=== PATIENT | female | born 1960 | race Caucasian/White ===

== ENCOUNTER 2018-02-25 00:52 | Outpatient (CLI) | payer MEDICAID, SELFPAY ==
--- NOTE | 2018-02-25 08:56 | DI.REPORT_ITS ---
SYMPTOM/DIAGNOSIS: KIDNEY CALCULI N20.0 RENAL ULTRASOUND: Increased echogenicity is noted bilaterally in the medullary regions consistent with medullary nephrocalcinosis. There is no evidence of hydronephrosis. A 4 mm stone is noted at the lower pole of the right kidney. Multiple nonobstructing stones are seen in the left kidney. The pre-void bladder volume measures 79 cc. Both ureteral jets were identified. The post-void residual is 3 cc. IMPRESSION: Medullary nephrocalcinosis and small nonobstructing stones. The previously noted hydronephrosis has resolved.
== END 2018-02-25 00:53 ==
PROVIDERS: PCP Nurse Practitioner; Visit Provider Urology
DX: N20.0 Calculus of kidney (principal); E83.59 Other disorders of calcium metabolism; N29 Other disorders of kidney and ureter in diseases classified elsewhere
CPT/HCPCS: 76770

== ENCOUNTER 2018-03-26 12:13 | Outpatient (CLI) | payer MEDICAID, SELFPAY | END 2018-03-26 12:33 | PROVIDERS: PCP Nurse Practitioner; Visit Provider Urology | DX: R30.0 Dysuria (principal) | CPT/HCPCS: 87077; 87086; 87186 ==

== ENCOUNTER 2018-04-09 19:32 | Emergency (ER) | payer MEDICAID, SELFPAY ==
[2018-04-09 19:35] VITALS: BP 134/78; PULSE 76; RESP 16; TEMP 36.6; O2SAT 99
--- NOTE | 2018-04-09 19:53 | DI.CT_ITS ---
SYMPTOM/DIAGNOSIS: H/O STONES, GENERALIZED ABD PAIN, WORSE IN RLQ. RENAL COLIC CT: The lung bases are unremarkable. There is some gas in the distal esophagus which could be related to reflux. A fatty liver is identified. The gallbladder is unremarkable. There are no stones or ductal dilatation. The pancreas, spleen and adrenals are unremarkable. Bilateral nonobstructing renal calculi are demonstrated. There is a right extra renal pelvis and the right ureter appears dilated. There is some prominence of the uroepithelium superiorly. Findings can be seen with infection or recently passed stone. There is no evidence of bowel obstruction. Distal descending and sigmoid diverticulosis is identified. There is some questionable mild haziness in the fat adjacent to the colon which could represent early diverticulitis. There are areas of increased density within the stomach which may be related to ingested products. There is some wall prominence of the small bowel in the left side of the abdomen. This is likely related to underdistention. The appendix is dilated at 9 mm, similar to the prior examination. There is no evidence of periappendiceal inflammatory change. The bladder is unremarkable. The reproductive organs as visualized are unremarkable. There is no evidence of free air or free fluid in the intraperitoneal space. No acute bony abnormality is seen. Degenerative changes are identified. Incidental note is made of a 1.2 cm density in the posterior aspect of the left breast. There is no evidence of an aortic aneurysm or adenopathy. SUMMARY: There are bilateral nonobstructing renal calculi. There is an extra- renal pelvis on the right side and the right ureter appears somewhat dilated. The findings could be seen in infection or recently passed calculus. Distal descending and sigmoid diverticulosis is identified with no definite evidence of diverticulitis. Wall prominence in the small bowel in the left abdomen is likely related to underdistention. There is a 1.2 cm. density in the posterior aspect of the left breast. Diagnostic mammograms and ultrasound are suggested for further evaluation. Note is also made of a fatty liver.
[2018-04-09 20:15] LABS: Abs Immature Grans 0.02 k/cumm (0.0-0.09); Absolute Basophil Count 0.06 k/cumm (0.0-0.2); Absolute Eosinophil Count 0.11 k/cumm (0.0-0.7); Absolute Monocyte Count 0.61 k/cumm (0.11-0.7); Absolute Neutrophil Count 4.28 k/cumm (1.2-6.7); Basophils % 0.7; Eosinophils % 1.3; HCT 44.4 % (36.0-46.0); HGB 14.9 g/dL (12.0-15.5); Immature Grans % 0.2; Lymphocytes % 38.6; Mean Corp. HGB Concentration 33.6 g/dL (32.0-36.0); Mean Corpuscular Hemoglobin 29.7 pg (27.0-33.0); Mean Corpuscular Volume 88.6 fL (80-95); Mean Platelet Volume 11.1 fL (8.0-11.0); Monocytes % 7.4; Neutrophils % 51.8; Platelet Count 210 x1000/uL (130-400); RBC 5.01 m/cumm (4.00-5.20); RBC Distribution Width 13.1 % (11.7-14.6); White Blood Cell Count 8.28 k/cumm (4.4-10.8)
[2018-04-09 20:16] LABS: Bilirubin Negative (Negative); Blood Negative (Negative); Clarity Clear; Glucose Negative (Negative); Ketones Negative (Negative); Leukocyte Esterase Trace (Negative); Nitrite Negative (Negative); Specific Gravity <= 1.005 (1.005-1.025); Urobilinogen 0.2 EU/dL (Up TO 0.2)
[2018-04-09] MEDS: Acetaminophen 500 MG TAB 1000 MG PO (20:18)
[2018-04-09] MEDS: Normal Saline 1,000 ML 1000 ML IV (20:19)
[2018-04-09] MEDS: MORPHine 10 MG/ML VIAL 4 MG IVP (20:19)
[2018-04-09] MEDS: Ketorolac 30 MG/ML VIAL 15 MG IVP (20:19)
[2018-04-09 20:30] LABS: Bacteria Rare HPF (Negative); Epithelial Cells Rare HPF (Negative); Other Cells Negative (Negative); RBC 0-2 (0-2)
[2018-04-09 20:31] LABS: C & S Indicated? C&S Done As Ordered; Casts Negative LPF (Negative); Crystals Negative HPF (Negative); Mucus Negative (Negative)
[2018-04-09 20:33] LABS: ALT 50 U/L (12-78); Albumin 4.2 g/dL (3.4-5.0); Alkaline Phosphatase 118 U/L (46-116); Anion Gap 11.1 mmol/L (3-11); BUN 16 mg/dL (7-18); Bilirubin, Total 0.3 mg/dL (0.2-1.0); CO2 25.9 mmol/L (21.0-32.0); CREATININE 0.99 mg/dL (0.55-1.02); Calcium 8.9 mg/dL (8.5-10.1); Chloride 99 mmol/L (98-107); Estimated GFR 57.61 (mL/min/1.73m2); Glucose 137 mg/dL (70-100); Lipase 295 U/L (73-393); Potassium 3.6 mmol/L (3.5-5.1); Sodium 136 mmol/L (136-145); Total Protein 7.9 g/dL (6.4-8.2)
--- NOTE | 2018-04-09 20:42 | ED.GENADUL_ITS ---
Discharge Plan Disposition Patient Disposition: HOME Condition: Good Discharge Details Chief Complaint: Abd Prob Clinical Impression: Urolithiasis, Breast lesion Primary Care Provider: Demetria Larios ED Provider: Jose Tillman Home Meds and New Rx's Prescriptions: New acetaminophen [Mapap Extra Strength] 500 MG tablet 1,000 mg PO Q6H 5 Days Qty: 60 RF: 0 ibuprofen [Motrin IB] 200 MG tablet 600 mg PO Q6H 5 Days Qty: 60 RF: 0 sulfamethoxazole-trimethoprim [Bactrim DS] 800-160 mg tablet 1 tab PO Q12H Qty: 14 RF: 0 metronidazole [Flagyl] 500 mg tablet 500 mg PO TID Qty: 21 RF: 0 No Action APPLE CIDER VINEGAR 500 mg PO 2 TBS DAILY RF: 0 EPIPEN 1 ea IM 1:1000 ONCE RF: 0 sulfamethoxazole-trimethoprim [Bactrim DS] 800-160 mg tablet 1 tab PO BID Qty: 20 RF: 0 chlorthalidone 25 MG tablet 25 mg PO DAILY RF: 0 cranberry conc-ascorbic acid [Cranberry Concentrate] 1 EACH capsule 3 mg PO DAILY RF: 0 magnesium oxide 400 MG tablet 400 mg PO DAILY RF: 0 chromium picolinate 400 MCG tablet 400 mcg PO DAILY RF: 0 flaxseed oil 1,000 MG capsule 1,000 mg PO DAILY RF: 0 ascorbate calcium 500 MG tablet 1,500 mg PO DAILY RF: 0 nystatin (bulk) 1 EACH powder 1 appful . PRN PRNRF: 0 potassium chloride 20 MEQ tablet extended release 20 mg PO DAILY RF: 0 Blackstrap Molasses 15 ml PO DAILY RF: 0 acetaminophen [Mapap Extra Strength] 500 MG tablet 1,000 mg PO Q4H PRN PRNRF: 0 acidophilus-pectin, citrus 1 CAP tablet 1 cap PO TID PRN PRNRF: 0 Discharge Instructions Instructions: Kidney Stones (ED) Additional Instructions: A breast lesion was noted on your CT scan. This may just be an incidental finding, but please follow-up with your primary care provider as soon as possible for reassessment. Please take medication as directed. If you notice any worsening of your symptoms, or any new symptoms such as vomiting, diarrhea, fever, chills, shortness of breath, chest pain, numbness, weakness, or fainting , please return immediately to the emergency department for reevaluation. Please follow up with your primary care provider as soon as possible for reassessment and reevaluation. As always, it was a pleasure participating in your medical care today. Referrals: Demetria Larios [Primary Care Provider] - Medical Decision Making This is a pleasant 57-year-old female with a long history of multiple episodes of kidney stones in the past for which she has had multiple interventions. She has been on an antibiotic for the last 10 days for suspected urinary tract infection. This antibiotic is Bactrim. She has been taking it as directed. Over the last 24-48 hours she has had bilateral flank pain, right lower quadrant pain, and generalized abdominal pain. Physical exam demonstrates reproducible tenderness in these areas. We will perform urinalysis , pain control, rehydration, and CT scan to evaluate for acute obstructive process in conjunction with potential infectious etiology. 10:[address] scan results demonstrate bilateral nonobstructive renal calculi. There is mild dilation of the right extrarenal pelvis and the right ureter, but there is no evidence of stone. This may represent a recently passed calculus. Distal descending sigmoid diverticulosis with mild haziness to the surrounding fat. This might be concerning for early diverticulitis. Small prominence of the small bowel in the left hemiabdomen. Could be related to under distention or enteritis. 1.2 cm density within the posterior aspect of the left breast. Diagnostic mammography and ultrasound would be beneficial. Patient's laboratory workup has returned, and she demonstrates no evidence of leukocytosis. No significant white count. No significant left shift. Electrolytes are normal. Renal function is normal. Urinalysis shows trace leukocytes, 3-5 WBCs, negative nitrites. On reassessment the patient's pain is significantly improved. With no evidence of obstructing uropathy, no signs of pyelonephritis or significant UTI, I feel that her clinical picture does correlate with a recently passed stone, and potentially well treated urinary tract infection on her outpatient antibiotics. Patient has no significant left lower quadrant tenderness, however CT does show signs of questionable haziness of the surrounding fat. She has no significant diarrhea, or bloody diarrhea. I feel that the diagnosis of diverticulitis is certainly less likely with her current clinical picture. I feel she can be safely discharged home. Out of abundance of precaution we will give her a prescription for Bactrim DS, and Flagyl for home use in case she does have an onset of her symptoms, concerning for diverticulitis. We discussed reasons for her to start taking medication. Additionally we discussed the importance of close follow-up in the next 48 hours with her PCP. We discussed red flags for which to return the patient understands. We also discussed the need for follow-up for the breast density noted on CT scan. I have extensively reviewed the treatment plan and discharge instructions with the patient. I have addressed all patient concerns at this time. The patient was made aware of what symptoms to monitor for that would warrant a return to the emergency department. Discussed the plan with the patient, they demonstrate verbal understanding and agreement with our assessment and plan at this time. HPI General Date/Time Provider Initiated Documentation: 04/09/18 19:53 . HPI Narrative: This is a 57-year-old female with past medical history of renal stones, previous renal stents, multiple interventions in the past, as well as hypertension who sees Dr. Agustin for her urology. She presents today for evaluation of generalized abdominal back and flank pain. Patient states that roughly 2 weeks ago she had dysuria and increase in urinary frequency, and was started on Bactrim. She has been taking this faithfully for the last 10 days. And then she has been drinking notable amounts of water, and taking some Pyridium occasionally. Over the last 24-48 hours she has had sudden worsening of bilateral back and flank pain, generalized abdominal pain, worse in the right lower quadrant, as well as generalized abdominal pain. She states that the symptoms are very similar to her multiple episodes of kidney stones in the past. She denies any systemic symptoms of fevers or chills. She denies any diarrhea. She does admit to occasional nausea and the desire to vomit. She denies any aggravating or relieving factors. She denies any recent surgeries, she denies any pertinent family history. She denies any IV or illicit drug use Related Data Home Medications Medication Instructions Recorded Confirmed Apple Cider Vinegar 500 mg PO 2 TBS DAILY 12/16/12 01/03/18 Epipen 1 ea IM 1:1000 ONCE 12/16/12 01/03/18 chlorthalidone 25 mg PO DAILY 05/20/16 01/03/18 chromium picolinate 400 mcg PO DAILY 05/20/16 01/03/18 cranberry conc-ascorbic acid 3 mg PO DAILY 05/20/16 01/03/18 [Cranberry Concentrate] magnesium oxide 400 mg PO DAILY 05/20/16 01/03/18 Blackstrap Molasses 15 ml PO DAILY 11/25/17 01/03/18 nystatin (bulk) 1 appful . PRN PRN 11/25/17 01/03/18 potassium chloride 20 mg PO DAILY 11/25/17 01/03/18 ascorbate calcium 1,500 mg PO DAILY 12/21/17 01/03/18 flaxseed oil 1,000 mg PO DAILY 12/21/17 01/03/18 acetaminophen [Mapap Extra 1,000 mg PO Q4H PRN PRN tab 01/04/18 Strength] acidophilus-pectin, citrus 1 cap PO TID PRN PRN cap 01/04/18 sulfamethoxazole 800 1 tab PO BID #20 tab 03/29/18 mg-trimethoprim 160 mg tablet acetaminophen [Mapap Extra 1,000 mg PO Q6H 5 Days #60 tab 04/09/18 Strength] ibuprofen [Motrin Ib] 600 mg PO Q6H 5 Days #60 tab 04/09/18 metronidazole [Flagyl] 500 mg PO TID #21 tab 04/09/18 sulfamethoxazole-trimethoprim 1 tab PO Q12H #14 tab 04/09/18 [Bactrim DS] Previous Rx's Medication Instructions Recorded acetaminophen [Mapap Extra 1,000 mg PO Q4H PRN PRN tab 01/04/18 Strength] acidophilus-pectin, citrus 1 cap PO TID PRN PRN cap 01/04/18 sulfamethoxazole 800 1 tab PO BID #20 tab 03/29/18 mg-trimethoprim 160 mg tablet acetaminophen [Mapap Extra 1,000 mg PO Q6H 5 Days #60 tab 04/09/18 Strength] ibuprofen [Motrin Ib] 600 mg PO Q6H 5 Days #60 tab 04/09/18 metronidazole [Flagyl] 500 mg PO TID #21 tab 04/09/18 sulfamethoxazole-trimethoprim 1 tab PO Q12H #14 tab 04/09/18 [Bactrim DS] Allergies Allergy/AdvReac Type Severity Reaction Status Date / Time chocolate flavor Allergy Severe ANAPHYLAXIS Unverified 02/25/18 09:38 venom-honey bee Allergy Severe Anaphylaxsi Unverified 02/25/18 09:38 [bee venom (honey bee)] s pomegranate Allergy Intermediate sore Unverified 02/25/18 09:38 throat, diarrhea ciprofloxacin [From Cipro] Allergy Mild RASH,T Unverified 02/25/18 09:38 ELEVATION,TACHYCARDIA docusate sodium Allergy Unverified 02/25/18 09:38 [From Senna-S] sennosides [From Senna-S] Allergy Unverified 02/25/18 09:38 milk AdvReac Intermediate Diarrhea Unverified 02/25/18 09:38 peanut AdvReac Mild Diarrhea Unverified 02/25/18 09:38 cammomile Allergy Severe Skin Rash Uncoded 01/03/18 09:05 CHLORINE Allergy Severe Anaphylaxsi Uncoded 01/03/18 09:05 s General Stated Complaint: Abd Prob GUAD[place]UPE: 3 Review of Systems Review of Systems 10 point review of systems was performed, pertinent positives and negatives are noted in the history of present illness. FORMERLY [facility], [facility] Social History Smoking/Tobacco Use Status: Never Exam Narrative Exam Narrative: 1.Const: Well-nourished, Well-developed, appearing stated age 2.Eyes: PERRL, no conjunctival injection, and symmetrical lids. 3.ENT: Atraumatic external nose and ears. Moist MM. Neck: Symmetric, trachea midline, No thyromegaly. 4.CVS: +S1/S2, No murmurs or gallops. Peripheral pulses 2+ and equal in all extremities. Brisk capillary refill in all extremities. 5.RESP: Unlabored respiratory effort. Clear to auscultation bilaterally. No wheezes rales or rhonchi 6.GI: Soft, Nondistended, No hepatosplenomegaly. Generalized tenderness throughout. Reproducible flank tenderness bilaterally, right lower quadrant tenderness on exam. Negative Mulligan sign. Negative obturator and psoas sign 7.MSK: Normocephalic/Atraumatic, Extremities w/o deformity or ttp No cyanosis or clubbing, Normal movement of all extremities 8.Skin: Warm, Dry. No rashes or lesions. 9.Neuro: barrel painter II-XII grossly intact. Sensation grossly intact, no focal neurologic deficits. 10.Psych: (AAO) x3. Appropriate mood and affect Course Vital Signs Temperature 36.6 C 09/25/18 19:35 Pulse 76 04/09/18 19:35 Respiratory Rate 16 04/09/18 19:35 Blood Pressure 134/78 04/09/18 19:35 Pulse Oximetry 99 04/09/18 19:35 Temperature 36.6 C 04/09/18 19:35 Temperature Source Temporal Artery Scan 04/09/18 19:35 Pulse 76 04/09/18 19:35 Respiratory Rate 16 04/09/18 19:35 Respiratory Effort 04/09/18 19:39 Blood Pressure 134/78 04/09/18 19:35 Blood Pressure Position Sitting 04/09/18 19:35 Pulse Oximetry 99 04/09/18 19:35 Oxygen Delivery Method Room Air 04/09/18 19:35 Oxygen Flow Rate 0 04/09/18 19:35 Lab/Test Results Lab/Test Results: 04/09/18 19:58 Urine - Clean Catch Urine Culture - Pending Laboratory Tests Range/Units 04/09/18 04/09/18 19:58 19:58 WBC (4.4-10.8) k/cumm 8.28 RBC (4.00-5.20) m/cumm 5.01 Hgb (12.0-15.5) g/dL 14.9 Hct (36.0-46.0) % 44.4 MCV (80-95) fL 88.6 MCH (27.0-33.0) pg 29.7 MCHC (32.0-36.0) g/dL 33.6 RDW (11.7-14.6) % 13.1 Plt Count (130-400) x1000/uL 210 MPV (8.0-11.0) fL 11.1 H Immature Gran % 0.2 Neutrophils % 51.8 Lymphocytes % 38.6 Monocytes % 7.4 Eosinophils % 1.3 Basophils % 0.7 Absolute Neutrophils (1.2-6.7) k/cumm 4.28 Absolute Lymphocytes (1.2-3.4) k/cumm 3.20 Absolute Monocytes (0.11-0.7) k/cumm 0.61 Absolute Eosinophils (0.0-0.7) k/cumm 0.11 Absolute Basophils (0.0-0.2) k/cumm 0.06 Urine Color (Yellow) Yellow Urine Clarity Clear Urine pH (5-8) 7.0 Ur Specific [place] (1.005-1.025) <= 1.005 Urine Protein (Negative) mg/dL Negative Urine Ketones (Negative) mg/dL Negative Urine Blood (Negative) Negative Urine Nitrite (Negative) Negative Urine Bilirubin (Negative) Negative Urine Urobilinogen (Up TO 0.2) EU/dL 0.2 Ur Leukocyte Esterase (Negative) Trace H Urine Glucose (Negative) mg/dL Negative
[2018-04-09 21:08] LABS: AST 29 U/L (15-37)
--- NOTE | 2018-04-09 22:01 | DI.VRAD_ITS ---
EXAM: CT Abdomen and Pelvis Without Intravenous Contrast CLINICAL HISTORY: 57 years old, female; Signs and symptoms; Other: HX of stones, generalized abd TECHNIQUE: Axial computed tomography images of the abdomen and pelvis without intravenous contrast. All CT scans at this facility use at least one of these dose optimization techniques: automated exposure control; mA and/or kV adjustment per patient size (includes targeted exams where dose is matched to clinical indication); or iterative reconstruction. Coronal and sagittal reformatted images were created and reviewed. COMPARISON: CT RENAL COLIC WO CONTRAST 11/25/2017 12:11 PM FINDINGS: Limitations: Evaluation of the intra-abdominal organs and vasculature is limited secondary to the lack of IV contrast. Evaluation of the bowel is limited secondary to the lack of oral contrast. Lung bases: Unremarkable. No mass. No consolidation. Mediastinum: Gas in the distal esophagus which can be seen with reflux. ABDOMEN: Liver: Hepatic steatosis. Gallbladder and bile ducts: Unremarkable. No calcified stones. No ductal dilation. Pancreas: Unremarkable. No ductal dilation. Spleen: Unremarkable. No splenomegaly. Adrenals: Unremarkable. No mass. Kidneys and ureters: Bilateral nonobstructive renal calculi. There is a right extrarenal pelvis and a dilated appearance to the right ureter. There is prominence of the uroepithelium superiorly. Findings can be seen with infection or a recently passed calculus. Stomach and bowel: No evidence of bowel obstruction. Distal descending and sigmoid diverticulosis is seen. There is some mild haziness to the fat on series 3 image 68 which should be correlated with any concern for early diverticulitis. there are areas of increased density within the stomach which may be related to ingested products. There is some wall prominence to the small bowel in the left emily-abdomen (series 3 image 44) which may be related to underdistention but should be correlated with any concern for enteritis. PELVIS: Appendix: The appendix is measuring dilated at 9 mm, similar to prior examination. This is favored to be chronic as the appendix is gas containing and demonstrates no periappendiceal infiltrative changes. Bladder: The urinary bladder within normal limits. No stones. Reproductive: The uterus identified. No large adnexal masses. ABDOMEN and PELVIS: Intraperitoneal space: Unremarkable. No free air. No significant fluid collection. Bones/joints: Skeletal degenerative changes. Disc space narrowing at L5-S1 with corresponding vacuum phenomenon. No acute fracture. No dislocation. Soft tissues: Series 3 image 1 demonstrates a 1.2 cm density within the posterior aspect of the left breast. Vasculature: Vascular calcifications. Lymph nodes: Unremarkable. No enlarged lymph nodes. IMPRESSION: 1.Bilateral nonobstructive renal calculi. There is a right extrarenal pelvis and a dilated appearance to the right ureter. There is prominence of the uroepithelium superiorly. Findings can be seen with infection or a recently passed calculus. 2. distal descending and sigmoid diverticulosis with a mild haziness to the surrounding fat. This should be correlated with any concern for early diverticulitis. 3. The wall prominence in the small bowel in the left hemiabdomen. This could be related to underdistention or enteritis in the appropriate clinical setting. 4. 1.2 cm density within the posterior aspect of the left breast. Diagnostic mammogram and ultrasound would be beneficial. 5. Hepatic steatosis and other findings as above. Dictated and Authenticated by: Cindy Henry MD. Ordering:MARQUEZ LUNA MD
[2018-04-09 22:30] VITALS: BP 122/72; PULSE 52; RESP 16; TEMP 37.2; O2SAT 100
[2018-04-09] MEDS: Ibuprofen 800 MG TAB (22:39)
[2018-04-09] MEDS: Acetaminophen 500 MG TAB (22:39)
[2018-04-09] MEDS: HYDROcodone 5/Acetaminophen 325 TAB (22:39)
== END 2018-04-09 23:01 | disposition home or self-care (01) ==
PROVIDERS: Emergency Provider Student in an Organized Health Care Education/Training Program; PCP Nurse Practitioner
DX: N20.0 Calculus of kidney (principal); R93.5 Abnormal findings on diagnostic imaging of other abdominal regions, including retroperitoneum; R93.3 Abnormal findings on diagnostic imaging of other parts of digestive tract; Z87.442 Personal history of urinary calculi
CPT/HCPCS: 36415; 80053; 83690; 96361; 96374; 96375; 99284; 74176; 81003; 81015; 85025; 87086; 99285; J1885; J2270

== ENCOUNTER 2018-04-10 13:15 | Outpatient (CLI) | payer MEDICAID, SELFPAY ==
--- NOTE | 2018-04-10 13:52 | DI.MAMMO_ITS ---
SYMPTOM/DIAGNOSIS: ABNL BREAST FINDINGS, LT BREAST LESION ON CT MAMMOGRAMS: Additional images are interpreted according to the usual protocol including tomosynthesis and 2D imaging. The breast tissue is of moderate radiodensity. There are fibroglandular opacities in the upper, outer quadrant of each breast. No discrete mass is identified in the right or left breast and there are no suspicious calcifications. There is a question regarding the possibility of a left breast nodule on a recent CT. Further assessment with ultrasound was carried out. At ultrasound there is no evidence of a cyst or mass. SUMMARY: No evidence of malignancy, Category 1, yearly screening mammography is recommended. Breast density category B. MQSA ASSESSMENT OF FINDINGS: Negative. Category 1. Patient will receive a letter notifying them of these results. BI-RADS category B. There are scattered areas of fibroglandular density.
== END 2018-04-10 13:35 ==
PROVIDERS: PCP Nurse Practitioner; Visit Provider Nurse Practitioner
DX: Z12.31 Encounter for screening mammogram for malignant neoplasm of breast (principal); R92.8 Other abnormal and inconclusive findings on diagnostic imaging of breast; N60.81 Other benign mammary dysplasias of right breast; N60.82 Other benign mammary dysplasias of left breast
CPT/HCPCS: 76642; 77062; 77066; G0279

== ENCOUNTER 2018-04-10 18:57 | Emergency (ER) | payer MEDICAID, SELFPAY ==
[2018-04-10 19:10] VITALS: BP 146/65; PULSE 61; RESP 16; TEMP 36.9; O2SAT 97
--- NOTE | 2018-04-10 19:40 | ED.GENADUL_ITS ---
Discharge Plan Disposition Condition: Stable Discharge Details Chief Complaint: Allergic Primary Care Provider: Demetria Larios ED Provider: Jose Luis Grant Home Meds and New Rx's Prescriptions: No Action APPLE CIDER VINEGAR 500 mg PO 2 TBS DAILY RF: 0 EPIPEN 1 ea IM 1:1000 ONCE RF: 0 sulfamethoxazole-trimethoprim [Bactrim DS] 800-160 mg tablet 1 tab PO BID Qty: 20 RF: 0 chlorthalidone 25 MG tablet 25 mg PO DAILY RF: 0 cranberry conc-ascorbic acid [Cranberry Concentrate] 1 EACH capsule 3 mg PO DAILY RF: 0 magnesium oxide 400 MG tablet 400 mg PO DAILY RF: 0 chromium picolinate 400 MCG tablet 400 mcg PO DAILY RF: 0 flaxseed oil 1,000 MG capsule 1,000 mg PO DAILY RF: 0 ascorbate calcium 500 MG tablet 1,500 mg PO DAILY RF: 0 acetaminophen [Mapap Extra Strength] 500 MG tablet 1,000 mg PO Q6H 5 Days Qty: 60 RF: 0 ibuprofen [Motrin IB] 200 MG tablet 600 mg PO Q6H 5 Days Qty: 60 RF: 0 sulfamethoxazole-trimethoprim [Bactrim DS] 800-160 mg tablet 1 tab PO Q12H Qty: 14 RF: 0 metronidazole [Flagyl] 500 mg tablet 500 mg PO TID Qty: 21 RF: 0 nystatin (bulk) 1 EACH powder 1 appful . PRN PRNRF: 0 potassium chloride 20 MEQ tablet extended release 20 mg PO DAILY RF: 0 Blackstrap Molasses 15 ml PO DAILY RF: 0 acetaminophen [Mapap Extra Strength] 500 MG tablet 1,000 mg PO Q4H PRN PRNRF: 0 acidophilus-pectin, citrus 1 CAP tablet 1 cap PO TID PRN PRNRF: 0 Medical Decision Making 57-year-old female presents with mild pharyngitis over hours time. She has numerous medication intolerances and allergies and this may in fact she mildly to medication she was prescribed yesterday in the form of high dose prescription Tylenol. She does no evidence of impending anaphylaxis, no rash. He had taken Benadryl prior with some improvement. I will prescribe her 3 days of prednisone. I feel she is stable for discharge with outpatient management of mild pharyngitis. HPI General Mode of arrival: ambulatory . Date/Time Provider Initiated Documentation: 04/10/18 19:37 . Limitations to Documentation: no limitations . History of Present Illness described as mild, Quality is described as aching, Patient reports no radiation. Patient started experiencing this hour(s) and it has been constant. No relieving factors improve symptom(s), No exacerbating factors reported . HPI Narrative: Sore throat: 49-year-old female describes gradual onset of achy, mild sore throat that is worsened by swallowing over the course of the day today. She attributes it to question of intolerance of prescribed acetaminophen that she received yesterday when she had an emergency department visit for renal colic. She states her kidney and pain is improving. She has not had difficulty breathing, no drooling , no change to voice Related Data Home Medications Medication Instructions Recorded Confirmed Apple Cider Vinegar 500 mg PO 2 TBS DAILY 12/16/12 04/10/18 Epipen 1 ea IM 1:1000 ONCE 12/16/12 04/10/18 chlorthalidone 25 mg PO DAILY 05/20/16 04/10/18 chromium picolinate 400 mcg PO DAILY 05/20/16 04/10/18 cranberry conc-ascorbic acid 3 mg PO DAILY 05/20/16 04/10/18 [Cranberry Concentrate] magnesium oxide 400 mg PO DAILY 05/20/16 04/10/18 Blackstrap Molasses 15 ml PO DAILY 11/25/17 04/10/18 nystatin (bulk) 1 appful . PRN PRN 11/25/17 04/10/18 potassium chloride 20 mg PO DAILY 11/25/17 04/10/18 ascorbate calcium 1,500 mg PO DAILY 12/21/17 04/10/18 flaxseed oil 1,000 mg PO DAILY 12/21/17 04/10/18 acetaminophen [Mapap Extra 1,000 mg PO Q4H PRN PRN tab 01/04/18 04/10/18 Strength] acidophilus-pectin, citrus 1 cap PO TID PRN PRN cap 01/04/18 04/10/18 sulfamethoxazole 800 1 tab PO BID #20 tab 03/29/18 04/10/18 mg-trimethoprim 160 mg tablet acetaminophen [Mapap Extra 1,000 mg PO Q6H 5 Days #60 tab 04/09/18 04/10/18 Strength] ibuprofen [Motrin Ib] 600 mg PO Q6H 5 Days #60 tab 04/09/18 04/10/18 metronidazole [Flagyl] 500 mg PO TID #21 tab 04/09/18 04/10/18 sulfamethoxazole-trimethoprim 1 tab PO Q12H #14 tab 04/09/18 04/10/18 [Bactrim DS] Previous Rx's Medication Instructions Recorded acetaminophen [Mapap Extra 1,000 mg PO Q4H PRN PRN tab 01/04/18 Strength] acidophilus-pectin, citrus 1 cap PO TID PRN PRN cap 01/04/18 sulfamethoxazole 800 1 tab PO BID #20 tab 03/29/18 mg-trimethoprim 160 mg tablet acetaminophen [Mapap Extra 1,000 mg PO Q6H 5 Days #60 tab 04/09/18 Strength] ibuprofen [Motrin Ib] 600 mg PO Q6H 5 Days #60 tab 04/09/18 metronidazole [Flagyl] 500 mg PO TID #21 tab 04/09/18 sulfamethoxazole-trimethoprim 1 tab PO Q12H #14 tab 04/09/18 [Bactrim DS] Allergies Allergy/AdvReac Type Severity Reaction Status Date / Time chocolate flavor Allergy Severe ANAPHYLAXIS Unverified 04/10/18 19:29 venom-honey bee Allergy Severe Anaphylaxsi Unverified 04/10/18 19:29 [bee venom (honey bee)] s pomegranate Allergy Intermediate sore Unverified 04/10/18 19:29 throat, diarrhea ciprofloxacin [From Cipro] Allergy Mild RASH,T Unverified 04/10/18 19:29 ELEVATION,TACHYCARDIA docusate sodium Allergy Unverified 04/10/18 19:29 [From Senna-S] sennosides [From Senna-S] Allergy Unverified 04/10/18 19:29 milk AdvReac Intermediate Diarrhea Unverified 04/10/18 19:29 peanut AdvReac Mild Diarrhea Unverified 04/10/18 19:29 cammomile Allergy Severe Skin Rash Uncoded 04/10/18 19:29 CHLORINE Allergy Severe Anaphylaxsi Uncoded 04/10/18 19:29 s General Stated Complaint: Allergic GUADALUPE: 4 Review of Systems Review of Systems 6 systems reviewed and otherwise negative PFSH Social History Smoking/Tobacco Use Status: Never Exam Narrative Exam Narrative: GEN: awake, alert, oriented 3. Pleasant, well groomed, interactive. HEAD: Normocephalic, atraumatic ENT: Mucous membranes moist, oropharynx with mild erythema of the tonsillar pillars, no exudate, no swelling, and no asymmetry, External ear exam unremarkable. There is anterior cervical lymphadenopathy that is mildly tender and symmetric EYES: PERRL, EOMI NECK: Full ROM, no DISHA, no menigismus CHEST/RESP: Nontender, clear to auscultation bilateral, no wheeze/rhonchi/rales CARDIOVASCULAR: RRR, no murmur, rub elizabeth. 2+ Rad pulse bilateral EXT: Full ROM, no edema, no rash Neuro: Grossly normal neurologic exam, conversant, interactive. Psych: Speech fluent, thoughts congruent, affect normal Course Vital Signs Temperature 36.9 C 04/10/18 19:10 Pulse 61 04/10/18 19:10 Respiratory Rate 16 04/10/18 19:10 Blood Pressure 146/65 H 04/10/18 19:10 Pulse Oximetry 97 04/10/18 19:10 Temperature 36.9 C 04/10/18 19:10 Temperature Source Temporal Artery Scan 04/10/18 19:10 Pulse 61 04/10/18 19:10 Respiratory Rate 16 04/10/18 19:10 Respiratory Effort 04/10/18 19:16 Respiratory Pattern Normal 04/10/18 19:16 Blood Pressure 146/65 H 04/10/18 19:10 Pulse Oximetry 97 04/10/18 19:10 Oxygen Delivery Method Room Air 04/10/18 19:10 Oxygen Flow Rate 0 04/10/18 19:10 Pain Level 3 04/10/18 19:10
[2018-04-10] MEDS: predniSONE 20 MG TAB 40 MG PO (19:41)
--- NOTE | 2018-04-11 14:16 | PDOC.ERCMPRO ---
Care Management Progress Note 04/10/18-Pt seen on 04/09/18 for mild pharyngitis. F/U refrral faxed to [facility] as Graeme is pt's PCP.
== END 2018-04-10 20:02 | disposition home or self-care (01) ==
LOC: ER 19:57
PROVIDERS: Emergency Provider Emergency Medicine; PCP Nurse Practitioner
DX: J02.9 Acute pharyngitis, unspecified (principal)
CPT/HCPCS: 99283; J7512

== ENCOUNTER 2018-04-21 11:39 | Outpatient (REF) | payer MEDICAID, SELFPAY | END 2018-04-21 11:59 | LOC: LBN 11:39 | PROVIDERS: PCP Nurse Practitioner; Visit Provider Urology | DX: N39.0 Urinary tract infection, site not specified (principal) | CPT/HCPCS: 87086 ==

== ENCOUNTER 2018-05-06 15:00 | Outpatient (REF) | payer MEDICAID, SELFPAY | END 2018-05-06 15:20 | LOC: LBN 15:00 | PROVIDERS: PCP Nurse Practitioner; Visit Provider Nurse Practitioner Gerontology | DX: N39.0 Urinary tract infection, site not specified (principal) | CPT/HCPCS: 87086 ==

== ENCOUNTER 2018-05-14 00:20 | Outpatient (CLI) | payer MEDICAID, SELFPAY ==
--- NOTE | 2018-05-14 09:00 | DI.US_ITS ---
SYMPTOMS/DIAGNOSIS: MONITOR STONES, ? HYDRONEPHROSIS, UTI, RECURRENT NEPHROLITHIASIS, N20.0, N39.0 RENAL ULTRASOUND: Routine examination. Comparison ultrasound is 02/25/18. Comparison CT scan is . The right kidney measures 12.1 cm long. There is again seen increased echogenicity in the medullary region of the kidney consistent with medullary nephrocalcinosis. There does appear to be a discrete echogenic focus in the lower pole of the right kidney measuring approximately 0.4 cm which may represent a single stone. There is normal blood flow to the right kidney. No evidence of hydronephrosis is seen. The left kidney measures 13.5 cm long. There is increased echogenicity in the medullary region consistent with medullary nephrocalcinosis. No definite discrete stone is appreciated. There is normal blood flow to the left kidney. No hydronephrosis is present. The prevoid urinary bladder volume is 163 cc's. The bladder wall appears smooth. No intraluminal mass is seen. Both ureteral jets were visualized. Post void urinary bladder volume was 5 cc's. IMPRESSION: 1. 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 2. Findings suggestive of a 4 mm discrete stone seen in the lower pole of the right kidney.
== END 2018-05-14 00:40 ==
PROVIDERS: PCP Nurse Practitioner; Visit Provider Urology
DX: N20.0 Calculus of kidney (principal); N39.0 Urinary tract infection, site not specified; E83.59 Other disorders of calcium metabolism; N29 Other disorders of kidney and ureter in diseases classified elsewhere
CPT/HCPCS: 76770

== ENCOUNTER 2018-05-27 10:27 | Day surgery (SDC) | payer MEDICAID, SELFPAY ==
[2018-05-27] VITALS (10 sets, daily range): BP systolic 97–156; BP diastolic 44–90; PULSE 51–62; RESP 13–18; TEMP 36.4–36.5; O2SAT 93–99
[2018-05-27] MEDS: Normal Saline 1,000 ML 80 ML IV (11:11)
[2018-05-27] MEDS: Lactated Ringers 1,000 ML 80 ML IV ×2 (12:10→14:20)
[2018-05-27] MEDS: Lidocaine 2% Jelly 6 ML SYR (12:29)
[2018-05-27] MEDS: PIPERACILLIN/TAZO 3.375 GM in Normal Saline 50 ML IVPB (12:37)
[2018-05-27] MEDS: Omnipaque 300 MG/ML 50 ML BTL (12:59)
--- NOTE | 2018-05-27 13:27 | W.PM.DSUDISC ---
Discharge Plan Disposition Patient Disposition: HOME Condition: Stable Discharge Details Reason For Visit: (R) RENAL STONE Attending Provider: Francisco Agustin Primary Care Provider: Demetria Larios Home Meds and New Rx's Prescriptions: No Action cholecalciferol (vitamin D3) 1,000 unit capsule 1,000 unit PO DAILY RF: 0 APPLE CIDER VINEGAR 500 mg PO 2 TBS DAILY RF: 0 EPIPEN 1 ea IM 1:1000 ONCE RF: 0 chlorthalidone 25 MG tablet 25 mg PO DAILY RF: 0 cranberry conc-ascorbic acid [Cranberry Concentrate] 1 EACH capsule 3 mg PO DAILY RF: 0 magnesium oxide 400 MG tablet 400 mg PO DAILY RF: 0 chromium picolinate 400 MCG tablet 400 mcg PO DAILY RF: 0 ascorbate calcium 500 MG tablet 1,500 mg PO DAILY RF: 0 nystatin (bulk) 1 EACH powder 1 appful . PRN PRNRF: 0 potassium chloride 20 MEQ tablet extended release 20 mg PO DAILY RF: 0 Blackstrap Molasses 15 ml PO DAILY RF: 0 acetaminophen [Mapap Extra Strength] 500 MG tablet 1,000 mg PO Q4H PRN PRNRF: 0 acidophilus-pectin, citrus 1 CAP tablet 1 cap PO TID PRN PRNRF: 0 diphenhydramine HCl 25 mg Capsule 25 mg PO PRN PRNRF: 0 Discharge Instructions Additional Instructions: No need to strain urine F/U appt with me 3 to 4 weeks with renal US on same day Activity:: Activity as Tolerated Diet:: As Tolerated Discharge Orders Discharge Orders: Discharge Order (Routine); Ordered 05/27/18 Ordered By: Francisco Agustin
--- NOTE | 2018-05-27 13:43 | DI.RAD_ITS ---
SYMPTOM/DIAGNOSIS: RECURRENT NEPHROLITHIASIS, CALCULUS OF KIDNEY RETROGRADE EVALUATION IN THE O.R. Fluoroscopy Time: 47.3 sec 13.61 mGy Fluoroscopy was utilized by Dr. Agustin during the retrograde evaluation of the renal collecting system. Please refer to the procedure report for complete details.
--- NOTE | 2018-05-27 13:59 | ROE_ITS ---
DATE OF PROCEDURE: May 27, 2018 PREOPERATIVE DIAGNOSIS: Right renal stones. POSTOPERATIVE DIAGNOSIS: Same. PROCEDURE: Cystoscopy; selective urine cultures from bladder, right kidney and left kidney; right re trograde pyelogram; right flexible ureteroscopy with stone extractions. SURGEON: Francisco Agustin M.D. ANESTHESIA: General. COMPLICATIONS: None. ESTIMATED BLOOD LOSS: Minimal. FINDINGS: Multiple stones in the mid and lower pole calyces on the right. HISTORY: This is a 58-year-old woman who has a long history of kidney stones. Some of the stones small ve been struvite in composition. She has had recurrent pain and proteus urinary tract infections. On an ultrasound she still has some small stone debris up in the kidney. We are concerned that some of the stone debris may be consiste nt with infection stone and she presents now for stone manipulation. OPERATIVE REPORT: The patient was brought to the operating room on 05/27/18. After successful induc tion of general anesthesia, she was placed in the dorsal lithotomy position. Her genitalia was prepp ed and draped. I passed a 22 Serbian rigid cystoscope through the urethra into the bladder. I drained the bladder of its urine and sent that urine to the lab for a culture. We then visualized both ureteral orifices. We passed a 6 Serbian access catheter up the left ureter a nd collected urine directly from the left kidney. This too was sent to the lab for a culture. Finally, we passed an access catheter into the right ureteral orifice and advanced it to the kidney. We collected urine directly from the right kidney for a culture. Once the cultures had been obtained, we injected Omnipaque through the access catheter and outlined t he collecting system on the right. We passed a Glidewire through the access catheter and removed bot h the catheter and the cystoscope. A dual-lumen catheter was advanced over the wire and a second wire was positioned. We chose one of t he wires as a working wire and the other as a safety wire. We passed the ureteral access sheath over the working wire. Once the sheath was in place, we removed the working wire. We then passed the flexible ureteroscope through the access sheath up to the renal pelvis. We inspec lisset each calyx. We visualized a rather large, flat stone fragment in a mid-calyx on the right. This was grasped and removed in a Zero Tip stone basket. In the lower pole calyx we identified more roundish stones, which likewise were grasped in a Zero Tip basket and removed in their entirety. Some of the smaller fragments were flushed into the proximal ureter, where they are expected to pass on their own. In addition to the culture specimens, the stones were sent to pathology for chemical analysis. We el ected not to place a ureteral stent. The patient tolerated this procedure well with no complications.
[2018-05-27] MEDS: HYDROmorphone 2 MG/ML VIAL IVP (14:05)
[2018-05-27] MEDS: Phenazopyridine 200 MG TAB PO (15:30)
[2018-05-31 23:55] LABS: Source: Ureter
== END 2018-05-27 16:42 | disposition home or self-care (01) ==
PROVIDERS: PCP Nurse Practitioner; Visit Provider Urology
PROC: (CPT 52352; principal; 2018-05-27 12:00)
DX: N20.0 Calculus of kidney (principal); Z87.440 Personal history of urinary (tract) infections; B96.4 Proteus (mirabilis) (morganii) as the cause of diseases classified elsewhere; Z87.442 Personal history of urinary calculi
CPT/HCPCS: 52352; 87077; 74420; 82360; 87086; 87186; J1100; J1885; J2250; J2405; J2543; Q9967

== ENCOUNTER 2018-06-28 00:17 | Outpatient (CLI) | payer MEDICAID, SELFPAY ==
--- NOTE | 2018-06-28 07:48 | DI.US_ITS ---
SYMPTOM/DIAGNOSIS: KIDNEY CALCULI N20.0, RECURRENT NEPHROLITHIASIS, S/P URETEROSCOPY RENAL ULTRASOUND: Comparison is made with 14 [address] dated 09 Apr 2018 The kidneys are normal in size. Again noted is echogenic medullary regions bilaterally consistent with medullary nephrocalcinosis. No hydronephrosis is seen. The pre-void bladder volume measures 78 cc. Both ureteral jets were visualized. No bladder calculi are seen. There is no post-void residual. IMPRESSION: Medullary nephrocalcinosis. No evidence of hydronephrosis.
== END 2018-06-28 00:37 ==
PROVIDERS: PCP Nurse Practitioner; Visit Provider Urology
DX: N20.0 Calculus of kidney (principal); E83.59 Other disorders of calcium metabolism; N29 Other disorders of kidney and ureter in diseases classified elsewhere
CPT/HCPCS: 76770

== ENCOUNTER 2018-08-30 12:52 | Outpatient (CLI) | payer MEDICAID, SELFPAY ==
--- NOTE | 2018-08-30 13:03 | DI.US_ITS ---
SYMPTOMS/DIAGNOSIS: RECURRENT NEPHROLITHIASIS, N20.0, CALCULUS OF KIDNEY, ? HYDRONEPHROSIS RENAL ULTRASOUND: Comparison ultrasound is 06/28/18. Comparison CT scan is 04/09/18. The right kidney measures 11 cm long. No renal masses or obstruction is seen. There is again seen increased echogenicity in the medullary regions of the right kidney, suggestive of medullary nephrocalcinosis. There also appear to be focal echogenic regions in the right kidney consistent with nonobstructing stones. The largest on the right is seen inferiorly and measures 0.8 cm. The left kidney measures 13.5 cm There is again seen increased echogenicity in the medullary regions of the left kidney, most suggestive of medullary nephrocalcinosis. There are echogenic shadowing foci in the left kidney, the largest measures 1.2 cm, and these are most suggestive of stones. No obstruction or solid renal mass is seen. The prevoid urinary bladder volume is 320 cc. The bladder wall appeared smooth. No intraluminal masses are seen. Both ureteral jets are visualized. Postvoid urinary bladder volume is 11 cc. IMPRESSION: 1. Nephrolithiasis. No evidence of obstructive uropathy. 2. Findings suggestive of medullary nephrocalcinosis.
== END 2018-08-30 13:12 ==
PROVIDERS: PCP Nurse Practitioner; Visit Provider Urology
DX: N20.0 Calculus of kidney (principal); N39.0 Urinary tract infection, site not specified; E83.59 Other disorders of calcium metabolism; N29 Other disorders of kidney and ureter in diseases classified elsewhere
CPT/HCPCS: 76770; 87086

== ENCOUNTER 2018-12-09 08:11 | Emergency (ER) | payer MEDICAID, SELFPAY ==
[2018-12-09 08:20] VITALS: BP 129/60; PULSE 65; RESP 16; TEMP 36.6; O2SAT 100
[2018-12-09 08:23] LABS: Bilirubin Small (Negative); Blood Large (Negative); Clarity Sl Cloudy; Glucose Negative (Negative); Ketones Trace mg/dL (Negative); Leukocyte Esterase Negative (Negative); Nitrite Negative (Negative); Urobilinogen 0.2 EU/dL (Up TO 0.2)
--- NOTE | 2018-12-09 08:24 | DI.CT_ITS ---
SYMPTOM/DIAGNOSIS: LT FLANK PAIN, H/O STONES, ? COLITIS RENAL COLIC CT: Comparison is made with 11/25/17. The visualized lung bases are clear. No acute abnormality is identified. The lack of IV contrast does limit evaluation of the abdominal and pelvic organs. There is diffuse decreased attenuation of the liver consistent with fatty infiltration. No discrete hepatic mass is seen on this noncontrast examination. The gallbladder is negative. There is no biliary ductal dilatation. The pancreas, spleen and adrenal glands are unremarkable. There are bilateral calcifications seen in the kidneys which is unchanged and consistent with nephrocalcinosis. No evidence of ureterolithiasis or hydronephrosis is seen. The urinary bladder is intact. No bladder stones are present. The reproductive organs are unremarkable. The abdominal aorta is of normal caliber with mild atherosclerosis. No abdominal or pelvic adenopathy, ascites or pneumoperitoneum is present. There is diverticulosis seen in the colon but no evidence of acute diverticulitis. No findings of obstruction or inflammation are seen in the rest of the bowel. The appendix measures upper limits of normal in size but no periappendiceal inflammatory change is seen to suggest acute appendicitis. Degenerative changes are seen in the spine. IMPRESSION: No evidence of obstructive uropathy. Incidental stable findings in the abdomen and pelvis as described above.
--- NOTE | 2018-12-09 08:29 | ED.GENADUL_ITS ---
Discharge Plan Disposition Patient Disposition: HOME Condition: Good Discharge Details Chief Complaint: Abd Prob Clinical Impression: Hematuria Primary Care Provider: Demetria Larios ED Provider: Jose Tillman Home Meds and New Rx's Prescriptions: No Action cholecalciferol (vitamin D3) 1,000 unit capsule 1,000 unit PO DAILY RF: 0 APPLE CIDER VINEGAR 500 mg PO 2 TBS DAILY RF: 0 EPIPEN 1 ea IM 1:1000 ONCE RF: 0 sulfamethoxazole-trimethoprim 400-80 mg tablet 1 tab PO Q12H Qty: 60 RF: 2 chlorthalidone 25 MG tablet 25 mg PO DAILY RF: 0 Cranberry Concentrate 1 EACH capsule 3 mg PO DAILY RF: 0 magnesium oxide 400 MG tablet 400 mg PO DAILY RF: 0 chromium picolinate 400 MCG tablet 400 mcg PO DAILY RF: 0 ascorbate calcium 500 MG tablet 1,500 mg PO DAILY RF: 0 nystatin (bulk) 1 EACH powder 1 appful . PRN PRNRF: 0 potassium chloride 20 MEQ tablet extended release 20 mg PO DAILY RF: 0 Blackstrap Molasses 15 ml PO DAILY RF: 0 acetaminophen [Mapap Extra Strength] 500 MG tablet 1,000 mg PO Q4H PRN PRNRF: 0 acidophilus-pectin, citrus 1 CAP tablet 1 cap PO TID PRN PRNRF: 0 diphenhydramine HCl 25 mg Capsule 25 mg PO PRN PRNRF: 0 Discharge Instructions Instructions: Hematuria (ED) Additional Instructions: Please continue your home Bactrim, take Tylenol and Motrin as needed for pain. Please use a heating pad as often as possible. Please follow-up promptly with Dr. Agustin tomorrow. If you notice any worsening of your symptoms, or any new symptoms such as vomiting, diarrhea, fever, chills, shortness of breath, chest pain, numbness, weakness, or fainting , please return immediately to the emergency department for reevaluation. Please follow up with your primary care provider as soon as possible for reassessment and reevaluation. As always, it was a pleasure participating in your medical care today. Referrals: Francisco Agustin MD [ [facility] STAFF PHYSICIAN] - Medical Decision Making This is a pleasant 58-year-old female with a past medical history of multiple kidney stones who is on chronic Bactrim as prescribed by Dr. Agustin, who presents today with mild left-sided flank pain radiating down to her groin, hematuria that started yesterday. She denies fever chills. She does admit to slight loose stools, but denies any hematochezia or melena. She has been eating and drinking well. She denies any vaginal discharge. Physical exam demonstrates notably reassuring vital signs, minimal reproducible left flank and abdominal tenderness. Signs and symptoms are slightly concerning for kidney stone, however diverticulitis is certainly also on the differential. We will get a CT scan, rehydrate, control her pain and assess for infection, kidney stone or intra-abdominal pathology. 11:[address] scan has returned, no evidence of acute kidney stone, she does have multiple chronic kidney stones in her kidneys. No evidence of acute obstruction. Urinalysis has returned, and at this time she has no white count, no bandemia or left shift, electrolytes are relatively normal aside for slightly low potassium which we have corrected. Lipase is normal, urinalysis shows blood but negative nitrites and negative leuk esterase. No clinical evidence of significant infection. Patient's pain is mildly improved with Toradol. CT scan also did show an enlarged appendix, but on reassessment she continues to have no right lower quadrant pain. CT scan shows no associated signs of infection inflammation or edema. And when compared to prior CT scan it is actually smaller than before. I did contact Dr. Ramon, and discussed the case with her. She reviewed the images and the case herself, and agrees that there is no acute component and definitely no CT findings of acute appendicitis requiring surgical intervention. Patient will be discharged home with close follow-up with Dr. Agustin. She will be contacting him personally tomorrow. We discussed red flags which to return, the importance of continuing her Bactrim.. I have extensively reviewed the treatment plan and discharge instructions with the patient. I have addressed all patient concerns at this time. The patient was made aware of what symptoms to monitor for that would warrant a return to the emergency department. Discussed the plan with the patient, they demonstrate verbal understanding and agreement with our assessment and plan at this time. FINDINGS: ABDOMEN: Liver: Diffuse fatty infiltration of the liver as seen on the previous CT abdomen and pelvis study from 04/09/2018. Gallbladder and bile ducts: Normal. No calcified stones. No ductal dilation. Pancreas: Normal. No ductal dilation. Spleen: Normal. No splenomegaly. Adrenals: Normal. No mass. Kidneys and ureters: Calcifications are noted in the kidneys bilaterally consistent with medullary sponge kidney disease. No obstructive uropathy. No ureteral or intravesical calculi seen. Stomach and bowel: Moderate distal colonic diverticulosis is present, with no evidence of acute diverticulitis. No free intraperitoneal air or fluid. Appendix: The appendix in the right lower quadrant abdomen is slightly enlarged measuring up to 6.8 mm in diameter, however there is no periappendiceal inflammatory change or fluid present to suggest acute appendicitis. This likely represents a normal variant large appendix, seen on image 80 of series 2. PELVIS: Bladder: Unremarkable as visualized. Reproductive: Unremarkable as visualized. ABDOMEN and PELVIS: Intraperitoneal space: See Soft Tissues Finding. Bones/joints: Mild chronic degenerative discovertebral disease is present in the lower lumbar spine. Soft tissues: No obvious cause for the patient's left flank pain identified. No acute abnormality is seen in the abdomen and pelvis. Vasculature: Normal. No abdominal aortic aneurysm. Lymph nodes: Normal. No enlarged lymph nodes. IMPRESSION: 1. No obvious cause for the patient's left flank pain identified. No acute abnormality is seen in the abdomen and pelvis. 2. Diffuse fatty infiltration of the liver as seen on the previous CT abdomen and pelvis study from 04/09/2018. 3. Calcifications are noted in the kidneys bilaterally consistent with medullary sponge kidney disease. No obstructive uropathy. No ureteral or intravesical calculi seen. 4. The appendix in the right lower quadrant abdomen is slightly enlarged measuring up to 6.8 mm in diameter, however there is no periappendiceal inflammatory change or fluid present to suggest acute appendicitis. This likely represents a normal variant large appendix, seen on image 80 of series 2. 5. Moderate distal colonic diverticulosis is present, with no evidence of acute diverticulitis. No free intraperitoneal air or fluid. 6. Mild chronic degenerative discovertebral disease is present in the lower lumbar spine. Dictated and Authenticated by: Arie Cool MD. Ordering:MARQUEZ Garcia MD HPI General Date/Time Provider Initiated Documentation: 12/09/18 08:16 . HPI Narrative: This is a very pleasant 58-year-old female with a past medical history of multiple kidney stones in the past, and recurrent nephrolithiasis who presents today for evaluation of left flank pain. Yesterday she noticed some mild hematuria and darkness in her urine. Then today she noticed a left flank achiness that radiates down to her groin. She does admit to mild increase in loose stool compared to normal but denies any owen diarrhea, hematochezia me marco antonio or acholic stool. She denies any vomiting. She denies any fever or chills. She denies any chest pain, shortness of breath, or chest tightness. She states that this feels relatively similar to her normal kidney stones. She denies any other complaints or modifying factors at this time. She denies any abdominal surgeries, however she does admit to multiple urinary stents for stone removal. Related Data Home Medications Medication Instructions Recorded Confirmed Apple Cider Vinegar 500 mg PO 2 TBS DAILY 12/16/12 12/09/18 Epipen 1 ea IM 1:1000 ONCE 12/16/12 12/09/18 Cranberry Concentrate 3 mg PO DAILY 05/20/16 12/09/18 chlorthalidone 25 mg PO DAILY 05/20/16 12/09/18 chromium picolinate 400 mcg PO DAILY 05/20/16 12/09/18 magnesium oxide 400 mg PO DAILY 05/20/16 12/09/18 Blackstrap Molasses 15 ml PO DAILY 11/25/17 12/09/18 nystatin (bulk) 1 appful . PRN PRN 11/25/17 12/09/18 potassium chloride 20 mg PO DAILY 11/25/17 12/09/18 ascorbate calcium 1,500 mg PO DAILY 12/21/17 12/09/18 acetaminophen [Mapap Extra 1,000 mg PO Q4H PRN PRN tab 01/04/18 12/09/18 Strength] acidophilus-pectin, citrus 1 cap PO TID PRN PRN cap 01/04/18 12/09/18 cholecalciferol (vitamin D3) 1,000 1,000 unit PO DAILY 05/17/18 12/09/18 unit capsule diphenhydramine HCl 25 mg PO PRN PRN 05/27/18 12/09/18 sulfamethoxazole 400 1 tab PO Q12H #60 tab 08/30/18 12/09/18 mg-trimethoprim 80 mg tablet Previous Rx's Medication Instructions Recorded acetaminophen [Mapap Extra 1,000 mg PO Q4H PRN PRN tab 06/22/18 Strength] acidophilus-pectin, citrus 1 cap PO TID PRN PRN cap 01/04/18 sulfamethoxazole 400 1 tab PO Q12H #60 tab 08/30/18 mg-trimethoprim 80 mg tablet Allergies Allergy/AdvReac Type Severity Reaction Status Date / Time chocolate flavor Allergy Severe ANAPHYLAXIS Unverified 12/09/18 09:38 venom-honey bee Allergy Severe Anaphylaxsi Unverified 12/09/18 09:38 [bee venom (honey bee)] s cat dander Allergy Intermediate SOB, cough, Verified 12/09/18 09:38 ciprofloxacin [From Cipro] Allergy Mild RASH,T Unverified 12/09/18 09:38 ELEVATION,TACHYCARDIA docusate sodium Allergy Unverified 12/09/18 09:38 [From Senna-S] sennosides [From Senna-S] Allergy Unverified 12/09/18 09:38 milk AdvReac Intermediate Diarrhea Unverified 12/09/18 09:38 pomegranate AdvReac Intermediate sore Unverified 12/09/18 09:38 throat, diarrhea peanut AdvReac Mild Diarrhea Unverified 12/09/18 09:38 cammomile Allergy Severe Skin Rash Uncoded 12/09/18 09:38 CHLORINE Allergy Severe Anaphylaxsi Uncoded 12/09/18 09:38 s General GUADALUPE: 4 Review of Systems Review of Systems All systems reviewed & are unremarkable except as noted in HPI and below PFSH Social History Smoking/Tobacco Use Status: Never Drug use: Never Do you feel safe in your relationship?: Yes Exam Narrative Exam Narrative: 1.Const: Well-nourished, Well-developed, appearing stated age 2.Eyes: PERRL, no conjunctival injection, and symmetrical lids. 3.ENT: Atraumatic external nose and ears. Moist MM. Neck: Symmetric, trachea midline, No thyromegaly. 4.CVS: +S1/S2, No murmurs or gallops. Peripheral pulses 2+ and equal in all extremities. Brisk capillary refill in all extremities. 5.RESP: Unlabored respiratory effort. Clear to auscultation bilaterally. No wheezes rales or rhonchi 6.GI: Soft,Nondistended, No hepatosplenomegaly. No guarding or rebound. Mild left CVA tenderness on percussion, minimal reproducible left-sided abdominal pain. Negative Rovsing sign, no pain at McBurney's point, negative Mulligan sign. 7.MSK: Normocephalic/Atraumatic, Extremities w/o deformity or ttp No cyanosis or clubbing, Normal movement of all extremities 8.Skin: Warm, Dry. No rashes or lesions. 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 Sensation grossly intact, no focal neurologic deficits. 10.Psych: (AAO) x3. Appropriate mood and affect
[2018-12-09 08:32] LABS: RBC >50 (0-2)
[2018-12-09 08:37] LABS: C & S Indicated? No
[2018-12-09] MEDS: Ketorolac 15 MG/ML VIAL IVP (08:55)
[2018-12-09] MEDS: Normal Saline 1,000 ML 1000 ML IV (08:55)
[2018-12-09] MEDS: Acetaminophen 500 MG TAB 1000 MG PO (08:55)
[2018-12-09 09:04] LABS: Abs Immature Grans 0.01 k/cumm (0.0-0.09); Absolute Basophil Count 0.05 k/cumm (0.0-0.2); Absolute Lymphocyte Count 1.82 k/cumm (1.2-3.4); Absolute Monocyte Count 0.42 k/cumm (0.11-0.7); Absolute Neutrophil Count 4.19 k/cumm (1.2-6.7); Basophils % 0.8; Eosinophils % 1.5; HGB 15.4 g/dL (12.0-15.5); Immature Grans % 0.2; Lymphocytes % 27.6; Mean Corp. HGB Concentration 33.5 g/dL (32.0-36.0); Mean Corpuscular Volume 86.6 fL (80-95); Mean Platelet Volume 11.5 fL (8.0-11.0); Monocytes % 6.4; Neutrophils % 63.5; Platelet Count 211 x1000/uL (130-400); RBC 5.31 m/cumm (4.00-5.20); RBC Distribution Width 13.6 % (11.7-14.6); White Blood Cell Count 6.59 k/cumm (4.4-10.8)
[2018-12-09 09:10] LABS: ALT 61 U/L (12-78); AST 28 U/L (15-37); Albumin 4.1 g/dL (3.4-5.0); Alkaline Phosphatase 99 U/L (46-116); Anion Gap 10.8 mmol/L (3-11); BUN 11 mg/dL (7-18); Bilirubin, Total 0.5 mg/dL (0.2-1.0); CO2 29.2 mmol/L (21.0-32.0); CREATININE 0.95 mg/dL (0.55-1.02); Calcium 9.1 mg/dL (8.5-10.1); Chloride 100 mmol/L (98-107); Glucose 137 mg/dL (70-100); Lipase 194 U/L (73-393); Potassium 3.3 mmol/L (3.5-5.1); Sodium 140 mmol/L (136-145); Total Protein 7.8 g/dL (6.4-8.2)
[2018-12-09] MEDS: Potassium Chloride 20 MEQ TABCR 40 MEQ PO (10:00)
--- NOTE | 2018-12-09 11:04 | DI.VRAD_ITS ---
EXAM: CT Abdomen and Pelvis Without Contrast EXAM DATE/TIME: 12/09/2018 8:26 AM CLINICAL HISTORY: 58 years old, female; Signs and symptoms; Other: Left flank pain, HX of stones, eval for colitis too TECHNIQUE: Imaging protocol: Axial computed tomography images of the abdomen and pelvis without contrast. Coronal and sagittal reformatted images were created and reviewed. Radiation optimization: All CT scans at this facility use at least one of these dose optimization techniques: automated exposure control; mA and/or kV adjustment per patient size (includes targeted exams where dose is matched to clinical indication); or iterative reconstruction. COMPARISON: DI.CTAPWO 04/09/2018 9:00 PM FINDINGS: ABDOMEN: Liver: Diffuse fatty infiltration of the liver as seen on the previous CT abdomen and pelvis study from 04/09/2018. Gallbladder and bile ducts: Normal. No calcified stones. No ductal dilation. Pancreas: Normal. No ductal dilation. Spleen: Normal. No splenomegaly. Adrenals: Normal. No mass. Kidneys and ureters: Calcifications are noted in the kidneys bilaterally consistent with medullary sponge kidney disease. No obstructive uropathy. No ureteral or intravesical calculi seen. Stomach and bowel: Moderate distal colonic diverticulosis is present, with no evidence of acute diverticulitis. No free intraperitoneal air or fluid. Appendix: The appendix in the right lower quadrant abdomen is slightly enlarged measuring up to 6.8 mm in diameter, however there is no periappendiceal inflammatory change or fluid present to suggest acute appendicitis. This likely represents a normal variant large appendix, seen on image 80 of series 2. PELVIS: Bladder: Unremarkable as visualized. Reproductive: Unremarkable as visualized. ABDOMEN and PELVIS: Intraperitoneal space: See Soft Tissues Finding. Bones/joints: Mild chronic degenerative discovertebral disease is present in the lower lumbar spine. Soft tissues: No obvious cause for the patient's left flank pain identified. No acute abnormality is seen in the abdomen and pelvis. Vasculature: Normal. No abdominal aortic aneurysm. Lymph nodes: Normal. No enlarged lymph nodes. IMPRESSION: 1. No obvious cause for the patient's left flank pain identified. No acute abnormality is seen in the abdomen and pelvis. 2. Diffuse fatty infiltration of the liver as seen on the previous CT abdomen and pelvis study from 04/09/2018. 3. Calcifications are noted in the kidneys bilaterally consistent with medullary sponge kidney disease. No obstructive uropathy. No ureteral or intravesical calculi seen. 4. The appendix in the right lower quadrant abdomen is slightly enlarged measuring up to 6.8 mm in diameter, however there is no periappendiceal inflammatory change or fluid present to suggest acute appendicitis. This likely represents a normal variant large appendix, seen on image 80 of series 2. 5. Moderate distal colonic diverticulosis is present, with no evidence of acute diverticulitis. No free intraperitoneal air or fluid. 6. Mild chronic degenerative discovertebral disease is present in the lower lumbar spine. Dictated and Authenticated by: Arie Cool MD. Ordering:MARQUEZ Garcia MD
[2018-12-09 11:55] VITALS: BP 133/75; PULSE 54; RESP 16; TEMP 36.6; O2SAT 96
== END 2018-12-09 11:55 | disposition home or self-care (01) ==
PROVIDERS: Emergency Provider Student in an Organized Health Care Education/Training Program; PCP Nurse Practitioner
DX: R31.9 Hematuria, unspecified (principal)
CPT/HCPCS: 80053; 83690; 96361; 96374; 99284; 74176; 81003; 81015; 85025; 87086; J1885

== ENCOUNTER 2018-12-16 09:55 | Outpatient (REF) | payer MEDICAID, SELFPAY ==
[2018-12-16 13:42] LABS: Hemoglobin A1C 6.6 % (4.5-6.2)
[2018-12-16 13:49] LABS: Calculated LDL 145; Cholesterol 220 mg/dL (50-200); HDL Cholesterol 34 mg/dL (40-60); Triglyceride 208 mg/dL (30-150)
== END 2018-12-16 10:15 ==
LOC: NCHCN 09:55
PROVIDERS: PCP Nurse Practitioner; Visit Provider Nurse Practitioner
DX: R73.9 Hyperglycemia, unspecified (principal); E78.5 Hyperlipidemia, unspecified
CPT/HCPCS: 80061; 83721; 83036

== ENCOUNTER 2018-12-16 13:29 | Outpatient (CLI) | payer MEDICAID, SELFPAY ==
--- NOTE | 2018-12-16 15:00 | DI.US_ITS ---
SYMPTOMS/DIAGNOSIS: MONITOR STONE BURDEN, RECURRENT NEPHROLITHIASIS, N20.0 RENAL ULTRASOUND: The kidneys are normal in size and shape. There is bilateral nephrocalcinosis consistent with medullary sponge kidney, as noted on previous examinations. Urinary bladder is unremarkable in appearance with prevoid and postvoid urinary bladder volume measurements 139 cc and 19 cc, respectively. CONCLUSION: Bilateral medullary sponge kidney, no evidence of obstruction.
== END 2018-12-16 13:49 ==
PROVIDERS: PCP Nurse Practitioner; Visit Provider Urology
DX: N20.0 Calculus of kidney (principal); R73.9 Hyperglycemia, unspecified; E78.5 Hyperlipidemia, unspecified
CPT/HCPCS: 76770; 80061; 83721; 83036

== ENCOUNTER 2019-05-08 11:59 | Outpatient (CLI) | payer MEDICAID, SELFPAY ==
--- NOTE | 2019-05-08 11:36 | DI.US_ITS ---
EXAM: US RENAL CLINICAL HISTORY: monitor stones, R31.0GROSS HEMATURIA, N20.0 CALCULUS OF KIDNEY TECHNIQUE: Ultrasound performed using standard protocol. COMPARISON: US renal from 12/16/2018 FINDINGS: Renal ultrasound was performed according to the usual protocol and is compared with previous examinat ion December 16. Note is again made of bilateral nephrocalcinosis consistent with medullary sponge kidn ey, grossly unchanged from the previous examination. No evidence of hydronephrosis. Ureteral jets are identified bilaterally at the urinary bladder. Pre and postvoid urinary bladder volume 112 cc and 9 cc respectively. IMPRESSION: Findings consistent with medullary sponge kidney, no gross interval change. No evidence of urinary t ract obstruction at this time.
[2019-05-08 12:25] LABS: Bilirubin Negative (Negative); Blood Large (Negative); Clarity Cloudy (Clear); Glucose Negative (Negative); Ketones Negative (Negative); Leukocyte Esterase Negative (Negative); Nitrite Negative (Negative); Specific Gravity 1.015 (1.005-1.025); Urobilinogen 0.2 EU/dL (Up TO 0.2); pH 7.5 (5-8)
[2019-05-08 13:02] LABS: Bacteria Few HPF (Negative); C & S Indicated? C&S Done As Ordered; Casts Negative LPF (Negative); Crystals Negative HPF (Negative); Epithelial Cells Negative HPF (Negative); Mucus Negative (Negative); RBC >50 (0-2); WBC Negative HPF (0-5)
== END 2019-05-08 12:19 ==
PROVIDERS: PCP Nurse Practitioner; Visit Provider Urology
DX: R31.0 Gross hematuria (principal); N20.0 Calculus of kidney; N39.0 Urinary tract infection, site not specified; N28.89 Other specified disorders of kidney and ureter
CPT/HCPCS: 76770; 81003; 81015; 87086

== ENCOUNTER 2019-12-19 01:56 | Outpatient (CLI) | payer MEDICAID, SELFPAY ==
--- NOTE | 2019-12-19 07:45 | DI.CT_ITS ---
EXAM: CT ABDOMEN AND PELVIS WO CLINICAL HISTORY: MONITOR STONES, RECURRENT NEPHROLITHIASIS, CALCULUS OF KIDNEY, N20.0 TECHNIQUE: CT examination of the abdomen and pelvis was performed without contrast administration. COMPARISON: CT CT renal colic wo from 12/09/2018 FINDINGS: Images obtained through the lung bases are unremarkable. There is marked hepatic steatosis without focal hepatic abnormality. Spleen is unremarkable. Pancre as appears normal by noncontrast criteria. Gallbladder and bile ducts unremarkable. Abdominal aorta is of normal diameter. No abdominal or pelvic adenopathy. No significant abdominal wall hernia. A ppendix is normal. No bowel obstruction or diverticulitis. PHYSICIAN CHIEF OF PATHOLOGY structures unremarkable for age. Adrenals appear normal bilaterally. There is bilateral nephrocalcinosis, the appearance of the kidneys is quite similar to prior study of 12/09/2018. There is no evidence of hydronephrosis or ureterolithiasis. Urinary bladder is nearly empty. No free fluid identified in the pelvis. IMPRESSION: Bilateral nephrocalcinosis, no gross interval change from 12/09/2018. No evidence of acute urinary t ract obstruction.
== END 2019-12-19 02:16 ==
PROVIDERS: PCP Nurse Practitioner; Visit Provider Urology
DX: N20.0 Calculus of kidney (principal); K76.0 Fatty (change of) liver, not elsewhere classified; E83.59 Other disorders of calcium metabolism
CPT/HCPCS: 74176

== ENCOUNTER 2020-01-12 16:39 | Outpatient (REF) | payer MEDICAID, SELFPAY ==
[2020-01-14 16:03] LABS: COVID-19 RT-PCR UVMMC Result Negative (Negative)
== END 2020-01-12 16:59 ==
LOC: NCHCN 16:39
PROVIDERS: PCP Nurse Practitioner; Visit Provider Physician Assistant
DX: J06.9 Acute upper respiratory infection, unspecified (principal)
CPT/HCPCS: U0003

== ENCOUNTER 2020-01-21 18:12 | Outpatient (REF) | payer MEDICAID, SELFPAY ==
[2020-01-21 19:12] LABS: ALT 49 U/L (14-59); AST 23 U/L (15-37); Albumin 4.4 g/dL (3.4-5.0); Alkaline Phosphatase 77 U/L (46-116); Anion Gap 10.9 mmol/L (3-11); BUN 17 mg/dL (7-18); Bilirubin, Total 0.7 mg/dL (0.2-1.0); CO2 28.1 mmol/L (21.0-32.0); Calcium 9.4 mg/dL (8.5-10.1); Calculated LDL 140 mg/dL (<100); Chloride 101 mmol/L (98-107); Cholesterol 218 mg/dL (<200); Estimated GFR 56.56 (mL/min/1.73m2); Glucose 125 mg/dL (74-106); HDL Cholesterol 36 mg/dL (40-60); Potassium 3.4 mmol/L (3.5-5.1); Sodium 140 mmol/L (136-145); Total Protein 7.2 g/dL (6.4-8.2); Triglyceride 213 mg/dL (<150)
[2020-01-21 19:28] LABS: Hemoglobin A1C 6.3 % (3.8-5.6)
== END 2020-01-21 18:32 ==
LOC: NCHCN 18:12
PROVIDERS: PCP Nurse Practitioner; Visit Provider Nurse Practitioner
DX: E11.9 Type 2 diabetes mellitus without complications (principal); E78.5 Hyperlipidemia, unspecified; I10 Essential (primary) hypertension
CPT/HCPCS: 80053; 80061; 83036

== ENCOUNTER 2020-02-02 07:21 | Outpatient (CLI) | payer MEDICAID, SELFPAY ==
[2020-02-04 17:26] LABS: COVID-19 RT-PCR Result NEGATIVE (Negative)
== END 2020-02-02 07:41 ==
PROVIDERS: PCP Nurse Practitioner; Visit Provider Urology
DX: Z11.59 Encounter for screening for other viral diseases (principal)
CPT/HCPCS: U0003

== ENCOUNTER 2020-02-05 06:25 | Inpatient (IN) | payer MEDICAID, SELFPAY ==
[2020-02-05] VITALS (18 sets, daily range): BP systolic 93–159; BP diastolic 45–94; PULSE 51–75; RESP 12–19; TEMP 35.9–36.5; O2SAT 94–100
--- NOTE | 2020-02-05 06:44 | W.PM.HP.N ---
Date of service: 02/05/20 Time of Service: 06:45 Assessment and Plan Assessment and plan (1) Recurrent nephrolithiasis: Status: Acute Assessment and plan: We will address her right sided stone burden ureteroscopically. We will plan on keeping her in the hospital overnight for pain control and antibiotics (in case there is a struvite component to her cfurrent stone) and discharge her tomorrow morning. History of Present Illness History of Present Illness Chief Complaint: Right kidney stones Narrative: This is a 59-year-old woman who has a long history of bilateral kidney stones due to medullary sponge kidney. Her last stone procedure was about 18 to 24 months ago. In the past, her stones have been calcium oxalate and calcium phosphate, but she has had struvite stones as well (Proteus infection). She came in with some right sided back pain that was present every day. She had passed a few small stones but her pain did not improve. Her CT scan showed no hydronephrosis, but there was an increase in stone burden in the right kidney. Since the her last visit, she has had dental work performed to help clear a dental infection. Review of Systems Narrative: No fevers or chills No vision change or dysphasia. Recent dental procedure for infectious process No diabetes or thyroid dysfunction No shortness of breath, cough or hemoptysis No chest pain or palpitations Hx GERD. No hepatitis, ulcers, jaundice No seizures, strokes or peripheral neuropathy No bleeding disorders or anemia No gout PFS Surgical History (Updated 02/05/20 @ 06:41 by Izabella Sheth) H/O lithotripsy (Acute) History of recent dental procedure (Acute) Pt. states she recently traveled to [place] for dental work r/t to an infection in her dental roots, the infection has been treated surgically/abx, has 19 new crowns. Did F/U with [facility] [place] upon return, pt. states that she is free of infection and has surgical clearance letter. Social History Smoking/Tobacco Use Status: Never Drug use: Never Do you feel safe in your relationship?: Yes Meds Home Medications and Allergies Home Medications Medication Instructions Recorded Confirmed Type Apple Cider Vinegar 500 mg PO 2 TBS DAILY 12/16/12 02/03/20 History Epipen 1 ea IM 1:1000 ONCE 12/16/12 02/03/20 History Cranberry Concentrate 3 mg PO DAILY 05/20/16 02/03/20 History chlorthalidone 25 mg PO DAILY 05/20/16 02/03/20 History chromium picolinate 400 mcg PO DAILY 05/20/16 02/03/20 History magnesium oxide 400 mg PO DAILY 05/20/16 02/03/20 History Blackstrap Molasses 15 ml PO DAILY 11/25/17 02/03/20 History potassium chloride 20 mg PO DAILY 11/25/17 02/03/20 History ascorbate calcium (vitamin C) 1,500 mg PO DAILY 12/21/17 02/03/20 History acetaminophen [Mapap Extra 1,000 mg PO Q4H PRN PRN tab 01/04/18 02/03/20 Rx Strength] acidophilus-pectin, citrus 1 cap PO TID PRN PRN cap 01/04/18 02/03/20 Rx cholecalciferol (vitamin D3) 25 1,000 unit PO DAILY 05/17/18 02/03/20 History mcg (1,000 unit) capsule diphenhydramine HCl 25 mg PO PRN PRN 05/27/18 02/03/20 History amoxicillin 500 mg capsule 500 mg PO TID 12/04/19 02/03/20 History clindamycin HCl 300 mg capsule 300 mg PO QID 12/04/19 02/03/20 History metformin 1,000 mg tablet 1,000 mg PO BID 12/04/19 02/03/20 History zinc acetate 50 mg (zinc) capsule 50 mg PO DAILY 12/04/19 02/03/20 History atorvastatin 20 mg PO DAILY 02/05/20 02/05/20 History Allergies Allergy/AdvReac Type Severity Reaction Status Date / Time chocolate flavor Allergy Severe ANAPHYLAXIS Unverified 02/05/20 06:45 venom-honey bee Allergy Severe Anaphylaxsi Unverified 02/05/20 06:45 [bee venom (honey bee)] s cat dander Allergy Intermediate SOB, cough, Verified 02/05/20 06:45 ciprofloxacin [From Cipro] Allergy Mild RASH,T Unverified 02/05/20 06:45 ELEVATION,TACHYCARDIA docusate sodium Allergy Mild Skin Rash Unverified 02/05/20 06:45 [From Senna-S] sennosides [From Senna-S] Allergy Mild Skin Rash Unverified 02/05/20 06:45 milk AdvReac Intermediate Diarrhea Unverified 02/05/20 06:45 pomegranate AdvReac Intermediate sore Unverified 02/05/20 06:45 throat, diarrhea peanut AdvReac Mild Diarrhea Unverified 02/05/20 06:45 cammomile Allergy Severe Skin Rash Uncoded 02/05/20 06:45 CHLORINE Allergy Severe Anaphylaxsi Uncoded 02/05/20 06:45 s Exam Const General: cooperative, comfortable and not ill appearing Neck Neck: supple Resp Effort & Inspection: normal respiratory effort Auscultation: clear to auscultation bilaterally Cardio Rate: regular rate Rhythm: regular rhythm GI Palpation: soft and no masses Neuro General: patient alert, patient awake and patient oriented x3 COVID-19 Screening Have you,or household,traveled outside [place] in last 14 days?: No Had IN PERSON contact w/suspected or confirmed C-19 person: No
[2020-02-05] MEDS: Lactated Ringers 1,000 ML 80 ML IV (07:20)
[2020-02-05] MEDS: ceFAZolin 2 GM/50 ML BAG IVPB (07:40)
[2020-02-05] MEDS: GENTAMICIN 120 MG in Normal Saline 100 ML 200 MG IVPB (08:00)
[2020-02-05] MEDS: Lidocaine 2% Jelly 6 ML SYR (08:03)
[2020-02-05] MEDS: Omnipaque 300 MG/ML 50 ML BTL (08:32)
--- NOTE | 2020-02-05 08:54 | DI.RAD_ITS ---
EXAM: XR RETROGRADE IN OR CLINICAL HISTORY: Recurrent nephrolithiasis TECHNIQUE: 2D and realtime digital imaging was performed. CONTRAST MATERIAL: Refer to procedure report. COMPARISON: No exams were available for comparison FINDINGS: Fluoroscopy was provided for Dr. Agustin during the performance of a retrograde evaluation of the misael l collecting system. Please refer to the procedure report for complete details. Fluoro time: 24.1 seconds IMPRESSION: RADIATION DOSE DELIVERED:
--- NOTE | 2020-02-05 08:54 | ROE_ITS ---
Date of service: 02/05/20 Time of Service: 08:54 Operative Note Operative Note DATE OF PROCEDURE: 02/05/20 PRE-OP DIAGNOSIS: Right renal stones POST-OP DIAGNOSIS: same PROCEDURE: Cystoscopy, right retrograde pyelogram, right flexible ureteroscopy, holmium laser lithotripsy of kidney stones, extraction of right renal stones, insert right ureteral stent SURGEON: Francisco Agustin ANESTHESIA: GETA ESTIMATED BLOOD LOSS: 0 PATHOLOGY: other (Stones for chemical analysis) COMPLICATIONS: None Patient was transported to: PACU Patient's condition: stable Implants: 1. Right ureteral stent (6 Mauritian open access catheter) 2. 16 Mauritian Nielson catheter with 10 cc of sterile water in balloon Indications: This is a 59-year-old woman who has a history of a medullary sponge kidney bilaterally. She has had recurrent kidney stones. She is having right-sided flank pain and an increase in her right-sided stone burden. She presents for stone manipulation. Findings: Multiple stones in the right calyces Procedure Description: The patient was given preoperative IV antibiotics. After successful induction of general anesthesia, she was placed in the dorsal lithotomy position. Her genitalia is prepped and draped. 2% Xylocaine jelly was instilled into the urethra to act as a local anesthetic. A 22 Mauritian rigid cystoscope was passed through the urethra into the bladder. The bladder was inspected with a 30 degree lens. Both ureteral orifice ease appeared normal. Some very small stone debris was seen floating within the bladder. The right ureteral orifice was then cannulated with a 6 Mauritian access catheter. Retrograde film was obtained by injecting Omnipaque through the access catheter under fluoroscopic guidance. We are able to outline the calyces on the right to aid with ureteroscopy. A glidewire was then advanced through the lumen of the access catheter and the catheter was removed. A dual-lumen catheter was then passed and a second wire was positioned. We chose 1 of the wires as a working wire and the second wire as a safety wire. We passed a ureteral access sheath over the working wire and positioned the sheath such that the tip of the sheath was in the proximal ureter We advanced the flexible ureteroscope through the access sheath and inspected each of the calyces. Significant stone burden was identified in 1 of the upper pole calyces and 1 of the lower pole calyces. The stones were then treated with a 272 ?m holmium laser fiber. The stones were quite soft and fractured with a power setting of 200 and a rate of 8. Some of the stone fragments were then trapped within a ZeroTip stone basket and removed. These stones will be tested for chemical composition. In the past, some of her stones have had struvite composition as well as calcium based stones. The calyces were reinspected. No significant debris was found within the calyces. There remained some debris in the renal pelvis and upper ureter, but given the size of this debris, it should be able to pass on its own. We removed the access sheath and passed the 6 Mauritian access catheter back over the safety wire. We positioned the catheter such that the proximal end was within the renal pelvis. We then removed the safety wire. We removed the cystoscope and passed a 16 Mauritian Nielson catheter through the urethra into the bladder. The catheter balloon was inflated with 10 cc of sterile water. We brought the distal end of the access catheter into the lumen of the Nielson to allow all urine to drain into a gravity drainage bag. The access catheter and Nielson catheter were then taped together using Steri-Strips. The patient tolerated this procedure well with no complications. There was no appreciable blood loss.
[2020-02-05] MEDS: Lactated Ringers 1,000 ML 150 ML IV (10:35)
[2020-02-05] MEDS: Tamsulosin 0.4 MG CAPCR PO (11:20)
[2020-02-05] MEDS: Lactobacillus Acidophilus CAP 1 CAP PO ×2 (13:39→18:05)
[2020-02-05] MEDS: Oxybutynin 5 MG TAB PO (13:39)
[2020-02-05] MEDS: POTASSIUM CHLORIDE/0.9% NACL 1,000 ML 150 MEQ IV ×2 (15:06→22:32)
[2020-02-05] MEDS: PIPERACILLIN/TAZO 3.375 GM in Normal Saline 50 ML IVPB ×2 (15:06→19:44)
[2020-02-05] MEDS: Phenazopyridine 200 MG TAB PO (15:57)
[2020-02-05] MEDS: Ketorolac 15 MG/ML VIAL IVP ×2 (15:58→21:16)
[2020-02-05] MEDS: Normal Saline Flush 10 ML SYR IV ×2 (19:44→21:16)
[2020-02-06 01:00] VITALS: BP 118/70; PULSE 50; RESP 18; TEMP 36.3; O2SAT 97
[2020-02-06] MEDS: PIPERACILLIN/TAZO 3.375 GM in Normal Saline 50 ML IVPB ×2 (02:52→07:53)
[2020-02-06] MEDS: Ketorolac 15 MG/ML VIAL IVP ×2 (04:17→09:42)
[2020-02-06] MEDS: Normal Saline Flush 10 ML SYR IV ×3 (04:18→09:43)
[2020-02-06] MEDS: POTASSIUM CHLORIDE/0.9% NACL 1,000 ML 150 MEQ IV (05:50)
--- NOTE | 2020-02-06 07:11 | W.PM.DS.N ---
Date of service: 02/06/20 Time of Service: 07:11 DS: Diagnosis Discharge Diagnosis (1) Recurrent nephrolithiasis: Status: Acute Discharge Plan Disposition Patient Disposition: HOME Condition: Stable Discharge Details Reason For Visit: KIDNEY STONES Admit Date/Time: 02/05/20 06:25 Admit Provider: Francisco Agustin Attending Provider: Francisco Agustin Primary Care Provider: Demetria Larios Hospital Course Hospital Course: The patient was taken to the operating room on 02/05/2020. She underwent flexible ureteroscopy with holmium laser lithotripsy of her right-sided kidney stones. Because of her history of struvite stones, we kept her hospitalized overnight for IV antibiotics. We specifically covered for potential Proteus infection. We left a ureteral stent and Nielson catheter in place. She remained afebrile. Her pain was well controlled. Her labs were stable. She will be discharged to home on postoperative day #1 (once her antibiotics are completed). Home Meds and New Rx's Prescriptions: No Action cholecalciferol (vitamin D3) 1,000 unit capsule 1,000 unit PO DAILY RF: 0 amoxicillin 500 mg capsule 500 mg PO TID RF: 0 clindamycin HCl 300 mg capsule 300 mg PO QID RF: 0 metformin 1,000 mg tablet 1,000 mg PO BID RF: 0 Galzin 50 mg (zinc) capsule 50 mg PO DAILY RF: 0 APPLE CIDER VINEGAR 500 mg PO 2 TBS DAILY RF: 0 EPIPEN 1 ea IM 1:1000 ONCE RF: 0 chlorthalidone 25 MG tablet 25 mg PO DAILY RF: 0 Cranberry Concentrate 1 EACH capsule 3 mg PO DAILY RF: 0 magnesium oxide 400 MG tablet 400 mg PO DAILY RF: 0 chromium picolinate 400 MCG tablet 400 mcg PO DAILY RF: 0 ascorbate calcium (vitamin C) 500 MG tablet 1,500 mg PO DAILY RF: 0 atorvastatin 20 mg Tablet 20 mg PO DAILY RF: 0 potassium chloride 20 MEQ tablet extended release 20 mg PO DAILY RF: 0 Blackstrap Molasses 15 ml PO DAILY RF: 0 acetaminophen [Mapap Extra Strength] 500 MG tablet 1,000 mg PO Q4H PRN PRNRF: 0 acidophilus-pectin, citrus 1 CAP tablet 1 cap PO TID PRN PRNRF: 0 diphenhydramine HCl 25 mg Capsule 25 mg PO PRN PRNRF: 0 Discharge Instructions Additional Instructions: Follow-up appointment with hi in 4 to 6 weeks Renal ultrasound on day of her follow-up appointment No new medications for home use Activity:: Activity as Tolerated Equipment/Supplies:: No Equipment Needed Diet:: As Tolerated Discharge Orders Discharge Orders: Discharge Order (Routine); Ordered 02/06/20 Ordered By: Francisco Pereson Discharge Data Discharge Comment: May be discharged after her final antibiotic dose DS: Summary Status at Discharge Functional status at discharge: independent ambulation Overall status at discharge: patient is back to baseline Mental Status: mental status grossly normal Speech and Movement: speech and movement normal Mood: congruent mood Affect: normal affect Exam Narrative Exam Narrative: At the time of discharge, she looks well. She does not appear septic or toxic Her vital signs are documented elsewhere Her lungs are clear Cardiac exam shows a regular rate and rhythm Her abdomen is soft with no mass Her Nielson catheter and stent have been removed this morning by me She is awake and alert Psych Mental Status: mental status grossly normal Speech and Movement: speech and movement normal Mood: congruent mood Affect: normal affect DS: Data Vitals/I&O Vitals and I&O: Vital Signs Temperature 36.3 C L 02/06/20 01:00 Temperature Source Tympanic 02/06/20 01:00 Pulse 50 L 02/06/20 01:00 Pulse Rhythm Regular 02/06/20 04:21 Respiratory Rate 18 02/06/20 01:00 Respiratory Effort 02/06/20 04:21 Respiratory Depth Normal 02/06/20 04:21 Blood Pressure 118/70 02/06/20 01:00 Pulse Oximetry 97 02/06/20 01:00 Respiratory End-tidal CO2 41 02/05/20 09:45 Oxygen Delivery Method Room Air 02/06/20 01:00 Oxygen Flow Rate 0 02/06/20 01:00 Pain Level 5 02/06/20 04:17 Intake & Output 02/05/20 02/05/20 02/06/20 11:59 23:59 11:59 Intake Total 553 / 2555.5 2002.5 / 2555.5 1000 / 1000 Output Total 100 / 1775 1675 / 1775 Balance 453 / 780.5 327.5 / 780.5 1000 / 1000 Weight 92.3 kg Intake: IV 553 / 2315.5 1762.5 / 2315.5 1000 / 1000 Oral 240 / 240 Output: Urine 100 / 1775 1675 / 1775 Other: Urine Color Steve Straw Urine Appearance Clear Clear Clear Comment Pt catheter was leaking throughout the night. Charge nurse notified and MD aware. Leakage site is covered with ABD pads secured with curlix and tapes. Done multiple times Q shift. Moderate amount of urine is leaked through the leakage and drenched the pads. urine is unmeasurable. Emesis Description None Data Completed and Pending Labs on day of discharge: Labs from last 24 hours 02/06/20 02/06/20 02/05/20 05:35 05:35 08:41 WBC Pending RBC Pending Hgb Pending Hct Pending MCV Pending MCH Pending MCHC Pending RDW Pending Plt Count Pending MPV Pending Sodium Pending Potassium Pending Chloride Pending Carbon Dioxide Pending Anion Gap Pending BUN Pending Creatinine Pending Estimated GFR/1.73 m2 Pending Glucose Pending Calcium Pending Stone Source Pending Stone Comment Pending Kidney Stone Analysis Pending [facility] Medical History Diabetes (Chronic) History of broken nose (Acute) x2 History of deviated nasal septum (Acute) Hx of anorexia nervosa (Acute) Pt. states when she is weighed she is not to be told the number. Hx of epistaxis (Acute) Hypertension (Chronic) Surgical History H/O lithotripsy (Acute) History of recent dental procedure (Acute) Pt. states she recently traveled to [place] for dental work r/t to an infection in her dental roots, the infection has been treated surgically/abx, has 19 new crowns. Did F/U with [facility] in [place] upon return, pt. states that she is free of infection and has surgical clearance letter. Social History Smoking/Tobacco Use Status: Never Drug use: Never Do you feel safe in your relationship?: Yes
[2020-02-06 07:24] LABS: HCT 39.3 % (36.0-46.0); HGB 13.2 g/dL (12.0-15.5); Mean Corp. HGB Concentration 33.6 g/dL (32.0-36.0); Mean Corpuscular Hemoglobin 28.6 pg (27.0-33.0); Mean Corpuscular Volume 85.2 fL (80-95); Mean Platelet Volume 11.7 fL (8.0-11.0); Platelet Count 182 x1000/uL (130-400); RBC 4.61 m/cumm (4.00-5.20); RBC Distribution Width 13.3 % (11.7-14.6); White Blood Cell Count 11.86 k/cumm (4.4-10.8)
[2020-02-06 07:40] LABS: Anion Gap 8.7 mmol/L (3-11); BUN 15 mg/dL (7-18); CO2 25.3 mmol/L (21.0-32.0); CREATININE 1.08 mg/dL (0.55-1.02); Calcium 8.1 mg/dL (8.5-10.1); Chloride 100 mmol/L (98-107); Estimated GFR 51.75 (mL/min/1.73m2); Glucose 131 mg/dL (74-106); Potassium 3.6 mmol/L (3.5-5.1); Sodium 134 mmol/L (136-145)
[2020-02-06] MEDS: Cholecalciferol (Vitamin D3) 1,000 UNIT TAB 1000 UNITS PO (07:53)
[2020-02-06] MEDS: Chlorthalidone 25 MG TAB PO (07:53)
[2020-02-06] MEDS: Magnesium Oxide 400 MG TAB PO (07:53)
[2020-02-06] MEDS: Atorvastatin 20 MG TAB PO (07:53)
[2020-02-06] MEDS: Ascorbic Acid 500 MG TAB 1500 MG PO (07:53)
[2020-02-06] MEDS: Lactobacillus Acidophilus CAP 1 CAP PO (07:59)
[2020-02-06 08:16] VITALS: BP 129/84; PULSE 46; RESP 15; TEMP 36.1; O2SAT 97
[2020-02-10 23:46] LABS: Source: Right Ureter
== END 2020-02-06 10:45 | disposition home or self-care (01) | DRG 661 ==
LOC: PDS 06:34 → MS 10:14
PROVIDERS: Admitting Provider Urology; PCP Nurse Practitioner; Visit Provider Urology
PROC: 0TC08ZZ Extirpation of Matter from Right Kidney, Via Natural or Artificial Opening Endoscopic (ICD-10-PCS; CPT 52356; principal; 2020-02-05 07:30)
DX: N20.0 Calculus of kidney (principal); Z87.442 Personal history of urinary calculi
CPT/HCPCS: 52356; 36415; 80048; 85027; 99238; NC; 74420; 82365; J0690; J1100; J1580; J1885; J2001; J2250; J2370; J2405; J2543; Q9967

== ENCOUNTER 2020-03-01 10:53 | Outpatient (CLI) | payer MEDICAID, SELFPAY ==
--- NOTE | 2020-03-01 13:00 | DI.US_ITS ---
EXAM: US RENAL CLINICAL HISTORY: r/o hydronephrosis after ureteroscopy,calculus of prox rt ureter,n20.1. TECHNIQUE: Arce scale, color and spectral Doppler were used. COMPARISON: CT CT ABDOMEN PELVIS WO from 12/19/2019 FINDINGS: Renal size in cm: Right: 11.3 left: 12.1 Echogenicity: Increased medullary echogenicity, consistent with medullary nephrocalcinosis. Hydronephrosis: No Cyst or mass: No Nephrolithiasis: 6 millimeters stone at the lower pole of the right kidney. 7 millimeter stone in th e mid left kidney. Other findings: None Bladder:Normal Prevoid vol: 117 cc Postvoid vol: 4 cc IMPRESSION: Bilateral medullary nephrocalcinosis and bilateral nonobstructing renal calculi. DATA REPOSITORY:
== END 2020-03-01 11:13 ==
PROVIDERS: PCP Nurse Practitioner; Visit Provider Urology
DX: N20.2 Calculus of kidney with calculus of ureter (principal); E83.59 Other disorders of calcium metabolism; N29 Other disorders of kidney and ureter in diseases classified elsewhere
CPT/HCPCS: 76770

== ENCOUNTER 2020-04-21 17:45 | Outpatient (REF) | payer MEDICAID, SELFPAY | END 2020-04-21 18:05 | LOC: LBN 17:45 | PROVIDERS: PCP Nurse Practitioner; Visit Provider Nurse Practitioner Gerontology | DX: N13.2 Hydronephrosis with renal and ureteral calculous obstruction (principal) | CPT/HCPCS: 87086 ==

== ENCOUNTER 2020-07-15 01:02 | Outpatient (CLI) | payer MEDICAID, SELFPAY ==
--- NOTE | 2020-07-15 12:55 | DI.MAMMO_ITS ---
EXAM: MG MAMMO SCREENING CLINICAL HISTORY: SCREENING,Z12.39. TECHNIQUE: Bilateral full field digital CC and MLO mammographic images were obtained with 3D tomosyn thesis and utilizing computer aided detection (CAD). COMPARISON: Prior mammograms dating back to 2016, the most recent being March 2018. FINDINGS: No new significant radiographic findings in the right breast. Benign lymph node upper outer quadrant of the right breast is unchanged from the prior studies. In the left breast there is a well-defined slightly lobulated noncalcified nodule best seen on 3D MLO imaging measuring 4.5 by 3.5 millimeters, located 4 centimetres in from the nipple unchanged from th e previous studies and therefore benign. No malignant-appearing microcalcification groups in this re gion or elsewhere in either breast. There is no new architectural distortion or skin thickening-trac tion. IMPRESSION: Stable benign-appearing findings. No radiographic evidence of malignancy. BI-RADS Category 2 - Benign Findings Breast Density - Category B - Scattered areas of fibroglandular density Breast density Category C or D implies that the patient has dense breast tissue. Dense breast tissue can make it harder to find cancer on a mammogram. Dense breast tissue is also associated with an incr eased risk of breast cancer. This information about the result of the mammogram report was provided to the patient to raise their awareness. Use this report when you speak with the patient about their risks for breast cancer, which includes their family history. At that time, you may recommend additional screening tests (Ultrasoun d or MRI) as these tests may add significant information. A negative radiographic report should not delay biopsy if a dominant or clinically suspicious mass is present. Up to ten percent of cancers are not identified on mammography. A negative report may reinforce clinical impression. Adenosis and dense breasts may obscure an underlying neoplasm. False positive reports average 6 to 10%. Patient will receive a letter notifying them of these results.
== END 2020-07-15 01:22 ==
PROVIDERS: PCP Nurse Practitioner; Visit Provider Nurse Practitioner
DX: Z12.31 Encounter for screening mammogram for malignant neoplasm of breast (principal)
CPT/HCPCS: 77063; 77067

== ENCOUNTER 2020-10-29 03:36 | Outpatient (CLI) | payer MEDICAID, SELFPAY ==
--- NOTE | 2020-10-29 08:00 | DI.US_ITS ---
EXAM: US RENAL CLINICAL HISTORY: monitor known kidney stones,recurrent nephrolithiasis,n20.0. TECHNIQUE: Arce scale, color and spectral Doppler were used. COMPARISON: US US RENAL from 03/01/2020 FINDINGS: Renal size in cm: Right: 11.5. Left: 12.8. Echogenicity: There is increased medullary echogenicity consistent with medullary nephrocalcinosis. Hydronephrosis: No. Cyst or mass: No. Nephrolithiasis: There is a 4 mm echogenic focus in the inferior right kidney and a 7 mm echogenic fo cus in the mid left kidney. Other findings: None. Bladder:Normal. Ureteral jets: Right: Visualized and unremarkable. Left: Visualized and unremarkable. Prevoid vol:113 cc Postvoid vol:0 cc Renal color flow: Symmetric and within normal limits. IMPRESSION: Bilateral medullary nephrocalcinosis and nonobstructing bilateral renal calculi. DATA REPOSITORY:
== END 2020-10-29 03:56 ==
PROVIDERS: PCP Nurse Practitioner; Visit Provider Urology
DX: N20.0 Calculus of kidney (principal)
CPT/HCPCS: 76770

== ENCOUNTER 2020-11-20 14:51 | Observation (INO) | payer MEDICAID, SELFPAY ==
[2020-11-20] VITALS (47 sets, daily range): BP systolic 101–153; BP diastolic 55–109; PULSE 53–75; RESP 6–29; TEMP 36.2–36.3; O2SAT 94–100
--- NOTE | 2020-11-20 14:45 | RT.EKG_ITS ---
APPROVED REPORT Exam: Resting ECG Reason for Exam: chest pain Patient Location: E HR:62 bpm ECG Measurements Heart Rate 62 AXIS RI 156 P 23 QRSd 87 QRS -14 QT 425 T 23 QTc 433 Conclusion Sinus rhythm...normal P axis, V-rate 60- 99 Low voltage, precordial leads...precordial leads <1.0mV Physician: No STEMI
--- NOTE | 2020-11-20 15:00 | RT.EKG_ITS ---
APPROVED REPORT Exam: Resting ECG Reason for Exam: palpitations Patient Location: E HR:55 bpm ECG Measurements Heart Rate 55 AXIS IN 174 P 36 QRSd 87 QRS -7 QT 441 T 20 QTc 422 Conclusion Sinus bradycardia...rate< 60 Low voltage, precordial leads... Physician: no stemi
[2020-11-20 15:28] LABS: Abs Immature Grans 0.03 10^3/uL (0.0-0.06); Absolute Basophil Count 0.08 10^3/uL (0.0-0.2); Absolute Eosinophil Count 0.12 10^3/uL (0.0-0.7); Absolute Monocyte Count 0.49 10^3/uL (0.1-0.8); Absolute Neutrophil Count 5.07 10^3/uL (1.2-6.7); Basophils % 0.9; Eosinophils % 1.4; HCT 43.9 % (36.0-46.0); HGB 14.5 g/dL (11.2-15.7); Immature Grans % 0.3; Lymphocytes % 32.6; MCH 28.3 pg (27.0-33.0); MCV 85.7 fL (80-95); MPV 11.6 fL (8.0-11.0); Monocytes % 5.7; Neutrophils % 59.1; Nucleated RBC 1 %; Platelet Count 204 10^3/uL (130-400); RBC 5.12 10^6/uL (3.93-5.22); RDW 12.9 % (11.7-14.6); RDW-SD 40.2 fL; WBC 8.59 10^3/uL (4.4-10.8)
[2020-11-20 15:29] LABS: Bilirubin Negative (Negative); Blood Negative (Negative); Clarity Clear (Clear); Glucose Negative (Negative); Ketones Negative (Negative); Leukocyte Esterase Trace (Negative); Nitrite Negative (Negative); Specific Gravity 1.015 (1.005-1.025); Urobilinogen 0.2 EU/dL (Up TO 0.2)
--- NOTE | 2020-11-20 15:30 | DI.RAD_ITS ---
Exam(s) XR CHEST 2V PA LATERAL EXAM: XR CHEST 2V PA LATERAL CLINICAL HISTORY: chest pain. TECHNIQUE: 2D digital imaging was performed. COMPARISON: CR ABD FLAT UPRIGHT PA CHEST from 01/28/2009 FINDINGS: Heart size is normal. The mediastinum is not widened. Lungs are clear. No infiltrates nor pleural effusions. IMPRESSION: No acute pulmonary findings. DATA REPOSITORY: RADIATION DOSE DELIVERED:
[2020-11-20 15:39] LABS: Bacteria Few HPF (Negative); C & S Indicated? Yes; Casts Negative LPF (Negative); Crystals Other HPF (Negative); Epithelial Cells Rare HPF (Negative); Mucus Negative (Negative); Other Cells Few Transitional (Negative); RBC Negative HPF (0-2); WBC 20-50 HPF (0-5)
--- NOTE | 2020-11-20 15:47 | ED.GENADUL_ITS ---
Discharge Plan Disposition Patient Disposition: [facility] INPATIENT Condition: Serious Discharge Details Clinical Impression: Chest pain, UTI (urinary tract infection), Hypokalemia, Hypomagnesemia Admit Date/Time: 11/20/20 18:51 Admit Provider: [employer] Palacios Attending Provider: Grupo Palacios Primary Care Provider: Demetria Larios ED Provider: Alexandro Morgan Discharge Data Discharge Date/Time-TO BE ENTERED AT DEPARTURE: 11/20/20 19:35 Medical Decision Making <FRANCA Hdez - Last Filed: 11/21/20 11:19> Given patient's heart score of 4 and intermittent chest tightness with intermittent nausea, we discussed risk benefit of admission versus discharge home, at this time patient is agreeable to admission for stress test, she is aware that she likely will not have a stress test until Sunday She is been given a dose of aspirin, she does not currently have chest discomfort I did consider pulmonary embolism, however patient is Wells criteria negative for PE on my exam At time of reevaluation she is stable signed out to Alexandro SCHULTE pending second troponin/EKG and CXR treated with keflex for uti Differential Diagnosis Differential Diagnosis: Pulmonary embolism, angina, ST elevation [place], pneumothorax Medical Records Medical records reviewed: Yes I reviewed the patient's medical records. <FRANCA Griffin - Last Filed: 11/20/20 19:04> I assumed care of this 60-year-old female from my colleague FRANCA Berumen. Please see her initial HPI and examination. She has already contacted our hospitalist service for admission who requested awaiting repeat troponin and EKG before admission. At time of signout patient is pain-free, has been treated for UTI and given aspirin for her chest pain. Heart score is 4. Patient had her chest x-ray, read by radiology as no acute findings. Awaiting repeat troponin, EKG, subsequent admission. Troponin remains less than 0.05. EKG performed at 1834, please see official report by Dr. Tillman. Sinus bradycardia, ventricular rate of 55. No STEMI. Patient is requesting food, will order dinner, she will take her usual dose of Metformin. She continues to deny any chest pain. Will contact our hospitalist team now that the delta troponin has returned. Case was discussed with Dr. Palacios who was agreeable for an observation admission. Medical Records Medical records reviewed: Yes I reviewed the patient's medical records. Lab Data Lab results reviewed: Yes I reviewed the patient's lab results. Lab results narrative: 11/20/20 15:20 Urine - Reflex from Ua Urine Culture - Pending Laboratory Tests Range/Units 11/20/20 11/20/20 11/20/20 15:15 15:15 15:20 WBC (4.4-10.8) 10^3/uL 8.59 RBC (3.93-5.22) 10^6/uL 5.12 Hgb (11.2-15.7) g/dL 14.5 Hct (36.0-46.0) % 43.9 MCV (80-95) fL 85.7 MCH (27.0-33.0) pg 28.3 MCHC (32.0-36.0) % 33.0 RDW (11.7-14.6) % 12.9 Plt Count (130-400) 10^3/uL 204 MPV (8.0-11.0) fL 11.6 H Immature Gran % 0.3 Neutrophils % 59.1 Lymphocytes % 32.6 Monocytes % 5.7 Eosinophils % 1.4 Basophils % 0.9 Nucleated RBC % % 1 Absolute Neutrophils (1.2-6.7) 10^3/uL 5.07 Absolute Lymphocytes (1.2-3.4) 10^3/uL 2.80 Absolute Monocytes (0.1-0.8) 10^3/uL 0.49 Absolute Eosinophils (0.0-0.7) 10^3/uL 0.12 Absolute Basophils (0.0-0.2) 10^3/uL 0.08 Sodium (136-145) mmol/L 140 Potassium (3.5-5.1) mmol/L 3.3 L Chloride (98-107) mmol/L 102 Carbon Dioxide (21.0-32.0) mmol/L 30.2 Anion Gap (3-11) mmol/L 7.8 BUN (7-18) mg/dL 18 Creatinine (0.55-1.02) mg/dL 1.0 Estimated GFR/1.73 m2 (mL/min/1.73m2) 56.37 Glucose (74-106) mg/dL 95 Calcium (8.5-10.1) mg/dL 9.3 Magnesium (1.8-2.4) mg/dL 1.7 L Total Bilirubin (0.2-1.0) mg/dL 0.3 AST (15-37) U/L 19 ALT (14-59) U/L 35 Alkaline Phosphatase (46-116) U/L 83 Troponin I (<0.06) ng/mL < 0.05 Total Protein (6.4-8.2) g/dL 7.6 Albumin (3.4-5.0) g/dL 4.3 TSH (0.36-3.74) uIU/mL 2.45 Urine Color (Yellow) Yellow Urine Clarity (Clear) Clear Urine pH (5-8) 7.0 Ur Specific [place] (1.005-1.025) 1.015 Urine Protein (Negative) mg/dL Negative Urine Ketones (Negative) mg/dL Negative Urine Blood (Negative) Negative Urine Nitrite (Negative) Negative Urine Bilirubin (Negative) Negative Urine Urobilinogen (Up TO 0.2) EU/dL 0.2 Ur Leukocyte Esterase (Negative) Trace H Urine RBC (0-2) HPF Negative Urine WBC (0-5) HPF 20-50 H Ur Epithelial Cells (Negative) HPF Rare Urine Crystals (Negative) HPF Other Urine Bacteria (Negative) HPF Few Urine Casts (Negative) LPF Negative Urine Mucus (Negative) Negative Urine Other (Negative) Few transitional Ur Culture Indicated? Yes Urine Glucose (Negative) mg/dL Negative COVID-19 Source Range/Units 11/20/20 11/20/20 17:43 18:10 WBC (4.4-10.8) 10^3/uL RBC (3.93-5.22) 10^6/uL Hgb (11.2-15.7) g/dL Hct (36.0-46.0) % MCV (80-95) fL MCH (27.0-33.0) pg MCHC (32.0-36.0) % RDW (11.7-14.6) % Plt Count (130-400) 10^3/uL MPV (8.0-11.0) fL Immature Gran % Neutrophils % Lymphocytes % Monocytes % Eosinophils % Basophils % Nucleated RBC % % Absolute Neutrophils (1.2-6.7) 10^3/uL Absolute Lymphocytes (1.2-3.4) 10^3/uL Absolute Monocytes (0.1-0.8) 10^3/uL Absolute Eosinophils (0.0-0.7) 10^3/uL Absolute Basophils (0.0-0.2) 10^3/uL Sodium (136-145) mmol/L Potassium (3.5-5.1) mmol/L Chloride (98-107) mmol/L Carbon Dioxide (21.0-32.0) mmol/L Anion Gap (3-11) mmol/L BUN (7-18) mg/dL Creatinine (0.55-1.02) mg/dL Estimated GFR/1.73 m2 (mL/min/1.73m2) Glucose (74-106) mg/dL Calcium (8.5-10.1) mg/dL Magnesium (1.8-2.4) mg/dL Total Bilirubin (0.2-1.0) mg/dL AST (15-37) U/L ALT (14-59) U/L Alkaline Phosphatase (46-116) U/L Troponin I (<0.06) ng/mL < 0.05 Total Protein (6.4-8.2) g/dL Albumin (3.4-5.0) g/dL TSH (0.36-3.74) uIU/mL Urine Color (Yellow) Urine Clarity (Clear) Urine pH (5-8) Ur Specific [place] (1.005-1.025) Urine Protein (Negative) mg/dL Urine Ketones (Negative) mg/dL Urine Blood (Negative) Urine Nitrite (Negative) Urine Bilirubin (Negative) Urine Urobilinogen (Up TO 0.2) EU/dL Ur Leukocyte Esterase (Negative) Urine RBC (0-2) HPF Urine WBC (0-5) HPF Ur Epithelial Cells (Negative) HPF Urine Crystals (Negative) HPF Urine Bacteria (Negative) HPF Urine Casts (Negative) LPF Urine Mucus (Negative) Urine Other (Negative) Ur Culture Indicated? Urine Glucose (Negative) mg/dL COVID-19 Source Nasal/nares HPI <FRANCA Hdez - Last Filed: 11/21/20 11:19> General Mode of arrival: ambulatory . Date/Time Provider Initiated Documentation: 11/20/20 14:52 . Limitations to Documentation: no limitations . Information obtained by: patient Does report chest pain. States this was in the absence of the palpitation. She states it lasts several minutes and comes on. She denies any exertional component to the chest pain. Denies any alleviating factors. Describes it as pressure. . HPI Narrative: This 60-year-old female presents with reports of palpitations and intermittent chest tightness for the past 3 months. She denies any current shortness of breath. She states that when she has the palpitations sometimes she feels short of breath. She denies any pleuritic chest pain, calf pain or swelling, recent flights, surgeries, long drives. She denies any recent illnesses or injuries. She denies any new medications. Denies prior history of stress test. Denies any early cardiac events in family members or self. Denies tobacco use. Does have a history of hypertension, hyperlipidemia, and diabetes. Also reports history of anorexia although feels that this is under control at this time. Denies prior history of coagulopathy. Denies any exertional component to her symptoms. Feels intermittently nauseous. Related Data Home Medications Medication Instructions Recorded Confirmed Epipen 1 ea IM 1:1000 ONCE 12/16/12 11/20/20 Cranberry Concentrate 3 mg PO DAILY 05/20/16 11/20/20 chlorthalidone 25 mg PO DAILY 05/20/16 11/20/20 chromium picolinate 400 mcg PO DAILY 05/20/16 11/20/20 magnesium oxide 400 mg PO DAILY 05/20/16 11/20/20 Blackstrap Molasses 15 ml PO DAILY 11/25/17 11/20/20 potassium chloride 20 meq PO DAILY 11/25/17 11/20/20 ascorbate calcium (vitamin C) 1,500 mg PO DAILY 12/21/17 11/20/20 acetaminophen [Mapap Extra 1,000 mg PO Q4H PRN PRN tab 01/04/18 11/20/20 Strength] acidophilus-pectin, citrus 1 cap PO TID PRN PRN cap 01/04/18 11/20/20 cholecalciferol (vitamin D3) 25 1,000 unit PO DAILY 05/17/18 11/20/20 mcg (1,000 unit) capsule diphenhydramine HCl 25 mg PO PRN PRN 05/27/18 11/20/20 metformin 1,000 mg tablet 1,000 mg PO BID 12/04/19 11/20/20 zinc acetate 50 mg (zinc) capsule 50 mg PO DAILY 12/04/19 11/20/20 atorvastatin 20 mg PO DAILY 02/05/20 11/20/20 lemon flavor extract (bulk) [Lemon 30 ml PO DAILY 11/20/20 11/20/20 Extract Flavor] Previous Rx's Medication Instructions Recorded acetaminophen [Mapap Extra 1,000 mg PO Q4H PRN PRN tab 01/04/18 Strength] acidophilus-pectin, citrus 1 cap PO TID PRN PRN cap 01/04/18 Allergies Allergy/AdvReac Type Severity Reaction Status Date / Time chocolate flavor Allergy Severe ANAPHYLAXIS Unverified 11/20/20 15:23 venom-honey bee Allergy Severe Anaphylaxsi Unverified 11/20/20 15:23 [bee venom (honey bee)] s cat dander Allergy Intermediate SOB, cough, Verified 11/20/20 15:23 ciprofloxacin [From Cipro] Allergy Mild RASH,T Unverified 11/20/20 15:23 ELEVATION,TACHYCARDIA docusate sodium Allergy Mild Skin Rash Unverified 11/20/20 15:23 [From Senna-S] sennosides [From Senna-S] Allergy Mild Skin Rash Unverified 11/20/20 15:23 milk AdvReac Intermediate Diarrhea Unverified 11/20/20 15:23 pomegranate AdvReac Intermediate sore Unverified 11/20/20 15:23 throat, diarrhea peanut AdvReac Mild Diarrhea Unverified 11/20/20 15:23 cammomile Allergy Severe Skin Rash Uncoded 11/20/20 15:23 CHLORINE Allergy Severe Anaphylaxsi Uncoded 11/20/20 15:23 s General Stated Complaint: Palpitatns GUADALUPE: 3 Review of Systems <FRANCA Hdez - Last Filed: 11/21/20 11:19> Narrative: Review of systems negative x7 aside from where indicated in HPI PFSH <FRANCA Hdez - Last Filed: 11/21/20 11:19> Medical History (Updated 11/20/20 @ 19:29 by Grupo Palacios) Diabetes History of broken nose x2 History of deviated nasal septum Hx of anorexia nervosa Pt. states when she is weighed she is not to be told the number. Hx of epistaxis Hyperlipidemia Hypertension Surgical History H/O lithotripsy History of recent dental procedure Pt. states she recently traveled to [place] for dental work r/t to an infection in her dental roots, the infection has been treated surgically/abx, has 19 new crowns. Did F/U with [facility] in [place] upon return, pt. states that she is free of infection and has surgical clearance letter. Social History Smoking/Tobacco Use Status: Never Smoking risk assessment performed?: Yes Alcohol Intake: never Drug use: Never Substance use type: does not use Do you feel safe at home: Yes Do you feel safe in your relationship?: Yes Exam <FRANCA Hdez - Last Filed: 11/21/20 11:19> Const General: cooperative Nutritional Appearance: well nourished Orientation: oriented x3 HENMT Other: moist mucous membranes Eyes Pupils: PERRL Resp Effort & Inspection: normal respiratory effort Auscultation: clear to auscultation bilaterally Cardio Rate: regular rate Rhythm: regular rhythm GI Auscultation: normal bowel sounds Skin General skin exam: no rashes or lesions noted Neuro General: patient alert and patient oriented x3 Extrem Other: No calf tenderness or swelling appreciated Distal pulses intact no abdominal bruit or pulsatile mass Course <FRANCA Hdez - Last Filed: 11/21/20 11:19> Vital Signs Vital signs: Vital Signs Temperature 36.3 C L 11/20/20 14:55 Pulse 63 11/20/20 14:55 Respiratory Rate 23 11/20/20 14:55 Blood Pressure 153/79 H 11/20/20 14:55 Pulse Oximetry 99 11/20/20 14:55 Temperature 36.3 C L 11/20/20 14:55 Temperature Source Temporal Artery Scan 11/20/20 14:55 Pulse 62 11/20/20 15:01 Pulse 74 11/20/20 15:30 Respiratory Rate 18 11/20/20 15:30 Respiratory Effort Non-Labored 11/20/20 15:02 Blood Pressure 149/79 H 11/20/20 15:01 Blood Pressure Mean 93 11/20/20 15:01 Blood Pressure Position Sitting 11/20/20 14:55 Pulse Oximetry 99 11/20/20 15:30 Oxygen Delivery Method Room Air 11/20/20 14:55 Oxygen Flow Rate 0 11/20/20 14:55 Pain Level 3 11/20/20 14:55 Lab/Test Results Lab/Test Results: 11/20/20 15:20 Urine - Reflex from Ua Urine Culture - Pending Laboratory Tests Range/Units 11/20/20 11/20/20 15:15 15:20 WBC (4.4-10.8) 10^3/uL 8.59 RBC (3.93-5.22) 10^6/uL 5.12 Hgb (11.2-15.7) g/dL 14.5 Hct (36.0-46.0) % 43.9 MCV (80-95) fL 85.7 MCH (27.0-33.0) pg 28.3 MCHC (32.0-36.0) % 33.0 RDW (11.7-14.6) % 12.9 Plt Count (130-400) 10^3/uL 204 MPV (8.0-11.0) fL 11.6 H Immature Gran % 0.3 Neutrophils % 59.1 Lymphocytes % 32.6 Monocytes % 5.7 Eosinophils % 1.4 Basophils % 0.9 Nucleated RBC % % 1 Absolute Neutrophils (1.2-6.7) 10^3/uL 5.07 Absolute Lymphocytes (1.2-3.4) 10^3/uL 2.80 Absolute Monocytes (0.1-0.8) 10^3/uL 0.49 Absolute Eosinophils (0.0-0.7) 10^3/uL 0.12 Absolute Basophils (0.0-0.2) 10^3/uL 0.08 Urine Color (Yellow) Yellow Urine Clarity (Clear) Clear Urine pH (5-8) 7.0 Ur Specific [place] (1.005-1.025) 1.015 Urine Protein (Negative) mg/dL Negative Urine Ketones (Negative) mg/dL Negative Urine Blood (Negative) Negative Urine Nitrite (Negative) Negative Urine Bilirubin (Negative) Negative Urine Urobilinogen (Up TO 0.2) EU/dL 0.2 Ur Leukocyte Esterase (Negative) Trace H Urine RBC (0-2) HPF Negative Urine WBC (0-5) HPF 20-50 H Ur Epithelial Cells (Negative) HPF Rare Urine Crystals (Negative) HPF Other Urine Bacteria (Negative) HPF Few Urine Casts (Negative) LPF Negative Urine Mucus (Negative) Negative Urine Other (Negative) Few transitional Ur Culture Indicated? Yes Urine Glucose (Negative) mg/dL Negative Sign Out <FRANCA Hdez - Last Filed: 11/21/20 11:19> Sign Out Data: Sign Out Comment: pending troponin, cxr, repeat EKG, admission Last updated by Divya Berumen PA at 11/20/20 16:30
[2020-11-20 15:51] LABS: ALT 35 U/L (14-59); AST 19 U/L (15-37); Albumin 4.3 g/dL (3.4-5.0); Alkaline Phosphatase 83 U/L (46-116); Anion Gap 7.8 mmol/L (3-11); BUN 18 mg/dL (7-18); Bilirubin, Total 0.3 mg/dL (0.2-1.0); CO2 30.2 mmol/L (21.0-32.0); Calcium 9.3 mg/dL (8.5-10.1); Chloride 102 mmol/L (98-107); Estimated GFR 56.37 (mL/min/1.73m2); Glucose 95 mg/dL (74-106); Magnesium 1.7 mg/dL (1.8-2.4); Potassium 3.3 mmol/L (3.5-5.1); Sodium 140 mmol/L (136-145); TSH 2.45 uIU/mL (0.36-3.74); Total Protein 7.6 g/dL (6.4-8.2); Troponin I < 0.05 ng/mL (<0.06)
[2020-11-20] MEDS: Normal Saline 1,000 ML 1000 ML IV (15:59)
[2020-11-20] MEDS: Potassium Chloride 20 MEQ TABCR PO (16:11)
[2020-11-20] MEDS: Aspirin 81 MG CHEW 324 MG CH (16:11)
[2020-11-20] MEDS: Cephalexin 500 MG CAP PO ×2 (16:31→23:48)
--- NOTE | 2020-11-20 17:14 | DI.VRAD_ITS ---
PROCEDURE INFORMATION: Exam: XR Chest Exam date and time: 11/20/2020 3:44 PM Age: 60 years old Clinical indication: Other: Chest pain TECHNIQUE: Imaging protocol: XR of the chest. Views: 2 views. COMPARISON: No relevant prior studies available. FINDINGS: Lungs: Unremarkable. No consolidation. Pleural spaces: Unremarkable. No pleural effusion. No pneumothorax. Heart/Mediastinum: Unremarkable. No cardiomegaly. Bones/joints: Unremarkable. IMPRESSION: No acute findings. Dictated and Authenticated by: Brice Carter MD. Ordering:LELAND Stokes MD
[2020-11-20 17:49] LABS: Source Nasal/Nares
[2020-11-20 18:30] LABS: Troponin I < 0.05 ng/mL (<0.06)
--- NOTE | 2020-11-20 18:59 | NUR.NOTE ---
Nursing Note: Patient took own metformin and acidophilus. Ok per FRANCA Mc.
--- NOTE | 2020-11-20 19:03 | HPE_ITS ---
Date of service: 11/20/20 Time of Service: 19:04 Assessment and Plan Assessment and plan (1) Atypical chest pain: Start date: 11/20/20 Status: Acute Assessment and plan: This is 60-year-old lady who has had 3 months history of progressive symptoms of chest pressure which is not associated with exertion or meals but appearing to worsen. She does have a history of hypertension, diabetes and hyperlipidemia as risk factors. She is also slightly obese though she exercises routinely. She is not weigh herself because of history of anorexia. Her initial troponins are negative and she will be observed overnight with trending troponins. If possible we will have patient stay until Sunday for exercise stress test because of her risk factors. Consideration should be taken to do an ultrasound of the gallbladder with the symptoms possibly atypical gallbladder colic with associated GI symptoms though not necessarily associated with meals. (2) HTN (hypertension): Status: Chronic Assessment and plan: Stable with chlorthalidone to be held while rep lenishing potassium and reassess antihypertensives this hospital stay. Consider beta-sanjeev though heart rate is already slow with routine exercise. Patient should have high potassium diet. Qualifiers: Hypertension type: essential hypertension Qualified Code(s): I10 - Ess ential (primary) hypertension (3) Diabetes: Status: Chronic Assessment and plan: Before meals and at bedtime glucometers with sliding scale short acting insulin for treatment during hospital stay. Qualifiers: Diabetes mellitus complication status: without complication Diabetes mellitus penitentiary insulin use: without penitentiary use Diabetes mellitus type: type 2 Qualified Code(s): E11.9 - Type 2 diabetes mellitus without com plications (4) Hyperlipidemia: Status: Chronic Assessment and plan: Continue statin therapy and follow-up lipid profile as appropriate. Qualifiers: Hyperlipidemia type: mixed hyperlipidemia Qualified Code(s): E78.2 - Mixed hyperlipidemia (5) UTI (urinary tract infection): Status: Acute Assessment and plan: Continue Keflex and follow-up urine culture status post treatment. Increase oral hydration. Qualifiers: Hematuria presence: without hematuria Urinary tract infection type: site unspecified Qualified Code(s): N39.0 - Urinary tract infection, site not specified (6) Hypokalemia: Status: Acute Assessment and plan: IV potassium supplementation and advance oral potassium supplement following lab adjusting supplement and repletion during this hospital stay. (7) Hypomagnesemia: Status: Acute Assessment and plan: IV repletion and follow-up lab in morning. History of Present Illness History of Present Illness Chief Complaint: Palpitations with chest pressure for 3 months Narrative: This is a 60-year-old lady who is with 5 children who are all grown and has had 3 months history of intermittent palpitations with chest pressure and associated nausea. She also has had increased indigestion and frequency not necessarily associate with her chest pressure over the last months. She still has her gallbladder. She does have occasional nausea with her chest pressure. She does have a slower heart rate from routine exercise and denies any presyncopal symptoms with her palpitations and chest pressure. She is not lightheaded, has no diaphoresis and no radiation of the discomfort. She has no association with meals other than her nausea and indigestion. She is very anxious with a history of anorexia nervosa which she feels is under control but also does get anxious at times dealing with childhood issues. 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 She does plan to travel to [place] this coming weekend and is concerned about traveling while she is having her chest symptoms. She was seen recently and diagnosed with a UTI and was started on treatment with Keflex. She has no urinary symptoms presently. Her weight has been stable. She has had no edema. She denies any PND or change in urinary habits. Her bowel habits have been normal except for some indigestion and occasional bloating. The patient was evaluated in the ED and because of history of hypertension, hyperlipidemia and diabetes as risk factors and her chest discomfort appearing to be evolving she was observed overnight with trending troponins. Her initial troponin and delta troponin were negative. Review of Systems Narrative: 13 point review of systems otherwise unrevealing or stable. Patient does have anxiety but thinks that she is coping well with this problem. [facility] Medical History (Updated 11/21/20 @ 12:49 by [employer]) Diabetes History of broken nose x2 History of deviated nasal septum Hx of anorexia nervosa Pt. states when she is weighed she is not to be told the number. Hx of epistaxis Hyperlipidemia Hypertension Surgical History H/O lithotripsy History of recent dental procedure Pt. states she recently traveled to [place] for dental work r/t to an infection in her dental roots, the infection has been treated surgically/abx, has 19 new crowns. Did F/U with [facility] in [place] upon return, pt. states that she is free of infection and has surgical clearance letter. Social History Smoking/Tobacco Use Status: Never Smoking risk assessment performed?: Yes Alcohol Intake: never Drug use: Never Substance use type: does not use Do you feel safe at home: Yes Do you feel safe in your relationship?: Yes Meds Allergies and Home Medications Allergies Allergy/AdvReac Type Severity Reaction Status Date / Time chocolate flavor Allergy Severe ANAPHYLAXIS Unverified 11/20/20 15:23 venom-honey bee Allergy Severe Anaphylaxsi Unverified 11/20/20 15:23 [bee venom (honey bee)] s cat dander Allergy Intermediate SOB, cough, Verified 11/20/20 15:23 ciprofloxacin [From Cipro] Allergy Mild RASH,T Unverified 11/20/20 15:23 ELEVATION,TACHYCARDIA docusate sodium Allergy Mild Skin Rash Unverified 11/20/20 15:23 [From Senna-S] sennosides [From Senna-S] Allergy Mild Skin Rash Unverified 11/20/20 15:23 milk AdvReac Intermediate Diarrhea Unverified 11/20/20 15:23 pomegranate AdvReac Intermediate sore Unverified 11/20/20 15:23 throat, diarrhea peanut AdvReac Mild Diarrhea Unverified 11/20/20 15:23 cammomile Allergy Severe Skin Rash Uncoded 11/20/20 15:23 CHLORINE Allergy Severe Anaphylaxsi Uncoded 11/20/20 15:23 s Home Medications Medication Instructions Recorded Confirmed Type Epipen 1 ea IM 1:1000 ONCE 12/16/12 11/20/20 History Cranberry Concentrate 3 mg PO DAILY 05/20/16 11/20/20 History chlorthalidone 25 mg PO DAILY 05/20/16 11/20/20 History chromium picolinate 400 mcg PO DAILY 05/20/16 11/20/20 History magnesium oxide 400 mg PO DAILY 05/20/16 11/20/20 History Blackstrap Molasses 15 ml PO DAILY 11/25/17 11/20/20 History potassium chloride 20 meq PO DAILY 11/25/17 11/20/20 History ascorbate calcium (vitamin C) 1,500 mg PO DAILY 12/21/17 11/20/20 History acetaminophen [Mapap Extra 1,000 mg PO Q4H PRN PRN tab 01/04/18 11/20/20 Rx Strength] acidophilus-pectin, citrus 1 cap PO TID PRN PRN cap 01/04/18 11/20/20 Rx cholecalciferol (vitamin D3) 25 1,000 unit PO DAILY 05/17/18 11/20/20 History mcg (1,000 unit) capsule diphenhydramine HCl 25 mg PO PRN PRN 05/27/18 11/20/20 History metformin 1,000 mg tablet 1,000 mg PO BID 12/04/19 11/20/20 History zinc acetate 50 mg (zinc) capsule 50 mg PO DAILY 12/04/19 11/20/20 History atorvastatin 20 mg PO DAILY 02/05/20 11/20/20 History lemon flavor extract (bulk) [Lemon 30 ml PO DAILY 11/20/20 11/20/20 History Extract Flavor] Exam Narrative Exam Narrative: General: Patient appears appropriate for age, slightly anxious with pressured speech and wandering conversation. She is very talkative. She is alert and oriented x3. In no acute distress. HEENT: Normocephalic, eyes with pupils equal and react to light symmetrically, extraocular movement intact and sclera anicteric. Oropharynx with moist mucosa and good dentition. Neck: Supple without JVD. Back: Slightly stooped posture with no CVA tenderness. Lungs: Clear to auscultation and percussion. Heart: Regular rate and rhythm with borderline bradycardia. No murmurs or gallops appreciated. Breast: Exam deferred. Abdomen: Obese contour, soft and nontender to palpation with no palpable hepatosplenomegaly. Negative Mulligan sign. Bowel sounds positive in all quadrants. Genitalia/rectal: Exam deferred. Extremities: Without clubbing, cyanosis or edema. Peripheral pulses intact. Skin: Normal color, warm and dry Neuro: Cranial nerves II through XII grossly intact, no focalizing motor deficits. Psych: Anxious affect but good eye contact, pressured speech. Almost euphoric mood. No abnormal thought processes. Remote and recent memory intact. Results Imaging Imaging Studies: Exam: XR Chest Exam date and time: 11/20/2020 3:44 PM Age: 60 years old Clinical indication: Other: Chest pain TECHNIQUE: Imaging protocol: XR of the chest. Views: 2 views. COMPARISON: No relevant prior studies available. FINDINGS: Lungs: Unremarkable. No consolidation. Pleural spaces: Unremarkable. No pleural effusion. No pneumothorax. Heart/Mediastinum: Unremarkable. No cardiomegaly. Bones/joints: Unremarkable. IMPRESSION: No acute findings. Labs Result diagrams: 11/21/20 06:25 11/21/20 06:25 Labs: Laboratory Results - last 24 hr 11/20/20 11/20/20 11/20/20 15:15 15:15 15:20 WBC 8.59 RBC 5.12 Hgb 14.5 Hct 43.9 MCV 85.7 MCH 28.3 MCHC 33.0 RDW 12.9 Plt Count 204 MPV 11.6 H Immature Gran % 0.3 Neutrophils % 59.1 Lymphocytes % 32.6 Monocytes % 5.7 Eosinophils % 1.4 Basophils % 0.9 Nucleated RBC % 1 Absolute Neutrophils 5.07 Absolute Lymphocytes 2.80 Absolute Monocytes 0.49 Absolute Eosinophils 0.12 Absolute Basophils 0.08 Sodium 140 Potassium 3.3 L Chloride 102 Carbon Dioxide 30.2 Anion Gap 7.8 BUN 18 Creatinine 1.0 Estimated GFR/1.73 m2 56.37 Glucose 95 Calcium 9.3 Magnesium 1.7 L Total Bilirubin 0.3 AST 19 ALT 35 Alkaline Phosphatase 83 Troponin I < 0.05 Total Protein 7.6 Albumin 4.3 TSH 2.45 Urine Color Yellow Urine Clarity Clear Urine pH 7.0 Ur Specific [place] 1.015 Urine Protein Negative Urine Ketones Negative Urine Blood Negative Urine Nitrite Negative Urine Bilirubin Negative Urine Urobilinogen 0.2 Ur Leukocyte Esterase Trace H Urine RBC Negative Urine WBC 20-50 H Ur Epithelial Cells Rare Urine Crystals Other Urine Bacteria Few Urine Casts Negative Urine Mucus Negative Urine Other Few transitional Ur Culture Indicated? Yes Urine Glucose Negative COVID-19 Source 11/20/20 11/20/20 17:43 18:10 WBC RBC Hgb Hct MCV MCH MCHC RDW Plt Count MPV Immature Gran % Neutrophils % Lymphocytes % Monocytes % Eosinophils % Basophils % Nucleated RBC % Absolute Neutrophils Absolute Lymphocytes Absolute Monocytes Absolute Eosinophils Absolute Basophils Sodium Potassium Chloride Carbon Dioxide Anion Gap BUN Creatinine Estimated GFR/1.73 m2 Glucose Calcium Magnesium Total Bilirubin AST ALT Alkaline Phosphatase Troponin I < 0.05 Total Protein Albumin TSH Urine Color Urine Clarity Urine pH Ur Specific [place] Urine Protein Urine Ketones Urine Blood Urine Nitrite Urine Bilirubin Urine Urobilinogen Ur Leukocyte Esterase Urine RBC Urine WBC Ur Epithelial Cells Urine Crystals Urine Bacteria Urine Casts Urine Mucus Urine Other Ur Culture Indicated? Urine Glucose COVID-19 Source Nasal/nares Last Vital Signs Temp 36.3 C L 11/20/20 14:55 Pulse 58 L 11/20/20 19:01 Resp 8 L 11/20/20 19:01 BP 119/60 11/20/20 19:01 Pulse Ox 95 11/20/20 19:01 COVID-19 Screening Have you, or household traveled for leisure in last 14 days?: No Had IN PERSON contact w/suspected or confirmed C-19 person: No
[2020-11-20] MEDS: Magnesium Oxide 400 MG TAB PO (20:54)
[2020-11-20] MEDS: MAGNESIUM SULFATE 2 GM/50 ML BAG IVPB (20:55)
[2020-11-20 23:10] LABS: Anion Gap 7.5 mmol/L (3-11); BUN 17 mg/dL (7-18); CO2 31.5 mmol/L (21.0-32.0); CREATININE 0.9 mg/dL (0.55-1.02); Calcium 8.7 mg/dL (8.5-10.1); Chloride 105 mmol/L (98-107); Glucose 119 mg/dL (74-106); Potassium 3.2 mmol/L (3.5-5.1); Sodium 144 mmol/L (136-145)
[2020-11-20 23:18] LABS: Troponin I < 0.05 ng/mL (<0.06)
[2020-11-20] MEDS: Lactobacillus Acidophilus CAP 1 CAP PO (23:48)
[2020-11-20 23:49] LABS: C-Reactive Protein 0.28 mg/dL (0.0-0.3)
[2020-11-21] VITALS (7 sets, daily range): BP systolic 105–129; BP diastolic 60–82; PULSE 53–73; RESP 16–18; TEMP 36–36.7; O2SAT 98–99
[2020-11-21] MEDS: Cephalexin 500 MG CAP PO ×4 (05:11→23:07)
[2020-11-21 07:17] LABS: Abs Immature Grans 0.02 10^3/uL (0.0-0.06); Absolute Basophil Count 0.06 10^3/uL (0.0-0.2); Absolute Eosinophil Count 0.12 10^3/uL (0.0-0.7); Absolute Lymphocyte Count 1.87 10^3/uL (1.2-3.4); Absolute Monocyte Count 0.36 10^3/uL (0.1-0.8); Absolute Neutrophil Count 3.67 10^3/uL (1.2-6.7); HCT 41.1 % (36.0-46.0); HGB 13.8 g/dL (11.2-15.7); Immature Grans % 0.3; Lymphocytes % 30.7; MCH 28.9 pg (27.0-33.0); MCHC 33.6 % (32.0-36.0); MPV 11.6 fL (8.0-11.0); Monocytes % 5.9; Neutrophils % 60.1; Nucleated RBC 0 %; Platelet Count 177 10^3/uL (130-400); RBC 4.78 10^6/uL (3.93-5.22); RDW 13.2 % (11.7-14.6); RDW-SD 41.2 fL
[2020-11-21 07:27] LABS: Prothrombin Time 9.9 sec (9.3-11.0)
[2020-11-21 07:34] LABS: ALT 32 U/L (14-59); AST 16 U/L (15-37); Albumin 3.8 g/dL (3.4-5.0); Alkaline Phosphatase 70 U/L (46-116); Anion Gap 9.1 mmol/L (3-11); BUN 14 mg/dL (7-18); Bilirubin, Total 0.4 mg/dL (0.2-1.0); CO2 29.9 mmol/L (21.0-32.0); CREATININE 0.9 mg/dL (0.55-1.02); Calcium 8.6 mg/dL (8.5-10.1); Chloride 104 mmol/L (98-107); Glucose 115 mg/dL (74-106); Magnesium 1.9 mg/dL (1.8-2.4); Potassium 3.1 mmol/L (3.5-5.1); Sodium 143 mmol/L (136-145); Total Protein 6.8 g/dL (6.4-8.2)
--- NOTE | 2020-11-21 07:45 | RT.EKG_ITS ---
APPROVED REPORT Exam: Resting ECG Reason for Exam: chest pain Patient Location: I HR:55 bpm ECG Measurements Heart Rate 55 AXIS SC 163 P 23 QRSd 90 QRS -9 QT 463 T 15 QTc 446 Conclusion Sinus bradycardia...rate< 60 Low voltage, precordial leads...precordial leads <1.0mV
[2020-11-21 07:53] LABS: Troponin I < 0.05 ng/mL (<0.06)
[2020-11-21 08:03] LABS: Calculated LDL 59 mg/dL (<100); Cholesterol 116 mg/dL (<200); HDL Cholesterol 34 mg/dL (40-60); Triglyceride 117 mg/dL (<150)
[2020-11-21] MEDS: Lactobacillus Acidophilus CAP 1 CAP PO ×5 (08:31→23:07)
[2020-11-21] MEDS: Magnesium Oxide 400 MG TAB PO ×2 (08:31→20:18)
[2020-11-21] MEDS: Aspirin 81 MG CHEW PO (08:31)
[2020-11-21] MEDS: Atorvastatin 20 MG TAB PO (08:32)
[2020-11-21] MEDS: Potassium Chloride 20 MEQ TABCR 40 MEQ PO ×2 (08:32→17:41)
[2020-11-21] MEDS: Normal Saline Flush 10 ML SYR IVP ×2 (08:32→20:19)
[2020-11-21] MEDS: Pantoprazole 40 MG TABCR PO (08:32)
[2020-11-21] MEDS: Enoxaparin 40 MG/0.4 ML SYR SC (09:00)
--- NOTE | 2020-11-21 09:19 | PDOC.CMIN ---
- If Service Date Differs Date of service: 11/21/20 Time of Service: 09:19 Care Management Initial Assess REASON FOR HOSPITALIZATION:: Atypical chest pain, hypertension, hyperlipidemia. PAST MEDICAL HISTORY/PAST SURGICAL HISTORY:: Medical History: Diabetes, History of broken nose x 2, History of deviated nasal septum, Hx of anorexia nervosa - Pt. states when she is weighed she is not to be told the number., Hx of epistaxis, Hyperlipidemia, and. Hypertension. Surgical History: H/O lithotripsy, and History of recent dental procedure - Pt. states she recently traveled to [place] for dental work r/t to an infection in her dental roots, the infection has been treated surgically/abx, has 19 new crowns. Did F/U with [facility] D[facility] in [place] upon return, pt. states that she is free of infection and has surgical clearance letter. PREVIOUS FUNCTIONAL STATUS/SOCIAL/FAMILY SUPPORTS:: Hannah is a 60 year old woman who lives in [place] with her Kings. Together they have 5 adult children, 3 of whom live in various parts of [place], 1 in [place], and 1 in [place]. Hannah drives and is independent with her ADLs at baseline. She drives to [place] several times a week to care for her grandchild while her daughter is at work. She names several friends as her support network. CURRENT FUNCTIONAL STATUS:: Hannah is laying in bed watching television when CM comes to meet with her. She is pleasant and easily engages in conversation. She shares a little bit about her family and talks about going to [place] to have dental work done. CM will continue to follow. ADVANCE DIRECTIVES:: None on file, but accepts an Advance Directives to take home and review. Has patient been provided with info about the portal/API?: Yes Did the patient sign up for the portal?: No (Patient declines.) CODE STATUS:: Full Code INSURANCE COVERAGE / FINANCIAL ISSUES:: Medicaid. CURRENT HOME/COMMUNITY SERVICES/EQUIPMENT:: No home or community services, as Hannah is independent at baseline. She is diabetic and has a glucometer, test strips, and lancet. PRIMARY CARE PHYSICIAN:: Demetria Larios NP. POTENTIAL DISCHARGE NEEDS:: Follow up appointments with PCP and cardiology. PATIENT/FAMILY EDUCATION NEEDS:: Review discharge instructions re medications and activity levels. Review Ask Me Three questions. ANTICIPATED BARRIERS TO DISCHARGE:: None identified. TRANSPORTATION:: Via private vehicle. PLAN:: Hannah will likely return home with a cardiac event recorder when medically cleared by provider. She will follow up with her PCP, credit administration officer, and discharge plan of care as directed. She will be driven home by family via private vehicle. CM will continue to support Hannah and discharge planning needs.
[2020-11-21 10:29] LABS: COVID-19 PCR Negative (Negative)
--- NOTE | 2020-11-21 15:42 | PGE_ITS ---
Date of Service Date of service: 11/21/20 Time of Service: 15:42 Assessment and Plan Assessment and plan (1) Atypical chest pain: Status: Acute Assessment and plan: Ddx: angina/SVT/Afib vs GI: GERD (patient does endorse symptoms) or cholecystitis. MPI, US RUQ tomorrow. Continue PPI. Replace lytes. Monitor on tele. Obtain echo. (2) HTN (hypertension): Status: Chronic Assessment and plan: BP is stable off meds today. Consider a potassium sparing diuretic if BP does go up. Qualifiers: Hypertension type: essential hypertension Qualified Code(s): I10 - Essential (primary) hypertension (3) Diabetes: Status: Chronic Assessment and plan: Continue SSI Qualifiers: Diabetes mellitus type: type 2 Diabetes mellitus mcfp insulin use: without manager long term care use Diabetes mellitus complication status: without complication Qualified Code(s): E11.9 - Type 2 diabetes mellitus without complications (4) Hyperlipidemia: Status: Chronic Assessment and plan: Continue statin Qualifiers: Hyperlipidemia type: mixed hyperlipidemia Qualified Code(s): E78.2 - M ixed hyperlipidemia (5) UTI (urinary tract infection): Status: Acute Assessment and plan: Continue Keflex empirically Qualifiers: Urinary tract infection type: site unspecified Hematuria presence: without hematuria Qualified Code(s): N39.0 - Urinary tract infection, site not specified (6) Hypokalemia: Status: Acute Assessment and plan: repleted; recheck in am (7) Hypomagnesemia: Status: Acute Assessment and plan: Repleted; recheck in am (8) DVT prophylaxis: Status: Acute Assessment and plan: SC lovenox (9) Discharge planning issues: Status: Acute Assessment and plan: Full code Continues to require hospitalization until stress test tomorrow Subjective Subjective Interval history since last seen: Ms Nair states that she feels a little lightheaded (but she gets that way a lot), thirsty all the time (also her normal since childhood), states she has 1/10 chest discomfort, c/o mild nausea which she associates with lightheadedness. She denies palpitations/fluttering today. She reports RUQ pain. Exam Narrative Exam Narrative: General: Pleasant middle-aged female who appears comfortable HEENT: EOMI, MMM Heart: RRR, no m/r/g Lungs: CTAB Abdomen: soft, tender in epigastrium and RUQ Extremities: nondistended. Objective Last Vital Signs Temp 36 C L 11/21/20 11:45 Pulse 73 11/21/20 15:00 Resp 18 11/21/20 11:45 BP 117/60 11/21/20 11:45 Pulse Ox 99 11/21/20 11:45 Laboratory Results - last 24 hr 11/20/20 11/20/20 11/20/20 15:15 17:43 18:10 WBC RBC Hgb Hct MCV MCH MCHC RDW Plt Count MPV Immature Gran % Neutrophils % Lymphocytes % Monocytes % Eosinophils % Basophils % Nucleated RBC % Absolute Neutrophils Absolute Lymphocytes Absolute Monocytes Absolute Eosinophils Absolute Basophils PT INR Sodium 140 Potassium 3.3 L Chloride 102 Carbon Dioxide 30.2 Anion Gap 7.8 BUN 18 Creatinine 1.0 Estimated GFR/1.73 m2 56.37 Glucose 95 Calcium 9.3 Magnesium 1.7 L Total Bilirubin 0.3 AST 19 ALT 35 Alkaline Phosphatase 83 Troponin I < 0.05 < 0.05 C-Reactive Protein C-React Prot High Sens Total Protein 7.6 Albumin 4.3 Triglycerides Total Cholesterol LDL Cholesterol, Calc HDL Cholesterol TSH 2.45 COVID-19 Source Nasal/nares SARS-CoV-2 (PCR) Negative 11/20/20 11/20/20 11/20/20 18:55 22:50 22:50 WBC RBC Hgb Hct MCV MCH MCHC RDW Plt Count MPV Immature Gran % Neutrophils % Lymphocytes % Monocytes % Eosinophils % Basophils % Nucleated RBC % Absolute Neutrophils Absolute Lymphocytes Absolute Monocytes Absolute Eosinophils Absolute Basophils PT INR Sodium 144 Potassium 3.2 L Chloride 105 Carbon Dioxide 31.5 Anion Gap 7.5 BUN 17 Creatinine 0.9 Estimated GFR/1.73 m2 >= 60.00 Glucose 119 H Calcium 8.7 Magnesium Total Bilirubin AST ALT Alkaline Phosphatase Troponin I < 0.05 C-Reactive Protein 0.28 C-React Prot High Sens Total Protein Albumin Triglycerides Total Cholesterol LDL Cholesterol, Calc HDL Cholesterol TSH Cancelled COVID-19 Source SARS-CoV-2 (PCR) 11/20/20 11/21/20 11/21/20 22:50 05:25 06:25 WBC Cancelled RBC Cancelled Hgb Cancelled Hct Cancelled MCV Cancelled MCH Cancelled MCHC Cancelled RDW Cancelled Plt Count Cancelled MPV Cancelled Immature Gran % Neutrophils % Lymphocytes % Monocytes % Eosinophils % Basophils % Nucleated RBC % Absolute Neutrophils Absolute Lymphocytes Absolute Monocytes Absolute Eosinophils Absolute Basophils PT INR Sodium Potassium Chloride Carbon Dioxide Anion Gap BUN Creatinine Estimated GFR/1.73 m2 Glucose Calcium Magnesium Total Bilirubin AST ALT Alkaline Phosphatase Troponin I < 0.05 C-Reactive Protein C-React Prot High Sens Cancelled Total Protein Albumin Triglycerides Total Cholesterol LDL Cholesterol, Calc HDL Cholesterol TSH COVID-19 Source SARS-CoV-2 (PCR) 11/21/20 11/21/20 11/21/20 06:25 06:25 06:25 WBC 6.10 RBC 4.78 Hgb 13.8 Hct 41.1 MCV 86.0 MCH 28.9 MCHC 33.6 RDW 13.2 Plt Count 177 MPV 11.6 H Immature Gran % 0.3 Neutrophils % 60.1 Lymphocytes % 30.7 Monocytes % 5.9 Eosinophils % 2.0 Basophils % 1.0 Nucleated RBC % 0 Absolute Neutrophils 3.67 Absolute Lymphocytes 1.87 Absolute Monocytes 0.36 Absolute Eosinophils 0.12 Absolute Basophils 0.06 PT INR Sodium 143 Potassium 3.1 L Chloride 104 Carbon Dioxide 29.9 Anion Gap 9.1 BUN 14 Creatinine 0.9 Estimated GFR/1.73 m2 >= 60.00 Glucose 115 H Calcium 8.6 Magnesium 1.9 Total Bilirubin 0.4 AST 16 ALT 32 Alkaline Phosphatase 70 Troponin I C-Reactive Protein C-React Prot High Sens Total Protein 6.8 Albumin 3.8 Triglycerides 117 Total Cholesterol 116 LDL Cholesterol, Calc 59 HDL Cholesterol 34 L TSH COVID-19 Source SARS-CoV-2 (PCR) 11/21/20 06:25 WBC RBC Hgb Hct MCV MCH MCHC RDW Plt Count MPV Immature Gran % Neutrophils % Lymphocytes % Monocytes % Eosinophils % Basophils % Nucleated RBC % Absolute Neutrophils Absolute Lymphocytes Absolute Monocytes Absolute Eosinophils Absolute Basophils PT 9.9 INR 1.0 Sodium Potassium Chloride Carbon Dioxide Anion Gap BUN Creatinine Estimated GFR/1.73 m2 Glucose Calcium Magnesium Total Bilirubin AST ALT Alkaline Phosphatase Troponin I C-Reactive Protein C-React Prot High Sens Total Protein Albumin Triglycerides Total Cholesterol LDL Cholesterol, Calc HDL Cholesterol TSH COVID-19 Source SARS-CoV-2 (PCR)
[2020-11-21] MEDS: Acetaminophen 325 MG TAB 650 MG PO (20:24)
[2020-11-22 03:50] VITALS: BP 118/72; PULSE 54; RESP 17; TEMP 36.5; O2SAT 95
[2020-11-22] MEDS: Cephalexin 500 MG CAP PO ×2 (05:47→12:39)
[2020-11-22 07:04] LABS: Anion Gap 6.4 mmol/L (3-11); BUN 18 mg/dL (7-18); CO2 29.6 mmol/L (21.0-32.0); CREATININE 0.9 mg/dL (0.55-1.02); Calcium 8.8 mg/dL (8.5-10.1); Chloride 106 mmol/L (98-107); Glucose 132 mg/dL (74-106); Potassium 3.9 mmol/L (3.5-5.1); Sodium 142 mmol/L (136-145)
[2020-11-22 07:05] VITALS: PULSE 57
[2020-11-22 07:10] LABS: Hemoglobin A1C 6.3 % (<5.7)
[2020-11-22] MEDS: Pantoprazole 40 MG TABCR PO (07:14)
[2020-11-22 07:37] VITALS: BP 129/78; PULSE 63; RESP 18; TEMP 36.8; O2SAT 98
--- NOTE | 2020-11-22 08:00 | DI.US_ITS ---
Exam(s) US ABDOMEN EXAM: US ABDOMEN CLINICAL HISTORY: RUQ pain TECHNIQUE: Ultrasound of complete upper abdomen performed using standard protocol. COMPARISON: CT CT ABDOMEN PELVIS WO from 12/19/2019 FINDINGS: There is no ascites evident. LIVER: There are no hepatic lesions evident nor obvious dilatation of intrahepatic ducts. Liver appe ars hyperechoic indicating steatosis. GALLBLADDER/BILIARY: There are no gallstones. No gallbladder wall edema nor pericholecystic fluid. The common hepatic duct isnot dilated, measuring 2-3mm at the level of ivan hepatis. PANCREAS: There is no evidence of pancreatic mass nor dilatation of the pancreatic duct. SPLEEN: The spleen is not enlarged and there are no intrasplenic lesions evident. KIDNEYS:Kidneys exhibit normal size with no evidence of solid mass, calculus, nor hydronephrosis. No cortical cysts evident. ABDOMINAL AORTA: There is no evidence of abdominal aortic aneurysm. IVC: Normal diameter where visualized. IMPRESSION: 1. No evidence of cholelithiasis nor dilatation of the biliary tree. 2. Bilateral nonobstructive nephrolithiasis. The calculi are actually better evident on the prior C T scan of December 2019 than on the present ultrasound images. LS, there is no hydronephrosis nor perine phric fluid evident. 3. There is no ascites. DATA REPOSITORY:
--- NOTE | 2020-11-22 08:00 | DI.US_ITS ---
APPROVED REPORT EXAM: Comprehensive 2D, Doppler, and color-flow Echocardiogram Patient Location: In-Patient Room/Bed: [facility] Used Car Make Ready Mechanic: Bobbi Lucas RDCS (AE) Indications: Palpitations, Chest pain, HTN Other Information Study Quality: Adequate Conclusion Left Ventricle : The left ventricle is normal size. The left ventricular systolic function is normal. The left ventricular ejection fraction is within the normal range. There is normal left ventricular wall thickness. There is normal LV segmental wall motion. The left ventricular diastolic function is normal. LVEF is 65%. Right Ventricle : The right ventricle is normal size. The right ventricular systolic function is norm al. The RVSP is 20mmHg. Atria : The left atrium size is normal. The right atrium size is normal. Valves: There are no hemodynamically significant valvular lesions. Great Vessels : The aortic root is normal in size. The ascending aorta is borderline dilated. Aortic arch is normal in caliber. Please see remainder of study for further details. Wall motion Left Ventricle The left ventricle is normal size. The left ventricular systolic function is normal. The left ventric ular ejection fraction is within the normal range. There is normal left ventricular wall thickness. T here is normal LV segmental wall motion. The left ventricular diastolic function is normal. There is no ventricular septal defect visualized. LVEF is 65%. Right Ventricle The right ventricle is normal size. The right ventricular systolic function is normal. The RVSP is 20 mmHg. Atria The left atrium size is normal. The right atrium size is normal. The interatrial septum is intact wit h no evidence for an atrial septal defect. Aortic Valve The aortic valve is normal in structure. Aortic valve is trileaflet. There is no aortic valvular sten osis. No aortic regurgitation is present. Mitral Valve The mitral valve is normal in structure. No evidence of mitral valve stenosis. Trace mitral regurgita tion. Tricuspid Valve The tricuspid valve is normal in structure. There is no tricuspid valve stenosis. Trace to mild tricu spid regurgitation. Pulmonic Valve Pulmonic valve is grossly normal in structure. There is no pulmonic valvular stenosis. There is no pu lmonic valvular regurgitation. Great Vessels The aortic root is normal in size. The ascending aorta is borderline dilated. Aortic arch is normal i n caliber. IVC is normal in size and collapses >50% with inspiration. Pericardium There is no pericardial effusion. 2D Dimensions IVSD d PLAX 0.90 cm F: 0.6-1.0 LV Vol A2C d MOD 87.8 mL LVPW d PLAX 0.91 cm F: 0.6 - 1.0 LV Vol A4C d MOD 72.2 mL LVID d PLAX 4.45 cm F: 3.8 - 5.2 LA vol/ BSA A2C s A-L 19.3 mL/m2 LVDs 2.85 cm F: 2.2 - 3.5 LA vol/ BSA A4C s A-L 15.2 mL/m2 Ao Root d 2.48 cm F: 2.7 - 3.3 LA Vol/ BSA Biplane s A-L 18.1 mL/m2 RA Area A4C 10.28 cm2 LA Area A4C s MOD 12.00 cm2 RA Vol/ BSA A4C s A-L 13.2 mL/m2 LA Area A2C s MOD 12.84 cm2 Ao Asc Diam d 3.22 cm F: 2.3 - 3.1 LV EF A4C MOD 65.1 % LV EF Teichholz 64.7 % LV EF A2C MOD 64.0 % LVEF (Schafer's) 64.40 % F: 54 - 74 LV EF Biplane MOD 64.4 % LV Volume 67.51 mL F: 46 - 106 SV 54.26 mL LV Volume Index 40.66 mL/m2 F: 29 - 61 SV Index 32.69 mL/m2 LV Vol Biplane MOD 84.3 mL FS 35.20 % M-Mode TAPSE 2.13 cm (M/F) >1.7 LV Diastology MV E' medial 0.132 (>0.07 m/s) E/A Ratio 1.0 LV E/e MED 5.35 (<14) MV E Vmax 0.71 (0.4-1.3 m/s) MV E' lateral 0.110 (>0.1 m/s) MV A Vmax 0.70 (0.4-1.3 m/s) LV E/e LAT 6.45 (<14) MV E/A Ratio 0.95 MV E/E' medial 5.37 MV E/E' lateral 6.47 Aortic Valve LVOT Area 3.05 cm2 AoV Area Vmax 2.35 cm2 LVOT Vmax 0.94 m/s AoV Area/ BSA (Vmax) 1.41 cm2/m2 LVOT Mean Brett. 0.58 m/s TARA Mean Brett. 2.08 cm2 LVOT Peak Grad 3.5 mmHg TARA Mean Brett. Index 1.25 cm2/m2 LVOT Mean Grad 1.6 mmHg LVOT VTI 0.199 m LVOT Diam s 1.95 cm AoV Vmax 1.22 m/s Velocity Ratio 0.77 AoV Mean Brett. 0.86 m/s AoV Peak Grad 5.9 mmHg LVOT SV 60.74 mL AoV Mean Grad 3.3 mmHg AoV VTI 0.288 m AoV Area VTI 2.11 cm2 AoV Area/ BSA (VTI) 1.27 cm/m2 Mitral Valve MV DT 186 (160-240 msec) MV PHT 54 msec MV Area PHT 4.07 cm2 Pulmonary Valve PV Vmax 0.81 (0.5-1.5 m/s) RVOT Peak Gr. 1.15 mmHg PV Peak Grad 2.6 mmHg RVOT Mean Gr. 0.65 mmHg PV Mean Grad 1.6 mmHg RVOT VTI 0.152 m PV VTI 0.187 m RVOT Vmax 0.54 m/s Tricuspid Valve TR Peak Grad 17.0 mmHg TR Vmax 2.06 m/s RA Pressure 3.00 mmHg RVSP (TR) 20.0 mmHg
[2020-11-22] MEDS: Aspirin 81 MG CHEW PO (08:34)
[2020-11-22] MEDS: Atorvastatin 20 MG TAB PO (08:34)
[2020-11-22] MEDS: Potassium Chloride 20 MEQ TABCR 40 MEQ PO (08:34)
[2020-11-22] MEDS: Magnesium Oxide 400 MG TAB PO (08:34)
[2020-11-22] MEDS: Enoxaparin 40 MG/0.4 ML SYR SC (08:35)
--- NOTE | 2020-11-22 10:34 | CMPROGNOTE_ITS ---
- If Service Date Differs Date of service: 11/22/20 Time of Service: 10:34 Care Management Progress Note S/O: A: Hannah is a 60 year old female admitted to [facility] on 11/20/20 with atypical chest pain, hypertension, hyperlipidemia. P: Hannah will likely return home with a cardiac event recorder when medically cleared by provider. She will follow up with her PCP, personal injury paralegal, and discharge plan of care as directed. She will be driven home by family via private vehicle. CM will continue to support Hannah and discharge planning needs.
[2020-11-22 11:40] VITALS: BP 133/83; PULSE 60; RESP 18; TEMP 36.7; O2SAT 99
[2020-11-22] MEDS: Lactobacillus Acidophilus CAP 1 CAP PO (12:39)
--- NOTE | 2020-11-22 13:02 | W.PM.DS.N ---
Date of service: 11/22/20 Time of Service: 13:03 DS: Diagnosis Discharge Diagnosis (1) Atypical chest pain: Status: Acute Asessment and Plan: scheduled for outpatient stress test on , November 25 as it was unable during her admission echo Conclusion Left Ventricle : The left ventricle is normal size. The left ventricular systolic function is normal. The left ventricular ejection fraction is within the normal range. There is normal left ventricular wall thickness. There is normal LV segmental wall motion. The left ventricular diastolic function is normal. LVEF is 65%. Right Ventricle : The right ventricle is normal size. The right ventricular systolic function is normal. The RVSP is 20mmHg. Atria : The left atrium size is normal. The right atrium size is normal. Valves: There are no hemodynamically significant valvular lesions. Great Vessels : The aortic root is normal in size. The ascending aorta is borderline dilated. Aortic arch is normal in caliber. (2) HTN (hypertension): Status: Chronic Asessment and Plan: stable (3) Diabetes: Status: Chronic Asessment and Plan: A1C 6.3 on this admission resume usual medication and carb control diet (4) Hyperlipidemia: Status: Chronic (5) UTI (urinary tract infection): Status: Acute Asessment and Plan: will complete 5 days of keflex. ID and sensitivities still pending. no symptoms (6) Hypokalemia: Status: Acute Asessment and Plan: did report episode of watery diarrhea a few days prior repleted K and mag will recheck electrolytes November 26, further medication recommendations per pcp (7) Hypomagnesemia: Status: Acute Asessment and Plan: repleted Discharge Plan Disposition Patient Disposition: HOME Condition: Stable Discharge Details Reason For Visit: ATYPICAL CHEST PAIN, HYPERTENSION, HYPERLIPIDEMIA Admit Date/Time: 11/20/20 18:51 Admit Provider: [employer] [facility] Attending Provider: [employer] [facility] Primary Care Provider: Demetria Larios Hospital Course Hospital Course: This is 60-year-old patient who has had 3 months history of progressive symptoms of chest pressure which is not associated with exertion or meals but appearing to worsen. She does have a history of hypertension, diabetes and hyperlipidemia as risk factors. She is also slightly obese though she exercises routinely. She is not weigh herself because of history of anorexia. Her initial troponins were negative and she was admitted to med/surg for observation with trending troponins that remained negative. She had no reoccurrence of her symptoms while hospitalized. she was found to be hypokalemic, which she has a history of. She also reports an episode of diarrhea days prior to arrival. her potassium is up to 3.9 after repletion. she will be discharged on a holter monitor for her reports of palpitations. on telemetry she was noted to have some pvcs but no dysrthymias. Her urine reflexed for culture and was growing gram positive sherly. she was started on keflex and remained asymptomatic. she will complete a 5 day course. she was unable to undergo a stress test while hospitalized so will arrange for outpatient stress test on November 25, which she is agreeable to. she has an outpatient appointment scheduled with pcp on Sundaynovember 26. she will have a repeat BMP prior to that appointment and will defer any medication changes to her pcp. she has remained stable, with negative troponins and will be discharged to further outpatient cardiac work up per outpatient team. discharge discussed with DR Griffin. Home Meds and New Rx's Prescriptions: New cephalexin 500 mg Capsule 500 mg PO Q6H Qty: 14 RF: 0 Continued cholecalciferol (vitamin D3) 1,000 unit capsule 1,000 unit PO DAILY RF: 0 metformin 1,000 mg tablet 1,000 mg PO BID RF: 0 Galzin 50 mg (zinc) capsule 50 mg PO DAILY RF: 0 EPIPEN 1 ea IM 1:1000 ONCE RF: 0 chlorthalidone 25 MG tablet 25 mg PO DAILY RF: 0 Cranberry Concentrate 1 EACH capsule 3 mg PO DAILY RF: 0 magnesium oxide 400 MG tablet 400 mg PO DAILY RF: 0 chromium picolinate 400 MCG tablet 400 mcg PO DAILY RF: 0 ascorbate calcium (vitamin C) 500 MG tablet 1,500 mg PO DAILY RF: 0 atorvastatin 20 mg Tablet 20 mg PO DAILY RF: 0 potassium chloride 20 MEQ tablet extended release 20 meq PO DAILY RF: 0 Blackstrap Molasses 15 ml PO DAILY RF: 0 acetaminophen [Mapap Extra Strength] 500 MG tablet 1,000 mg PO Q4H PRN PRNRF: 0 acidophilus-pectin, citrus 1 CAP tablet 1 cap PO TID PRN PRNRF: 0 diphenhydramine HCl 25 mg Capsule 25 mg PO PRN PRNRF: 0 lemon flavor extract (bulk) [Lemon Extract Flavor] Liquid 30 ml PO DAILY RF: 0 Discharge Instructions Instructions: Chest Pain (DC), Urinary Tract Infection in Women (DC), Hypokalemia (DC), Cardiac Stress Test (DC) Additional Instructions: finish 3 more days of antibiotics to complete a 5 day course for urinary tract infection Stand Alone Forms: Nursing Discharge Form Referrals: [facility] [Other] - 11/25/20 11:30 am (Please arrive at 11:30 for an 11:45 appointment. Appointment will last 3-4 hours) Aron Spain NP [NURSE PRACTITIONER] - 11/26/20 11:30 am Activity:: Activity as Tolerated Equipment/Supplies:: No Equipment Needed Diet:: Carb Counting Discharge Orders Discharge Orders: Discharge Order (Routine); Ordered 11/22/20 Ordered By: Mary Beth Rangel Ambulatory Orders: Basic Metabolic Panel (Routine) Timeframe: 20201125 Location: None Selected Ordered By: Mary Beth Romano NM MPI rest & stress grp (Routine) Timeframe: 20201125 Location: None Selected Ordered By: Mary Beth Romano DS: Summary Time Spent with Patient providing and/or coordinating discharge services: Less than 30 minutes Status at Discharge Functional status at discharge: independent ambulation Overall status at discharge: patient is back to baseline Mental Status: mental status grossly normal Speech and Movement: speech and movement normal Mood: congruent mood Affect: normal affect Exam Const General: cooperative, healthy appearing, comfortable and no acute distress Nutritional Appearance: overweight Orientation: alert, awake and oriented x3 HENMT Head: normal to inspection Mouth: oral mucosae normal Resp Effort & Inspection: normal respiratory effort Auscultation: clear to auscultation bilaterally Cardio Rate: regular rate Rhythm: regular rhythm Heart Sounds: no murmurs GI Inspection: normal to inspection Palpation: soft Auscultation: normal bowel sounds Skin General skin exam: no rashes or lesions noted Neuro General: patient alert, patient awake and patient oriented x3 Cranial Nerves: CN's II-XI intact bilaterally Cognition: normal cognition Speech: speech normal Extrem General: normal to inspection Psych Mental Status: mental status grossly normal Speech and Movement: speech and movement normal Mood: congruent mood Affect: normal affect DS: Data Vitals/I&O Vitals and I&O: Vital Signs Temperature 36.7 C 11/22/20 11:40 Temperature Source Temporal Artery Scan 11/22/20 11:40 Pulse 60 05/10/21 11:40 Pulse Rhythm Regular 11/22/20 07:55 Pulse 75 11/20/20 19:20 Respiratory Rate 18 11/22/20 11:40 Respiratory Effort Non-Labored 11/22/20 07:55 Respiratory Depth Normal 11/22/20 07:55 Respiratory Pattern Normal 11/22/20 07:55 Blood Pressure 133/83 11/22/20 11:40 Blood Pressure Mean 92 11/20/20 19:15 Blood Pressure Position Sitting 11/20/20 14:55 Pulse Oximetry 99 11/22/20 11:40 Oxygen Delivery Method Room Air 11/22/20 11:40 Oxygen Flow Rate 0 11/22/20 11:40 Pain Level 4 11/22/20 07:37 Intake & Output 11/21/20 11/22/20 11/22/20 23:59 11:59 23:59 Intake Total 1860 / 3380 Output Total 1100 / 2900 2100 / 2375 275 / 2375 Balance 760 / 480 -2100 / -2375 -275 / -2375 Weight 88.8 kg Intake: Oral 1860 / 3370 Output: Urine 1100 / 2900 2100 / 2375 275 / 2375 Other: Urine Color Yellow Yellow Yellow Urine Appearance Clear Clear Clear Urine Odor Normal Normal Comment Patient voided in toilet per patient. Voiding Methods Toilet Toilet Urinal Data Completed and Pending Labs on day of discharge: Labs from last 24 hours 11/22/20 11/22/20 06:20 06:20 Sodium 142 Potassium 3.9 D Chloride 106 Carbon Dioxide 29.6 Anion Gap 6.4 BUN 18 Creatinine 0.9 Estimated GFR/1.73 m2 >= 60.00 Glucose 132 H Hemoglobin A1c 6.3 H Calcium 8.8 Magnesium 2.0 PFSH Medical History (Updated 11/21/20 @ 15:45 by Ofelia Griffin MD) Diabetes History of broken nose x2 History of deviated nasal septum Hx of anorexia nervosa Pt. states when she is weighed she is not to be told the number. Hx of epistaxis Hyperlipidemia Hypertension Surgical History H/O lithotripsy History of recent dental procedure Pt. states she recently traveled to [place] for dental work r/t to an infection in her dental roots, the infection has been treated surgically/abx, has 19 new crowns. Did F/U with [facility] in [place] upon return, pt. states that she is free of infection and has surgical clearance letter. Social History Smoking/Tobacco Use Status: Never Smoking risk assessment performed?: Yes Alcohol Intake: never Drug use: Never Substance use type: does not use Do you feel safe at home: Yes Do you feel safe in your relationship?: Yes
--- NOTE | 2020-11-22 13:45 | HOLTER_ITS ---
APPROVED REPORT Conclusion This is a 48-hour monitor ordered for indication of atypical chest pain. The patient was in normal sinus rhythm for the majority of the recording with an average heart rate o f 70 bpm. There were no episodes of ventricular tachycardia and rare PVCs. There were 2 episodes of supraventricular tachycardia with the longest lasting 9 beats. There were r are PACs. There were no episodes of atrial fibrillation, no pauses greater than 3 seconds and no evidence of hi gh degree heart block. There was 1 patient triggered event which was associated with sinus rhythm.
[2020-11-22 14:10] VITALS: PULSE 63
--- NOTE | 2020-11-22 14:18 | CHAPLAIN ---
Hannah was resting in bed when I visited. She shared some personal history telling me about how she and her (and five kids) often took in other children to live with them if they were having difficulties at home. Both she and her came from families that struggled, so Hannah said they had a good sense of how to support these kids. 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 Hannah said she has a relationship with God since she was a young girl and her developed a relationship with God as a young adult and that has helped them both. She is listed on our roster as belonging to the [employer] and the [employer]. I don't know if that information is current, but they are connected to a anabaptist.
--- NOTE | 2020-11-22 14:18 | PDOC.CMDIS ---
- If Service Date Differs Date of service: 11/22/20 Time of Service: 14:18 LACE Index Scoring Tool - Questions: Length of Stay (in days): 2 Acuity (Admit via E.D.?): Yes Comorbidities: Diabetes w/o Complication E.D. Visits: 1 - Answers: Total Score: 7 Risk of Readmission: Low Risk Care Management Discharge Reason for Hospitalization: Atypical chest pain, hypertension, hyperlipidemia. Discharge Plan: Hannah will return home today with an out patient stress test scheduled for 11/26/20. She will have a holter monitor on at home, coordinated by RT. She was unable to have the stress test during this hospitalization, due to availability. Her will drive her home via private vehicle. She will follow up with Cardiology, her PCP, and her discharge plan of care. She is happy to be returning home. Patient/Family Education Needs: Review discharge instructions regarding activity levels and medications, discussion of self care needs including ask me three.
== END 2020-11-22 15:33 | disposition home or self-care (01) ==
LOC: ER 19:04 → MS 19:43
PROVIDERS: Internal Medicine; Physician Assistant; Admitting Provider Family Medicine; Emergency Provider Physician Assistant; PCP Nurse Practitioner; Visit Provider Family Medicine
DX: R07.89 Other chest pain (principal); E87.6 Hypokalemia; E83.42 Hypomagnesemia; N39.0 Urinary tract infection, site not specified; E11.9 Type 2 diabetes mellitus without complications; I10 Essential (primary) hypertension; E78.5 Hyperlipidemia, unspecified; E66.9 Obesity, unspecified; Z79.84 Long term (current) use of oral hypoglycemic drugs; Z20.822 Contact with and (suspected) exposure to COVID-19
CPT/HCPCS: 36415; 36416; 80048; 80053; 80061; 82962; 85027; 86141; 87635; 93005; 96360; 96361; 99285; J1650; 71046; 76700; 81003; 81015; 83036; 83735; 84443; 84484; 85025; 85610; 86140; 87086; 93010; 93225; 93226; 93306; 94667; 99217; 99220; 99225; G0378

== ENCOUNTER 2020-11-25 00:22 | Outpatient (CLI) | payer MEDICAID, SELFPAY ==
--- NOTE | 2020-11-25 11:45 | DI.NM_ITS ---
APPROVED REPORT Exam: Exercise Treadmill Patient Location: Out-Patient Room/Bed: Stress Nurse: Marlena Vicente RN Ordering Provider:JOSELINE CHO, Contact Number: [phone] BMI: 31.63 Baseline Rhythm: Sinus Bradycardia Indications: Chest pain Medical History Medical History: Hypertension, hyperlipidemia, obesity, diabetes II, atypical chest pain, hypomagnese talat, palpitations, cracked sternum at age 9 Cardiac Medications: Potassium chloride, magnesium oxide, metformin, chlorthalidone, atorvastatin Allergies: chocolate flavor, bee venom, cat dander, ciprofloxacin, senna, milk, pomegranate, peanut, chamomile, chlorine Cardiac Risk Factors: Hypertension, hyperlipiemia, diabetes II, family hx, obesity Previous Cardiac Procedures: None Pretest Chest Pain Characteristics: None Exercise History: Physically active Physical Disabilities: None Lung Sounds: Clear to auscultation Heart Sounds: Regular Stress Test Details Test: Exercise stress testing was performed using a Yash protocol. Nuclear Acquisition: Rest Tc-99m/Stress Tc-99m 1 day Rest Isotope: Tc-99m Sestamibi. Dose: 12 Date: 11/25/2020 Injection Time: 1210 Stress Isotope: Tc-99m Sestamibi. Dose: 38 Date: 11/25/2020 Injection Time: 1425 HR Resting HR Supine: 59 bpm Max Heart Rate (APMHR): 159.341555 bpm Resting HR Standin bpm Target HR (85% APMHR): 135.957902 bpm Max HR Achieved: 145 bpm % of APMHR: 91.19 Recovery HR: 82 bpm HR response to stress: Normal HR response to stress BP Resting BP Supine: 138/70 mmHg Resting BP Standin/72 mmHg Max BP: 152/60 mmHg Recovery BP: 124/70 mmHg BP response to stress: Normal blood pressure response to stress. ECG Resting ECG: Sinus Bradycardia Ectopy: None Stress ECG: Sinus Tachycardia ST Change: Horizontal ST depression, Upsloping ST depression Lead(s): II, AVF Stage: [address] Deviation: 1 mm Arrhythmia: None Recovery ECG: Sinus Rhythm Recovery ST Change: No significant ST segment changes noted Recovery Arrhythmia: None Clinical Reason for Termination: Dyspnea Stress Symptoms: Dyspnea Exercise duration: 8 min17 sec Highest Stage Reached: Stage 3: 3.4 mph at 14% grade. Exercise capacity: 10.16 METs Rate Pressure Product: 88052 Stress ECG Conclusion 1. The patient exercised for 8 minutes (10 METS). Exercise was stopped due to dyspnea. 2. Heart rate and blood pressure augmented appropriately. 3. Patient developed [address] depressions in the inferior leads during maximal exercise whi ch resolved within a minute of recovery. Stress Test Summary STAGE Time (mins) Speed (mph) Grade (%) HR BP SYMPTOMS METS Supine 59 138/70 Standing 71 130/72 1 3 1.7 10 103 140/68 4.6 2 6 2.5 12 129 146/64 7 3 9 3.4 14 141 10.2 1 min recovery 118 152/60 3 min recovery 83 136/66 6 min recovery 82 124/70 MPI Conclusion Ejection fraction was 81% with stress. There were no wall motion normalities. There was no evidence of ischemia on the imaging portion exam. Despite abnormalities on the ECG the imaging is reassuring and likely represents a normal SPECT stres s test. Radiologist Interpretation Radiologist agrees with Receiving Supervisor's Interpretation. Radiologist Interpretation by: Erna Maddox MD Interpretation Date/Time: 11/26/2020 15:26:16
[2020-11-25 16:49] LABS: BUN 18 mg/dL (7-18); Calcium 9.6 mg/dL (8.5-10.1); Chloride 102 mmol/L (98-107); Estimated GFR 56.37 (mL/min/1.73m2); Glucose 102 mg/dL (74-106); Sodium 141 mmol/L (136-145)
== END 2020-11-25 00:42 ==
PROVIDERS: PCP Nurse Practitioner; Visit Provider Nurse Practitioner Acute Care
DX: R07.9 Chest pain, unspecified (principal); E87.6 Hypokalemia; R00.1 Bradycardia, unspecified; I10 Essential (primary) hypertension; E78.5 Hyperlipidemia, unspecified; E11.9 Type 2 diabetes mellitus without complications; Z82.49 Family history of ischemic heart disease and other diseases of the circulatory system; E66.9 Obesity, unspecified
CPT/HCPCS: 36415; 78452; 80048; 93017

== ENCOUNTER 2020-12-24 16:53 | Outpatient (REF) | payer MEDICAID, SELFPAY | END 2020-12-24 16:54 | disposition home or self-care (01) | LOC: LBN 16:53 | PROVIDERS: PCP Nurse Practitioner; Visit Provider Physician Assistant Medical | DX: N39.0 Urinary tract infection, site not specified (principal) | CPT/HCPCS: 87086 ==

== ENCOUNTER 2021-02-21 16:00 | Outpatient (REF) | payer MEDICAID, SELFPAY ==
[2021-02-21 21:58] LABS: Abs Immature Grans 0.03 10^3/uL (0.0-0.06); Absolute Basophil Count 0.06 10^3/uL (0.0-0.2); Absolute Eosinophil Count 0.08 10^3/uL (0.0-0.7); Absolute Lymphocyte Count 2.66 10^3/uL (1.2-3.4); Absolute Monocyte Count 0.71 10^3/uL (0.1-0.8); Absolute Neutrophil Count 4.77 10^3/uL (1.2-6.7); Basophils % 0.7; HCT 42.6 % (36.0-46.0); HGB 14.1 g/dL (11.2-15.7); Immature Grans % 0.4; MCH 28.5 pg (27.0-33.0); MCHC 33.1 % (32.0-36.0); MCV 86.2 fL (80-95); MPV 11.9 fL (8.0-11.0); Monocytes % 8.5; Neutrophils % 57.4; Nucleated RBC 0 %; Platelet Count 216 10^3/uL (130-400); RBC 4.94 10^6/uL (3.93-5.22); RDW 13.1 % (11.7-14.6); RDW-SD 40.5 fL; WBC 8.31 10^3/uL (4.4-10.8)
[2021-02-21 22:06] LABS: ALT 30 U/L (14-59); AST 16 U/L (15-37); Albumin 4.1 g/dL (3.4-5.0); Alkaline Phosphatase 77 U/L (46-116); Anion Gap 8.5 mmol/L (3-11); BUN 11 mg/dL (7-18); Bilirubin, Total 0.3 mg/dL (0.2-1.0); CO2 31.5 mmol/L (21.0-32.0); CREATININE 0.9 mg/dL (0.55-1.02); Chloride 100 mmol/L (98-107); Glucose 96 mg/dL (74-106); Potassium 3.7 mmol/L (3.5-5.1); Sodium 140 mmol/L (136-145)
[2021-02-21 22:13] LABS: ESR 7 mm/hr (0-30)
[2021-02-21 22:21] LABS: Mono Screening Negative (Negative)
[2021-02-23 12:47] LABS: IgA 115 mg/dL (85-499); Interpretation (See Note); Tissue Transglutaminase IgA <1.2 U/mL (<4.0)
[2021-02-23 13:38] LABS: COVID-19 RT-PCR UVMMC Result Negative (Negative)
== END 2021-02-21 16:01 | disposition home or self-care (01) ==
LOC: LBN 16:00
PROVIDERS: PCP Nurse Practitioner; Visit Provider Nurse Practitioner Family
DX: R59.0 Localized enlarged lymph nodes (principal); I49.8 Other specified cardiac arrhythmias; R19.7 Diarrhea, unspecified; J06.9 Acute upper respiratory infection, unspecified; Z20.822 Contact with and (suspected) exposure to COVID-19
CPT/HCPCS: 80053; 82784; 83516; 85652; U0003; 85025; 86308

== ENCOUNTER 2021-02-22 13:46 | Outpatient (REF) | payer MEDICAID, SELFPAY ==
[2021-02-23 12:12] LABS: Campylobacter PCR Negative (Negative); Salmonella PCR Negative (Negative); Shiga Toxin PCR Negative (Negative); Shigella/Enteroinvasive Ecoli Negative (Negative)
== END 2021-02-22 13:47 | disposition home or self-care (01) ==
LOC: LBN 13:46
PROVIDERS: PCP Nurse Practitioner; Visit Provider Nurse Practitioner Family
DX: R19.7 Diarrhea, unspecified (principal)
CPT/HCPCS: 87329; 87493; 87505; 83630

== ENCOUNTER 2021-02-28 15:40 | Outpatient (REF) | payer MEDICAID, SELFPAY ==
[2021-02-28 19:34] LABS: COMMENT (LAB VIEW ONLY) 11.03 mg/dL
== END 2021-02-28 15:41 | disposition home or self-care (01) ==
LOC: NCHCN 15:40
PROVIDERS: PCP Nurse Practitioner; Visit Provider Nurse Practitioner
DX: E11.9 Type 2 diabetes mellitus without complications (principal)
CPT/HCPCS: 82043; 82570

== ENCOUNTER 2021-04-28 09:58 | Outpatient (REF) | payer MEDICAID, SELFPAY ==
[2021-04-28 16:05] LABS: COMMENT (LAB VIEW ONLY) 27.55 mg/dL; Microalb ug/mg Crea 4.7 ug/mg Cr
== END 2021-04-28 09:59 | disposition home or self-care (01) ==
LOC: NCHCN 09:58
PROVIDERS: PCP Nurse Practitioner; Visit Provider Nurse Practitioner
DX: E11.9 Type 2 diabetes mellitus without complications (principal)
CPT/HCPCS: 82043; 82570

== ENCOUNTER 2021-10-31 10:53 | Outpatient (REF) | payer MEDICAID, SELFPAY ==
[2021-10-31 17:04] LABS: ALT 29 U/L (14-59); AST 15 U/L (15-37); Albumin 4.4 g/dL (3.4-5.0); Alkaline Phosphatase 80 U/L (46-116); Anion Gap 8.3 mmol/L (3-11); BUN 16 mg/dL (7-18); Bilirubin, Total 0.7 mg/dL (0.2-1.0); CO2 29.7 mmol/L (21.0-32.0); CREATININE 0.8 mg/dL (0.55-1.02); Calculated LDL 53 mg/dL (<100); Chloride 103 mmol/L (98-107); Cholesterol 115 mg/dL (<200); Glucose 99 mg/dL (74-106); HDL Cholesterol 47 mg/dL (40-60); Potassium 3.9 mmol/L (3.5-5.1); Sodium 141 mmol/L (136-145); Total Protein 7.1 g/dL (6.4-8.2); Triglyceride 78 mg/dL (<150)
== END 2021-10-31 10:54 | disposition home or self-care (01) ==
LOC: NCHCN 10:53
PROVIDERS: PCP Nurse Practitioner; Visit Provider Nurse Practitioner Family
DX: E11.9 Type 2 diabetes mellitus without complications (principal); I10 Essential (primary) hypertension; E78.5 Hyperlipidemia, unspecified
CPT/HCPCS: 80053; 80061

== ENCOUNTER → 2021-12-09 00:07 | Outpatient (CLI) | payer MEDICAID, SELFPAY ==
--- NOTE | 2021-12-09 08:00 | DI.US_ITS ---
Exam(s) US RENAL EXAM: US RENAL CLINICAL HISTORY: flank pain with hx of kidney stones, R10.9, N20.0. TECHNIQUE: Arce scale, color and spectral Doppler were used. COMPARISON: CT CT ABDOMEN PELVIS WO from 12/19/2019 FINDINGS: Renal size in cm: Right: 11.2 left: 11.7 Echogenicity: Normal Hydronephrosis: No Cyst or mass: No Nephrolithiasis: Echogenic medullary regions bilaterally consistent with medullary nephrocalcinosis. Bladder:Normal Prevoid vol: 35 cc Postvoid vol:13 cc IMPRESSION: Bilateral medullary nephrocalcinosis. No evidence of hydronephrosis. DATA REPOSITORY:
== END ==
PROVIDERS: PCP Nurse Practitioner; Visit Provider Nurse Practitioner Gerontology
DX: N20.0 Calculus of kidney (principal); R10.84 Generalized abdominal pain; E83.59 Other disorders of calcium metabolism; N29 Other disorders of kidney and ureter in diseases classified elsewhere
CPT/HCPCS: 76770

== ENCOUNTER 2021-12-19 14:06 | Outpatient (REF) | payer MEDICAID, SELFPAY ==
--- NOTE | 2021-12-19 13:20 | PAPFT_PTH ---
PATIENT: Hannah Nair LOC: [facility] U#:[id number] AGE/SX: 61/F ROOM: RE12/19/[address]: Janny Salmeron NP : 1960 BED: DIS: 12/19/2021 SPEC #: [id number] RECD: 12/20/21 12:45 STATUS: MAIKEL REQ #: [id number] DAGMAR: 12/19/21 13:[address]: Janny Salmeron NP [facility] Cytology RECD BY: Divya Salgado ENTERED: 12/20/21 12:46 SP TYPE: PAPFT OTHR DR: Demetria Larios Tissues: 1 - CX/ENDOCX FOR PAP SMEARS Procedures: PAP THIN PREP/UVM Screening HPV DNA PROBE Comments: [id number]
== END 2021-12-19 14:07 | disposition home or self-care (01) ==
LOC: LBN 14:06
PROVIDERS: PCP Nurse Practitioner; Visit Provider Nurse Practitioner Women's Health
DX: Z12.4 Encounter for screening for malignant neoplasm of cervix (principal); Z11.51 Encounter for screening for human papillomavirus (HPV)
CPT/HCPCS: 88142; 87624

== ENCOUNTER 2022-07-24 01:49 | Outpatient (CLI) | payer MEDICAID, SELFPAY ==
--- NOTE | 2022-07-24 11:45 | DI.MAMMO_ITS ---
Exam(s) MAMMO SCREENING EXAM: MAMMO SCREENING CLINICAL HISTORY: screening TECHNIQUE: Mammograms were interpreted according to the usual protocol including computer analysis w [employer] CAD system, tomosynthesis and C-view imaging. COMPARISON: 2016 through 2019 FINDINGS: The breasts are composed of scattered fibroglandular densities, Breast Density category B. No suspicious masses or suspicious microcalcifications are seen. No skin thickening or abnormal axillary lymph nodes are seen. There has been no significant change from prior exams. IMPRESSION: BI-RADS Category 1, Negative mammogram Yearly screening mammography is recommended. Breast Density - Category B, scattered fibroglandular densities. A negative radiographic report should not delay biopsy if a dominant or clinically suspicious mass is present. Up to ten percent of cancers are not identified on mammography. A negative report may reinforce clinical impression. Adenosis and dense breasts may obscure an underlying neoplasm. False positive reports average 6 to 10%. Patient will receive a letter notifying them of these results.
== END 2022-07-24 02:09 ==
LOC: DI 01:50
PROVIDERS: PCP Nurse Practitioner; Visit Provider Nurse Practitioner Women's Health
DX: Z12.31 Encounter for screening mammogram for malignant neoplasm of breast (principal)
CPT/HCPCS: 77063; 77067

== ENCOUNTER 2022-08-07 19:33 | Outpatient (REF) | payer MEDICAID, SELFPAY ==
[2022-08-07 19:32] LABS: Bacteria Rare HPF (Negative); C & S Indicated? C&S Done As Ordered; Casts Negative LPF (Negative); Crystals Negative HPF (Negative); Epithelial Cells Few HPF (Negative); Mucus Negative (Negative); RBC 0-2 HPF (0-2)
== END 2022-08-07 19:34 | disposition home or self-care (01) ==
LOC: LBN 19:33
PROVIDERS: PCP Nurse Practitioner; Visit Provider Nurse Practitioner Family
DX: R39.15 Urgency of urination (principal)
CPT/HCPCS: 81015; 87086

== ENCOUNTER 2022-12-04 01:05 | Outpatient (CLI) | payer MEDICAID, SELFPAY ==
--- NOTE | 2022-12-04 08:00 | DI.US_ITS ---
Exam(s) US RENAL EXAM: US RENAL CLINICAL HISTORY: monitoring renal calculi,recurrent nephrolithiasis,n20.0. TECHNIQUE: Arce scale, color and spectral Doppler were used. COMPARISON: CT CT ABDOMEN PELVIS WO from 12/19/2019 US US RENAL from 12/09/2021 FINDINGS: Renal size in cm: Right: 10.1. Left: 12.8. Echogenicity: Normal. Hydronephrosis: No. Cyst or mass: No. Nephrolithiasis: There is again seen increased echogenicity in the medullary regions of both kidneys consistent with nephrocalcinosis. The largest discrete calcification is seen on the right and measur es 9 mm. There is also 9 mm calcification seen in the left. Other findings: None. Bladder:Normal. Ureteral jets: Right: Visualized and unremarkable. Left: Visualized and unremarkable. Prevoid vol:213 cc Postvoid vol:17 cc Renal color flow: Symmetric and within normal limits. IMPRESSION: 1. Echogenic medullary regions of the kidneys consistent with medullary nephrocalcinosis. 2. No evidence of hydronephrosis. DATA REPOSITORY:
== END 2022-12-04 01:25 ==
LOC: DI 01:05
PROVIDERS: PCP Nurse Practitioner; Visit Provider Nurse Practitioner Gerontology
DX: N20.0 Calculus of kidney (principal)
CPT/HCPCS: 76770

== ENCOUNTER 2023-01-08 16:48 | Outpatient (REF) | payer MEDICAID, SELFPAY ==
[2023-01-08 18:49] LABS: Abs Immature Grans 0.02 10^3/uL (0.0-0.06); Absolute Basophil Count 0.07 10^3/uL (0.0-0.2); Absolute Eosinophil Count 0.09 10^3/uL (0.0-0.7); Absolute Lymphocyte Count 2.45 10^3/uL (1.2-3.4); Absolute Monocyte Count 0.56 10^3/uL (0.1-0.8); Absolute Neutrophil Count 4.67 10^3/uL (1.2-6.7); Basophils % 0.9; Eosinophils % 1.1; HCT 42.5 % (36.0-46.0); HGB 13.9 g/dL (11.2-15.7); Immature Grans % 0.3; Lymphocytes % 31.2; MCH 28.8 pg (27.0-33.0); MCHC 32.7 % (32.0-36.0); MCV 88 fL (80-95); MPV 11.8 fL (8.0-11.0); Monocytes % 7.1; Neutrophils % 59.4; Platelet Count 189 10^3/uL (130-400); RBC 4.83 10^6/uL (3.93-5.22); RDW 12.7 % (11.7-14.6); RDW-SD 41.1 fL; WBC 7.86 10^3/uL (4.4-10.8)
[2023-01-08 18:51] LABS: ESR 8 mm/hr (0-30)
[2023-01-08 19:05] LABS: Hemoglobin A1C 5.9 % (<5.7)
[2023-01-08 19:39] LABS: ALT 30 U/L (14-59); AST 21 U/L (15-37); Albumin 4.3 g/dL (3.4-5.0); Alkaline Phosphatase 101 U/L (46-116); Anion Gap 10.4 mmol/L (3-11); BUN 16 mg/dL (7-18); Bilirubin, Total 0.5 mg/dL (0.2-1.0); CO2 27.6 mmol/L (21.0-32.0); Calcium 9.3 mg/dL (8.5-10.1); Calculated LDL 121 mg/dL (<100); Chloride 103 mmol/L (98-107); Cholesterol 194 mg/dL (<200); Glucose 93 mg/dL (74-106); HDL Cholesterol 40 mg/dL (40-60); Sodium 141 mmol/L (136-145); Total Protein 7.3 g/dL (6.4-8.2); Triglyceride 168 mg/dL (<150)
== END 2023-01-08 16:49 | disposition home or self-care (01) ==
LOC: NCHCN 16:48
PROVIDERS: PCP Nurse Practitioner Family; Visit Provider Nurse Practitioner Family
DX: M25.561 Pain in right knee (principal); R73.03 Prediabetes; I10 Essential (primary) hypertension; E78.5 Hyperlipidemia, unspecified
CPT/HCPCS: 80053; 80061; 85652; 83036; 85025; 86140

== ENCOUNTER → 2023-03-14 14:40 | Outpatient (CLI) | payer MEDICAID, SELFPAY ==
--- NOTE | 2023-03-14 | DI.RAD_ITS ---
Exam(s) XR KNEE RT 3V AP,LAT,FREDRICK EXAM: XR KNEE RT 3V AP,LAT,FREDRICK CLINICAL HISTORY: ACUTE RT KNEE PAIN, M25.561, PERSISTENT X 2 MOS, FAILED PT. TECHNIQUE: 2D digital imaging was performed. Three views. COMPARISON: No exams were available for comparison FINDINGS: BONES: No acute fracture is present. No bony destructive lesion is seen. JOINTS: The knee is normally aligned. No joint effusion is seen. The joint spaces are maintained. There is mild periarticular spurring. SOFT TISSUE: A few small round calcifications are known noted anterior to the proximal tibia. IMPRESSION: Mild degenerative changes. DATA REPOSITORY: RADIATION DOSE DELIVERED:
== END ==
PROVIDERS: PCP Nurse Practitioner Family; Visit Provider Nurse Practitioner Family
DX: M17.11 Unilateral primary osteoarthritis, right knee
CPT/HCPCS: 73562

== ENCOUNTER 2023-04-09 14:47 | Outpatient (REF) | payer MEDICAID, SELFPAY | END 2023-04-09 14:48 | disposition home or self-care (01) | LOC: LBN 14:47 | PROVIDERS: PCP Nurse Practitioner Family; Visit Provider Nurse Practitioner Family | DX: N30.01 Acute cystitis with hematuria (principal) | CPT/HCPCS: 87077; 87086; 87186 ==

== ENCOUNTER → 2023-04-27 02:50 | Outpatient (CLI) | payer MEDICAID, SELFPAY ==
--- NOTE | 2023-04-27 10:00 | DI.MRI_ITS ---
Exam(s) MR LOWER JOINT RT WO EXAM: MR LOWER JOINT RT WO CLINICAL HISTORY: R KNEE PAIN, INTERNAL DERANGEMENT RT KNEE, M23.91. TECHNIQUE: Multiplanar multisequence MRI was performed. COMPARISON: CR XR KNEE RT 3V AP,LAT,FREDRICK from 03/14/2023 FINDINGS: BONES: There is no fracture or contusion pattern. JOINTS: A moderate-sized joint effusion is present. Articular cartilage: Patellofemoral joint: Articular cartilage shows a small focal defect at the ape x which does not extend down to bone.. Medial femoral tibial joint: Some cartilage thinning and irregularity. Lateral femoral tibial joint: Some cartilage thinning and irregularity. TENDONS: Extensor mechanism: Unremarkable. Medial retinaculum: Unremarkable. Lateral retinaculum: Unremarkable. Popliteus: Unremarkable. MUSCLES: Unremarkable. MENISCI: The medial meniscus some some degenerative signal change in the posterior horn.. The latera l meniscus shows markedly abnormal high signal in in the body and anterior horn SOFT TISSUES: Mild anterior edema. LIGAMENTS: Anterior Cruciate: Unremarkable. Posterior Cruciate: Unremarkable. Medial Collateral:Unremarkable. Lateral Collateral: Unremarkable. IMPRESSION: Tears of the anterior horn and body of the lateral meniscus. Degenerative signal change in the poste rior horn of the medial meniscus. Joint effusion. Small focal cartilage defect at patellar apex. DATA REPOSITORY:
== END ==
PROVIDERS: PCP Nurse Practitioner Family; Visit Provider Student in an Organized Health Care Education/Training Program
DX: M23.241 Derangement of anterior horn of lateral meniscus due to old tear or injury, right knee (principal); M25.461 Effusion, right knee
CPT/HCPCS: 73721

== ENCOUNTER 2023-05-18 15:02 | Outpatient (REF) | payer MEDICAID, SELFPAY ==
[2023-05-18 20:46] LABS: Abs Immature Grans 0.01 10^3/uL (0.0-0.06); Absolute Basophil Count 0.08 10^3/uL (0.0-0.2); Absolute Eosinophil Count 0.05 10^3/uL (0.0-0.7); Absolute Monocyte Count 0.52 10^3/uL (0.1-0.8); Absolute Neutrophil Count 4.21 10^3/uL (1.2-6.7); Basophils % 1.1; Eosinophils % 0.7; HCT 43.3 % (36.0-46.0); HGB 14.2 g/dL (11.2-15.7); Immature Grans % 0.1; Lymphocytes % 30.1; MCH 28.6 pg (27.0-33.0); MCHC 32.8 % (32.0-36.0); MCV 87 fL (80-95); MPV 11.6 fL (8.0-11.0); Monocytes % 7.5; Neutrophils % 60.5; Platelet Count 163 10^3/uL (130-400); RBC 4.96 10^6/uL (3.93-5.22); RDW 13.2 % (11.7-14.6); RDW-SD 41.4 fL; WBC 6.97 10^3/uL (4.4-10.8)
[2023-05-18 20:50] LABS: Anion Gap 8.3 mmol/L (3-11); BUN 12 mg/dL (7-18); CO2 28.7 mmol/L (21.0-32.0); CREATININE 0.8 mg/dL (0.55-1.02); Calcium 9.4 mg/dL (8.5-10.1); Chloride 102 mmol/L (98-107); Estimated GFR 82.74 (mL/min/1.73m2); Glucose 99 mg/dL (74-106); Potassium 3.6 mmol/L (3.5-5.1); Sodium 139 mmol/L (136-145)
== END 2023-05-18 15:03 | disposition home or self-care (01) ==
LOC: LBN 15:02
PROVIDERS: PCP Nurse Practitioner Family; Visit Provider Physician Assistant Medical
DX: R42 Dizziness and giddiness (principal)
CPT/HCPCS: 80048; 85025

== ENCOUNTER 2023-05-24 11:15 | Day surgery (SDC) | payer MEDICAID, SELFPAY ==
[2023-05-24] VITALS (10 sets, daily range): BP systolic 109–167; BP diastolic 53–73; PULSE 57–64; RESP 12–22; TEMP 36.2–36.5; O2SAT 95–100; BMI 28.7
--- NOTE | 2023-05-24 11:25 | W.PM.DSUDISC ---
Date of service: 05/24/23 Time of Service: 14:00 Discharge Plan Disposition Patient Disposition: Home Condition: Stable Discharge Details Attending Provider: Noah Mejía Primary Care Provider: SAMUEL CERDA Home Meds and New Rx's Prescriptions: New aspirin 81 mg tablet,delayed release (DR/EC) 81 mg PO DAILY 14 Days Qty: 14 0RF oxycodone 5 mg tablet 5 - 10 mg PO Q4H MDD 30 mg PRN (Reason: moderate to severe pain) Qty: 18 0RF naproxen 250 mg tablet 250 - 500 mg PO BID PRNQty: 40 0RF Rx Instructions: take with a meal Bio-K plus 50 billion cell capsule,delayed release(DR/EC) 1 cap PO DAILY 14 Days Qty: 14 0RF Continued cholecalciferol (vitamin D3) 1,000 unit capsule 1,000 unit PO DAILY Nettle tea PO cider [id number] 300-8.3 mg tablet 1 tab PO DAILY loratadine 10 mg tablet 10 mg PO DAILY Galzin 50 mg (zinc) capsule 50 mg PO DAILY Rx Instructions: swallow whole; do not chew/break/dissolve/open EPIPEN 1 ea IM 1:1000 ONCE Patient Comments: patient states she has never had to use this before and athat she carries it in her purse for bee stings and chocolate. Cranberry Concentrate 1 EACH capsule 3 mg PO DAILY magnesium oxide 400 MG tablet 400 mg PO DAILY ascorbate calcium (vitamin C) 500 MG tablet 1,500 mg PO DAILY potassium chloride 20 MEQ tablet extended release 20 meq PO DAILY acetaminophen [Mapap Extra Strength] 500 MG tablet 1,000 mg PO Q4H PRN PRN0RF acidophilus-pectin, citrus 1 CAP tablet 1 cap PO TID PRN PRN0RF Discontinued ibuprofen 200 mg capsule 200 mg PO Q6H PRN Discharge Instructions Additional Instructions: Surgery: Right knee arthroscopy with partial medial and lateral meniscectomy, extensive synovectomy including removal of loose bodies, and lateral femoral condyle chondroplasty Activity: Weightbearing as tolerated. Advance range of motion as comfort allows. No knee brace or crutches needed as soon as comfortable. Recommend avoiding sports, pivoting, and squatting for 6-8 weeks. A physical therapy prescription will be sent electronically to start in 2 to 3 weeks. Prescriptions: Aspirin 81 mg take 1 daily to prevent a blood clot for 14 days Naproxen 250 mg take 1-2 every 12 hours with a meal as needed for moderate pain Oxycodone 5 mg take 1-2 every 4-6 hours as needed for severe pain You may use [id number]-bxyrvdm Tylenol (acetaminophen) as needed for mild pain. These pain medications may be taken all at once or in different combinations as needed. Also, recommend Colace (docusate) as a stool softener as surgery and pain medicine cause constipation. You may try orod-ofs-[id number] diphenhydramine (Benadryl) 25-50 mg nightly as a sleep aid A daily probiotic has been ordered as well to minimize GI issues Dressings: Leave dressing in place for 3 days. May then remove and leave open to air or cover incisions with Band-Aids. Leave the sticky Steri-Strips in place until they fall off or remove them after you shower. May shower after 5 days. Follow-up: 10-[address] Mejía You may take off the leg compression stockings this evening at home. You may also leave them on a few days longer if you have a history of leg swelling or edema. Let us know right away if you develop any redness, drainage, fevers, chest pain, or trouble breathing. Do not drink alcohol or drive for at least 24 hours after anesthesia. Please call the office during business hours with any questions or concerns. Discharge Orders Discharge Orders: Discharge Order (Routine); Ordered 05/24/23 Ordered By: Noah Mejía DS: Diagnosis Discharge Diagnosis (1) Tear of medial meniscus of right knee: Status: Acute (2) Tear of lateral meniscus of right knee: Status: Acute (3) Synovitis of right knee: Status: Acute
--- NOTE | 2023-05-24 11:26 | ROE_ITS ---
Date of service: 05/24/23 Time of Service: 12:30 Operative Note Operative Note DATE OF PROCEDURE: 05/24/23 PRE-OP DIAGNOSIS: Right knee 1. Medial & lateral meniscus tears 2. Synovitis 3. Loose body POST-OP DIAGNOSIS: same PROCEDURE: Right knee 1. Partial medial & lateral meniscectomy, CPT #55528 2. Extensive debridement, CPT #52646: Including suprapatellar lysis of adhesions, synovectomy anterior and intercondylar, and chondroplasty lateral femoral condyle 3. Arthroscopic loose body removal, CPT #67401: Multiple loose chondral loose bodies including a single large 8 x 6 x 12 ovoid body removed with straight snaps through an enlarged anterior medial portal. SURGEON: Noah Mejía FINANCIAL SERVICES ASSISTANT: None None ANESTHESIA TYPE: Local By Surgeon and General LMA/ETT Refer to Anesthesia Record ESTIMATED BLOOD LOSS: 5 PATHOLOGY: none sent TOURNIQUET TIME: 0 Patient was transported to: PACU Patient's condition: stable Indications: Please see complete medical record for details. Findings: Exam under anesthesia: Full range of motion, stable varus valgus Evette, reproducible mechanical crepitation through flexion extension. Arthroscopic findings: Significant suprapatellar and adhesions, significant patellofemoral and anterior intercondylar synovitis. Multiple ovoid chondral loose bodies including larger 8 x 6 x 12 body. Donor site apparently lateral femoral condyle moderately sized high-grade with impending loose cartilage edges measuring about 15 x 18 mm in size. Small posterior horn medial meniscus tear. Large abnormal lateral meniscus tear extending from the anterior horn from the body into the posterior horn junction. Degenerative but intact ACL. Medial compartment cartilage largely intact. Mild to moderate generalized trochlear and under patellar chondromalacia. Procedure Description: In the operating room, general anesthesia was induced. The patient was positioned supine on the operating room table. All bony prominences were well- padded. Preoperative antibiotics were administered. The knee was prepped and draped in the usual sterile fashion. The correct patient, procedure, and side of the procedure were all verified prior to incision. Exam under anesthesia was performed. 10 cc of 0.25% bupivacaine containing epinephrine was infiltrated about the planned anteromedial and anterolateral knee arthroscopy portals. The portals were established and a complete diagnostic arthroscopy was performed with relevant findings detailed above. The mechanical shaver and the radiofrequency wand were used to resect suprapatellar adhesions and remove synovitis from the patellofemoral anterior and intercondylar areas. Multiple loose bodies were then found in the medial compartment. The largest of these loose chondral bodies was too large to be removed with the mechanical shaver. The anterior medial portal was enlarged and a straight snap brought into the knee, secure the fragment, and it was removed in entirety. The medial meniscus was then inspected, there is small tearing of the posterior horn of the white zone leaflet, which was debrided to stable meniscal testing with the mechanical shaver. The remnant was stable, there was degenerative mild tearing at the root, but it was stable, there is no tears of the body or anterior horn. The knee was then brought into the [id number] position, the lateral meniscus was highly abnormal as expected. There was degenerative tearing and unstable anterior horn as well as more significant red-white zone enlargement likely cystic and tearing toward the posterior horn and body junction extending radially. Mechanical shaver was used to debride the anterior horn and cystic body tumor normal structure. Radiofrequency wand was used as well in a limited fashion. Meniscal biters were then used about the central portion of the tear to remove the torn meniscal tissue while preserving as much stable remnant as possible although the meniscus itself was abnormally degenerated largely throughout. Care was taken to contour the resection as well as leave a stable remnant. The knee was then flexed again and the lateral femoral condyle inspected, the likely donor site for the loose cartilage bodies was was found and had impending loose chondral flaps around its margin. These were resected with the meniscal biters and then debrided to a stable margin with the mechanical shaver removing only as much cartilage as needed. Under direct arthroscopic visualization an 18-gauge needle was passed into the knee from superolateral into the suprapatellar pouch. The knee was copiously irrigated with arthroscopic fluid until there was a clear effluent before being drained of all fluid. The anteromedial and anterolateral portals were closed in 3-0 Monocryl in a buried interrupted fashion. [20 cc of 0.25% bupivacaine] with epinephrine containing 4 mg of morphine was infiltrated into the knee through the previously placed needle. Mastisol, Steri-Strips, and 4 x 4 gauze were applied over the incisions followed by sterile soft roll. The knee was then wrapped gently with an SIMON comressive bandage. The patient awoke from anesthesia without complication and was transferred to the recovery room in a stable condition.
--- NOTE | 2023-05-24 11:26 | ANES.PREOP_ITS ---
General Info Date of Service Date Performed: 05/24/23 Height: 5 ft 6 in Weight: 80.739 kg Body Mass Index (BMI): 28.7 Surgical Procedure: Operation Date: 05/24/23 13:10 Proposed Procedure Side Surgeon p Knee Arthroscopy Right Noah Mejía MD Meds Allergies and Home Medications Allergies Allergy/AdvReac Type Severity Reaction Status Date / Time chocolate flavor Allergy Severe ANAPHYLAXIS Unverified 05/24/23 11:32 venom-honey bee Allergy Severe Anaphylaxsi Unverified 05/24/23 11:32 [bee venom (honey bee)] s cat dander Allergy Intermediate SOB, cough, Verified 05/24/23 11:32 kiwi Allergy Intermediate Verified 05/24/23 11:32 ciprofloxacin [From Cipro] Allergy Mild RASH,T Unverified 05/24/23 11:32 ELEVATION,TACHYCARDIA docusate sodium Allergy Mild Skin Rash Unverified 05/24/23 11:32 [From Senna-S] sennosides [From Senna-S] Allergy Mild Skin Rash Unverified 05/24/23 11:32 milk AdvReac Intermediate Diarrhea Unverified 05/24/23 11:32 pomegranate AdvReac Intermediate sore Unverified 05/24/23 11:32 throat, diarrhea sunflower oil AdvReac Intermediate Diarrhea Verified 05/24/23 11:32 sunflower seed AdvReac Intermediate Diarrhea Verified 05/24/23 11:32 peanut AdvReac Mild Diarrhea Unverified 05/24/23 11:32 cammomile Allergy Severe Skin Rash Uncoded 05/24/23 11:32 CHLORINE Allergy Severe Anaphylaxsi Uncoded 05/24/23 11:32 s Home Medication Medication Instructions Recorded Epipen 1 ea IM 1:1000 ONCE 12/16/12 cranberry concentrate-ascorbic 3 mg PO DAILY 05/20/16 acid 140 mg-100 mg capsule (Cranberry Concentrate) magnesium oxide 400 mg (241.3 mg 400 mg PO DAILY 05/20/16 magnesium) tablet potassium chloride 20 mEq 20 meq PO DAILY 11/25/17 tablet,extended release acetaminophen 500 mg tablet (Mapap 1,000 mg (2 x 500 mg) PO Q4H PRN 01/04/18 Extra Strength) PRN acidophilus 25 million 1 cap PO TID PRN PRN 01/04/18 cell-pectin, citrus 100 mg tablet cholecalciferol (vitamin D3) 25 1,000 unit PO DAILY 05/17/18 mcg (1,000 unit) capsule zinc acetate 50 mg (zinc) capsule 50 mg PO DAILY 12/04/19 (Galzin) cider [id number]-[id number] 300 1 tab PO DAILY 11/14/21 mg-8.3 mg tablet Nettle tea PO 12/19/21 ascorbate calcium (vitamin C) 500 1,500 mg PO DAILY 12/19/21 mg tablet loratadine 10 mg tablet 10 mg PO DAILY 12/20/22 Current Visit Medications: Current Medications Generic Name Dose Route Start Last Admin Trade Name Freq PRN Reason Stop Dose Admin Ringer's Solution 1,000 mls @ 30 mls/hr 05/24/23 06:00 IV 06/14/23 23:59 INFUSION NEIL Cefazolin Sodium/Dextrose 2 gm in 50 mls @ 100 mls/hr 05/24/23 06:00 Ancef Duplex IVPB 05/24/23 23:59 PREOP NEIL IV Miscellaneous Supplies 1 each 05/24/23 06:00 Iv Access IV 06/14/23 23:59 DIRECTED ENIL Oxycodone HCl 0 mg 05/24/23 11:24 Oxycodone 5 Mg Tab PO 06/23/23 11:23 Q3H PRN PRN Pain Sodium Chloride 0 ml 05/24/23 06:00 Normal Saline Flush 10 Ml Syr IV 06/14/23 23:59 PRN PRN Sodium Chloride 0 ml 05/24/23 06:00 Normal Saline 10 Ml Vial IJ 06/14/23 23:59 DIRECTED PRN Sterile Water 0 ml 05/24/23 06:00 Water,Injection,Sterile 10 Ml Vial IJ 06/14/23 23:59 DIRECTED PRN PFSH Active Problems Active Problems: Problem Status Onset Code Synovitis of right knee M65.9 Tear of medial meniscus of right knee S83.241A Tear of lateral meniscus of right knee S83.281A Polyarthralgia M25.50 IBS (irritable bowel syndrome) K58.9 LANA (obstructive sleep apnea) G47.33 Postmenopausal Z78.0 Discharge planning issues Z02.9 DVT prophylaxis Z29.9 Hyperlipidemia E78.5 Hypertension I10 Diabetes E11.9 HTN (hypertension) I10 Atypical chest pain R07.89 Chest pain R07.9 UTI (urinary tract infection) N39.0 Hypomagnesemia E83.42 Recurrent nephrolithiasis N20.0 Hydronephrosis concurrent with and due to calculi of kidney and ureter N13.2 Urinary tract infection N39.0 Hypokalemia E87.6 Kidney calculi 06/26/16 N20.0 Gross hematuria R31.0 Medical History Medical History History of broken nose x2 History of deviated nasal septum Hx of anorexia nervosa Pt. states when she is weighed she is not to be told the number. Hx of epistaxis Medical History Comments:: Low O2, requiring O2 overnight Surgical History Surgical History H/O lithotripsy History of recent dental procedure Pt. states she recently traveled to [place] for dental work r/t to an infection in her dental roots, the infection has been treated surgically/abx, has 19 new crowns. Did F/U with [facility] in [place] upon return, pt. states that she is free of infection and has surgical clearance letter. Tobacco Smoking/Tobacco Use Status: Never Alcohol Alcohol Intake: never Substance Use Substance use: Never Substance use type: does not use Prental History History Para Hx # Term Pregnancies Multiple births Hx # Pregnancies Ectopic pregnancies AB induced Hx Number of Living Children 5 AB spontaneous Vital Signs and Lab Results Vital Signs Most Recent Vital Signs in EMR: Temp Pulse Resp BP Pulse Ox 36.4 C L 60 16 145/68 H 99 05/24/23 11:46 05/24/23 11:46 05/24/23 11:46 05/24/23 11:46 05/24/23 11:46 Lab Results Blood Type / Crossmatch: No Data to Display Complete Blood Count: White Blood Count 6.97 10^3/uL (4.4-10.8) 05/18/23 13:36 Red Blood Count 4.96 10^6/uL (3.93-5.22) 05/18/23 13:36 Hemoglobin 14.2 g/dL (11.2-15.7) 05/18/23 13:36 Hematocrit 43.3 % (36.0-46.0) 05/18/23 13:36 Platelet Count 163 10^3/uL (130-400) 05/18/23 13:36 Complete Metabolic Panel: Sodium 139 mmol/L (136-145) 05/18/23 13:36 Potassium 3.6 mmol/L (3.5-5.1) 05/18/23 13:36 Chloride 102 mmol/L (98-107) 05/18/23 13:36 Carbon Dioxide 28.7 mmol/L (21.0-32.0) 05/18/23 13:36 BUN 12 mg/dL (7-18) 05/18/23 13:36 Creatinine 0.8 mg/dL (0.55-1.02) 05/18/23 13:36 Est GFR (CKD-EPI 2020) 82.74 (mL/min/1.73m2) 05/18/23 13:36 Calcium 9.4 mg/dL (8.5-10.1) 05/18/23 13:36 Glucose 99 mg/dL (74-106) 05/18/23 13:36 Liver Function Panel: No Data to Display Coagulation Panel: No Data to Display Cardiac Panel: No Data to Display Arterial Blood Gas: No Data to Display Venous Blood Gas: No Data to Display Pancreas Panel: No Data to Display Thyroid Panel: No Data to Display Infectious Disease: No Data to Display Blood Cultures: No Data to Display Toxicology Panel: No Data to Display Imaging and Studies Imaging and Studies Study information below may be from another EMR and interpreted by another provider. Please see original notes in EMR for more complete details. EKG Summary: 12/03: sinus avi. Stress Test Summary: 12/03: 10 METS, [address] depression inferiorly during max exertion. LVEF 81%, no evidence of ischemia on the imaging. normal stress test. Echocardiogram Summary: 12/03: LVEF 65%, no sig valve lesions. Anesthesia Assessment and Plan Anesthesia History Personal History: Other Family History: No Family History of Anesthesia Complications Exercise Tolerance Exercise Tolerance: Metabolic Equivalents>4 Cardiac & Pulmonary Exam Cardiac Exam: Normal S1/S2 Heart Sounds Pulmonary Exam: Clear Bilateral Breath Sounds Implantable Cardiac Device Does patient have a Pacemaker or an ICD?: No Airway Exam Known Difficult Airway: No Mallampati Class: 2 Mouth Opening: Normal (> 3cm) Thyromental Distance: Greater than 3 cm Neck Range of Motion: Full ROM Neck Circumference: Normal Teeth Condition: Normal Dentition ASA Classification ASA Score: ASA 2 Emergency Case?: No NPO Status NPO Status: NPO Clears >2 hours, Solids >8 hours Anesthesia Plan Resuscitation Status: Full Code Anesthesia Technique: General Anesthesia Airway Planned: LMA Monitors Used: Standard Monitors Preoperative Comments:: 63 yo female with many drug sensitivities/allergies for knee scope. Sig PMHx: HTN, LANA, DM (last A1c in [facility] 01/05 5.9%), epistaxis. never smoker. Previous Anes: hx PONV, has used scope patch. - Cysto, ETT due to vomiting preop, mac 3 grade 2a, easy mask. - cystos x 4, LMA 4s, no issues.
[2023-05-24] MEDS: Lactated Ringers 1,000 ML 30 ML IV (12:13)
[2023-05-24] MEDS: Bupivacaine 0.25% Pres-Free 30 ML VIAL (13:33)
[2023-05-24] MEDS: MORPHine 4 MG/ML SYR (13:41)
[2023-05-24] MEDS: EPINEPHrine 10 MG/10 ML ML (13:43)
[2023-05-24] MEDS: fentaNYL 100 MCG/2 ML VIAL IVP ×2 (13:54→14:05)
[2023-05-24] MEDS: Droperidol 5 MG/2 ML VIAL 0.625 MG IVP (14:18)
[2023-05-24] MEDS: Normal Saline 10 ML VIAL IJ (14:18)
[2023-05-24] MEDS: ACETAMINOPHEN 1,000 MG/100 ML BTL 400 MG IVPB (14:37)
--- NOTE | 2023-05-24 15:11 | W.ANESPOSTOP ---
Postoperative Evaluation Date, Time and Location Date Performed: 05/24/23 Time Performed: 15:11 Patient Location: Day Surgery Unit Vital Signs Most Recent Imported Vital Signs: Most Recent Vital Signs Temp Pulse Resp BP Pulse Ox 36.3 C L 60 16 152/70 H 98 05/24/23 15:04 05/24/23 15:04 05/24/23 15:04 05/24/23 15:04 05/24/23 15:04 Pain Score Most Recent Pain Score: Most Recent Pain Score Pain Level 7 05/24/23 15:04 Assessment Mental Status: Awake (Alert & Oriented to Patient Baseline) Airway and Respiratory Function: Patent airway with normal (patient baseline) respiratory exam Cardiovascular Function: Hemodynamically Stable Hydration Status: Adequately Hydrated Nausea & Vomiting: Active Nausea or Vomiting Present (Nausea is back to patient's normal baseline.) Nausea and Vomiting Management: Nausea present without vomiting, patient wishes to be discharged Pain: Pain is Moderate or Severe (Eating crackers, will transition to oral pain meds.) Postoperative Pain Management: Pain being addressed with medication Peripheral Nerve Block: Patient did not receive a nerve block
[2023-05-24] MEDS: oxyCODONE 5 MG TAB PO (15:15)
== END 2023-05-24 16:16 | disposition home or self-care (01) ==
PROVIDERS: PCP Nurse Practitioner Family; Visit Provider Student in an Organized Health Care Education/Training Program
PROC: (CPT 29870; principal; 2023-05-24 13:00)
DX: S83.241A Other tear of medial meniscus, current injury, right knee, initial encounter (principal); S83.281A Other tear of lateral meniscus, current injury, right knee, initial encounter; M65.9 Synovitis and tenosynovitis, unspecified; X58.XXXA Exposure to other specified factors, initial encounter; I10 Essential (primary) hypertension; G47.33 Obstructive sleep apnea (adult) (pediatric); E11.9 Type 2 diabetes mellitus without complications
CPT/HCPCS: 29880; J0131; J0690; J1100; J1790; J1885; J2001; J2270; J2405; J3010

== ENCOUNTER 2023-05-24 17:17 | Emergency (ER) | payer MEDICAID, SELFPAY ==
[2023-05-24 17:21] VITALS: BP 152/68; PULSE 69; RESP 20; TEMP 36.7; O2SAT 100
--- NOTE | 2023-05-24 18:39 | ED.GENADUL_ITS ---
Discharge Plan Disposition Patient Disposition: Home Condition: Good Discharge Details Clinical Impression: Migraine Primary Care Provider: SAMUEL CERDA ED Provider: Cindy Aguilar Home Meds and New Rx's Prescriptions: No Action cholecalciferol (vitamin D3) 1,000 unit capsule 1,000 unit PO DAILY Nettle tea PO PRN cider [id number] 300-8.3 mg tablet 1 tab PO DAILY loratadine 10 mg tablet 10 mg PO DAILY Galzin 50 mg (zinc) capsule 50 mg PO DAILY Rx Instructions: swallow whole; do not chew/break/dissolve/open EPIPEN 1 ea IM 1:1000 ONCE Patient Comments: patient states she has never had to use this before and athat she carries it in her purse for bee stings and chocolate. Cranberry Concentrate 1 EACH capsule 3 mg PO DAILY magnesium oxide 400 MG tablet 400 mg PO DAILY ascorbate calcium (vitamin C) 500 MG tablet 1,500 mg PO DAILY potassium chloride 20 MEQ tablet extended release 20 meq PO DAILY acetaminophen [Mapap Extra Strength] 500 MG tablet 1,000 mg PO Q4H PRN PRN0RF acidophilus-pectin, citrus 1 CAP tablet 1 cap PO TID PRN PRN0RF aspirin 81 mg tablet,delayed release (DR/EC) 81 mg PO DAILY 14 Days Qty: 14 0RF oxycodone 5 mg tablet 5 - 10 mg PO Q4H MDD 30 mg PRN (Reason: moderate to severe pain) Qty: 18 0RF naproxen 250 mg tablet 250 - 500 mg PO BID PRNQty: 40 0RF Rx Instructions: take with a meal Bio-K plus 50 billion cell capsule,delayed release(DR/EC) 1 cap PO DAILY 14 Days Qty: 14 0RF Discharge Instructions Instructions: General Headache (ED) Additional Instructions: Call your primary care doctor today to schedule an appointment within one week to followup on your visit today. Take tylenol and ibuprofen over the counter for pain; follow the directions on the bottle. Return to the emergency department for new or worsening symptoms, including new/different/worse headache, fever, numbness/weakness, or if you have any other concerns. Referrals: SAMUEL CERDA, [employer] [Primary Care Provider] - Medical Decision Making 63yo F with hx of migraines presenting with headache typical of her usual migraine. Started this morning shortly after waking and has been persistent since then; went to day surgery for knee arthroscopy, continued with headache and nausea after she woke from anesthesia and then presented to the ED for her headache. No neurologic symptoms. No fever. No trauma. Not maximal at onset. No temporal tenderness or generalized symptoms. Most consistent with migraine; not suspicious for SAH, other intracranial bleed, mass, meningitis, giant cell arteritis, or emergent pathology. Vital signs and physical exam reassuring, normal neurologic exam. Would not get labs or head CT. Will treat symptoms with IVFB, tylenol, toradol, compazine, benadyrl. On reassessment she reports her headache has improved. Exam remains reassuring. She is requesting discharge home. Discharged home; discharge instructions including return precautions were reviewed with patient who verbalized understanding. All questions were answered and they are in full agreement with the plan. HPI General Mode of arrival: ambulatory . Date/Time Provider Initiated Documentation: 05/24/23 17:30 . Limitations to Documentation: no limitations . Information obtained by: patient . HPI Narrative: 63yo F with hx of migraines presenting with headache typical of her usual migraine. Started this morning shortly after waking and has been persistent since then. Went to day surgery for knee arthroscopy, continued with headache and nausea after she woke from anesthesia. After discharge presented to the ED for her headache. Headache is posterior, dull, severe, worse with light. Associated nausea which is typical of her migraines. No numbness, tingling, or weakness. No recent head injuries. Otherwise in her usual state of health with no fevers, chills, rash, nausea, vomiting, abdominal pain or other concerns. Related Data Home Medications Medication Instructions Recorded Confirmed Epipen 1 ea IM 1:1000 ONCE 12/16/12 05/24/23 cranberry concentrate-ascorbic 3 mg PO DAILY 05/20/16 05/24/23 acid 140 mg-100 mg capsule (Cranberry Concentrate) magnesium oxide 400 mg (241.3 mg 400 mg PO DAILY 05/20/16 05/24/23 magnesium) tablet potassium chloride 20 mEq 20 meq PO DAILY 11/25/17 05/24/23 tablet,extended release acetaminophen 500 mg tablet (Mapap 1,000 mg (2 x 500 mg) PO Q4H PRN 01/04/18 05/24/23 Extra Strength) PRN acidophilus 25 million 1 cap PO TID PRN PRN 01/04/18 05/24/23 cell-pectin, citrus 100 mg tablet cholecalciferol (vitamin D3) 25 1,000 unit PO DAILY 05/17/18 05/24/23 mcg (1,000 unit) capsule zinc acetate 50 mg (zinc) capsule 50 mg PO DAILY 12/04/19 05/24/23 (Galzin) cider [id number] 300 1 tab PO DAILY 11/14/21 05/24/23 mg-8.3 mg tablet Nettle tea PO PRN 12/19/21 05/02/23 ascorbate calcium (vitamin C) 500 1,500 mg PO DAILY 12/19/21 05/24/23 mg tablet loratadine 10 mg tablet 10 mg PO DAILY 12/20/22 05/24/23 L. acidophilus,casei,rhamnosus 50 1 cap PO DAILY 14 days #14 caps 05/24/23 05/24/23 billion cell capsule,delayed release (Bio-K plus) aspirin 81 mg tablet,delayed 81 mg PO DAILY Prevent blood clot 05/24/23 05/24/23 release 14 days #14 tabs naproxen 250 mg tablet 250 - 500 mg (1 - 2 x 250 mg) PO 05/24/23 05/24/23 BID PRN #40 tabs oxycodone 5 mg tablet 5 - 10 mg (1 - 2 x 5 mg) PO Q4H 05/24/23 05/24/23 PRN moderate to severe pain #18 tabs Previous Rx's Medication Instructions Recorded acetaminophen 500 mg tablet (Mapap 1,000 mg (2 x 500 mg) PO Q4H PRN 01/04/18 Extra Strength) PRN acidophilus 25 million 1 cap PO TID PRN PRN 01/04/18 cell-pectin, citrus 100 mg tablet L. acidophilus,casei,rhamnosus 50 1 cap PO DAILY 14 days #14 caps 05/24/23 billion cell capsule,delayed release (Bio-K plus) aspirin 81 mg tablet,delayed 81 mg PO DAILY Prevent blood clot 05/24/23 release 14 days #14 tabs naproxen 250 mg tablet 250 - 500 mg (1 - 2 x 250 mg) PO 05/24/23 BID PRN #40 tabs oxycodone 5 mg tablet 5 - 10 mg (1 - 2 x 5 mg) PO Q4H 05/24/23 PRN moderate to severe pain #18 tabs Allergies Allergy/AdvReac Type Severity Reaction Status Date / Time chocolate flavor Allergy Severe ANAPHYLAXIS Unverified 05/24/23 17:25 venom-honey bee Allergy Severe Anaphylaxsi Unverified 05/24/23 17:25 [bee venom (honey bee)] s cat dander Allergy Intermediate SOB, cough, Verified 05/24/23 17:25 kiwi Allergy Intermediate Verified 05/24/23 17:25 ciprofloxacin [From Cipro] Allergy Mild RASH,T Unverified 05/24/23 17:25 ELEVATION,TACHYCARDIA docusate sodium Allergy Mild Skin Rash Unverified 05/24/23 17:25 [From Senna-S] sennosides [From Senna-S] Allergy Mild Skin Rash Unverified 05/24/23 17:25 milk AdvReac Intermediate Diarrhea Unverified 05/24/23 17:25 pomegranate AdvReac Intermediate sore Unverified 05/24/23 17:25 throat, diarrhea sunflower oil AdvReac Intermediate Diarrhea Verified 05/24/23 17:25 sunflower seed AdvReac Intermediate Diarrhea Verified 05/24/23 17:25 peanut AdvReac Mild Diarrhea Unverified 05/24/23 17:25 cammomile Allergy Severe Skin Rash Uncoded 05/24/23 17:25 CHLORINE Allergy Severe Anaphylaxsi Uncoded 05/24/23 17:25 s General Stated Complaint: Headache GUADALUPE: 3 Review of Systems Narrative: see HPI PFSH All Active Problems (Updated 05/24/23 @ 20:33 by Cindy Aguilar MD) Migraine (Chronic) Synovitis of right knee (Acute) Tear of medial meniscus of right knee (Acute) Tear of lateral meniscus of right knee (Acute) Polyarthralgia (Acute) IBS (irritable bowel syndrome) (Chronic) LANA (obstructive sleep apnea) (Chronic) Postmenopausal (Acute) Discharge planning issues (Acute) DVT prophylaxis (Acute) Hyperlipidemia (Chronic) Hypertension (Chronic) Diabetes (Chronic) HTN (hypertension) (Chronic) Atypical chest pain (Acute) Chest pain (Acute) UTI (urinary tract infection) (Acute) Hypomagnesemia (Acute) Recurrent nephrolithiasis (Acute) Hydronephrosis concurrent with and due to calculi of kidney and ureter (Acute) Urinary tract infection (Acute) Hypokalemia (Acute) Kidney calculi (Acute 06/26/16) Gross hematuria (Acute) Medical History History of broken nose x2 History of deviated nasal septum Hx of anorexia nervosa Pt. states when she is weighed she is not to be told the number. Hx of epistaxis Surgical History H/O lithotripsy History of recent dental procedure Pt. states she recently traveled to [place] for dental work r/t to an infection in her dental roots, the infection has been treated surgically/abx, has 19 new crowns. Did F/U with [facility] in [place] upon return, pt. states that she is free of infection and has surgical clearance letter. Social History Smoking/Tobacco Use Status: Never Smoking risk assessment performed?: Yes Alcohol Intake: never Drug use: Never Substance use type: does not use Housing: house Do you feel safe at home: Yes Do you feel safe in your relationship?: Yes Female Reproductive History Menstrual Menopause type: natural (2011) History History Para Hx # Term Pregnancies Multiple births Hx # Pregnancies Ectopic pregnancies AB induced Hx Number of Living Children 5 AB spontaneous Exam Narrative Exam Narrative: General: Alert, well appearing, well nourished, in no acute distress. Head: Normocephalic, atraumatic. No temporal tenderness. Neck: Trachea midline, Neck supple. ENT: MMM. No oropharygeal lesions or exudate. Cardiac: RRR, no murmurs appreciated Resp: No respiratory distress. CTAB. Abd: Soft, non-distended, nontender : No suprapubic tenderness. No CVA tenderness. Extremities: No deformities. No peripheral edema. Neurologic: GCS 15. PERRL. EOMI. Fluent speech, no dysarthria. Normal sensation in V1, V2, and V3 segments bilaterally. No asymmetry. Normal hearing to speech. No uvular deviation. Midline tongue protrusion Motor- 5/5 strength symmetric bilateral upper and lower extremities Sensation- Intact to light touch and symmetric multiple dermatomes Coordination- No dysmetria on finger to nose Gait/station: Normal stance. No truncal ataxia. Steady gait with equal normal steps Course Vital Signs Vital signs: Vital Signs Temperature 36.7 C 05/24/23 17:21 Pulse 69 05/24/23 17:21 Respiratory Rate 20 05/24/23 17:21 Blood Pressure 152/68 H 05/24/23 17:21 Pulse Oximetry 100 05/24/23 17:21 Temperature 36.7 C 05/24/23 17:21 Temperature Source Oral 05/24/23 17:21 Pulse 69 05/24/23 17:21 Respiratory Rate 20 05/24/23 17:21 Respiratory Effort Normal 05/24/23 17:32 Blood Pressure 152/68 H 05/24/23 17:21 Blood Pressure Position Sitting 05/24/23 17:21 Pulse Oximetry 100 05/24/23 17:21 Oxygen Delivery Method Room Air 05/24/23 17:21 Oxygen Flow Rate 0 05/24/23 17:21 Pain Level 7 05/24/23 17:21
[2023-05-24] MEDS: Normal Saline 1,000 ML 1000 ML IV (19:00)
[2023-05-24] MEDS: Ketorolac 15 MG/ML VIAL IVP (19:05)
[2023-05-24] MEDS: ACETAMINOPHEN 1,000 MG/100 ML BTL 400 MG IVPB (19:15)
[2023-05-24] MEDS: diphenhydrAMINE 50 MG/ML VIAL IVP (19:19)
[2023-05-24] MEDS: Prochlorperazine 10 MG/2 ML VIAL IVP (19:20)
[2023-05-24 20:42] VITALS: BP 145/76; PULSE 66; RESP 16; O2SAT 95
== END 2023-05-24 20:44 | disposition home or self-care (01) ==
PROVIDERS: Emergency Provider Student in an Organized Health Care Education/Training Program; PCP Nurse Practitioner Family
DX: G43.909 Migraine, unspecified, not intractable, without status migrainosus (principal); R11.0 Nausea; E78.5 Hyperlipidemia, unspecified; I10 Essential (primary) hypertension; E11.9 Type 2 diabetes mellitus without complications; Z79.82 Long term (current) use of aspirin; Z98.890 Other specified postprocedural states
CPT/HCPCS: 96361; 96374; 96375; 99283; J0131; J0780; J1200; J1885

== ENCOUNTER → 2023-12-24 02:33 | Outpatient (CLI) | payer MEDICAID, SELFPAY ==
--- NOTE | 2023-12-24 06:30 | DI.US_ITS ---
Exam(s) US RENAL EXAM: US RENAL CLINICAL HISTORY: Monitoring calculi,recurrent nephrolithiasis,n20.0 TECHNIQUE: Ultrasound of both kidneys performed using standard protocol. COMPARISON: CT CT ABDOMEN PELVIS WO from 12/19/2019 US US RENAL from 12/04/2022 FINDINGS: KIDNEYS: Right kidney measures 11 cm and the left kidney measures 12 cm length. Both kidneys exhibit appearan ce of medullary sponge kidney. There are multiple echogenic foci consistent with multilevel calculi bilaterally. Largest calculus in the right kidney appears to measure 5 mm and the largest on the lef t 7 mm. There is no hydronephrosis and no perinephric fluid. No cysts nor solid renal masses eviden t URINARY BLADDER: Prevoid volume is 79 cc Postvoid volume is 9 cc No evidence of bladder mass nor obvious shadowing calculi in the urinary bladder lumen. Ureterovesical jets: Both identified and appear symmetrical IMPRESSION: 1. Medullary sponge kidney with bilateral nephrolithiasis. 2. There is no hydronephrosis and both ureterovesical jets were identified in the urinary bladder im plying that there is no high-grade obstruction of the ureters at this time. There also no echogenic calculi seen within the urinary bladder lumen. DATA REPOSITORY:
== END ==
PROVIDERS: PCP Nurse Practitioner Family; Visit Provider Nurse Practitioner Gerontology
DX: N20.0 Calculus of kidney (principal)
CPT/HCPCS: 76770

== ENCOUNTER 2024-05-14 00:38 | Outpatient (CLI) | payer MEDICAID, SELFPAY ==
--- NOTE | 2024-05-14 07:30 | DI.US_ITS ---
Exam(s) US RENAL EXAM: US RENAL CLINICAL HISTORY: flank pain,RECURRENT NEPHROLITHIASIS,KIDNEY CALCULI,N20.0. TECHNIQUE: Arce scale, color and spectral Doppler were used. COMPARISON: CT CT ABDOMEN PELVIS WO from 12/19/2019 US US RENAL from 12/04/2022 US US RENAL from 12/24/2023 FINDINGS: Right kidney: 11.0cm Echogenicity: Diffusely increased medullary echogenicity consistent with medullary nephrocalcinosis. This makes detection of small stones difficult. Hydronephrosis: No Cyst or mass: No Nephrolithiasis: 9 millimeter echogenic focus mid right kidney Left kidney: 12.8cm Echogenicity: Diffusely increased medullary echogenicity, consistent with medullary nephrocalcinosis. This makes detection of small stones difficult. Hydronephrosis: No Cyst or mass: No Nephrolithiasis: No stone mid left kidney. Bladder:Normal. Prevoid vol:230 cc Postvoid vol:16 cc IMPRESSION: Bilateral medullary nephrocalcinosis. Bilateral nonobstructing renal calculi. DATA REPOSITORY:
== END 2024-05-14 00:58 ==
LOC: DI 00:38
PROVIDERS: PCP Nurse Practitioner Family; Visit Provider Nurse Practitioner Gerontology
DX: N20.0 Calculus of kidney (principal)
CPT/HCPCS: 76770

== ENCOUNTER 2024-07-02 11:21 | Outpatient (REF) | payer MEDICAID, SELFPAY ==
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
--- OUTSIDE RECORDS SUMMARY | 2024-07-02 11:24 | XMS_ITS | Encounter Summary ---
Author Organization [facility] [place] [address] Care Team Providers Care Truck Loader Name Role Phone Demetria Larios APRN Primary Care Provider [phone] Encounter Details Date Type Department Care Team (Late st Contact Info) Description 07/30/2018 Telephone [place] [address] Fausto French MD [facility] [place] [address] Social History Tobacco Use Types Packs/Day Years Used Date Smoking Tobacco: Never Smokeless Tobacco: Never Sex and Gender Information Value Date Recorded Sex Assigned at Not on file Gender Identity Not on file Sexual Orientation Not on file documented as of this encounter Miscellaneous Notes * Telephone Encounter - Fausto French MD - 07/30/2018 5:11 PM EST Ms. Nair notified Patient Relations, stating that she was not satisfied with her recent ID Clinic visit. She is currently doing well with respect to UTIs -- tolerating daily Bactrim, without urinary symptoms (other than passing some gravel) or systemic manifestations of infection. Her complaint seemed to be that we did not do anything to resolve the issue of recurrent stone formation or nephrocalcinosis. She wondered why we didn't draw any blood, looking for a problem of some kind that might be contributing to her UTIs. I explained that this is an issue that will have to be addressed by Urology and Nephrology, and that the best we (in ID) can do is try to suppress the Proteus, in the setting of persistent niduses ofinfection. Ms. Nair is currently suffering from a recent nose bleed, which developed while she was in [place]. We had a fairly long discussion and I believe that I answered her questions about the decisions we made during her visit and our recommendation going forward. We think she needs to be followed closely by Nephrology and Urology, and that she should remain on Bactrim for the time being. As I said in my Office Note, we would be happy to see her again in a few months to see how she is doing and decide on the ongoing merits of antibiotic prophylaxis. I believe that she was reassured by my call. documented in this encounter Plan of Treatment Not on file documented as of this encounter Visit Diagnoses Not on filedocumented in this encounter Care Teams Truck Loader Relationship Specialty Start Date End Date Demetria Larios APRN [address] [place] [address] PCP - General Family Medicine 10/02/17 documented as of this encounter
--- OUTSIDE RECORDS SUMMARY | 2024-07-02 11:24 | XMS_ITS | Encounter Summary ---
Author Organization [facility] [place] [address] Care Team Providers Care Principal Engineer Name Role Phone Demetria Larios APRN Primary Care Provider Encounter Details Date Type Department Care Team (Late st Contact Info) Description 04/11/2018 [place] [address] Donald Rubin Jr., MD [facility] [place] [address] Social History Tobacco Use Types Packs/Day Years Used Date Smoking Tobacco: Never Smokeless Tobacco: Never Sex and Gender Information Value Date Recorded Sex Assigned at Not on file Gender Identity Not on file Sexual Orientation Not on file documented as of this encounter Miscellaneous Notes * Telephone Encounter - Cindy Noel - 04/11/2018 11:54 AM EDT [facility] - Pt discovered to have an allergy to this medication. She would like that added to her chart. documented in this encounter Plan of Treatment Not on file documented as of this encounter Visit Diagnoses Not on filedocumented in this encounter Care Teams Principal Engineer Relationship Specialty Start Date End Date Demetria Larios APRN [facility] [address] [facility] [place] [address] PCP - General Family Medicine 10/02/17 documented as of this encounter
--- OUTSIDE RECORDS SUMMARY | 2024-07-02 11:24 | XMS_ITS | Encounter Summary ---
Author Organization [facility] [place] [address] Care Team Providers Care Piece Jobber Name Role Phone Ellen Gleason CAMILO Primary Care Provider [phone] Reason for Visit * Auth/Cert Specialty Diagnoses / Procedures Referred By Raissa hernandez Referred To Contact Diagnoses right renal pelvic stone Procedures PRO CYSTO/URETERO/PYELOSCOPY W/LITHOTRIPSY PRO CYSTOSCOPY, REMV CALCULUS, SIMPLE CYSTOURETEROSCOPY, LITHOTRIPSY Referral ID Status Reason Start Date Expiration Date Visits Re quested Visits Authorized [id number] 1 1 Encounter Details Date Type Department Care Team (Late st Contact Info) Description 06/02/2016 8:31 AM EST Anesthesia [place] [id number] Carlos Llanes MD [facility] DR [place] [address] Anesthesia Record Procedure Summary Procedure Name Responsible Anesthesiologist Anesthesia Start Time Anesthesia Stop Time CYSTOURETEROSCOPY, LITHOTRIPSY (WRVU 7.5) (Left: Bladder) Carlos Llanes MD 06/02/16 0831 06/02/16 1043 Events Date Time Event Comment 06/02/2016 0829 0831 Start 0836 AN Verify 0836 An Start Data 0845 An Induction 0848 An Intubation 0904 Anesthesia Ready 0911 Procedure Start 1027 Procedure Stop 1038 Extubation/LMA Out 1038 an stop data 1043 Recovery or ICU Handoff Lakisha ent care was transferred to the destination unit staff after review of the patient's medical history, current anesthetic/surgical status and plan, according to the Provider Handoff Checklist. 1043 Stop Meds Name Total Midazolam 2 mg fentaNYL 100 mcg IV Lidocaine 50 mg Propofol 200 mg Rocuronium 30 mg PHENYLephrine 80 mcg Ondansetron 4 mg Dexamethasone 4 mg Neostigmine 3 mg Glycopyrrolate 0.4 mg cefTRIAXone (ROCEPHIN) 2g in dextrose 5% 50mL 2 g Propofol INF 248.73 mg lactated ringers infusion 1,000 mL 700 m L * Agents Name O2 Air N2O Sevoflurane (et) * Blood No blood administrations on file. Lines, Drains, and Airways Type Details Placement Removal (RETIRED) Peripheral IV Line - Single Lumen 05/19/16; 0932; median cubital vein (antecubital fossa), left; zpon-olr-ojwcwz catheter system; 20 gauge, 1 in length; MARIELY Olivas; intradermal injection, distraction, tolerated well, appears comfortable; 1; metacarpal vein (top of hand), left; 06/03/16; 1052 05/19/16 0932 by Ellen Canas RN 06/03/16 1052 by Kylie Mason RN (RETIRED) Incision 05/19/16 (Cysto - Se e notes.); 1056; 03/13/22 (LDA cleanup utility RA#[id number]); 1715 (LDA cleanup utility RA#[id number]) 05/19/16 1056 by Julia Crook RN 03/13/22 1715 by Nathan Moreno (RETIRED) Peripheral IV Line - Single Lumen 06/02/16; 0820; metacarpal vein (top of hand), right; dezs-imf-rrmecp catheter system; 20 gauge, 1 in length; anes; distraction, intradermal injection, tolerated well; 06/03/16; 0908 06/02/16 0820 by Heidi Xavier 06/03/16 0908 by Donte Whitfield LNA ETT Mask Ventilation: Omer john (1); ETT Type: Cuffed, Oral; ETT Size: 7 mm; Mac Blade: 3; Notes: Asleep, Pre-O2, Stylette; Attempts: 1; Laryngoscopy Grade: 1; Secured at Teeth: 20 cm; Inserted by: Lisa; Removal Date: 06/02/16; Removal Time: 1038 06/02/16 0853 by Corbin Gonzalez MD 06/02/16 1038 by Corbin Gonzalez MD documented in this encounter Social History Tobacco Use Types Packs/Day Years Used Date Smoking Tobacco: Never Sex and Gender Information Value Date Recorded Sex Assigned at Not on file Gender Identity Not on file Sexual Orientation Not on file documented as of this encounter OR Notes * Anesthesia Postprocedure Evaluation - Carlos Llanes MD - 06/02/2016 2:02 PM EST [facility] Department of Anesthesiology Post-procedure Note Patient: Hannah Nair Procedure Summary Date Anesthesia Start Anesthesia Stop Room / Location 06/02/16 0831 1043 MH OR 28 / [facility] MAIN OR Procedure Diagnosis Surgeon Responsible Provider CYSTOURETEROSCOPY, LITHOTRIPSY (Left Bladder); MODIFIER HOLMIUM LASER (N/A Bladder); CYSTO, REMOVALOF STENT, FOREIGN BODY OR CALCULUS, SIMPLE (Right Bladder) (right renal pelvic stone, second look) Sal Lee MD Bertrand, Marc L, MD All Anesthesia Providers: Anesthesiologist: Carlos Llanes MD Beef Splitter: Corbin Gonzalez MD Last (1hr) Vitals: BP Temp Pulse Resp SpO2 Patient Location: PACU/[facility] Level of Consciousness: Awake and Alert Pain Management: Satisfactory Analgesia PONV: None Cardiovascular Status: At Baseline Respiratory Status: At Baseline Postoperative Fluid Status: Intravascular EUvolemia Possible Anesthetic Complications: NONE apparent at time of evaluation Final Primary Anesthesia Type: General (The anesthetic type performed was the same as planned.) Comments: * Anesthesia Preprocedure Evaluation - Corbin Gonzalez - 06/01/2016 5:31 PM EST Pre-Anesthesia Evaluation for: Hannah Nair a 56 y.o. female. Procedure(s): CYSTOURETEROSCOPY, LITHOTRIPSY MODIFIER HOLMIUM LASER CYSTO, REMOVAL OF STENT, FOREIGN BODY OR CALCULUS, SIMPLE Patient Active Problem List Diagnosis ??? Nephrolithiasis No past medical history on file. Past Surgical History Procedure Laterality Date ??? Pro cysto/ureteroscopy w/lithotripsy inc indwelling stent insertion Right 2016 CYSTOURETEROSCOPY,DIAGNOSTIC,W/ LITHOTRIPSY INC. INSERTION OF INDWELLING URETERAL STENT performed by Sal Lee MD at [facility] ??? Pro incise bladder, +ureter cath Left 2016 CYSTOTOMY WITH [facility] OF URETERAL STENT[facility] Social History Substance Use Topics ??? Smoking status: Never Smoker ??? Smokeless tobacco: Not on file ??? Alcohol use Not on file History Drug Use Not on file Allergies Allergen Reactions ??? Beesix [Pyridoxine] Anaphylaxis ??? Chloride Other (See Comments) Per patient, wipes or sprays with Chlorine/Chloride she cannot breath and gets a chemical pneumonia. ??? Chocolate Flavor Anaphylaxis CIS - Anaphylaxis ??? Ciprofloxacin CIS - Anaphylaxis ??? Sennosides-Docusate Sodium Other (See Comments) Patient reports oral swelling ??? Diclofenac Other (See Comments) Patient reports red hot face ??? Oxybutynin Hives ??? Peanut CIS - diareahea ??? Peanut Oil CIS - diareahea ??? Pomegranate Diarrhea ??? Vesicare [Solifenacin] Rash ??? Milk ??? Milk Based Formulas Medications: MAR and/or home medications have been reviewed. Physical Exam: There were no vitals filed for this visit. There is no height or weight on file to calculate BMI. Airway Assessment: Mallampati: I TM distance: >3 FB Neck ROM: full Cardiovascular Assessment: cardiovascular exam normal Pulmonary Assessment: pulmonary exam normal Dental Assessment: - normal exam Misc Assessment: Patient is wearing No contact(s). IV access: Peripheral line Anesthesia Plan: ASA 2 general, with a(n) intravenous induction Hannah Nair is a 56 y.o. 95 kg female presenting for cysto/laser lithotripsy of LEFT renal pelvic stone and stent placement. Pt has a PMH of obesity, otherwise in generally good health. No history of GERD. Nonsmoker and no EtOH use. Patient's documented history was NEGATIVE for seizures, CVA, cardiac disease, pulmonary disease, hepatic disease, renal disease, and coagulopathy. 07/2015 Labs were reviewed and notable for K 4.3 Cr 0.87 Allergies: -- Beesix (Pyridoxine) -- Anaphylaxis -- Chloride -- Other (See Comments) -- Per patient, wipes or sprays with Chlorine/Chloride she cannot breath and gets a chemical pneumonia. -- Chocolate Flavor -- Anaphylaxis -- CIS - Anaphylaxis -- Ciprofloxacin -- CIS - Anaphylaxis -- Sennosides-Docusate Sodium -- Other (See Comments) -- Patient reports oral swelling -- Diclofenac -- Other (See Comments) -- Patient reports red hot face -- Oxybutynin -- Hives -- Peanut -- CIS - diareahea -- Peanut Oil -- CIS - diareahea -- Pomegranate -- Diarrhea -- Vesicare (Solifenacin) -- Rash -- Milk -- Milk Based Formulas NPO Status: Appropriate, last meal yesterday at 7PM Anesthetic History: Tolerated last GA without issue. Hx of motion sickness. Previously easy mask, Gr 1 w Mac 3. Anesthetic Plan: Scopolamine patch preop GA with ETT Standard ASA monitoring Adequate IV access Corbin Gonzalez MD PhD CA-2 06/01/2016 #3621 Region - Other Informed Consent: Anesthetic plan and risks discussed with patient. Plan discussed with attending. PAT Staff Note documented in this encounter Plan of Treatment Not on file documented as of this encounter Visit Diagnoses Not on filedocumented in this encounter Administered Medications Inactive Administered Medications - up to 3 most recent administrations Medication Order MAR Action Action Date Dose Rate Site cefTRIAXone (ROCEPHIN) 2g in dextrose 5% 50mL 2,000 mg (2 g), Intravenous, EVERY 24 HOURS, 1 dose, First dose on Sun06/02/16 at 0900, Administer over 30 Minutes, Indication for (Active or Suspected): Prophylaxis Given 06/02/2016 9:03 AM EST 2 g dexamethasone (DECADRON) injection PRN, Starting on Sun06/02/16 at 0909, Until Sun06/02/16 at 1043, Anesthesia Intra-op, Routine Given 06/02/2016 9:09 AM EST 4 mg fentaNYL 50 mcg/mL multi-dose injection PRN, Starting on Sun06/02/16 at 0845, Until Sun06/02/16 at 1043, Pain, Anesthesia Intra-op, Routine Given 06/02/2016 9:23 AM EST 50 mcg Given 06/02/2016 8:45 AM EST 50 mcg glycopyrrolate (ROBINUL) multi-dose injection PRN, Starting on Sun06/02/16 at 1027, Until Sun06/02/16 at 1043, Anesthesia Intra-op, Routine Given 06/02/2016 10:27 AM EST 0.4 mg lidocaine (PF) (XYLOCAINE) 100 mg/5 mL (2 %) injection PRN, Starting on Sun06/02/16 at 0845, Until Sun06/02/16 at 1043, Anesthesia Intra-op, Routine Given 06/02/2016 8:45 AM EST 50 mg midazolam (PF) (VERSED) 1 mg/mL multi-dose injection PRN, Starting on Sun06/02/16 at 0831, Until Sun06/02/16 at 1043, Sleep, Anesthesia Intra-op, Routine Given 06/02/2016 8:31 AM EST 2 mg neostigmine (PROSTIGMINE) multi-dose injection PRN, Starting on Sun06/02/16 at 1027, Until Sun06/02/16 at 1043, Anesthesia Intra-op, Routine Given 06/02/2016 10:27 AM EST 3 mg ondansetron (ZOFRAN) injection PRN, Starting on Sun06/02/16 at 1003, Until Sun06/02/16 at 1043, Nausea, Anesthesia Intra-op, Routine Given 06/02/2016 10:03 AM EST 4 mg PHENYLephrine HCl in NS (PF) (CELINA-SYNEPHRINE) 0.8 mg/10 mL (80 mcg/mL) multi-dose injection Syrg PRN, Starting on Sun06/02/16 at 0900, Until Sun06/02/16 at 1043, Anesthesia Intra-op, Routine Given 06/02/2016 8:55 AM EST 80 mcg propofol (DIPRIVAN) 10 mg/mL bolus injection (Anesthesia) PRN, Starting on Sun06/02/16 at 0845, Until Sun06/02/16 at 1043, Anesthesia Intra-op Given 06/02/2016 10:25 AM EST 2 0 mg Given 06/02/2016 8:45 AM EST 180 mg propofol (DIPRIVAN) infusion CONTINUOUS PRN, Starting on Sun06/02/16 at 0853, Until Sun06/02/16 at 1043, Anesthesia Intra-op, Routine New Bag 06/02/2016 8:53 AM EST 30 mcg/kg/min 17.2 mL/hr rocuronium (ZEMURON) multi-dose injection PRN, Starting on Sun06/02/16 at 0845, Until Sun06/02/16 at 1043, Anesthesia Intra-op, Routine Given 06/02/2016 8:45 AM EST 30 mg documented in this encounter Care Teams Piece Jobber Relationship Specialty Start Date End Date Ellen Gleason, CAMILO PCP - General 06/07/10 09/10/16 documented as of this encounter
--- OUTSIDE RECORDS SUMMARY | 2024-07-02 11:24 | XMS_ITS | Encounter Summary ---
Author Organization [facility] [place] [address] Care Team Providers Care Hair Baler Name Role Phone Unknown Primary Care Provider Unavailabl e Encounter Details Date Type Department Care Team (Late st Contact Info) Description 06/02/2016 [place] [address] Sal Lee MD [facility] [place] [address] Social History Tobacco Use Types Packs/Day Years Used Date Smoking Tobacco: Never Sex and Gender Information Value Date Recorded Sex Assigned at Not on file Gender Identity Not on file Sexual Orientation Not on file documented as of this encounter Plan of Treatment Not on file documented as of this encounter Visit Diagnoses Not on filedocumented in this encounter Care Teams Hair Baler Relationship Specialty Start Date End Date Unknown None PCP - General 09/11/16 10/01/17 documented as of this encounter
--- OUTSIDE RECORDS SUMMARY | 2024-07-02 11:24 | XMS_ITS | Encounter Summary ---
Author Organization [facility] [place] [address] Care Team Providers Care Strap Folding Machine Operator Name Role Phone Ellen Gleason CAMILO Primary Care Provider +1- [phone] Encounter Details Date Type Department Care Team (Late st Contact Info) Description 05/23/2016 [place] [phone] Shakira Gallegos MD [facility] [place] [address] Social History Tobacco Use Types Packs/Day Years Used Date Smoking Tobacco: Never Sex and Gender Information Value Date Recorded Sex Assigned at Not on file Gender Identity Not on file Sexual Orientation Not on file documented as of this encounter Miscellaneous Notes * Telephone Encounter - Shakira Gallegos MD - 05/23/2016 6:14 PM EST I called Mrs Nair to discuss her symptoms. She is experiencing pain and discomfort across herlower abdomen, burning when she urinates, and pain in her kidneys. I told her that some of these symptoms could be from the stent. She insists that it is not from the stent, as she's had stents in the past, and she believes she has an infection. Her most recent urine cultures from [facility] show proteus that is sensitive to bactrim, and this is what she is on. I advised her that she should be appropriately covered with antibiotics. I asked her to take her temperature, which she did while we were on the phone, and it was 98. I advised her to monitor for fevers, and reassured her that I was not concerned that she was actively infected. documented in this encounter Plan of Treatment Not on file documented as of this encounter Visit Diagnoses Not on filedocumented in this encounter Care Teams Strap Folding Machine Operator Relationship Specialty Start Date End Date Ellen Gleason APRN PCP - General 06/07/10 09/10/16 documented as of this encounter
--- OUTSIDE RECORDS SUMMARY | 2024-07-02 11:24 | XMS_ITS | Encounter Summary ---
Author Organization [facility] [place] [address] Care Team Providers Care Environmental Test Technician Name Role Phone Ellen Gleaosn APRN Primary Care Provider +1- [phone] Encounter Details Date Type Department Care Team (Late st Contact Info) Description 05/30/2016 Orders [place] [address] Sal Lee MD [facility] [place] [address] Other symptoms and signs involving the genitourinary system Social History Tobacco Use Types Packs/Day Years Used Date Smoking Tobacco: Never Sex and Gender Information Value Date Recorded Sex Assigned at Not on file Gender Identity Not on file Sexual Orientation Not on file documented as of this encounter Plan of Treatment Not on file documented as of this encounter Visit Diagnoses Diagnosis Other symptoms and signs involving the genitourinary system documented in this encounter Care Teams Environmental Test Technician Relationship Specialty Start Date End Date Ellen Gleason APRN PCP - General 06/07/10 09/10/16 documented as of this encounter
--- OUTSIDE RECORDS SUMMARY | 2024-07-02 11:24 | XMS_ITS | Encounter Summary ---
Author Organization [facility] [place] [address] Care Team Providers Care Window Dresser Name Role Phone Ellen Gleason CAMILO Primary Care Provider +1- [phone] Encounter Details Date Type Department Care Team (Late st Contact Info) Description 06/13/2016 [place] [phone] Michael Sierra MD [facility] [place] [place] [address] Social History Tobacco Use Types Packs/Day Years Used Date Smoking Tobacco: Never Sex and Gender Information Value Date Recorded Sex Assigned at Not on file Gender Identity Not on file Sexual Orientation Not on file documented as of this encounter Miscellaneous Notes * Telephone Encounter - Michael Sierra - 06/13/2016 11:16 AM EST S/p URS stent 06/02 Has appt on 06/16 to have stent removed at [facility]. The stent has a string. She states her is hospitalized at [facility] and she is unable to come to [facility] to have the stent removed. She is wondering if a uroogist at [facility] in [facility], Dr. Mccann, or his office staff, can remove it. Told her it is ok by us, but that it depends on Dr. Mccann. I called and left a message for him asking if he could do it, and to contact us with any questions. Mary Valero MD 06/13/2016 documented in this encounter Plan of Treatment Not on file documented as of this encounter Visit Diagnoses Not on filedocumented in this encounter Care Teams Window Dresser Relationship Specialty Start Date End Date Ellen Gleason APRN PCP - General 06/07/10 09/10/16 documented as of this encounter
--- OUTSIDE RECORDS SUMMARY | 2024-07-02 11:24 | XMS_ITS | Encounter Summary ---
Author Organization [facility] Address [address] [place] [address] Care Team Providers Care Water Conservation Specialist Name Role Phone Unavailable Primary Care Provider Unavailabl e Encounter Details Date Type Department Care Team (Late st Contact Info) Description 08/26/1999 11:16 EST Hospital Encounter [facility] - Other [address] [place] [address] Tylor Roman MD [address] [place] [address] Unknown, Provider, Social History Tobacco Use Types Packs/Day Years Used Date Smoking Tobacco: Never Assessed Comments Unknown Sex and Gender Information Value Date Recorded Sex Assigned at Not on file Legal Sex Female 17:27 EST Gender Identity Not on file Sexual Orientation Not on file documented as of this encounter Plan of Treatment Not on file documented as of this encounter Visit Diagnoses Not on filedocumented in this encounter
--- OUTSIDE RECORDS SUMMARY | 2024-07-02 11:24 | XMS_ITS | Encounter Summary ---
Author Organization [facility] [place] [address] Care Team Providers Care Director Of Field Service Name Role Phone Ellen Gleason APRN Primary Care Provider +1- [phone] Reason for Visit * Reason Onset Date Comments Allergic Reaction 05/23/2016 Encounter Details Date Type Department Care Team (Late st Contact Info) Description 05/23/2016 [place] [phone] Verna Cheatham RN Allergic Reaction Social History Tobacco Use Types Packs/Day Years Used Date Smoking Tobacco: Never Sex and Gender Information Value Date Recorded Sex Assigned at Not on file Gender Identity Not on file Sexual Orientation Not on file documented as of this encounter Miscellaneous Notes * Telephone Encounter - Verna Cheatham RN - 05/23/2016 10:03 AM EST Patient called to report allergic reaction to sennosides/Ducosate and Diclofenac. I have added them to her allergy list. Verna Cheatham RN documented in this encounter Plan of Treatment Not on file documented as of this encounter Visit Diagnoses Not on filedocumented in this encounter Care Teams Director Of Field Service Relationship Specialty Start Date End Date Ellen Gleason APRN PCP - General 06/07/10 09/10/16 documented as of this encounter
--- OUTSIDE RECORDS SUMMARY | 2024-07-02 11:24 | XMS_ITS | Encounter Summary ---
Author Organization [facility] Address [address] [place] [address] Care Team Providers Care Instrument Tester Name Role Phone Jacob Martinez MD Primary Care Provider Aura elizalde Encounter Details Date Type Department Care Team (Late st Contact Info) Description 09/04/2016 Results Only [facility] [phone] Demetria Salazar, MARIA E [address] [place] [address] [place], [place] [id number] Social History Tobacco Use Types Packs/Day Years Used Date Smoking Tobacco: Never Assessed Comments Unknown Sex and Gender Information Value Date Recorded Sex Assigned at Not on file Legal Sex Female 17:27 EST Gender Identity Not on file Sexual Orientation Not on file documented as of this encounter Plan of Treatment Not on file documented as of this encounter Procedures Procedure Name Priority Date/Time Associated Diagnosis Comments PAP TEST- RESULT ONLY Routine 09/04/2016 0:00 EST documented in this encounter Results * PAP TEST- RESULT ONLY (09/04/2016 0:00 EST) Pathology Report: CYTOPATHOLOGY REPORT Reports generated via electronic interface contain original data; however they are lacking the format of the original report. Caution should be taken when reading/interpreti ng unformatted reports. Name: ? WILLIAM NAIR ? Accession #: ? [id number] ? : ? 1960 (Age: 56) ??F ?Collect Date: ? 09/04/2016 ? Location: ? [facility] ? Receive Date: ? 09/05/2016 ? Provider: DEMETRIA SALAZAR CLAY HOISTER Copy to: ? Final Report SPECIMEN ADEQUACY ? Satisfactory for Evaluation - transformation zone component present GENERAL CATEGORIZATION ? Negative for Intraepithelial Lesion or Malignancy ?? Last Menstrual Period: 3 Years ago Menstrual/Pregnanc y Status: ??Menopausal Specimen/Source: ??Pap Test, Cervix/Endocervix, ThinPrep Imaging System with manual evaluation Document reviewed and electronically signed by: ? Shen Parada, [place](ASCP) ? Report ??Date: 09/07/2016 10:40 HPV with Pap Test ? Date Ordered: ? 09/07/2016 ? Status: ?? Signed Out ?Date Complete: ? 09/08/2016 ? By: ??System Interface ? Date Reported: ? 09/08/2016 ? Interpretation RESULT: Negative for HPV. No E6 or E7 mRNA is detected from HPV types 16,18,31,33,35, 39,45,51,52,56,58, 59,66, and 68 by door liner helper mediated amplification. Comments Document reviewed and electronically signed by: ? System Interface ? Report date: 09/08/2016 By the signature above, the attending physician certifies that he/she has personally conducted a gross and/or microscopic examination of the described specimens and rendered or confirmed the above diagnosis. End of Report [facility] 09/04/2016 09/05/2016 us Demetria Salazar CLAY HOISTER PATHOLOGY ORDERABLES Final Res ult [facility] [address] [place] [address] documented in this encounter Visit Diagnoses Not on filedocumented in this encounter Care Teams Instrument Tester Relationship Specialty Start Date End Date Jacob Martinez MD PCP - General 05/31/15 documented as of this encounter
--- OUTSIDE RECORDS SUMMARY | 2024-07-02 11:24 | XMS_ITS | Encounter Summary ---
[facility] [place] [address] Care Team Providers Care Deputy Sheriff Civil Division Name Role Phone Ellen Gleason APRN Primary Care Provider [phone] Reason for Visit * Reason Onset Date Comments Results 05/23/2016 Encounter Details Date Type Department Care Team (Late st Contact Info) Description 05/23/2016 [place] [phone] Verna Cheatham, RN Results Social History Tobacco Use Types Packs/Day Years Used Date Smoking Tobacco: Never Sex and Gender Information Value Date Recorded Sex Assigned at Not on file Gender Identity Not on file Sexual Orientation Not on file documented as of this encounter Miscellaneous Notes * Telephone Encounter - Verna Cheatham RN - 05/23/2016 4:56 PM EST Called patient and let her know Dr. Gallegos will be calling her this evening to go over urine culture. Verna Cheatham RN documented in this encounter Plan of Treatment Not on file documented as of this encounter Visit Diagnoses Not on filedocumented in this encounter Care Teams Deputy Sheriff Civil Division Relationship Specialty Start Date End Date Ellen Gleason APRN PCP - General 06/07/10 09/10/16 documented as of this encounter
--- OUTSIDE RECORDS SUMMARY | 2024-07-02 11:24 | XMS_ITS | Encounter Summary ---
Author Organization [facility] Address [address] [place] [address] Care Team Providers Care Street And Building Decorator Name Role Phone Unavailable Primary Care Provider Unavailabl e Encounter Details Date Type Department Care Team (Latest Contact Info) Description 10/17/2000 20:23 EDT Hospital Encounter [facility] - Other [address] [place] [address] Faby Colmenares MD [address] [place] [phone] Unknown, Provider, Discharge Disposition: Auto Discharge Social History Tobacco Use Types Packs/Day Years Used Date Smoking Tobacco: Never Assessed Comments Unknown Sex and Gender Information Value Date Recorded Sex Assigned at Not on file Legal Sex Female 17:27 EST Gender Identity Not on file Sexual Orientation Not on file documented as of this encounter Discharge Disposition Disposition Code Departure Means Destination Auto Discharge documented in this encounter Plan of Treatment Not on file documented as of this encounter Procedures Procedure Name Priority Date/Time Associated Diagnosis Comments CYTOPATHOLOGY Routine 10/17/2000 0:00 EDT documented in this encounter Results * CYTOPATHOLOGY (10/17/2000 0:00 EDT) Pathology Report: CYTOPATHOLOGY REPORT Reports generated via electronic interface contain original data; however they are lacking the format of the original report. Caution should be taken when reading/interpreti ng unformatted reports. Name: ? WILLIAM NAIR ? Accession #: ? [id number] : ? 1960 (Age: 40) ??F ?Collect Date: ? 10/17/2000 Location: ? [facility] ? Receive Date: ? 10/18/2000 Provider: ?FABY COLMENARES MD Copy to: ? Specimen/Source: ?ThinPrep Pap Test, Vagina/Cervix Last Menstrual Period: ? SPECIMEN ADEQUACY ? Satisfactory for evaluation. GENERAL CATEGORIZATION ? Within Normal Limits ? Document reviewed and electronically signed by: ? Jonna Linda, SCT(ASCP) ? Report Date: ??10/19/2000 10:51 End of Report [facility] 10/17/2000 10/18/2000 us Faby Colmenares MD PATHOLOGY ORDERABLES Final Resu lt [facility] [address] [place] [address] documented in this encounter Visit Diagnoses Not on filedocumented in this encounter
--- OUTSIDE RECORDS SUMMARY | 2024-07-02 11:24 | XMS_ITS | Encounter Summary ---
Author Organization [facility] Address [address] [place] [address] Care Team Providers Care Automotive Technician Instructor Name Role Phone Jacob Martinez MD Primary Care Provider Aura elizalde Encounter Details Date Type Department Care Team (Late st Contact Info) Description 01/13/2020 Lab Requisition [facility] Pathology & Laboratory Medicine - [address] [address] Outr Resulting Lab, Provider Social History Tobacco Use Types Packs/Day Years [...] Procedure Name Priority Date/Time Associated Diagnosis Comments ZZCOVID-19 TEST [facility] PCR Today 01/12/2020 15:41 EDT COVID-19 TESTING Routine 01/12/2020 15:4 1 EDT documented in this encounter Results * COVID-19 TEST [facility] PCR (01/12/2020 15:41 EDT) Swab ENTIRE NASOPHARYNX / Unknown 01/12/2020 15:41 EDT 01/13/2020 15:48 EDT us Provider Outr Resulting Lab MICROBIOLOGY - GENER AL ORDERABLES Final Result [facility] [address] [place] [address] * COVID-19 TESTING (01/12/2020 15:41 EDT) COVID-19 rt-PCR Result Negative Negative 01/14/2020 15:58 EDT [facility] Comment: Negative results do not preclude 2019-nCoV infection and should not be used as the sole basis for treatment or other patient management decisions. Negative results must be combined with clinical observations, patient history, and epidemiological information. This test was developed and its performance characteristics determined by [facility]. It has not been cleared or approved by the US Food and Drug Administration. FDA does not require this test to go through premarket FDA review. This test is used for clinical purposes. It should not be regarded as investigational or for research. This laboratory is certified under the Clinical Laboratory Improvement Amendments (CLIA) as qualified to perform high complexity clinical laboratory testing. This test is based on the CDC COVID-19 Emergency Use Authorization (EUA) assay, with minor modification as defined by the FDA Performed on the [employer] [address] Fast. Performing Lab AB [address] [facility] 01/14/2020 15:58 EDT [facility] Swab 01/12/2020 15:4 1 EDT 01/13/2020 15:48 EDT us Provider Outr Resulting Lab MICROBIOLOGY - GENER AL ORDERABLES Final Result [facility] [address] [place] [address] documented in this encounter Visit Diagnoses Not on filedocumented in this encounter Care Teams Automotive Technician Instructor Relationship Specialty Start Date End Date Jacob Martinez MD PCP - General 05/31/15 documented as of this encounter
--- OUTSIDE RECORDS SUMMARY | 2024-07-02 11:24 | XMS_ITS | Encounter Summary ---
Author Organization [facility] Address [address] [place] [address] Care Team Providers Care Crutching Contractor Name Role Phone Unavailable Primary Care Provider Unavailabl e Encounter Details Date Type Department Care Team (Late st Contact Info) Description 11/23/2010 Results Only [facility] Laboratory Services - [facility] ([facility] [address] [place], [place] [address] Ellen Menchaca NP [address] [place] [address] Social History Tobacco Use Types Packs/Day Years [...] Diagnosis Comments PAP TEST- RESULT ONLY Routine 11/23/2010 0:00 EDT documented in this encounter Results * PAP TEST- RESULT ONLY (11/23/2010 0:00 EDT) Pathology Report: CYTOPATHOLOGY REPORT ? Reports generated via electronic interface contain original data; ? however they are lacking the format of the original report. ? Caution should be taken when reading/interpreti ng unformatted reports. ? Name: ? WILLIAM NAIR ? Accession #: ? [id number] ? : ? 1960 (Age: 50) ??F ?Collect Date: ? 11/23/2010 ? Location: ? [facility] ? Receive Date: ? 11/25/2010 ? Provider: ELLEN MENCHACA PLASMA PROCESSOR ? Copy to: ? Final Report ? SPECIMEN ADEQUACY ? - scant squamous epithelial component secondary to excessive mucus ? Satisfactory for Evaluation ? - transformation zone component present ? GENERAL CATEGORIZATION ? Negative for Intraepithelial Lesion or Malignancy ? INTERPRETATION ? Reactive cellular changes associated with inflammation present (includes ?? repair). ? Last Menstural Period: 11/07/2010 ? Specimen/Source: ??Pap Test, Cervix/Endocervix, ThinPrep Imaging System with ? manual evaluation ? Document reviewed and electronically signed by: ? SHAILA JARAMILLO MD ? Report ??Date: 12/02/2010 15:45 ? HPV with Pap Test ? Date Ordered: ? 12/02/2010 ? Status: ?? Signed Out ?Date Complete: ? 12/07/2010 ? By: ??System Interface ? Date Reported: ? 12/07/2010 ? Interpretation ? RESULT: Negative for HPV types 16, 18, 31, 33, 35, 39, 45, 51, 52, ? 56, 58, 59, and 68. ? Comments ? Document reviewed and electronically signed by: ? System Interface ? Report date: 12/07/2010 ? By the signature above, the attending physician certifies that he/she has ? personally conducted a gross and/or microscopic examination of the described ? specimens and rendered or confirmed the above diagnosis. ? End of Report ? [facility] 11/23/2010 11/25/2010 us Ellen Menchaca NP PATHOLOGY ORDERABLES Final Res ult [facility] [address] [place] [address] documented in this encounter Visit Diagnoses Not on filedocumented in this encounter
--- OUTSIDE RECORDS SUMMARY | 2024-07-02 11:24 | XMS_ITS | Encounter Summary ---
Author Organization [facility] Address [address] [place] [address] Care Team Providers Care Senior Internal Auditor Name Role Phone Jacob Martinez MD Primary Care Provider Aura elizalde Encounter Details Date Type Department Care Team (Late st Contact Info) Description 02/22/2021 Lab Requisition [facility] Pathology & Laboratory Medicine - [address] [address] Outr Resulting Lab, Provider Social History Tobacco [...] Procedure Name Priority Date/Time Associated Diagnosis Comments GIARDIA AND CRYPTOSPORIDIUM ANTIGENS Routine 02/22/2021 7:15 EDT documented in this encounter Results * GIARDIA AND CRYPTOSPORIDIUM ANTIGENS (02/22/2021 7:15 EDT) Giardia and Cryptosporidium Cryptosporidium Antigen Neg and Giardia Antigen Neg Cryptosporidium Antigen Neg and Giardia Antigen Neg 10:54 EDT [facility] Feces SPECIMEN FROM RECTUM / Unknown 02/22/2021 7:15 EDT 02/22/2021 21:33 EDT us Provider Outr Resulting Lab MICROBIOLOGY - GENER AL ORDERABLES Final Result [facility] [address] [place] [address] documented in this encounter Visit Diagnoses Not on filedocumented in this encounter Care Teams Senior Internal Auditor Relationship Specialty Start Date End Date Jacob Martinez MD PCP - General 05/31/15 documented as of this encounter
--- OUTSIDE RECORDS SUMMARY | 2024-07-02 11:24 | XMS_ITS | Encounter Summary ---
Author Organization [facility] Address [facility] [place] [address] Care Team Providers Care Technology Manager Name Role Phone RicDemetria CAMILO Primary Care Provider [phone] Reason for Visit * Reason Comments Nephrolithiasis * Consultation (Routine) - Closed Specialty Diagnoses / Procedures Referred By Raissa hernandez Referred To Contact Urology Diagnoses [facility] Francisco Agustin MD [address] [place] [address] Donald Rubin Jr., MD [facility] [place] [address] Referral ID Status Reason Start Date Expiration Date V isits Requested Visits Authorized [id number] Closed Consult, Test & Treat Connection [facility] 06/04/2018 06/04/2019 1 1 Encounter Details Date Type Department Care Team (Late st Contact Info) Description 10/08/2018 3:30 PM EDT [place] [address] Donald Rubin Jr., MD [facility] [place] [address] Nephrolithiasis Social History Tobacco Use Types Packs/Day Years Used Date Smoking Tobacco: Never Smokeless Tobacco: Never Sex and Gender Information Value Date Recorded Sex Assigned at Not on file Gender Identity Not on file Sexual Orientation Not on file documented as of this encounter Last Filed Vital Signs Vital Sign Reading Time Taken Comments Blood Pressure 129/70 10/08/2018 3:18 PM EDT Pulse 72 10/08/2018 3:18 PM EDT Temperature - - Respiratory Rate - - Oxygen Saturation 94% 10/08/2018 3:18 PM EDT Inhaled Oxygen Concentration - - Weight - - Height - - Body Mass Index - - documented in this encounter Progress Notes * Donald Rubin Jr., MD - 10/08/2018 3:30 PM EDT HPI: Ms. Hannah Nair is a 58 year-old woman who returns for urologic folloow up regarding known medullary nephrocalcinosis. She frequently passes gravel. Approximately 2012, she underwent pressure washing of the inside of her kidneys at [facility] after an episode of urinary infection that required IV antibiotics. She also undergone ESWL x 3 or 4 times in the past at [facility]. She has also undergone ureteroscopy here in 2009 under my care. She underwent staged bilateral URS under the care of Dr Lee in 2015 or approx 1 cm bilateral renal stones. She was endoscopically confirmed to have been cleared of stones, with multiple Roel's plaques noted. She stated it took over a month to recover from her ureteroscopy. Her stent was removed by Dr Agustin at [facility]. In November 2017, she underwent ureteroscopy with Dr Agustin after having acute onset of flank pain and nausea and overnight hospitalization. She reports the stones were found to be infected and colonizedstones. She then underwent further ureteroscopic stone extraction with him fall 2018. She continuesto follow with him, but wished to maintain occasional follow up here as well. She has undergone a metabolic evaluation notable for marked hypercalciuria. She is treated with chlorthalidone. Today she is comfortable. REVIEW OF SYSTEMS 10/08/2018 Constitutional Weakness, Fatigue, lack of energy, Fever or chills, Drowsiness, Pain Ear / nose / throat / mouth Nose bleeds, Dry mouth, Hoarseness Eyes Blurry vision, Dry eyes Respiratory Thick mucous or spit (Sputum or Phlegm), Shortness of breath Cardiovascular Fluttering heart beat (heart palpitations), Chest tightness Gastrointestinal Nausea, vomiting, Heartburn, indigestion, Constipation, Abdominal pain, Feeling bloated Skin, hair Rash, Dry skin, Itching, Loss of hair Musculoskeletal Joint stiffness, Back pain, Muscle stiffness, Reduced range of motion Neurological Headaches, Numbness, tingling, Muscular weakness Genitourinary Frequent urination, Burning or painful urination, Decreased urinary flow, Vaginal dryness PMHx: Anorexia, dehydration; nephrolithiasis PSHx: Ureteroscopy; SWL 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 She appears well- developed and well-nourished. No distress. HENT: Head: Normocephalic and atraumatic. Cardiovascular: Normal rate. Abdominal: Soft. She exhibits no distension. There is no tenderness. There is no rebound and no guarding. Genitourinary: Genitourinary Comments: No CVA tenderness to percussion bilaterally Neurological: She is alert and oriented to person, place, and time. Skin: Skin is warm and dry. She is not diaphoretic. Psychiatric: She has a normal mood and affect. Her behavior is normal. Vitals reviewed. Date of Collection: 06/19/15 12/22/15 Volume (L/day): [...] or hydroureter. Bilateral nephrocalcinosis noted, with possible 1cm right lower pole calcification and 1cm left mid-renal calcification, although minimal posterior shadowing suggests these may closer to 4-6mm. IIMPRESSION ?? 1. Overall echogenicity reflects known nephrocalcinosis of [...] bladder is partially distended without abnormal contour. Impression/Plan: 1)Bilateral nephrocalcinosis, with possible bilateral nonobstructing renal stones. We reviewed management options, including watchful waiting, shock wave lithotripsy, and ureteroscopy. She declines surgical intervention and is content to monitor. She wishes to continue primary urologic follow-up with Dr. Agustin at [facility] and will pursue any elective stone removal with him. She wishes to return for interval follow-up here at [facility] in approximately 1-1/2 to 2 years. Informed herthat I will be available for her and Dr. Agustin if any need arises. 2)Hypercalciuric urolithiasis. I reminded her that follow-up 24-hour urines may be helpful to monitor appropriateness in response to treatment. She will discuss with Dr. Agustin having follow-up 24-hour urine with him. She will contact us if needed. Pending repeat 24-hour urine, I would recommend continuedchlorthalidone as per Dr Hyde's most recent recommendations. documented in this encounter Plan of Treatment Not on file documented as of this encounter Visit Diagnoses Diagnosis Nephrolithiasis Calculus of kidney documented in this encounter Care Teams Technology Manager Relationship Specialty Start Date End Date Demetria Larios APRN [address] [place] [address] PCP - General Family Medicine 10/02/17 documented as of this encounter
--- OUTSIDE RECORDS SUMMARY | 2024-07-02 11:24 | XMS_ITS | Encounter Summary ---
Author Organization [facility] Address [facility] [place] [address] Care Team Providers Care Food Service Substitute Name Role Phone RicDemetria CAMILO Primary Care Provider [phone] Encounter Details Date Type Department Care Team (Latest Contact Info) Description 02/25/2018 - 02/25/2018 11:59 PM EDT Hospital Encounter Radiology Library at [facility] [place] [phone] Francisco Agustin MD [address] [place] [address] Discharge Disposition: Home Social History Tobacco Use Types Packs/Day Years Used Date Smoking Tobacco: Never Smokeless Tobacco: Never Sex and Gender Information Value Date Recorded Sex Assigned at Not on file Gender Identity Not on file Sexual Orientation Not on file documented as of this encounter Medications at Time of Discharge Medication Sig Dispensed Refills Start Date End Date oxyCODONE (ROXICODONE) 5 mg Tablet Take 1 tablet by mouth every 4 hours as needed for Pain. 30 tablet 06/03/2016 oxyCODONE (ROXICODONE) 5 mg Tablet Take 1 tablet by mouth every 4 hours as needed for Pain. 30 tablet 06/02/2016 potassium chloride (K-DUR/KLOR-CON) 20 mEq Tab Sust.Rel. Particle/Crystal Take 20 mEq by mouth 2 times daily. phenazopyridine (PYRIDIUM) 100 mg Tablet Take 1 tablet by mouth 3 times daily as needed for Pain. 10 tablet 05/22/2016 oxyCODONE (ROXICODONE) 5 mg Tablet Take 1 tablet by mouth every 4 hours as needed. 20 tablet 2016 cranberry conc-ascorbic acid 4,200-20 mg Capsule Take 4,200 mg by mouth daily. chlorthalidone (HYGROTEN) 25 mg Tablet Take 1 tablet by mouth daily. 90 tablet 3 03/29/2016 Chromium Picolinate 400 mcg Tablet Take 500 mcg by mouth. ascorbic acid (VITAMIN C) 500 mg Tablet, Chewable Take 500 mg by mouth 3 times daily. magnesium oxide (MAG-OX) 400 mg Tablet Take 500 mg by mouth daily. CIS Free Text Med - black strap molassas 04/15/2010 LACTOBACILLUS ACIDOPHILUS ORAL 04/15/2010 APPLE CIDER VINEGAR ORAL 04/15/2010 cholecalciferol, Vitamin D3, 50,000 unit Capsule Take by mouth. sulfamethoxazole-trimeth oprim (BACTRIM DS) 800-160 mg Tablet Take 1 tablet by mouth 2 times daily. 28 tablet 06/03/2016 07/11/2018 senna-docusate (PERICOLACE) 8.6-50 mg Tablet Take 2 tablets by mouth daily. 30 tablet 11 05/22/2016 10/08/2018 tamsulosin (FLOMAX) 0.4 mg Capsule, Sust. Release 24 hr Take 1 capsule by mouth daily. 30 tablet 3 2016 07/11/2018 fish oil-omega-3 fatty acids 1,000 mg Capsule Take 2 g by mouth daily. 07/11/2018 documented as of this encounter Plan of Treatment Not on file documented as of this encounter Procedures Procedure Name Priority Date/Time Associated Diagnosis Comments FILM LIBRARY STORAGE ONLY ULTRASOUND STUDY Routine 02/25/2018 12:00 AM EDT documented in this encounter Results * Film Library- Storage Only Ultrasound Study (02/25/2018 12:00 AM EDT) Narrative [facility] - 06/05/2018 12:35 PM EST This exam is for storage only and is auto-finalizing. Francisco Agustin MD IMG FILM LIBRARY ORD ERABLES [place], [place] documented in this encounter Visit Diagnoses Not on filedocumented in this encounter Care Teams Food Service Substitute Relationship Specialty Start Date End Date Demetria Larios, PUTTIER [address] [place] [address] PCP - General Family Medicine 10/02/17 documented as of this encounter
--- OUTSIDE RECORDS SUMMARY | 2024-07-02 11:24 | XMS_ITS | Encounter Summary ---
Author Organization [facility] [place] [address] Care Team Providers Care Diving Judge Name Role Phone DanielDemetria ventura GRANITE WORKER Primary Care Provider [phone] Encounter Details Date Type Department Care Team (Late st Contact Info) Description 10/02/2017 10:00 AM EDT [place] [id number] Nahun Hyde MD [facility] [place] [address] Nephrolithiasis Social History Tobacco Use Types Packs/Day Years Used Date Smoking Tobacco: Never Smokeless Tobacco: Never Sex and Gender Information Value Date Recorded Sex Assigned at Not on file Gender Identity Not on file Sexual Orientation Not on file documented as of this encounter Last Filed Vital Signs Vital Sign Reading Time Taken Comments Blood Pressure 125/60 10/02/2017 9:31 AM EDT Pulse 65 10/02/2017 9:31 AM EDT Temperature - - Respiratory Rate - - Oxygen Saturation - - Inhaled Oxygen Concentration - - Weight - - Height - - Body Mass Index - - documented in this encounter Progress Notes * Nahun Hyde MD - 10/02/2017 10:00 AM EDT 57 y/o woman for follow up of 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 The sodium has improved as has urine calcium, but the latter remained elevated and urine citrate has decreased. The patient also has HTN, previously on Lisinopril, has been changed to chlorthalidone since her last visit The patient feels that she still passes gravel, her last stone episode was in June, was discharged from [facility] with a ureteral stent that was removed at [facility] The patient uses lemonade therapy and is drinking plenty of water, getting up at night to urinate No complaint offered and a review of systems was negative Recent labs: 09/30: WBC 8.56 Hb 15.7 Plat 222 glu 113 creat 0.9 Na 140 K 3.4 Cl 101 Ca 9.6 Alb 4.4 ?? Medications: Current Outpatient Prescriptions: ??? cholecalciferol, Vitamin D3, 50,000 unit Capsule, Take by mouth., Disp: , Rfl: ??? oxyCODONE (ROXICODONE) 5 mg Tablet, Take 1 tablet by mouth every 4 hours as needed for Pain. (Patient not taking: Reported on 10/02/2017), Disp: 30 tablet, Rfl: 0 ??? sulfamethoxazole-trimethoprim (BACTRIM DS) 800-160 mg Tablet, Take 1 tablet by mouth 2 times daily. (Patient not taking: Reported on 10/02/2017), Disp: 28 tablet, Rfl: 0 ??? oxyCODONE (ROXICODONE) 5 mg Tablet, Take 1 tablet by mouth every 4 hours as needed for Pain. (Patient not taking: Reported on 10/02/2017), Disp: 30 tablet, Rfl: 0 ??? potassium chloride (K-DUR/KLOR-CON) 20 mEq Tab Sust.Rel. Particle/Crystal, Take 20 mEq by mouth2 times daily., Disp: , Rfl: ??? phenazopyridine (PYRIDIUM) 100 mg Tablet, Take 1 tablet by mouth 3 times daily as needed for Pain., Disp: 10 tablet, Rfl: 0 ??? senna-docusate (PERICOLACE) 8.6-50 mg Tablet, Take 2 tablets by mouth daily., Disp: 30 tablet, Rfl: 11 ??? oxyCODONE (ROXICODONE) 5 mg Tablet, Take 1 tablet by mouth every 4 hours as needed. (Patient not taking: Reported on 10/02/2017), Disp: 20 tablet, Rfl: 0 ??? tamsulosin (FLOMAX) 0.4 mg Capsule, Sust. Release 24 hr, Take 1 capsule by mouth daily., Disp: 30 tablet, Rfl: 3 ??? cranberry conc-ascorbic acid 4,200-20 mg Capsule, Take 4,200 mg by mouth daily., Disp: , Rfl: ??? chlorthalidone (HYGROTEN) 25 mg Tablet, Take 1 tablet by mouth daily. (Patient not taking: Reported on 10/02/2017), Disp: 90 tablet, Rfl: 3 ??? Chromium Picolinate 400 mcg Tablet, Take 500 mcg by mouth., Disp: , Rfl: ??? ascorbic acid (VITAMIN C) 500 mg Tablet, Chewable, Take 500 mg by mouth 3 times daily., Disp: ,Rfl: ??? magnesium oxide (MAG-OX) 400 mg Tablet, Take 500 mg by mouth daily., Disp: , Rfl: ??? fish oil-omega-3 fatty acids 1,000 mg Capsule, Take 2 g by mouth daily., Disp: , Rfl: ??? CIS Free Text Med - melissa raymundo, , Disp: , Rfl: ??? LACTOBACILLUS ACIDOPHILUS ORAL, , Disp: , Rfl: ??? APPLE CIDER VINEGAR ORAL, , Disp: , Rfl: Allergies Allergen Reactions ??? Beesix [Pyridoxine] Anaphylaxis ??? Chocolate Flavor Anaphylaxis CIS - Anaphylaxis ??? Ciprofloxacin CIS - Anaphylaxis ??? Sennosides-Docusate Sodium Other (See Comments) Patient reports oral swelling ??? Chloride Other (See Comments) Per patient, wipes or sprays with Chlorine/Chloride she cannot breath and gets a chemical pneumonia. Happens most of the time after a hospital visit. ??? Diclofenac Other (See Comments) Patient reports red hot face ??? Oxybutynin Hives ??? Peanut CIS - diareahea ??? Peanut Oil CIS - diareahea ??? Pomegranate Diarrhea ??? Vesicare [Solifenacin] Rash ??? Milk ??? Milk Based Formulas Physical exam: Most Recent Vitals: 10/02/17 0931 BP: 125/60 Pulse: 65 normal color Lungs clears Heart regular rhythm No costophrenic angle tenderness Abdomen soft Limbs no edema Labs: no recent labs Renal imaging: COMPARISON: Ultrasound: 08/10/15. RIGHT KIDNEY: Size (cm) L: 11.6 Cortical Thickness: Normal Cortical Echogenicity: Normal Hydronephrosis: No sonographic evidence Comment: Medullary Nephrocalcinosis. Multiple potential renal calculi areas seen, largest measurin.7 mm. LEFT KIDNEY: Size (cm) L: 12.9 Cortical Thickness: Normal Cortical Echogenicity: Normal Hydronephrosis: No sonographic evidence Comment: Medullary Nephrocalcinosis. Multiple potential renal calculi areas seen, largest measurin.5 mm. URINARY BLADDER: Pre-void (cm) L: 3.5 AP: 2.1 TV: 5.7 Vol (ml): 21.9 Comment: Empty patient voided before scan IMPRESSION 1. No hydronephrosis.2. 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
--- OUTSIDE RECORDS SUMMARY | 2024-07-02 11:24 | XMS_ITS | Clinical Summary ---
Author Organization [facility] Address [address] [place] [id number] Care Team Providers Care Awning Craftsman Name Role Phone Jacob Martinez MD Primary Care Provider Aura elizalde Social History Tobacco Use Types Packs/Day Years Used Date Smoking Tobacco: Never Assessed Comments Unknown Sex and Gender Information Value Date Recorded Sex Assigned at Not on file Legal Sex Female 17:27 EST Gender Identity Not on file Sexual Orientation Not on file Plan of Treatment Health Maintenance Due Date Last Done Comments Hepatitis C Screen 1960 COVID-19 Vaccine (2023- season) 2024 Fall Risk Screening 2024 RSV Immunization ( o r 60+ Years) (1 - 1-dose 75+ series) 2034 Care Teams Awning Craftsman Relationship Specialty Start Date End Date Jacob Martinez MD PCP - General 05/31/15
--- OUTSIDE RECORDS SUMMARY | 2024-07-02 11:24 | XMS_ITS | Encounter Summary ---
[place] [address] Care Team Providers Care Metal Gauge Maker Name Role Phone Ellen Gleason CAMILO Primary Care Provider [phone]- [phone] Reason for Visit * Auth/Cert Specialty Diagnoses / Procedures Referred By Raissa t Referred To Contact Diagnoses right renal pelvic stone Procedures PRO CYSTO/URETERO/PYELOSCOPY W/LITHOTRIPSY PRO CYSTOSCOPY, REMV CALCULUS, SIMPLE CYSTOURETEROSCOPY, LITHOTRIPSY Referral ID Status Reason Start Date Expiration Date Visits Re quested Visits Authorized [id number] 1 1 Encounter Details Date Type Department Care Team (Late st Contact Info) Description 06/02/2016 8:30 AM EST - 06/02/2016 10:08 AM EST Surgery [place] [address] Aury Ashley MD [facility] [place] [address] CYSTOURETEROSCOPY, LITHOTRIPSY (WRVU 7.5) Social History Tobacco Use Types Packs/Day Years Used Date Smoking Tobacco: Never Sex and Gender Information Value Date Recorded Sex Assigned at Not on file Gender Identity Not on file Sexual Orientation Not on file documented as of this encounter Last Filed Vital Signs Vital Sign Reading Time Taken Comments Blood Pressure 129/75 06/02/2016 7:40 AM EST Pulse 63 06/02/2016 7:40 AM EST Temperature 37.1 ??C (98.8 ??F) 06/02/2016 7:40 AM ES T Respiratory Rate - - Oxygen Saturation 95% 06/02/2016 7:40 AM EST Inhaled Oxygen Concentration - - Weight - - Height - - Body Mass Index - - documented in this encounter Discharge Summaries * Rasheed Casillas Yahir - 06/02/2016 4:06 PM EST UROLOGY SERVICE Inpatient - Discharge Summary Patient Name: Hannah Nair Patient Age: 56 y.o. : 1960 Attending Physician: Jeronimo Ashley Date of Admission: 06/02/2016 Date of Discharge: 06/03/16 Diagnosis: Active Hospital Problems Diagnosis ??? Nephrolithiasis Resolved Hospital Problems Diagnosis Date Resolved No resolved problems to display. Operations/Major Procedures: Operations: 06/02/2016 Surgeon(s) and Role: * Aury Ashley MD - Primary: Procedure(s): CYSTOURETEROSCOPY, LITHOTRIPSY MODIFIER HOLMIUM LASER CYSTO, REMOVAL OF STENT, FOREIGN BODY OR CALCULUS, SIMPLE HPI: This is a 56-year-old female with bilateral stones underwent right ureteroscopy for a 1 cm mid polestone and a 2 cm lower pole stone 2 weeks ago and presently has a right ureteral stent and and a left ureteral stent in place. Patient's right ureteroscopy was successful however she had a postoperative urinary tract infection and had some increased pain and was treated however. Today she complainsof bilateral flank pain and lower abdominal pain secondary to the stents. She denies any fever chills nausea or vomiting. Hospital Course: Hannah Nair was admitted to [facility] on 06/02/2016 through the Same Day Surgery program afterundergoing the procedure noted above. The intra-operative findings were -right stent removed -left ureteroscopy performed, large stone in lower pole lasered and fragments basketed out, numerous small stones from middle and upper calyx also basketed out -6Fr x 26Fr stent left in place in left ureter. After adequate recovery from anesthesia in the PACU, the patient was transferred to the regular floor for observation. Hannah Nair's pain was adequately controlled, she was maintaining adequate oxygen saturation on room air, and was hemodynamically stable. She was tolerating a diet without abdominal complaints and voiding adequately. WBC and Hgb were stable. She was ambulating well independently. Jennifer Nair was evaluated by the Urology team and deemed medically stable for discharge on POD1. Updated Allergies/ADRs: Allergies Allergen Reactions ??? Beesix [Pyridoxine] Anaphylaxis [...] Rash ??? Milk ??? Milk Based Formulas Pending Lab Data at Discharge: none Condition at Discharge: Stable Important Studies and Lab Data: Labs: No results for input(s): WBC, HGB, HCT, PLATELET, PT, INR, PTT in the last 72 hours. No results for input(s): NA, K, CL, CO2, BUN, CREATININE, GLUCOSE, CALCIUM, MAGNESIUM, PHOS in the last 72 hours. Studies: none Discharge Examination: Last value Range last 12 hrs Temperature Temp: 36.5 ??C (97.7 ??F) Temp: [36.5 ??C (97.7 ??F)] Heart Rate Heart Rate: 55 Heart Rate: [53-63] Blood Pressure BP: 145/78 BP: (129-155)/(72-80) Respiratory Rate Resp: 16 Resp: [16] SpO2 SpO2: 95 % SpO2: [95 %-100 %] I/Os: I/O this shift: In: 700 [I.V.:700] Out: - Physical Exam: NAD Abd soft non tender No cva tenderness Regular rate CTAB Discharge to: Home Discharge Conditions/Prognosis: Stable Discharge Medications: The following medications have been prescribed for you. If you notice any adverse reactions to your medications, please contact your primary care physician immediately or go tothe nearest Emergency Department. Your Medications Notice Some of the medications listed here do not show instructions, such as how often to take the medication. Ask your doctor or nurse how to use these medications. Specifically ask about these and similar medications: - CIS Free Text Med - black strap molassas - LACTOBACILLUS ACIDOPHILUS ORAL - APPLE CIDER VINEGAR ORAL New Medications Dose Details sulfamethoxazole-trimethoprim 800-160 mg Tab Commonly known as: BACTRIM DS Take 1 tablet by mouth 2 times daily for 14 days. 1 tablet Quantity: 28 tablet Refills: 0 Continued medications with new dosing Dose Details * oxyCODONE 5 mg Tab Commonly known as: ROXICODONE Take 1 tablet by mouth every 4 hours as needed. What changed: Another medication with the same name was added. Make sure you understand how and when to take each. 5 mg Quantity: 20 tablet Refills: 0 * oxyCODONE 5 mg Tab Commonly known as: ROXICODONE Take 1 tablet by mouth every 4 hours as needed for Pain. What changed: You were already taking a medication with the same name, and this prescription was added. Make sure you understand how and when to take each. 5 mg Quantity: 30 tablet Refills: 0 * Notice: This list has 2 medication(s) that are the same as other medications prescribed for you. Read the directions carefully, and ask your doctor or other care provider to review them with you. Continued medications, unchanged Dose Details APPLE CIDER VINEGAR ORAL ?nk?wn!?? Refills: 0 ascorbic acid (vitamin C) 500 mg Chew Commonly known as: VITAMIN C Take 500 mg by mouth 3 times daily. 500 mg Refills: 0 chlorthalidone 25 mg Tab Commonly known as: HYGROTEN Take 1 tablet by mouth daily. 25 mg Quantity: 90 tablet Refills: 3 Chromium Picolinate 400 mcg Tab Take 500 mcg by mouth. 500 mcg Refills: 0 CIS FREE TEXT MED ?nk?wn!?? Refills: 0 cranberry conc-ascorbic acid 4,200-20 mg Cap Take 4,200 mg by mouth daily. 4200 mg Refills: 0 fish oil-omega-3 fatty acids 1,000 mg Cap Take 2 g by mouth daily. 2 g Refills: 0 LACTOBACILLUS ACIDOPHILUS ORAL ?nk?wn!?? Refills: 0 magnesium oxide 400 mg Tab Commonly known as: MAG-OX Take 500 mg by mouth daily. 500 mg Refills: 0 phenazopyridine 100 mg Tab Commonly known as: PYRIDIUM Take 1 tablet by mouth 3 times daily as needed for Pain. 100 mg Quantity: 10 tablet Refills: 0 potassium chloride 20 mEq Tbtq Commonly known as: K-DUR/KLOR-CON Take 20 mEq by mouth 2 times daily. 20 mEq Refills: 0 senna-docusate 8.6-50 mg Tab Commonly known as: PERICOLACE Take 2 tablets by mouth daily. 2 tablet Quantity: 30 tablet Refills: 11 tamsulosin 0.4 mg Cp24 Commonly known as: FLOMAX Take 1 capsule by mouth daily. 0.4 mg Quantity: 30 tablet Refills: 3 Follow-up Care & Plans: For questions, orders or appointments related to your continuing care after your discharge, you or your provider should contact the physician that managed that part of your care. Urology Clinic: [phone] PCP: Ellen Gleason, CORN PRESS OPERATOR, . Please follow-up with your PCP in 1-2 weeks or sooner as needed. Issues to be followed-up with your PCP: 1. Scheduled Appointments: The following appointments have been scheduled on your behalf: Future Appointments and Orders Future Appointments Provider Department Dept Phone 06/16/2016 1:20 PM Aury Ashley MD; UROLOGY, PROCEDURE COO Urology [phone] 07/26/2016 1:[address] [facility] US ROOM [address] [facility] Ultrasound [phone] 07/26/2016 2:30 PM Donald Rubin Jr., MD Urology [phone] Outpatient Services/Studies: No discharge procedures on file. Instructions Given to Patient at Discharge: Patient Instructions Instructions following Cystoscopic Surgery with a Ureteral Stent Placement You have a left ureteral stent in place, it is normal for it to cause some irritation in your bladder and cause you to have blood in your urine. It may bother you when you urinate. This is normal. Ifyou cannot tolerate this irritation or if you have severe back or side pain, you should call our office [phone] before 5PM or [phone] after hours. Remember, ureteral stent is a TEMPORARY device and needs to be removed. Please keep your scheduled appointments. Wound Care: None needed Activity: As tolerated by your comfort level Diet: no restrictions. Drink at least 2 liters of water daily Urination: You will likely have a small amount of blood (pink tinged, or cranberry punch colored urine) and blood clots in your urine while the stent is in place. This is normal; however, if you are passing large amounts of blood clots, bright red blood (color of red wine, or thick consistency of ketchup) or are bleeding an unable to urinate please call our office at [phone] 5PM or [phone] after hours. Call Doctor for: Please call if you have copious blood in your urine, severe back or side pain, pain not controlled by pain medications, persistent nausea and vomiting, or for any fevers greater srnw250.3 F. The number for questions is [phone] before 5 PM weekdays and [phone] after 5 PM and weekends. Pain Medication: For mild pain, take ibuprofen (motrin, advil) 600mg every 6 hours and acetaminophen (tylenol) 1000mg every 6 hours. If your pain is not totally controlled with these two medications,use the prescribed opioid pain medication (oxycodone) No driving for 8 hours after any dose of opioid pain medication. You will also be prescribed flomax, which helps relax smooth muscles in the urinary tract. Oxycodone (narcotic pain killer) can constipate you. Stool softeners, such as Colace; mild laxatives, such as Milk of Magnesia, Sennakot, or Ducolax tabs; or enemas may be used if needed and are dwqa-lew-nqzcmgc (OTC) medications available at most local pharmacies. Prunes or prune juice, taken daily, can also be helpful for constipation treatment or prevention and are available at most supermarkets. Antibiotics: Please take Bactrim as prescribed for 2 weeks. Follow-up: We will see you in our clinic in 2 weeks for removal of your stent. Please call [phone] (clinic number for appointments) to confirm date and time of this appointment if you do not receive a call from the scheduling secretaries in the next week. General Instructions POST ANESTHESIA INSTRUCTIONS Go home, rest, use caution on stairs. Change positions slowly. Do not smoke if you are alone. Diet light to regular as tolerated today. If nausea occurs start with clear liquids and progress slowly. No driving, operating machinery, alcoholic beverages and no important decisions for 24 hours. Monitor IV site for signs and symptoms of infection: increasing redness, swelling, foul drainage, if occurs contact M.D. Patients who have had endotrachial tubes (this tube, used by anesthesia department, is passed down your throat after you are asleep, to ensure safe air passage during your operation). A sore throat is normal due to the tube. Cold liquids or soothing lozenges will help ease the discomfort. The generalized muscle aches are due to the medication given to you just before the tube is inserted. As the medication wears off, you may develop muscle soreness, which usually goes away in 12-24 hours. Call your doctor if: Please call your doctor immediately or go to an Emergency Department if you notice worsening pain not controlled by pain medications, uncontrolled headache, vision changes, chest pain, difficulty breathing, persistent nausea and vomiting, new redness or swelling in any extremities, new onset weakness or changes in sensation, or for any fevers greater than 101.3 F. Your care was managed by the Urologic Surgery Team at [facility]. If you have any questions or concerns, please feel free to contact us. Provider Contact Information: Urology Clinic: [phone] [facility] (after business hours): CC: Ellen Gleason APRN Signed: ANEUDY SIERRA MD 06/02/2016 documented in this encounter Discharge Instructions * Discharge Instructions* Nereida Nicole RN - 06/02/2016 10:51 AM EST POST ANESTHESIA INSTRUCTIONS Go home, rest, use caution on stairs. Change positions slowly. Do not smoke if you are alone. Diet light to regular as tolerated today. If nausea occurs start with clear liquids and progress slowly. No driving, operating machinery, alcoholic beverages and no important decisions for 24 hours. Monitor IV site for signs and symptoms of infection: increasing redness, swelling, foul drainage, if occurs contact M.D. Patients who have had endotrachial tubes (this tube, used by anesthesia department, is passed down your throat after you are asleep, to ensure safe air passage during your operation). A sore throat is normal due to the tube. Cold liquids or soothing lozenges will help ease the discomfort. The generalized muscle aches are due to the medication given to you just before the tube is inserted. As the medication wears off, you may develop muscle soreness, which usually goes away in 12-24 hours. * Patient Instructions* Aneudy Sierra - 06/02/2016 11:09 AM EST Instructions following Cystoscopic Surgery with a Ureteral Stent Placement You have a left ureteral stent in place, it is normal for it to cause some irritation in your bladder and cause you to have blood in your urine. It may bother you when you urinate. This is normal. Ifyou cannot tolerate this irritation or if you have severe back or side pain, you should call our office [phone] before 5PM or [phone] after hours. Remember, ureteral stent is a TEMPORARY device and needs to be removed. Please keep your scheduled appointments. Wound Care: None needed Activity: As tolerated by your comfort level Diet: no restrictions. Drink at least 2 liters of water daily Urination: You will likely have a small amount of blood (pink tinged, or cranberry punch colored urine) and blood clots in your urine while the stent is in place. This is normal; however, if you are passing large amounts of blood clots, bright red blood (color of red wine, or thick consistency of ketchup) or are bleeding an unable to urinate please call our office at [phone] 5PM or [phone] after hours. Call Doctor for: Please call if you have copious blood in your urine, severe back or side pain, pain not controlled by pain medications, persistent nausea and vomiting, or for any fevers greater alqn138.3 F. The number for questions is [phone] before 5 PM weekdays and [phone] after 5 PM and weekends. Pain Medication: For mild pain, take ibuprofen (motrin, advil) 600mg every 6 hours and acetaminophen (tylenol) 1000mg every 6 hours. If your pain is not totally controlled with these two medications,use the prescribed opioid pain medication (oxycodone) No driving for 8 hours after any dose of opioid pain medication. You will also be prescribed flomax, which helps relax smooth muscles in the urinary tract. Oxycodone (narcotic pain killer) can constipate you. Stool softeners, such as Colace; mild laxatives, such as Milk of Magnesia, Sennakot, or Ducolax tabs; or enemas may be used if needed and are kelh-djw-fupchru (OTC) medications available at most local pharmacies. Prunes or prune juice, taken daily, can also be helpful for constipation treatment or prevention and are available at most supermarkets. Antibiotics: Please take Bactrim as prescribed for 2 weeks. Follow-up: We will see you in our clinic in 2 weeks for removal of your stent. Please call [phone] (clinic number for appointments) to confirm date and time of this appointment if you do not receive a call from the scheduling secretaries in the next week. documented in this encounter Medications at Time of Discharge [...] ORAL 04/15/2010 APPLE CIDER VINEGAR ORAL 04/15/2010 sulfamethoxazole-trimeth oprim (BACTRIM DS) 800-160 mg Tablet Take 1 tablet by mouth 2 times daily. 28 tablet 06/03/2016 07/11/2018 sulfamethoxazole-trimeth oprim (BACTRIM DS) 800-160 mg Tablet Take 1 tablet by mouth 2 times daily for 14 days. 28 tablet 06/02/2016 06/16/2016 senna-docusate (PERICOLACE) 8.6-50 mg Tablet Take 2 tablets by mouth daily. 30 tablet 11 05/22/2016 10/08/2018 tamsulosin (FLOMAX) 0.4 mg Capsule, Sust. Release 24 hr Take 1 capsule by mouth daily. 30 tablet 3 2016 07/11/2018 fish oil-omega-3 fatty acids 1,000 mg Capsule Take 2 g by mouth daily. 07/11/2018 documented as of this encounter Progress Notes * Kylie Mason RN - 06/03/2016 10:51 AM EST The patient has met discharge criteria per policy. Discharge instruction reviewed and patient discharged to responsible adult. The After Visit Summary (AVS), and accompanying hand-outs have been reviewed with the patient; the patient /family verbalizes understanding at this time. Opportunity for clarification provided. Reportable sign and symptoms have been reviewed with patient. Patient???s pain level has been assessed and patient states that his/her level is tolerable at this time. Teaching done, patient verbalizes understanding back to RN All new medications have been reviewed with the patient. Prescriptions given to patient Patient D/C to home with At time of discharge: A & O x 4, PERRL, vss, Lungs clear. Patient is on RA, no SOB, GRECO, CP 5/5 strengths all extremities. No numbness or tingling Radial and dorsalis pulses normal skin C/D/I, No sign of PU or breakdown. IV removed no s/s of infection, inflammation, infiltration. Nielson D/C no sign of infection. Patient voiding, PVR WNL, ambulating independently, eating and drinking without issues at time of D/C Prior to D/C room searched and patient discharged with all belongs. Patient provided with wheelchair and brought to * Freida Kapoor RN - 06/02/2016 6:47 PM EST Patient Name: Hannah Nair Patient Age: 56 y.o. Birthdate: 1960 Admit date: 06/02/2016 Attending Physician: Jeronimo Ashley Pt arrived from same day surgery unit on stretcher, alert and oriented x 4, reports LLQ and lower back pain of 5/10. Pt ambulated from stretcher to bed with steady gait, oriented to room and call light. * Nereida Nicole RN - 06/02/2016 6:21 PM EST Report called to Freida SCHUSTER. * Nereida Nicole RN - 06/02/2016 5:30 PM EST Attempted to call MARIELY romero unavailable at this time. * Nereida Nicole RN - 06/02/2016 12:15 PM EST Pt states its going to take her 3 weeks to recover and that she is not going home tonight. I explained she meets criteria to leave. Again, she states she is not going home tonight. Will notify * Heidi Xavier - 06/02/2016 7:43 AM EST Images from the original note were not included. Patient Name: Hannah Nair Patient Age: 56 y.o. Birthdate: 1960 Admit date: 06/02/2016 Attending Physician: Donald Rubin Jr., MD Skin: documented in this encounter H&P Notes * Aury Ashley MD - 06/02/2016 7:39 AM EST Patient Name: Hannah Nair Patient Age: 56 y.o. Birthdate: 1960 Admit date: 06/02/2016 Attending Physician: Donald Rubin Jr., MD Chief complaint Bilateral flank pain History of present illness This is a 56-year-old female with bilateral stones underwent right ureteroscopy for a 1 cm mid polestone and a 2 cm lower pole stone 2 weeks ago and presently has a right ureteral stent and and a left ureteral stent in place. Patient's right ureteroscopy was successful however she had a postoperative urinary tract infection and had some increased pain and was treated however. Today she complainsof bilateral flank pain and lower abdominal pain secondary to the stents. She denies any fever chills nausea or vomiting. Patient Active Problem List Diagnosis Code ??? Nephrolithiasis N20.0 Past Surgical History Procedure Laterality Date ??? Pro cysto/ureteroscopy w/lithotripsy inc indwelling stent insertion Right 2016 CYSTOURETEROSCOPY,DIAGNOSTIC,W/ LITHOTRIPSY INC. INSERTION OF INDWELLING URETERAL STENT performed by Aury Ashley MD at [facility] ??? Pro incise bladder, +ureter cath Left 2016 CYSTOTOMY WITH INSERTION OF URETERAL STENT\CATHETER performed by Aury Ashley MD [facility] Social history: Lives with does not use tobacco rarely uses alcohol ROS: Denies any fever chills Denies any cough shortness of breath Denies any chest pain or palpitations Physical exam Well-appearing no acute distress alert and oriented ??3 Neck is supple without lymphadenopathy trachea is midline Chest is symmetric with equal excursion Lungs are clear to auscultation Heart is regular rate and rhythm Normal heart sounds Abdomen is soft without mass distention or tenderness Extremities are without clubbing cyanosis or edema Impression plan Status post right ureteroscopy plan is to remove the right ureteral stent today. Plan for left ureteroscopy and intracorporeal lithotripsy and stone extraction. Stands the procedure she understands the possible risks to include pain infection damage the ureterkidney requiring a second procedure or prolonged stent placement and failure to remove all the stone today. She understands and wishes to proceed. documented in this encounter Miscellaneous Notes * Plan of Care - Eda Mcmullen RN - 06/03/2016 2:57 AM EST Problem: Patient Care Overview Goal: Plan of Care Review Outcome: Ongoing (Interventions Implemented as Appropriate) 06/03/16 0250 Coping/Psychosocial Plan Of Care Reviewed With patient Plan of Care Review Progress improving S/P: Cystourethroscopy / lithotripsy Outcome Summary: VSS. Bradycardic when sleeping. Asymptomatic. No surg sites. Shankar PO fluids. Scopolamine patch left ear for nausea with relief. Voiding. Pt states she is too weak and dizzy to walk although she was able to ambulate to BR with a walker. Commode obtained for room. Plan: ongoing monitoring. Ambulate. Shankar food/fluds. D/C home. Pt's will pick her up. INDIVIDUALIZED FALL PREVENTION: Assistance: Assisted with bed mobility to find comfortable position, will assist when OOB as needed. WALKER and COMMODE available due to patient c/o dizziness and weakness. Supervision: Stand-by assist with initial ambulation and supervised activity as needed. WALKER and COMMODE available due to patient c/o dizziness and weakness. Surveillance: Continuous pulse ox, call encinas within reach, purposeful rounding * Brief Op Note - Shakira Gallegos MD - 06/02/2016 11:00 AM EST Brief Operative Note Patient Name: Hannah Nair : [id number] MR#: [id number] Case Date: 06/02/2016 Surgeon: Surgeon(s) and Role: * Aury Ashley MD - Primary Preoperative diagnosis: right renal pelvic stone, second look Postoperative diagnosis: right renal pelvic stone, second look Procedure(s): CYSTOURETEROSCOPY, LITHOTRIPSY MODIFIER HOLMIUM LASER CYSTO, REMOVAL OF STENT, FOREIGN BODY OR CALCULUS, SIMPLE Anesthesia: General Findings: -right stent removed -left ureteroscopy performed, large stone in lower pole lasered and fragments basketed out, numerous small stones from middle and upper calyx also basketed out -6Fr x 26Fr stent left in place in left ureter Complications: none Fluids: 500 Estimated Blood Loss: 3 Drains: 6Fr x 26cm left ureteral stent Disposition: awakened from anesthesia, extubated and taken to the recovery room in a stable condition, having suffered no apparent untoward event. Condition: doing well without problems (Please see the Surgical Encounter Summary for any Implant and Specimen details pertinent to this patient.) Infection Bundle used? No * Op Note - Aury Ashley MD - 06/02/2016 10:55 AM EST [facility] Operative Note Patient Name: Hannah Nair : [id number] MR#: [id number] Case Date: 06/02/2016 Surgeon: Surgeon(s) and Role: Aury Ashley MD - Primary Preoperative diagnosis: left lower pole renal stone, right ureteral stent removal Postoperative diagnosis: same Procedure(s):left CYSTOURETEROSCOPY,left LITHOTRIPSY MODIFIER HOLMIUM LASER CYSTO, rightREMOVAL OF STENT, FOREIGN BODY OR CALCULUS, SIMPLE Anesthesia: General Estimated Blood Loss: minimal 06/02/2016 9:10 AM and 06/02/2016 10:29 AM * Specimens removed during surgery: None Drains: 6x26 cm left ureteral stent Disposition: to pacu Condition: good (Please see the Surgical Encounter Summary for any Implant and Specimen details pertinent to this patient.) HPI/Surgical Indications: This is a 56-year-old female who is status post right ureteroscopy for a 1 cm mid pole and 1 cm lower pole stone with right ureteral stent in place. She now presents for left ureteroscopy secondary to a 1 cm left lower pole stone. Procedure Description: Prior to entering the operating room the patient was counseled consented andthe left side identified. She was brought to the operating room placed in the supine position and placed under general endotracheal anesthesia. She was then placed in the lithotomy position. She was then prepped and draped in the usual sterile fashion for transurethral procedure. Initially a 22 Belarusian rigid cystoscope was placed transurethrally the right ureteral stent was grasped and removed without difficulty. The left ureteral stent was then grasped and taken to the meatus at that point a 0.035 Glidewire was passed up the stent under fluoroscopic vision and the stent was removed. The Glidewire was in good position in the upper collecting system. The cystoscope was replaced and the open-ended catheter was placed into the left ureteral orifice and a retrograde pyeloureterogram was performed which visualized the collecting system as well as a filling defect in the left lower pole. At this point a sensor wire was passed up the open-ended catheter. The open ended catheter was then removed as well as the cystoscope and a 12 x 14 access catheter was passed over the sensor wire up into the collecting system under direct and fluoroscopic vision. The flexible cystoscope was then passed ov er the sensor wire up into the collecting system and ureteroscopy was performed after the wire was removed. The stone was visualized in the left lower pole it was fragmented using a 273 laser fiber into small fragments. The small fragments then were meticulously removed using a nitinol N-dionne basket. remainder of the collecting system was inspected and she was found to have Roel plaques in the upper pole and mid pole but no other stones were visualized. At this point the flexible ureteroscope was removed as well as the access sheath. The Glidewire was left in place and was backloaded onto the cystoscope and a 6 x 26 cm left ureteral stent was passed over the wire up into the collecting system under direct and fluoroscopic vision. The bladder was then drained the cystoscope was removed asthe stent was in good position. Patient was then placed back into the supine position over from anesthesia and brought to recovery room in good condition. Attestation: Case Date: 06/02/2016 I was present and I participated during the entire procedure (does not need to include opening and closing). 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 ?? Donald Rubin Jr., MD IMG FLUORO ORDERAB LES [place], [place] * (ABNORMAL) Urine culture Cystoscopic Urine (06/02/2016 9:18 AM EST) Urine Culture 10,000-49,0 00 cfu/ml Proteus vulgaris(A) [facility] Organism Proteus vulgaris(A) [facility] Urine specimen (specimen) 06/02/2016 9:18 AM EST 06/02/2016 10:55 AM EST Narrative Resulting Agency Comment Spec In Lab Organism Antibiotic Method Susceptibility Proteus vulgaris Amikacin MICROSCAN METHOD Sensitive Proteus vulgaris Ampicillin MICROSCAN METHOD Resistant Proteus vulgaris Ampicillin + Sulbactam MICROSCAN METH OD Intermediate Proteus vulgaris Aztreonam MICROSCAN METHOD Sensitive Proteus vulgaris Cefazolin MICROSCAN METHOD Resistant Proteus vulgaris Cefepime MICROSCAN METHOD Sensitive Proteus vulgaris Ceftazidime MICROSCAN METHOD Sensitive Proteus vulgaris Ceftriaxone MICROSCAN METHOD Sensitive Proteus vulgaris Cefuroxime MICROSCAN METHOD Resistant Proteus vulgaris Ciprofloxacin MICROSCAN METHOD Sensitive Proteus vulgaris Gentamicin MICROSCAN METHOD Sensitive Proteus vulgaris Levofloxacin MICROSCAN METHOD Sensitive Proteus vulgaris Meropenem MICROSCAN METHOD Sensitive Proteus vulgaris Nitrofurantoin MICROSCAN METHOD Resistant Proteus vulgaris Piperacillin/Tazobactam MICROSCAN MET HOD Sensitive Proteus vulgaris Tetracycline MICROSCAN METHOD Resistant Proteus vulgaris Tobramycin MICROSCAN METHOD Sensitive Proteus vulgaris Trimethoprim/Sulfa MICROSCAN METHOD Sensitive Donald Rubin Jr., MD MICROBIOLOGY - GEN ERAL ORDERABLES [facility] [place] [address] * SCAN DOC: IMPLANTABLE DEVICES (06/02/2016 12:00 AM EST) Scanning Provider MEDIA MGR SCAN EXT O RDR/RSLT documented in this encounter Visit Diagnoses Not on filedocumented in this encounter Administered Medications Inactive Administered Medications - up to 3 most recent administrations Medication Order MAR Action Action Date Dose Rate Site acetaminophen (TYLENOL) tablet 1,000 mg 1,000 mg, Oral, EVERY 6 HOURS, First dose on 06/02/16 at 1900, Until Discontinued, Maximum dose of acetaminophen is 4000 mg from all sources in 24 hours., Routine Given 06/03/2016 6:31 AM EST 1,000 mg Given 06/02/2016 7:16 PM EST 1,000 mg iohexol (OMNIPAQUE) 300 mg/mL solution ONCE PRN, Starting on 06/02/16 at 0925, Until 06/03/16 at 1253, Intra-Operative (Intra-Procedure), Routine Given 06/02/2016 9:25 AM EST 10 mLs 19- Surgical Site lactated ringers infusion 1,000 mL 1,000 mL, at 100 mL/hr, Intravenous, CONTINUOUS, Starting on Sun06/02/16 at 0845, Until Sun06/02/16 at 1823, Day of Surgery (Day of Procedure) New Bag 06/02/2016 8:21 AM EST 1,000 mLs 100 mL/hr lactated ringers infusion 1,000 mL 1,000 mL, at 100 mL/hr, Intravenous, CONTINUOUS, Starting on Sun06/02/16 at 1115, Until Sun06/02/16 at 1823, PACU Recovery New Bag 06/02/2016 2:58 PM EST 1,000 mLs 100 mL/hr lidocaine (XYLOCAINE) 10 mg/mL (1 %) injection 3 mg 3 mg (0.3 mL), Subcutaneous, ONCE PRN, 1 dose, Starting on Sun06/02/16 at 0820, Until Sun06/02/16 at 0821, for discomfort with PIV insertion, Day of Surgery (Day of Procedure), Routine Given 06/02/2016 8:21 AM EST 3 mg ondansetron (ZOFRAN) injection 4 mg 4 mg, Intravenous, EVERY 8 HOURS PRN, Starting on Sun06/02/16 at 1837, Until 06/03/16 at 1253, Nausea, May repeat times one in 30 minutes if ineffective. If multiple antiemetics are ordered, use ondansetron first., Recovery (Recovery-Hospital Unit) ondansetron (ZOFRAN) tablet 4 mg 4 mg, Oral, EVERY 8 HOURS PRN, Starting on Sun06/02/16 at 1837, Until 06/03/16 at 1253, Nausea, Vomiting, If multiple antiemetics are ordered, use ondansetron first. PO Preferred. If patient unable to take PO, may give IV if ordered. May repeat times one in 45 minutes if ineffective., Recovery (Recovery-Hospital Unit), Routine scopolamine (TRANSDERM-SCOP) 1.5 mg (1 mg over 3 days) patch 1 patch 1 patch, Transdermal, ONCE, 1 dose, On Sun06/02/16 at 0845, Recovery (Recovery-Hospital Unit), Routine Patch Applied 06/02/2016 8:31 AM EST 1 patch 01- Ear Behind (Left) sodium chloride 0.9 % flush 5 mL 5 mL, Intravenous, 2 TIMES DAILY, First dose on Sun06/02/16 at 2100, Until Discontinued, Routine Given 06/02/2016 9:32 PM EST 5 mLs sulfamethoxazole-trim ethoprim (BACTRIM DS) 800-160 mg per tablet 1 tablet 1 tablet, Oral, EVERY 12 HOURS SCHEDULED (2 times per day), 28 doses, First dose on Sun06/02/16 at 2100, Last dose on Sun06/16/16 at 0900, Routine, Indication for (Active or Suspected): Urinary Tract/Pyelonephritis Given 06/03/2016 9:15 AM EST 1 tablet Given 06/02/2016 9:29 PM EST 1 tablet tamsulosin (FLOMAX) ER capsule 0.4 mg 0.4 mg, Oral, DAILY, First dose on Sun06/02/16 at 2000, Until Discontinued, DO NOT CRUSH OR OPEN, Routine Given 06/03/2016 9:15 AM EST 0.4 mg Given 06/02/2016 9:29 PM EST 0.4 mg documented in this encounter Active and Recently Administered Medications Times are shown in EST. Scheduled Medication Order 06/01/2016 06/02/2016 06/03/2016 acetaminophen (TYLENOL) tablet 1,000 mg 1,000 mg, Oral, EVERY 6 HOURS, First dose on Sun06/02/16 at 1900, Until Discontinued, Maximum dose of acetaminophen is 4000 mg from all sources in 24 hours., Routine 1916 (Given - Provider: Freida Kapoor RN) 0100 (Not Given - Provider: Eda Mcmullen RN - Reason: See comment - Comment: pt declined if sleeping)0631 (Given - Provider: Eda Mcmullen, MARIELY) cefTRIAXone (ROCEPHIN) 2g in dextrose 5% 50mL (COMPLETED) 2,000 mg (2 g), Intravenous, EVERY 24 HOURS, 1 dose, First dose on Sun06/02/16 at 0900, Administer over 30 Minutes, Indication for (Active or Suspected): Prophylaxis 09 (Given - Provider: Corbin Gonzalez) scopolamine (TRANSDERM-SCOP) 1.5 mg (1 mg over 3 days) patch 1 patch (COMPLETED)(Linked Group 1) 1 patch, Transdermal, ONCE, 1 dose, On Sun06/02/16 at 0845, Recovery (Recovery-Hospital Unit), Routine 0831 (Patch Applied - Provider: Heidi Liz-Hazard) scopolamine (TRANSDERM-SCOP) 1.5 mg patch Patch Removal(Linked Group 1) Transdermal, EVERY 24 HOURS, 1 dose, First dose on Sun06/03/16 at 0900, Remove scopolamine 1.5 mg patch, Recovery (Recovery-Hospital Unit) 1051 (Patch Removed - Provider: Kylie Mason, MARIELY) scopolamine (TRANSDERM-SCOP) 1.5 mg patch Patch Verification(Linked Group 1) Transdermal, 2 TIMES DAILY, 1 dose, First dose on Sun06/02/16 at 2030, Verify scopolamine 1.5 mg patch., Recovery (Recovery-Hospital Unit) 2030 (Patch (dose and location) verified - Provider: Eda Mcmullen RN - Comment: left) sodium chloride 0.9 % flush 5 mL 5 mL, Intravenous, EVERY 12 HOURS, First dose on Sun06/02/16 at 1115, Until Discontinued, PACU Recovery, Routine 1114 (Not Given - Provider: Eda Mcmullen RN - Reason: Transfer to a Procedural area) sodium chloride 0.9 % flush 5 mL 5 mL, Intravenous, 2 TIMES DAILY, First dose on Sun06/02/16 at 2100, Until Discontinued, Routine 2131 (Given - Provider: Eda Mcmullen RN) 0900 (Not Given - Provider: Kylie Mason RN - Reason: Loss of access) sulfamethoxazole-trimethopr im (BACTRIM DS) 800-160 mg per tablet 1 tablet 1 tablet, Oral, EVERY 12 HOURS SCHEDULED (2 times per day), 28 doses, First dose on Sun06/02/16 at 2100, Last dose on Sun06/16/16 at 0900, Routine, Indication for (Active or Suspected): Urinary Tract/Pyelonephritis 2128 (Given - Provider: Eda Mcmullen RN) 914 (Given - Provider: Kylie Mason, MARIELY) tamsulosin (FLOMAX) ER capsule 0.4 mg 0.4 mg, Oral, DAILY, First dose on Sun06/02/16 at 2000, Until Discontinued, DO NOT CRUSH OR OPEN, Routine 2128 (Given - Provider: Eda J Power, RN) 0915 (Given - Provider: Kylie Mason RN) Continuous Medication Order 06/01/2016 06/02/2016 06/03/2016 lactated ringers infusion 1,000 mL 1,000 mL, at 100 mL/hr, Intravenous, CONTINUOUS, Starting on Sun06/02/16 at 0845, Until Sun06/02/16 at 1823, Day of Surgery (Day of Procedure) 0821 (New Bag - Provider: Sa ra Yahir Liz-Hazard)0912 (Anesthesia Volume Adjustment - Provider: Corbin Gonzalez)0933 (Anesthesia Volume Adjustment - Provider: Corbin Gonzalez) lactated ringers infusion 1,000 mL 1,000 mL, at 100 mL/hr, Intravenous, CONTINUOUS, Starting on Sun06/02/16 at 1115, Until Sun06/02/16 at 1823, PACU Recovery 1115 (Stopped - Provider: Eda Mcmullen, MARIELY)1458 (New Bag - Provider: Nereida Nicole RN) PRN Medication Order 06/01/2016 06/02/2016 06/03/2016 bisacodyl (DULCOLAX) suppository 10 mg 10 mg, Rectal, DAILY PRN, Starting on Sun06/02/16 at 1837, Until 06/03/16 at 1253, Constipation, Administer if needed per patient's routine or if no bowel movement within 48 hours to achieve: 1) One bowel movement at least every 48 hours, AND 2) Without straining. If multiple bowel medications ordered, consider adding if docusate or milk of magnesia not sufficient., Routine fentaNYL (PF) 50 mcg/mL 2mL syringe(Linked Group 2) 25 mcg, Intravenous, EVERY 5 MIN PRN, Pain, for 1-4 pain score, Starting on Sun06/02/16 at 1046, Until Sun06/02/16 at 1823, for 1-4 pain score Hold for respiratory rate less than 10 per minute. Maximum dose: 250 mcg over one hour., PACU Recovery fentaNYL (PF) 50 mcg/mL 2mL syringe(Linked Group 2) 50 mcg, Intravenous, EVERY 5 MIN PRN, Pain, for 5-10 pain score, Starting on Sun06/02/16 at 1046, Until Sun06/02/16 at 1823, for 5-10 pain score Hold for respiratory rate less than 10 per minute. Maximum dose: 250 mcg over one hour., PACU Recovery HYDROmorphone (DILAUDID) syringe 0.2-0.4 mg 0.2-0.4 mg, Intravenous, EVERY 5 MIN PRN, Pain, Starting on Sun06/02/16 at 1046, Until Sun06/02/16 at 1823, For moderate pain (4-6) give: 0.2 mg every 5 minute prn For severe pain (7-10) give: 0.4 mg every 5 minutes prn Maximum dose: 4 mg per hour Hold for respiratory rate less than 10 per minute., PACU Recovery iohexol (OMNIPAQUE) 300 mg/mL solution (CANCELED) ONCE PRN, Starting on Sun06/02/16 at 0925, Until 06/03/16 at 1253, Intra-Operative (Intra-Procedure), Routine 09 (Given - Provider: Aury Ashley MD) lidocaine (XYLOCAINE) 10 mg/mL (1 %) injection 3 mg (COMPLETED) 3 mg (0.3 mL), Subcutaneous, ONCE PRN, 1 dose, Starting on Sun06/02/16 at 0820, Until Sun06/02/16 at 0821, for discomfort with PIV insertion, Day of Surgery (Day of Procedure), Routine 08 (Given - Provider: Heidi Xavier) lidocaine (XYLOCAINE) 10 mg/mL (1 %) injection 3 mg 3 mg (0.3 mL), Subcutaneous, ONCE PRN, 1 dose, Starting on Sun06/02/16 at 1837, Until 06/03/16 at 1253, for discomfort with PIV insertion, Routine naloxone (NARCAN) injection 40 mcg 40 mcg, Intravenous, EVERY 5 MIN PRN, Starting on Sun06/02/16 at 1046, Until Sun06/02/16 at 1823, Opioid Reversal, for respiratory rate less than 6 or unresponsive., May repeat every every 5 minutes to increase respiratory rate. DO NOT exceed 120 mcg total dose. Notify anesthesia immediately if administered., PACU Recovery, Routine ondansetron (ZOFRAN) injection 4 mg 4 mg, Intravenous, EVERY 30 MIN PRN, Starting on Sun06/02/16 at 1046, Until Sun06/02/16 at 1823, Nausea, May repeat 4 mg once in 30 minutes. If multiple antiemetics ordered, use ondansetron first and if ineffective use prochlorperazine second and if ineffective use promethazine, PACU Recovery ondansetron (ZOFRAN) injection 4 mg(Linked Group 3) 4 mg, Intravenous, EVERY 8 HOURS PRN, Starting on Sun06/02/16 at 1837, Until 06/03/16 at 1253, Nausea, May repeat times one in 30 minutes if ineffective. If multiple antiemetics are ordered, use ondansetron first., Recovery (Recovery-Hospital Unit) ondansetron (ZOFRAN) tablet 4 mg(Linked Group 3) 4 mg, Oral, EVERY 8 HOURS PRN, Starting on Sun06/02/16 at 1837, Until 06/03/16 at 1253, Nausea, Vomiting, If multiple antiemetics are ordered, use ondansetron first. PO Preferred. If patient unable to take PO, may give IV if ordered. May repeat times one in 45 minutes if ineffective., Recovery (Recovery-Hospital Unit), Routine oxyCODONE (ROXICODONE) immediate release tablet 5 mg 5 mg, Oral, EVERY 4 HOURS PRN, Starting on Sun06/02/16 at 1837, Until 06/03/16 at 1253, Pain, Routine phenazopyridine (PYRIDIUM) tablet 100 mg 100 mg, Oral, 3 TIMES DAILY PRN, burning with urination, Starting on Sun06/02/16 at 1837, Until 06/03/16 at 1253 promethazine (PHENERGAN) injection 12.5 mg 12.5 mg, Intravenous, EVERY 30 MIN PRN, Nausea, Starting on Sun06/02/16 at 1046, 2 doses, Until Sun06/02/16 at 1823, If multiple antiemetics ordered, use ondansetron first and if ineffective use prochlorperazine second and if ineffective use promethazine, PACU Recovery sodium chloride 0.9 % flush 5-20 mL 5-20 mL, Intravenous, EVERY 1 MIN PRN, Starting on Sun06/02/16 at 1837, Until 06/03/16 at 1253, flush, Flush pertains to all indwelling lines. Flush per protocol found in the job aid using the link provided on this medication record., Routine Linked Groups Order Group 1: scopolamine (TRANSDERM-SCOP) 1.5 mg (1 mg over 3 days) patch 1 patch (COMPLETED)Jump to med 1 patch, Transdermal, ONCE, 1 dose, On Sun06/02/16 at 0845, Recovery (Recovery-Hospital Unit), Routine Followed by scopolamine (TRANSDERM-SCOP) 1.5 mg patch Patch VerificationJump to med Transdermal, 2 TIMES DAILY, 1 dose, First dose on Sun06/02/16 at 2030, Verify scopolamine 1.5 mg patch., Recovery (Recovery-Hospital Unit) Followed by scopolamine (TRANSDERM-SCOP) 1.5 mg patch Patch RemovalJump to med Transdermal, EVERY 24 HOURS, 1 dose, First dose on Sun06/03/16 at 0900, Remove scopolamine 1.5 mg patch, Recovery (Recovery-Hospital Unit) Group 2: fentaNYL (PF) 50 mcg/mL 2mL syringeJump to med 25 mcg, Intravenous, EVERY 5 MIN PRN, Pain, for 1-4 pain score, Starting on Sun06/02/16 at 1046, Until Sun06/02/16 at 1823, for 1-4 pain score Hold for respiratory rate less than 10 per minute. Maximum dose: 250 mcg over one hour., PACU Recovery Or fentaNYL (PF) 50 mcg/mL 2mL syringeJump to med 50 mcg, Intravenous, EVERY 5 MIN PRN, Pain, for 5-10 pain score, Starting on Sun06/02/16 at 1046, Until Sun06/02/16 at 1823, for 5-10 pain score Hold for respiratory rate less than 10 per minute. Maximum dose: 250 mcg over one hour., PACU Recovery Group 3: ondansetron (ZOFRAN) tablet 4 mgJump to med 4 mg, Oral, EVERY 8 HOURS PRN, Starting on Sun06/02/16 at 1837, Until 06/03/16 at 1253, Nausea, Vomiting, If multiple antiemetics are ordered, use ondansetron first. PO Preferred. If patient unable to take PO, may give IV if ordered. May repeat times one in 45 minutes if ineffective., Recovery (Recovery-Hospital Unit), Routine Or ondansetron (ZOFRAN) injection 4 mgJump to med 4 mg, Intravenous, EVERY 8 HOURS PRN, Starting on 06/02/16 at 1837, Until 06/03/16 at 1253, Nausea, May repeat times one in 30 minutes if ineffective. 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
--- OUTSIDE RECORDS SUMMARY | 2024-07-02 11:24 | XMS_ITS | Encounter Summary ---
Author Organization [facility] Address [address] [place] [id number] Care Team Providers Care Contact Lens Cutter Name Role Phone Unavailable Primary Care Provider Unavailabl e Encounter Details Date Type Department Care Team (Latest Contact Info) Description 08/19/1999 7:25 EST - 08/19/1999 11:59 EST Hospital Encounter [address] [address] Tylor Roman MD [address] [place] [address] Discharge Disposition: Auto Discharge Social History Tobacco [...] Procedure Name Priority Date/Time Associated Diagnosis Comments KIDNEY STONE ANALYSIS Routine 08/25/1999 11:23 EST ABDOMEN AP+OBL OR CONED VIEWS Routine 08/19/1999 8:22 EST documented in this encounter Results * KIDNEY STONE ANALYSIS (08/25/1999 11:23 EST) Source Not Specified ?? [facility] Weight 0.050 Unit: g ?? [facility] 1st Constituent 50% Calcium oxalate monohydrate ?? [facility] 2nd Constituent 40% Calcium oxalate dihydrate ?? [facility] 3rd Constituent 10% Calcium phosphate (apatite) ?? [facility] 08/25/1999 11:2 3 EST 08/26/1999 11:23 EST us Ran Fried MD GEN LAB UNIT COLLECT ORDERAB LES Final Result [facility] [address] [place] [address] * ABDOMEN AP+OBL OR CONED VIEWS (08/19/1999 8:22 EST) Anatomical Region Laterality Modality Other 08/19/1999 8:22 EST Narrative 05/25/2009 12:08 EST LOCATION OF STONES/PRE LITHO ABDOMEN WITH OBLIQUES 08/19/99 08:15 COMPARISON: 03/04/99 Again noted are numerous, faint punctate calcifications projected over the right kidney. Projected over the left kidney on the previous film was a 1.4 x .8cm cylindrical shaped calculus. This is no longer seen. Projected over the left kidney are now smaller calcifications projected over the upper, mid and lower pole. The largest measuring approximately 5mm. Rounded calcifications in the right emily-pelvis are stable and likely represent phleboliths. IMPRESSION: Probable bilateral renal calculi with change in configuration of left-sided calculi. /oracio Procedure Note Tato Vivar MD - 05/25/2009 LOCATION OF STONES/PRE LITHO ABDOMEN WITH OBLIQUES 08/19/99 08:15 COMPARISON: 03/04/99 Again noted are numerous, faint punctate calcifications projected over the right kidney. Projected over the left kidney on the previous film was a 1.4 x .8cm cylindrical shaped calculus. This is no longer seen. Projected over the left kidney are now smaller calcifications projected over the upper, mid and lower pole. The largest measuring approximately 5mm. Rounded calcifications in the right emily-pelvis are stable and likely represent phleboliths. IMPRESSION: Probable bilateral renal calculi with change in configuration of left-sided calculi. /vhomer Tylor Roman MD IMG DIAGNOSTIC IMAGING ORDER PRACHI Final Result documented in this encounter Visit Diagnoses Not on filedocumented in this encounter
--- OUTSIDE RECORDS SUMMARY | 2024-07-02 11:24 | XMS_ITS | Encounter Summary ---
Author Organization [facility] Address [address] [place] [address] Care Team Providers Care Property Disposal Manager Name Role Phone Jacob Martinez MD Primary Care Provider Aura elizalde Encounter Details Date Type Department Care Team (Late st Contact Info) Description 12/21/2021 Lab Requisition [facility] Pathology & Laboratory Medicine - [address] [address] Janny Salmeron, GOLD STAMPER [address] [place] [address] Encounter for other general examination Social History Tobacco Use Types Packs/Day Years [...] Name Priority Date/Time Associated Diagnosis Comments PAP TEST Today 12/19/2021 13:20 EDT Encounter for other general examination HPV DNA DETECTION WITH GENOTYPING, PCR Today 12/19/2021 13:20 EDT Encounter for other general examination documented in this encounter Results * HUMAN PAPILLOMAVIRUS (HPV) DETECTION-HIGH RISK TYPES (12/19/2021 13:20 EDT) HPV other High Risk types, PCR Negative Negative 12/29/2021 15:25 EDT [facility] Comment:No E6 or E7 mRNA is detected from HPV types 16,18,31,33,35,39,45,51,52,56,58,59,66, and 68 by pc maintenance technician mediated amplification. Papanicolaou smear specimen (specimen) CERVIX UTERI STRUCTURE / Unknown 12/19/2021 13:20 EDT 12/27/2021 16:21 EDT us Janny Salmeron GOLD STAMPER MICROBIOLOGY - GENERAL OR DERABLES Final Result [facility] [address] [place] [id number] * PAP TEST (12/19/2021 13:20 EDT) Specimens A. Cervix and/or Endocervix , ThinPrep Imaging System with Manual Evaluation 12/29/2021 15:25 T [facility] Specimen Adequacy Satisfactory for Evaluation - assessment of transformation zone component not applicable ( e.g. atrophy, vaginal sample, hysterectomy) 12/29/2021 15:25 EDT [facility] General Categorization Negative for intraepithelial lesion or malignancy 12/29/2021 15:25 T [facility] Attestation . 12/29/2021 15:25 [facility] at 1525 Clinical History See below 12/30/19 15:25 [facility] HPV The result for the Human Papillomavirus (HPV) Detection-High Risk Types is Negative. No E6 or E7 mRNA is detected from HPV types 16,18,31,33,35,39 ,45,51,52,56,58,5 9,66, and 68 by pc maintenance technician mediated amplification.Henna ting was performed on specimen [id number] and was resulted on 12/29/2021 1518 EDT by GENNY, LAB INSTRUMENT RESULTS IN 12/29/2021 15:25 EDT [facility] Performing Lab [facility] 12/29/2021 15:25 T [facility] Scanned Images 12/29/2021 15:25 T [facility] Papanicolaou smear specimen (specimen) CERVIX UTERI STRUCTURE / Unknown 12/19/2021 13:20 EDT 12/21/2021 10:14 EDT us Janny Salmeron GOLD STAMPER PATHOLOGY ORDERABLES Radha l Result [facility] [address] [place] [address] documented in this encounter Visit Diagnoses Diagnosis Encounter for other general examination documented in this encounter Care Teams Property Disposal Manager Relationship Specialty Start Date End Date Jacob Martinez MD PCP - General 05/31/15 documented as of this encounter
--- OUTSIDE RECORDS SUMMARY | 2024-07-02 11:24 | XMS_ITS | Encounter Summary ---
Author Organization [facility] Address [address] [place] [address] Care Team Providers Care Lathmaker Name Role Phone Unavailable Primary Care Provider Unavailabl e Encounter Details Date Type Department Care Team (Late st Contact Info) Description 09/02/1999 10:23 EST Hospital Encounter [facility] - Other [address] [place] [address] Brice Colmenares MD [address] [place] [address] [phone] Unknown, Provider, Social History Tobacco Use Types [...]
--- OUTSIDE RECORDS SUMMARY | 2024-07-02 11:24 | XMS_ITS | Encounter Summary ---
Author Organization [facility] [address] Care Team Providers Care Biblical Studies Professor Name Role Phone Unknown Primary Care Provider Unavailabl e Encounter Details Date Type Department Care Team (Late st Contact Info) Description 06/19/2017 [place] [address] Manuel Rubin Jr., MD [facility] [place] [address] Nephrolithiasis Social History Tobacco Use Types Packs/Day Years Used Date Smoking Tobacco: Never Sex and Gender Information Value Date Recorded Sex Assigned at Not on file Gender Identity Not on file Sexual Orientation Not on file documented as of this encounter Plan of Treatment Not on file documented as of this encounter Results * US Retroperitoneal Complete (10/02/2017 9:03 AM EDT) Anatomical Region Laterality Modality Abdomen Ultrasound 10/02/2017 9:03 AM EDT Impressions 10/02/2017 9:57 AM EDT ??1. ??No hydronephrosis.2. ??Several bilateral nonobstructing renal stones. The largest right stone iswithin the superior pole measuring 5.7 mm and the largest left stone isinterpolar measuring 3.5 mm. Similar to prior study from 2016 3. ??Bilateral medullary calcinosis.4. ??Limited evaluation of the minimally distended bladder.5. ??Diffuse fatty infiltration of the liverI have personally reviewed the image(s) and the residents interpretation andagree with the findings, Joyce Henderson at 10/02/2017 9:49 AM ?Joyce Henderson MD Electronically Signed Final Report ?? 10/02/2017 09:56 am Narrative 10/02/2017 9:57 AM EDT Renal ? (Signed Final 10/02/2017 09:56 am) PATIENT INFO: ID #: ? [id number] ?: ??[birth year] (57 yrs) Name: ? WILLIAM Glez ? Visit Date: 10/02/2017 09:03 am ? GINETTE PERFORMED BY: Performed By: ? Jumana Quezada RDMS Attending: ?Santiago GONGORA, Joyce Kellogg. Referred By: ?MANUEL RUBIN Location: ? [facility] SERVICE(S) PROVIDED: ??URETRO - Retroperitoneal Complete - [id number] ? [id number] INDICATIONS: ??Nephrolithiasis COMPARISON: Ultrasound: 08/10/15. RIGHT KIDNEY: Size (cm) ?L: ??11.6 Cortical Thickness: ?Normal Cortical Echogenicity: ?? Normal Hydronephrosis: ?No sonographic evidence Comment: ?Medullary Nephrocalcinosis. Multiple potential ? renal calculi areas seen, largest measurin.7 ? mm. LEFT KIDNEY: Size (cm) ?L: ??12.9 Cortical Thickness: ?Normal Cortical Echogenicity: ?? Normal Hydronephrosis: ?No sonographic evidence Comment: ?Medullary Nephrocalcinosis. Multiple potential ? renal calculi areas seen, largest measurin.5 ? mm. URINARY BLADDER: Pre-void (cm) ? L: ??3.5 ? AP: ??2.1 ? TV: ??5.7 Vol (ml): ?21.9 Comment: ?Empty patient voided before scan Procedure Note Joyce Henderson MD - 10/02/2017 Renal (Signed Final 10/02/2017 09:56 am) PATIENT INFO: ID #: [id number] : 58 (57 yrs) Name: WILLIAM Glez Visit Date: 10/02/2017 09:03 am GINETTE PERFORMED BY: Performed By: Jumana Quezada RDMS Attending: Joyce Henderson MD Referred By: MANUEL RUBIN JR Location: [facility] SERVICE(S) PROVIDED: URETRO - Retroperitoneal Complete - [id number] INDICATIONS: Nephrolithiasis COMPARISON: Ultrasound: 08/10/15. RIGHT KIDNEY: Size (cm) [...] findings, Joyce Henderson at 10/02/2017 9:49 AM Joyce Henderson MD Electronically Signed Final Report 10/02/2017 09:56 am Manuel Rubin Jr., MD IMG US GEN ORDERAB LES documented in this encounter Visit Diagnoses Diagnosis Nephrolithiasis Calculus of kidney Nephrolithiasis Calculus of kidney documented in this encounter Care Teams Biblical Studies Professor Relationship Specialty Start Date End Date Unknown None PCP - General 09/11/16 10/01/17 documented as of this encounter
--- OUTSIDE RECORDS SUMMARY | 2024-07-02 11:24 | XMS_ITS | Encounter Summary ---
[place] [address] Care Team Providers Care Mat Repairer Name Role Phone Demetria Larios APRN Primary Care Provider Encounter Details Date Type Department Care Team (Late st Contact Info) Description 08/30/2021 Interpretation Only [address] [phone] Faby Barlow, DPM [address] [place] [address] Social History Tobacco Use Types Packs/Day Years Used Date Smoking Tobacco: Never Smokeless Tobacco: Never Sex and Gender Information Value Date Recorded Sex Assigned at Not on file Gender Identity Not on file Sexual Orientation Not on file documented as of this encounter Plan of Treatment Not on file documented as of this encounter Procedures Procedure Name Priority Date/Time Associated Diagnosis Comments XR FOOT MIN 3 VIEWS BILAT Routine 08/30/2021 2:20 PM EST documented in this encounter Results * XR Foot Min 3 views Bilat (Generic) (08/30/2021 2:20 PM EST) PT CLASS O RAD ADMITDTTM RAD PT RAD MD INFO [id number]^W NIKUNJ^FABY^ P DH RAD EXAM DESC [id number]^XR RIGHT FOOT ROUTINE^RIS RAD Anatomical Region Laterality Modality Foot Bilateral Radiographic Gema ging Impressions 08/30/2021 3:46 PM EST 1. 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 2. ??Second toe hammertoe deformity. 3. 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 Thank you for letting us participate in the care of this patient. ??If you are a health care provider and have any questions regarding this report, please contact the number below. ??For patients who have questions please contact the health manager progressive care that requested your imaging first. ? Electronically signed by: Jeanette Pena MD, [facility] ([phone]), at 08/30/2021 3:46 PM Narrative 08/30/2021 3:46 PM EST EXAMINATION: XR RIGHT FOOT ROUTINE CLINICAL HISTORY: Pain in right foot (as entered by ordering provider in the order requisition) TECHNIQUE: Bearing AP, oblique, and lateral views the right foot. COMPARISON: None FINDINGS: No focal soft tissue swelling. No tibiotalar joint effusion. There is hammertoe deformity of the second toe. There are prominent plantar calcaneal and Achilles enthesophytes. There is fusiform thickening of the insertional Achilles tendon with small calcific densities over the Achilles shadow. There are dorsal osteophytes of the midfoot. There is subchondral sclerosis and marginal osteophyte formation of the first metatarsophalangeal joint. Procedure Note Jeanette Pena MD - 08/30/2021 EXAMINATION: XR RIGHT FOOT ROUTINE CLINICAL HISTORY: Pain in right foot (as entered by ordering provider inthe order requisition) TECHNIQUE: Bearing AP, oblique, and lateral views the right foot. COMPARISON: None FINDINGS: No focal soft tissue swelling. No tibiotalar joint effusion. There ishammertoe deformity of the second toe. There are prominent plantar calcaneal andAchilles enthesophytes. There is fusiform thickening of the insertional Achillestendon with small calcific densities over the Achilles shadow. There are dorsal osteophytes of the midfoot. There is subchondral sclerosis and marginal osteophyte formation of the first metatarsophalangeal joint. IMPRESSION 1. 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 2. Second toe hammertoe deformity. 3. 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 Thank you for letting us participate in the care of this patient. If youare a health care provider and have any questions regarding this report,please contact the number below. For patients who have questions please contactthe health manager progressive care that requested your imaging first. Electronically signed by: Jeanette Pena MD, [facility]([phone]), at 08/30/2021 3:46 PM Faby Barlow DPZaheer IMG DX ORDERABLES documented in this encounter Visit Diagnoses Not on filedocumented in this encounter Care Teams Mat Repairer Relationship Specialty Start Date End Date Demetria Larios, CAMILO [address] [place] [address] PCP - General Family Medicine 10/02/17 documented as of this encounter
--- OUTSIDE RECORDS SUMMARY | 2024-07-02 11:24 | XMS_ITS | Encounter Summary ---
Author Organization [facility] Address [address] [place] [address] Care Team Providers Care Nurse Practitioner Adult Name Role Phone Jacob Martinez MD Primary Care Provider Aura elizalde Encounter Details Date Type Department Care Team (Late st Contact Info) Description 02/22/2021 Lab Requisition [facility] Pathology & Laboratory Medicine - [address] [address] Outr Resulting Lab, Provider Social History Tobacco [...] Procedure Name Priority Date/Time Associated Diagnosis Comments FECAL BACTERIAL PATHOGENS BY PCR Routine 02/22/2021 7:15 EDT documented in this encounter Results * FECAL BACTERIAL PATHOGENS BY PCR (02/22/2021 7:15 EDT) Salmonella PCR Negative Negative 02/23/2021 12:07 EDT [facility] Shigella/Enteroin vasive E. coli Negative Negative 02/23/2021 12:07 EDT [facility] HN LAB CAMPYLOBACTER PCR Negative Negative 02/23/2021 12:07 EDT [facility] Shiga Toxin PCR Negative Negative 12:07 EDT [facility] Feces SPECIMEN FROM RECTUM / Unknown 02/22/2021 7:15 EDT 02/22/2021 21:33 EDT us Provider Outr Resulting Lab MICROBIOLOGY - GENER AL ORDERABLES Final Result [facility] [address] [place] [address] documented in this encounter Visit Diagnoses Not on filedocumented in this encounter Care Teams Nurse Practitioner Adult Relationship Specialty Start Date End Date Jacob Martinez MD PCP - General 05/31/15 documented as of this encounter
--- OUTSIDE RECORDS SUMMARY | 2024-07-02 11:24 | XMS_ITS | Encounter Summary ---
Author Organization [facility] Address [address] [place] [address] Care Team Providers Care Rotogravure Press Operator Name Role Phone Unavailable Primary Care Provider Unavailabl e Encounter Details Date Type Department Care Team (Late st Contact Info) Description 09/17/2008 Before PRISM Converted Visit (Maple) [facility] - Maple conversion [address] [place] [address] Ellen Menchaca, MARIA [address] [place] [address] Social History Tobacco Use Types [...] Priority Date/Time Associated Diagnosis Comments CYTOPATHOLOGY Routine 09/17/2008 0:00 EST documented in this encounter Results * CYTOPATHOLOGY (09/17/2008 0:00 EST) Pathology Report: CYTOPATHOLOGY REPORT ? Reports generated via electronic interface contain original data; ? however they are lacking the format of the original report. ? Caution should be taken when reading/interpreti ng unformatted reports. ? Name: ? WILLIAM NAIR ? Accession #: ? [id number] ? : ? 1960 (Age: 48) ??F ?Collect Date: ? 09/17/2008 ? Location: ? [facility] ? Receive Date: ? 09/18/2008 ? Provider: ?ELLEN MENCHACA NP ? Copy to: ? Specimen/Source: ?Pap Test, Cervix/Endocervix, ThinPrep Imaging System ? with manual evaluation ? Last Menstrual Period: ? 02/15/09 ? Other: ? HPVA - HPV testing requested if ASC-US on the current ThinPrep Pap test. ? SPECIMEN ADEQUACY ? Satisfactory for Evaluation ? - transformation zone component present ? GENERAL CATEGORIZATION ? Negative for Intraepithelial Lesion or Malignancy ? Document reviewed and electronically signed by: ? Jonna Linda, SCT(ASCP) ? Report Date: ??09/22/2008 12:38 ? End of Report ? [facility]EE[facility] SNEED 09/17/2008 09/18/2008 us Ellen Menchaca NP PATHOLOGY ORDERABLES Final Res ult [facility] [address] [place] [address] documented in this encounter Visit Diagnoses Not on filedocumented in this encounter
--- OUTSIDE RECORDS SUMMARY | 2024-07-02 11:24 | XMS_ITS | Referral Summary ---
Author Organization [facility] Address [address] [place] [address] Care Team Providers Care Metal Control Coordinator Name Role Phone Jacob Martinez MD Primary Care Provider Aura elizalde Social History Tobacco Use Types Packs/Day Years Used Date Smoking Tobacco: Never Assessed Comments Unknown Sex and Gender Information Value Date Recorded Sex Assigned at Not on file Legal Sex Female 17:27 EST Gender Identity Not on file Sexual Orientation Not on file Plan of Treatment Not on file Care Teams Metal Control Coordinator Relationship Specialty Start Date End Date Jacob Martinez MD PCP - General 05/31/15
--- OUTSIDE RECORDS SUMMARY | 2024-07-02 11:24 | XMS_ITS | Encounter Summary ---
Author Organization [facility] Address [facility] [place] [address] Care Team Providers Care Summer Camp Counselor Name Role Phone RicDemetria CAMILO Primary Care Provider [phone] Encounter Details Date Type Department Care Team (Latest Contact Info) Description 10/02/2017 8:27 AM EDT - 10/02/2017 11:59 PM EDT Hospital Encounter [place] [address] Manuel Rubin Jr., MD [facility] [place] [address] Nephrolithiasis Discharge Disposition: Home Social History Tobacco Use [...] Procedure Name Priority Date/Time Associated Diagnosis Comments US RETROPERITONEAL COMPLETE Routine 10/02/2017 9:03 AM EDT Nephrolithiasis documented in this encounter Results * US Retroperitoneal Complete [...] 09:56 am) PATIENT INFO: ID #: ? [id number] ?: ??[birth year] (57 yrs) Name: ? WILLIAM W ? Visit Date: 10/02/2017 09:03 am ? GINETTE PERFORMED BY: Performed By: ? Jumana Quezada RDMS Attending: ?Santiago GONGORA, Joyce Kellogg. Referred By: ?MANUEL RUBIN Location: ? [facility] SERVICE(S) PROVIDED: ??URETRO - Retroperitoneal Complete - [id number] ? [id number] INDICATIONS: ??Nephrolithiasis COMPARISON: Ultrasound: 08/10/15. RIGHT KIDNEY: [...] 10/02/2017 09:56 am) PATIENT INFO: ID #: [id number] : 58 (57 yrs) Name: WILLIAM Glez Visit Date: 10/02/2017 09:03 am GINETTE PERFORMED BY: Performed By: Jumana Quezada RDMS Attending: Joyce Henderson MD Referred By: MANUEL RUBIN JR Location: [facility] SERVICE(S) PROVIDED: URETRO - Retroperitoneal Complete - [id number] INDICATIONS: Nephrolithiasis COMPARISON: Ultrasound: 08/10/15. RIGHT KIDNEY: [...] kidney documented in this encounter Care Teams Summer Camp Counselor Relationship Specialty Start Date End Date Demetria Larios APRN [address] [place] [address] PCP - General Family Medicine 10/02/17 documented as of this encounter
--- OUTSIDE RECORDS SUMMARY | 2024-07-02 11:24 | XMS_ITS | Encounter Summary ---
Author Organization [facility] Address [facility] [place] [address] Care Team Providers Care Wardrobe Coordinator Name Role Phone Ellen Gleason CAMILO Primary Care Provider [phone] Reason for Visit * Auth/Cert Specialty Diagnoses / Procedures Referred By Raissa hernandez Referred To Contact Diagnoses right renal pelvic stone Procedures PRO CYSTO/URETERO/PYELOSCOPY W/LITHOTRIPSY PRO CYSTOSCOPY, REMV CALCULUS, SIMPLE CYSTOURETEROSCOPY, LITHOTRIPSY Referral ID Status Reason Start Date Expiration Date Visits Re quested Visits Authorized [id number] 1 1 Encounter Details Date Type Department Care Team (Latest Contact Info) Description 06/02/2016 7:11 AM EST - 06/03/2016 10:53 AM EST Hospital Encounter [place] [address] Donald Rubin Jr., MD [facility] [place] [address] Aury Ashley MD [facility] [place] [address] Discharge Disposition: Home Social History Tobacco Use Types Packs/Day Years Used Date Smoking Tobacco: Never Sex and Gender Information Value Date Recorded Sex Assigned at Not on file Gender Identity Not on file Sexual Orientation Not on file documented as of this encounter Last Filed Vital Signs Vital Sign Reading Time Taken Comments Blood Pressure 112/64 06/03/2016 7:28 AM EST Pulse 80 06/03/2016 4:54 AM EST Temperature 36.7 ??C (98.1 ??F) 06/03/2016 7:28 AM ES T Respiratory Rate 16 06/03/2016 7:28 AM EST Oxygen Saturation 98% 06/03/2016 7:28 AM EST Inhaled Oxygen Concentration - - Weight - - Height - - Body Mass Index - - documented in this encounter Discharge Summaries * Rasheed Casillas - 06/02/2016 4:06 PM EST UROLOGY SERVICE [...] Hospital Course: Hannah Nair was admitted to [facility] on 06/02/2016 through the Same Day Surgery [...] that part of your care. Urology Clinic: [phone] PCP: Ellen Gleason APRN, . Please follow-up with your PCP in 1-2 weeks or sooner as needed. Issues to be followed-up with your PCP: 1. Scheduled Appointments: The following appointments have been scheduled on your behalf: Future Appointments and Orders Future Appointments Provider Department Dept Phone 06/16/2016 1:20 PM Aury Ashley MD; UROLOGY, PROCEDURE [facility] Urology [phone] 07/26/2016 1:30 PM [facility] US ROOM 4 [facility] Ultrasound [phone] 07/26/2016 2:30 PM Donald Rubin Jr., MD Urology [phone] Outpatient Services/Studies: No discharge procedures on file. [...] side pain, you should call our office [phone] before 5PM or [phone] after hours. Remember, ureteral stent is a [...] to urinate please call our office at [phone] 5PM or [phone] after hours. Call Doctor for: Please call if you have copious blood in your urine, severe back or side pain, pain not controlled by pain medications, persistent nausea and vomiting, or for any fevers greater nfgw043.3 F. The number for questions is [phone] before 5 PM weekdays and [phone] after 5 PM and weekends. Pain Medication: [...] may be used if needed and are pfmq-tzz-yrzaarw (OTC) medications available at most local pharmacies. Prunes or prune juice, taken daily, can also be helpful for constipation treatment or prevention and are available at most supermarkets. Antibiotics: Please take Bactrim as prescribed for 2 weeks. Follow-up: We will see you in our clinic in 2 weeks for removal of your stent. Please call [phone] (clinic number for appointments) to confirm date [...] managed by the Urologic Surgery Team at [facility]. If you have any questions or concerns, please feel free to contact us. Provider Contact Information: Urology Clinic: [phone] [facility] (after business hours): CC: Ellen Gleason APRN [...] side pain, you should call our office [phone] before 5PM or [phone] after hours. Remember, ureteral stent is a [...] to urinate please call our office at [phone] 5PM or [phone] after hours. Call Doctor for: Please call if you have copious blood in your urine, severe back or side pain, pain not controlled by pain medications, persistent nausea and vomiting, or for any fevers greater gldi251.3 F. The number for questions is [phone] before 5 PM weekdays and [phone] after 5 PM and weekends. Pain Medication: [...] may be used if needed and are hpve-ugp-cpyhytq (OTC) medications available at most local pharmacies. Prunes or prune juice, taken daily, can also be helpful for constipation treatment or prevention and are available at most supermarkets. Antibiotics: Please take Bactrim as prescribed for 2 weeks. Follow-up: We will see you in our clinic in 2 weeks for removal of your stent. Please call [phone] (clinic number for appointments) to confirm date [...] Birthdate: 1960 Admit date: 06/02/2016 Attending Physician: Johnna Ashley* Pt arrived from same day surgery unit [...] is not going home tonight. Will notify DrNeal * Heidi Xavier Yahir - 06/02/2016 7:43 AM EST Images from [...] STENT performed by Aury Ashley MD at [facility] ??? Pro incise bladder, +ureter cath Left 2016 CYSTOTOMY WITH INSERTION OF URETERAL STENT\CATHETER performed by Aury Ashley MD [facility] Social history: Lives with does not [...] Operative Note Patient Name: Hannah Nair : [id number] MR#: [id number] Case Date: 06/02/2016 Surgeon: Surgeon(s) and Role: [...] Ashley MD - 06/02/2016 10:55 AM EST [facility] Operative Note Patient Name: Hannah Nair : [id number] MR#: [id number] Case Date: 06/02/2016 Surgeon: Surgeon(s) and Role: [...] fashion for transurethral procedure. Initially a 22 American rigid cystoscope was placed transurethrally the right [...] Rad <1Hr (06/02/2016 10:35 AM EST) Narrative [facility] - 06/02/2016 10:36 AM EST This order does not need a radiologist interpretation. ?? Donald Rubin Jr., MD IMG FLUORO ORDERAB LES [place], [place] * (ABNORMAL) Urine culture Cystoscopic Urine (06/02/2016 9:18 AM EST) Urine Culture 10,000-49,0 00 cfu/ml Proteus vulgaris(A) [facility] Organism Proteus vulgaris(A) [facility] Urine specimen (specimen) 06/02/2016 9:18 AM [...] Jr., MD MICROBIOLOGY - GEN ERAL ORDERABLES [facility] [address] [place] [id number] * SCAN DOC: IMPLANTABLE DEVICES (06/02/2016 12:00 AM EST) Scanning Provider MEDIA MGR SCAN EXT O RDR/RSLT documented in this encounter Visit Diagnoses Diagnosis Nephrolithiasis Calculus of kidney documented in this encounter Administered Medications Inactive Administered [...] Given 06/02/2016 7:16 PM EST 1,000 mg lactated ringers infusion 1,000 mL 1,000 mL, [...] Given 06/02/2016 9:32 PM EST 5 mLs sulfamethoxazole-trime thoprim (BACTRIM DS) 800-160 mg per tablet 1 [...] declined if sleeping)0631 (Given - Provider: Eda Mcmullen RN) cefTRIAXone (ROCEPHIN) 2g in dextrose 5% 50mL [...] at 1115, Until Discontinued, PACU Recovery, Routine 111 (Not Given - Provider: Eda Mcmullen RN - Reason: Transfer to a Procedural area) sodium chloride 0.9 % flush 5 mL 5 mL, Intravenous, 2 TIMES DAILY, First dose on Sun06/02/16 at 2100, Until Discontinued, Routine 2131 (Given - Provider: Eda Mcmullen RN) 09 (Not Given - Provider: Kylie Mason RN [...] OPEN, Routine 2128 (Given - Provider: Eda Mcmullen RN) 914 (Given - Provider: Kylie Mason, MARIELY) Continuous Medication Order 06/01/2016 06/02/2016 06/03/2016 lactated [...] PACU Recovery 1115 (Stopped - Provider: Eda Mcmullen RN)1458 (New Bag - Provider: Nereida Nicole RN) [...] score, Starting on Sun06/02/16 at 1046, Until 06/02/16 at 1823, for 5-10 pain score Hold [...] on Sun06/02/16 at 1046, 2 doses, Until 06/02/16 at 1823, If multiple antiemetics ordered, use [...] Unit) documented in this encounter Care Teams Wardrobe Coordinator Relationship Specialty Start Date End Date Ellen Gleason APRN PCP - General 06/07/10 09/10/16 documented as of this encounter
--- OUTSIDE RECORDS SUMMARY | 2024-07-02 11:24 | XMS_ITS | Encounter Summary ---
Author Organization [facility] Address [facility] [place] [address] Care Team Providers Care Food Service Representative Name Role Phone Ric Demetria CAMILO Primary Care Provider Encounter Details Date Type Department Care Team (Latest Contact Info) Description 05/14/2018 - 05/14/2018 11:59 PM EDT Hospital Encounter Radiology Library at [facility] [place] [id number] Francisco Agustin MD [address] [place] [address] Discharge Disposition: Home Social History Tobacco Use [...] FILM LIBRARY STORAGE ONLY ULTRASOUND STUDY Routine 05/14/2018 12:00 AM EDT documented in this encounter Results * Film Library- Storage Only Ultrasound Study (05/14/2018 12:00 AM EDT) Narrative [facility] - 06/05/2018 12:37 PM EST This exam is for storage only and is auto-finalizing. Francisco Agustin MD IMG FILM LIBRARY ORD ERABLES [place], [place] documented in this encounter Visit Diagnoses Not on filedocumented in this encounter Care Teams Food Service Representative Relationship Specialty Start Date End Date Demetria Larios, REHAB CARE ASSISTANT [address] [place] [address] PCP - General Family Medicine 10/02/17 documented as of this encounter
--- OUTSIDE RECORDS SUMMARY | 2024-07-02 11:24 | XMS_ITS | Clinical Summary ---
Author Organization [facility] Address [facility] [place] [address] Care Team Providers Care Research Laboratory Specialist Name Role Phone Demetria Larios APRN Primary Care Provider [phone] Allergies Active Allergy Reactions Criticality Noted Date Comments Pyridoxine Anaphylaxis High 04/13/2015 Chloride Other (See Comments) Medium 05/17/2016 Per patient, wipes or sprays with Chlorine/Chloride she cannot breath and gets a chemical pneumonia. Happens most of the time after a hospital visit. Chocolate Flavor Anaphylaxis High CIS - Anaphylaxis Ciprofloxacin High CIS - Anaphylaxis Diclofenac Other (See Comments) Medium 05/23/2016 Patient reports red hot face Milk Low Milk Based Formulas Low Oxybutynin Hives Medium 04/13/2015 Peanut Medium CIS - diareahea Peanut Oil Medium CIS - diareahea Pomegranate Diarrhea Medium 04/13/2015 Sennosides-Docusate Sodium Other (See Comments) High 05/23/2016 Patient reports oral swelling Acetaminophen Anaphylaxis High 07/11/2018 Had a coating on it, that was the problem for her. Solifenacin Rash Medium 04/13/2015 Medications Medication Sig Dispensed Refills Start Date End Date Status CIS Free Text Med - black strap molassas 04/15/2010 Active LACTOBACILLUS ACIDOPHILUS ORAL 04/15/2010 Active APPLE CIDER VINEGAR ORAL 04/15/2010 Active ascorbic acid (VITAMIN C) 500 mg Tablet, Chewable Take 500 mg by mouth 3 times daily. Active magnesium oxide (MAG-OX) 400 mg Tablet Take 500 mg by mouth daily. Active Chromium Picolinate 400 mcg Tablet Take 500 mcg by mouth. Active cranberry conc-ascorbic acid 4,200-20 mg Capsule Take 4,200 mg by mouth daily. Active chlorthalidone (HYGROTEN) 25 mg Tablet Take 1 tablet by mouth daily. 90 tablet 3 03/29/2016 Active oxyCODONE (ROXICODONE) 5 mg Tablet Take 1 tablet by mouth every 4 hours as needed. 20 tablet 2016 Active Additional Information Patient not taking.Reported on 10/08/2018 phenazopyridine (PYRIDIUM) 100 mg Tablet Take 1 tablet by mouth 3 times daily as needed for Pain. 10 tablet 05/22/2016 Active potassium chloride (K-DUR/KLOR-CON) 20 mEq Tab Sust.Rel. Particle/Crystal Take 20 mEq by mouth 2 times daily. Active oxyCODONE (ROXICODONE) 5 mg Tablet Take 1 tablet by mouth every 4 hours as needed for Pain. 30 tablet 06/02/2016 Active Additional Information Patient not taking.Reported on 10/08/2018 oxyCODONE (ROXICODONE) 5 mg Tablet Take 1 tablet by mouth every 4 hours as needed for Pain. 30 tablet 06/03/2016 Active Additional Information Patient not taking.Reported on 10/08/2018 cholecalciferol, vitamin D3, (VITAMIN D3 ORAL) Take by mouth daily. Active sulfamethoxazole-tr imethoprim (BACTRIM;SEPTRA) 400-80 mg Tablet TAKE ONE TABLET BY MOUTH EVERY DAY 2 06/28/2018 Active Active Problems Problem Noted Date Diagnosed Date Nephrolithiasis 04/13/2015 Social History Tobacco Use Types Packs/Day Years Used Date Smoking Tobacco: Never Smokeless Tobacco: Never Sex and Gender Information Value Date Recorded Sex Assigned at Not on file Gender Identity Not on file Sexual Orientation Not on file Last Filed Vital Signs Vital Sign Reading Time Taken Comments Blood Pressure 129/70 10/08/2018 3:18 PM EDT Pulse 72 10/08/2018 3:18 PM EDT Temperature 36.6 ??C (97.8 ??F) 07/11/2018 11:[address] Respiratory Rate 16 06/03/2016 7:28 AM EST Oxygen Saturation 94% 10/08/2018 3:18 PM EDT Inhaled Oxygen Concentration - - Weight 94.5 kg (208 lb 6.4 oz) 07/11/2018 11:15 AM EST Height 170.2 cm (5' 7) 2016 9:01 AM EDT Body Mass Index 32.64 2016 9:01 AM EDT Plan of Treatment Health Maintenance Due Date Last Done Comments CT Colonography 1960 Colonoscopy 1960 Colorectal Cancer Screening 1960 FIT DNA 1960 FIT 1960 Sigmoidoscopy (10 year) with FIT yearly 1960 Sigmoidoscopy 1960 HIV screen 1977 Hepatitis C Screening 1977 Tetanus/Diphtheria/Pertussis Vaccines (1 - Tdap) 05/19 HPV test 1989 PAP Smear 1989 Breast Cancer Share Decision Needed 1999 Breast Cancer screening 1999 Zoster vaccine (1 of 2) 2009 Advance Directive 2014 Covid-19 Vaccine (1 - season) 2024 Influenza (Flu) vaccine (1 o f 1 - Influenza standard series) 03/16/2024 Bone Density Scan 2024 Pneumoccocal Vaccine: 65+ (1 of 1 - PCV) 2024 Diabetes Screening (HgbA1C or Glucose) Discontinued Medical Devices Implanted Type Area Carbon Blocks Press Operator Device Identifier Shelf Expiration Date Model / Serial / Lot Stent,Uret,Un iv,Soft,8fr,2 6cm ([id number]) - [id number] Implanted:Qty : 1 on 2016 by Sal Lee MD at [facility] IMPLANTS Right: Ureter DO NOT USE [employer] - [id number] 04/05/2021 [facility]-826-R T1 / / [id number] Stent,Uret,Un iv,Soft,7fr,2 6cm ([id number]) - [id number] Implanted:Qty : 1 on 2016 by Sal Lee MD at [facility] IMPLANTS Left: Ureter DO NOT USE [employer] - [id number] 12/06/2018 [facility]-726-R T1 / / [id number] Stent,Contour [id number] ([id number]) - [id number] Implanted:Qty : 1 on 06/02/2016 by Sal Lee MD at [facility] IMPLANTS Left: Ureter DO NOT USE [employer] - [id number] 04/13/2019 [facility]-626-R T1 / / [id number] Procedures Procedure Name Priority Date/Time Associated Diagnosis Comments BASIC METABOLIC PANEL Routine 08/10/2015 6:02 PM EST Nephrolithiasis from Last 3 Months or Most Recently Relevant to Health Maintenance Results * Basic Metabolic Panel (non-fasting) (08/10/2015 6:02 PM EST) Glucose 105 65 - 199 mg/dL CERNER MILLENNIUM Comment:Diabetes: >=200 mg/d L plus symptoms Blood Urea Nitrogen 11 8 - 18 mg/dL CERNER MILLENNIUM Creatinine 0.87 0.70 - 1.20 mg/dL CERNER MILLENNIUM Comment: Please note that the pediatric reference intervals supplied above were not validated at [facility]. Results from pediatric patients should be interpreted in conjunction to the patient's age, height and muscle mass. Sodium 144 135 - 145 mmol/L CERNER MILLENNIUM Potassium 4.3 3.5 - 5.0 mmol/L CERNER MILLENNIUM Comment: Please note: ??Patients with WBC >100,000 may have falsely elevated Potassium levels. ??For accurate Potassium quantification in these patients send serum separator tube (gold top) for subsequent determinations. ??Contact the Clinical Chemistry Laboratory if there are any questions. Chloride 102 98 - 107 mmol/L CERNER MILLENNIUM Carbon Dioxide 29 22 - 31 mmol/L CERNER MILLENNIUM Anion Gap 13 5 - 15 mmol/L CERNER MILLENNIUM Calcium 9.7 8.5 - 10.5 mg/dL CERNER MILLENNIUM Est Glomerular Filtration Rate >60 >=60 CERNER MILLENNIUM Comment: This estimated GFR (eGFR) value was calculated using the MDRD equation which has been validated on patients between the ages of 18 and 70. The MDRD should not be used to assess kidney function in patients < 18 years of age or in patients with extremes of body mass, or in patients with acute kidney failure. This value should be multiplied by 1.2 for patients. For further information please copy and paste the following links into your internet browser. [email or web address] Blood specimen (specimen) 08/10/2015 6:02 PM EST 08/10/2015 6:05 PM EST Narrative Resulting Agency Comment Spec In Lab Den Rowe MD CHEMISTRY ORDERAB LES CERNER MILLENNIUM from Last 3 Months or Most Recently Relevant to Health Maintenance Advance Directives * Full Code (Latest Code Status on File) Date Activated Date Inactivated Comments 06/02/2016 8:30 AM 06/03/2016 12:53 PM Question Answer Comments Does patient have capacity to make decision: Yes Care Teams Research Laboratory Specialist Relationship Specialty Start Date End Date Demetria Larios, SHOT COAT TENDER [address] [place] [address] PCP - General Family Medicine 10/02/17
--- OUTSIDE RECORDS SUMMARY | 2024-07-02 11:24 | XMS_ITS | Encounter Summary ---
Author Organization [facility] Address [address] [place] [address] Care Team Providers Care Cruise Guide Name Role Phone Jacob Martinez MD Primary Care Provider Aura elizalde Encounter Details Date Type Department Care Team (Late st Contact Info) Description 02/02/2020 Lab Requisition [facility] Pathology & Laboratory Medicine - [address] [address] Outr Resulting Lab, Provider Social History Tobacco [...] Procedure Name Priority Date/Time Associated Diagnosis Comments DO NOT ORDER STANDALONE - [facility] COVID TEST Today 02/02/2020 9:19 EDT COVID-19 TESTING Routine 02/02/2020 9:19 EDT documented in this encounter Results * DO NOT ORDER STANDALONE - [facility] COVID TEST (02/02/2020 9:19 EDT) COVID-19 rt-PCR Result NEGATIVE Negative 02/04/2020 14:36 EDT [facility] Comment: 2019-novel Coronavirus (2019-nCoV) not detected by the qRT-PCR assay. Consider testing for other respiratory viruses or re-collecting for 2019-nCoV testing. Note: Optimum timing for peak viral levels during infections caused by 2019-nCoV have not been determined. Collection of multiple specimens from the same patient may be necessary to detect the virus. Limitations Positive results are indicative of active infection with SARS-CoV-2 but do not rule out bacterial infection or co-infection with other viruses. The agent detected may not be the definite cause of disease. In addition, detection of viral RNA may not indicate the presence of infectious virus or that SARS-CoV-2 is the causative agent for clinical symptoms. Negative results do not preclude SARS-CoV-2 infection and should not be used as the sole basis for patient management decisions. Negative results must be combined with clinical observations, patient history, and epidemiological information. False negative results may also occur if amplification inhibitors are present in the specimen or if inadequate numbers of organisms are present in the specimen. Optimum specimen types and timing for peak viral levels during infections caused by SARS-CoV-2 have not been fully determined. Collection of multiple specimens (types and time points) from the same patient may be necessary to detect the virus. The test was validated for use with upper respiratory specimens obtained via nasopharyngeal or oropharyngeal swabs in VTM, UTM, M4, M5, M6, saline, and MTM media. The performance of this test has not been established for other specimens. Specimens collected using other FDA recommended Specimen Collection Materials listed in the FDA COVID-19 [employer] communication (October 09, 2019) are processed with the caveat that they were not all validated for use with this test and the result must be interpreted in this context. Furthermore, a false negative results may occur if a specimen is improperly collected, transported or handled. If the virus mutates in the RT-PCR target region, SARS-CoV-2 may not be detected or may be detected less predictably. Inhibitors or other types of interference may produce a false negative result. An interference study evaluating the effect of common cold medications was not performed. This test is not FDA-cleared but its performance characteristics were established by our CLIA-certified, CAP-accredited, high complexity laboratory in accordance with CLIA regulations, [employer] (CAP) guidelines (Oct 02, 2019), and FDA guidance (Sep 13, 2019). This test is only for use under the Food and Drug Administration's Emergency Use Authorization. Swab ENTIRE NASOPHARYNX / Unknown 02/02/2020 9:19 EDT 02/02/2020 16:34 EDT us Provider Outr Resulting Lab MICROBIOLOGY - GENER AL ORDERABLES Final Result [facility] [place], [place] * COVID-19 TESTING (02/02/2020 9:19 EDT) COVID-19 rt-PCR Result NEGATIVE Negative 02/04/2020 17:22 EDT [facility] Comment: 2019-novel Coronavirus (2019-nCoV) not detected by the qRT-PCR assay. Consider testing for other respiratory viruses or re-collecting for 2019-nCoV testing. Note: Optimum timing for peak viral levels during infections caused by 2019-nCoV have not been determined. Collection of multiple specimens from the same patient may be necessary to detect the virus. Limitations Positive results are indicative of active infection with SARS-CoV-2 but do not rule out bacterial infection or co-infection with other viruses. The agent detected may not be the definite cause of disease. In addition, detection of viral RNA may not indicate the presence of infectious virus or that SARS-CoV-2 is the causative agent for clinical symptoms. Negative results do not preclude SARS-CoV-2 infection and should not be used as the sole basis for patient management decisions. Negative results must be combined with clinical observations, patient history, and epidemiological information. False negative results may also occur if amplification inhibitors are present in the specimen or if inadequate numbers of organisms are present in the specimen. Optimum specimen types and timing for peak viral levels during infections caused by SARS-CoV-2 have not been fully determined. Collection of multiple specimens (types and time points) from the same patient may be necessary to detect the virus. The test was validated for use with upper respiratory specimens obtained via nasopharyngeal or oropharyngeal swabs in VTM, UTM, M4, M5, M6, saline, and MTM media. The performance of this test has not been established for other specimens. Specimens collected using other FDA recommended Specimen Collection Materials listed in the FDA COVID-19 [employer] communication (October 09, 2019) are processed with the caveat that they were not all validated for use with this test and the result must be interpreted in this context. Furthermore, a false negative results may occur if a specimen is improperly collected, transported or handled. If the virus mutates in the RT-PCR target region, SARS-CoV-2 may not be detected or may be detected less predictably. Inhibitors or other types of interference may produce a false negative result. An interference study evaluating the effect of common cold medications was not performed. This test is not FDA-cleared but its performance characteristics were established by our CLIA-certified, CAP-accredited, high complexity laboratory in accordance with CLIA regulations, [employer] (CAP) guidelines (Oct 02, 2019), and FDA guidance (Sep 13, 2019). This test is only for use under the Food and Drug Administration's Emergency Use Authorization. Performing Lab [facility] 02/04/2020 17:22 EDT [facility] Swab 02/02/2020 9:19 EDT 02/02/2020 16:34 EDT us Provider Outr Resulting Lab MICROBIOLOGY - GENER AL ORDERABLES Final Result [facility] [address] [place] [address] [facility] [place], [place] documented in this encounter Visit Diagnoses Not on filedocumented in this encounter Care Teams Cruise Guide Relationship Specialty Start Date End Date Jacob Martinez MD PCP - General 05/31/15 documented as of this encounter
--- OUTSIDE RECORDS SUMMARY | 2024-07-02 11:24 | XMS_ITS | Encounter Summary ---
Author Organization [facility] Address [address] [place] [address] Care Team Providers Care Molding Machine Tender Name Role Phone Jacob Martinez MD Primary Care Provider Aura elizalde Encounter Details Date Type Department Care Team (Late st Contact Info) Description 02/22/2021 Lab Requisition [facility] Pathology & Laboratory Medicine - [address] [address] Outr Resulting Lab, Provider Social History Tobacco [...] Procedure Name Priority Date/Time Associated Diagnosis Comments CELIAC DISEASE PANEL Routine 02/21/2021 15:00 EDT documented in this encounter Results * CELIAC DISEASE PANEL (02/21/2021 15:00 EDT) Tissue Transglutaminase Antibody IGA <1.2 <4.0 U/mL 02/23/2021 12:41 EDT [facility] Comment: A negative result may be due to IgA deficiency and does not rule out celiac disease. ? Negative: ??<4.0 U/mL ? Weak Positive: ??4.0 - 10.0 U/mL ? Positive: ??>10.0 U/mL Results were obtained with the [employer] QUANTA Lite R h-tTG IgA CORRIE assay on the [employer] DSX. IgA 115 85 - 499 mg/dL 02/23/2021 12:41 EDT [facility] Celiac Disease Interpretation Negative Serology. Celiac disease unlikely. Approximately 10% of patients with celiac disease are seronegative. Patients who are already adhering to a gluten-free diet may also be seronegative. If celiac disease is highly clinically suspected, referral to gastroenterology for additional evaluation is recommended. 02/23/2021 12:41 EDT [facility] Blood VENOUS BLOOD / Unknown 02/21/2021 15:00 EDT 02/22/2021 21:05 EDT us Provider Outr Resulting Lab IMMUNOLOGY AND SEROL OGY ORDERABLES Final Result [facility] [address] [place] [address] documented in this encounter Visit Diagnoses Not on filedocumented in this encounter Care Teams Molding Machine Tender Relationship Specialty Start Date End Date Jacob Martinez MD PCP - General 05/31/15 documented as of this encounter
--- OUTSIDE RECORDS SUMMARY | 2024-07-02 11:24 | XMS_ITS | Encounter Summary ---
Author Organization [facility] Address [address] [place] [address] Care Team Providers Care Sr. Vendor Management Associate Name Role Phone Jacob Martinez MD Primary Care Provider Aura elizalde Encounter Details Date Type Department Care Team (Late st Contact Info) Description 02/22/2021 Lab Requisition [facility] Pathology & Laboratory Medicine - [facility] [address] [place] [address] Outr Resulting Lab, Provider Social History Tobacco [...] Comments ZZCOVID-19 TEST [facility] PCR Today 02/21/2021 14:15 EDT COVID-19 TESTING Routine 02/21/2021 14:1 5 EDT documented in this encounter Results * COVID-19 TEST [facility] PCR (02/21/2021 14:15 EDT) Swab ENTIRE NASOPHARYNX / Unknown 02/21/2021 14:15 EDT 02/22/2021 15:46 EDT us Provider Outr Resulting Lab MICROBIOLOGY - GENER AL ORDERABLES Final Result [facility] [address] [place] [address] * COVID-19 TESTING (02/21/2021 14:15 EDT) COVID-19 rt-PCR Result Negative Negative 02/23/2021 13:31 EDT [facility] Comment: This test has not been FDA cleared or approved. This test has been authorized by FDA under an EUA for use by authorized laboratories. This test has been authorized only for detection of nucleic acid from 2019-nCoV, not for any other viruses or pathogens. This test is only authorized for the duration of the declaration that circumstances exist justifying the authorization of emergency use of in vitro diagnostic tests for detection and/or diagnosis of 2019-nCoV under section 564(b)(1) of Act, 21 U.S.C ?? 360bbb-3(b) (1), unless the authorization is terminated or revoked sooner. Negative results do not preclude 2019-nCoV infection and should not be used as the sole basis for treatment or other patient management decisions. Negative results must be combined with clinical observations, patient history, and epidemiological information. This test was developed and its performance characteristics determined by [facility]. It has not been cleared or approved [...] testing. This test is based on the [facility] COVID-19 Emergency Use Authorization (EUA) assay, with minor modification as defined by the FDA Performed on the [employer] 7 Pro RT-PCR System. Performing Lab [facility] 02/23/2021 13:31 EDT [facility] Swab 02/21/2021 14:1 5 EDT 02/22/2021 15:46 EDT us Provider Outr Resulting Lab MICROBIOLOGY - GENER AL ORDERABLES Final Result [facility] [address] [place] [address] documented in this encounter Visit Diagnoses Not on filedocumented in this encounter Care Teams Sr. Vendor Management Associate Relationship Specialty Start Date End Date Jacob Martinez MD PCP - General 05/31/15 documented as of this encounter
--- OUTSIDE RECORDS SUMMARY | 2024-07-02 11:24 | XMS_ITS | Encounter Summary ---
Author Organization [facility] Address [facility] [place] [address] Care Team Providers Care Workcell Operator Name Role Phone RicDemetria CAMILO Primary Care Provider Encounter Details Date Type Department Care Team (Latest Contact Info) Description 10/08/2018 2:04 PM EDT - 10/08/2018 11:59 PM EDT Hospital [place] [address] Manuel Rubin Jr., MD [facility] [place] [address] Nephrolithiasis Discharge Disposition: Home Social History Tobacco Use Types Packs/Day Years Used Date Smoking Tobacco: Never Smokeless Tobacco: Never Sex and Gender Information Value Date Recorded Sex Assigned at Not on file Gender Identity Not on file Sexual Orientation Not on file documented as of this encounter Medications at Time of Discharge Medication Sig Dispensed Refills Start Date End Date cholecalciferol, vitamin D3, (VITAMIN D3 ORAL) Take by mouth daily. sulfamethoxazole-trimetho prim (BACTRIM;SEPTRA) 400-80 mg Tablet TAKE ONE TABLET BY MOUTH EVERY DAY 2 06/28/2018 oxyCODONE (ROXICODONE) 5 mg Tablet Take 1 [...] ORAL 04/15/2010 APPLE CIDER VINEGAR ORAL 04/15/2010 documented as of this encounter Plan of Treatment Not on file documented as of this encounter Procedures Procedure Name Priority Date/Time Associated Diagnosis Comments US RETROPERITONEAL COMPLETE Routine 10/08/2018 2:37 PM EDT Nephrolithiasis documented in this encounter Results [...] this report, please contact the number below. ? Vito B Alen, Staff Physician Electronically Signed Final Report ?? 10/08/2018 02:51 pm Narrative 10/08/2018 2:51 PM EDT Renal ?(Signed Final 10/08/2018 02:51 pm) PATIENT INFO: ID #: ? [id number] ?: [birth year] (58 yrs) Name: ? WILLIAM Glez ? Visit Date: 10/08/2018 02:16 pm ? GINETTE PERFORMED BY: Performed By: ? Veronica Jarrell RDMS Attending: ?Alen GONGORA, Vito Lomeli Resident: ? Magui GONGORA, Fausto Hawkins Referred By: ?MANUEL RUBIN JR Location: ? [facility] SERVICE(S) PROVIDED: ??URETRO - Retroperitoneal Complete - [id number] ? [id number] INDICATIONS: ??? stone growth COMPARISON: Ultrasound: 10/02/2017. [...] 10/08/2018 02:51 pm) PATIENT INFO: ID #: [id number] : [birth year] (58 yrs) Name: WILLIAM Glez Visit Date: 10/08/2018 02:16 pm GINETTE PERFORMED BY: Performed By: Veronica Jarrell RDMS Attending: Vito Lowry MD Resident: Fausto Kilgore MD Referred By: MANUEL RUBIN JR Location: [facility] SERVICE(S) PROVIDED: URETRO - Retroperitoneal Complete - [id number] INDICATIONS: ? stone growth COMPARISON: Ultrasound: 10/02/2017. [...] this report, please contact the number below. Vito Lowry, Staff Physician Electronically Signed Final Report 10/08/2018 02:51 pm Manuel Rubin Jr., MD IMG GEN ORDERAB LES documented in this encounter Visit Diagnoses Diagnosis Nephrolithiasis Calculus of kidney documented in this encounter Care Teams Workcell Operator Relationship Specialty Start Date End Date Demetria Larios, CLEANING LABORER [address] [place] [address] PCP - General Family Medicine 10/02/17 documented as of this encounter
--- OUTSIDE RECORDS SUMMARY | 2024-07-02 11:24 | XMS_ITS | Encounter Summary ---
Author Organization Pending Sale To [facility] Address [facility] [place] [address] Care Team Providers Care Rail Track Layer Name Role Phone Demetria Larios APRN Primary Care Provider [phone] Reason for Visit * Consultation (Routine) - Closed Specialty Diagnoses / Procedures Referred By Contac t Referred To Contact Infectious Diseases Diagnoses RECURRENT PROTEUS UTI'S Francisco Agustin MD [address] [place] [address] [facility] [address] [place] [address] Referral ID Status Reason Start Date Expiration Date V isits Requested Visits Authorized [id number] Closed Consult, Test & Treat Connection Center 06/07/2018 06/07/2019 1 1 Encounter Details Date Type Department Care Team (Late st Contact Info) Description 07/11/2018 11:00 AM EST Office Visit [place] [phone] Luisana Luu MD [facility] [place] [address] Recurrent UTI (urinary tract infection) Social History Tobacco Use Types Packs/Day Years Used Date Smoking Tobacco: Never Smokeless Tobacco: Never Sex and Gender Information Value Date Recorded Sex Assigned at Not on file Gender Identity Not on file Sexual Orientation Not on file documented as of this encounter Last Filed Vital Signs Vital Sign Reading Time Taken Comments Blood Pressure 113/72 07/11/2018 11:15 AM EST Pulse 72 07/11/2018 11:15 AM EST Temperature 36.6 ??C (97.8 ??F) 07/11/2018 11:[address] Respiratory Rate - - Oxygen Saturation 99% 07/11/2018 11:15 AM EST RA Inhaled Oxygen Concentration - - Weight 94.5 kg (208 lb 6.4 oz) 07/11/2018 11:15 AM EST Height - - Body Mass Index 32.64 2016 9:01 AM EDT documented in this encounter Progress Notes * Luisana Luu MD - 07/11/2018 11:00 AM EST Hannah Nair is a 58 y.o. 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 She found out that she has urinary tract infection and renal stones for more than 7 years prior. She reports pain with urination and increase in urinary frequency. She denies fever, no back pain, no nausea, no vomiting. She is followed by urology for kidney stones. She undergone ESBL more than 4 times at [facility] and came to [facility] [place] [facility] in [place]. Stones were sent for analysis revealed calcium phosphate and calcium carbonate stone. CT abdomen also showed nephrocalcinosis. She was also seen by nephrology for this. She was prescribed with Chlorthalidone as the risk factors were due to hypercalciuria, hyperoxaluria, hypocitraturia. Serum calcium was at normal range couple years prior. She was treated several times with UTI by her PCP, almost all of urine culture grew Proteus Spp. She was told that the reason that she keep getting kidney stones is from infection. She has been taking bactrim daily since early June to control her symptoms. Today, she denies fever. She has lower pubic tenderness. She denies back pain, no shaking, no chills, no appetite. She sometimes notices a small stones in urine. She states that she is eating healthy/organic diet. She grows her own vegetables.She denies smoking, drinks occasionally. No past medical history on file. Past Surgical History: Procedure Laterality Date ??? PRO CYSTO/URETERO/PYELOSCOPY W/LITHOTRIPSY Left 06/02/2016 CYSTOURETEROSCOPY, LITHOTRIPSY performed by [facility] ??? PRO CYSTO/URETEROSCOPY W/LITHOTRIPSY INC INDWELLING STENT INSERTION Right 2016 CYSTOURETEROSCOPY,DIAGNOSTIC,W/ LITHOTRIPSY INC. INSERTION OF INDWELLING URETERAL STENT performed by [facility] ??? PRO CYSTOSCOPY, REMV CALCULUS, SIMPLE Right 06/02/2016 CYSTO, REMOVAL OF STENT, FOREIGN BODY OR CALCULUS, SIMPLE performed by Sal Lee MD at [facility] ??? PRO INCISE BLADDER, +URETER CATH Left 2016 CYSTOTOMY WITH INSERTION OF URETERAL STENT\CATHETER performed by Sal Lee MD [facility] Current Outpatient Medications Medication Sig Dispense Refill ??? cholecalciferol, vitamin D3, (VITAMIN D3 ORAL) Take by mouth daily. ??? phenazopyridine (PYRIDIUM) 100 mg Tablet Take 1 tablet by mouth 3 times daily as needed for Pain. 10 tablet 0 ??? cranberry conc-ascorbic acid 4,200-20 mg Capsule Take 4,200 mg by mouth daily. ??? chlorthalidone (HYGROTEN) 25 mg Tablet Take 1 tablet by mouth daily. 90 tablet 3 ??? Chromium Picolinate 400 mcg Tablet Take 500 mcg by mouth. ??? ascorbic acid (VITAMIN C) 500 mg Tablet, Chewable Take 500 mg by mouth 3 times daily. ??? CIS Free Text Med - black strap molassas ??? LACTOBACILLUS ACIDOPHILUS ORAL ??? APPLE CIDER VINEGAR ORAL ??? sulfamethoxazole-trimethoprim (BACTRIM;SEPTRA) 400-80 mg Tablet TAKE ONE TABLET BY MOUTH EVERY DAY 2 ??? oxyCODONE (ROXICODONE) 5 mg Tablet Take 1 tablet by mouth every 4 hours as needed for Pain. (Patient not taking: Reported on 10/02/2017) 30 tablet 0 ??? oxyCODONE (ROXICODONE) 5 mg Tablet Take 1 tablet by mouth every 4 hours as needed for Pain. (Patient not taking: Reported on 10/02/2017) 30 tablet 0 ??? potassium chloride (K-DUR/KLOR-CON) 20 mEq Tab Sust.Rel. Particle/Crystal Take 20 mEq by mouth 2 times daily. ??? senna-docusate (PERICOLACE) 8.6-50 mg Tablet Take 2 tablets by mouth daily. (Patient not taking: Reported on 07/11/2018) 30 tablet 11 ??? oxyCODONE (ROXICODONE) 5 mg Tablet Take 1 tablet by mouth every 4 hours as needed. (Patient nottaking: Reported on 10/02/2017) 20 tablet 0 ??? magnesium oxide (MAG-OX) 400 mg Tablet Take 500 mg by mouth daily. No current facility-administered medications for this visit. Allergies Allergen Reactions ??? Beesix [Pyridoxine] Anaphylaxis ??? Chocolate Flavor Anaphylaxis CIS - Anaphylaxis ??? Ciprofloxacin CIS - Anaphylaxis ??? Sennosides-Docusate Sodium Other (See Comments) Patient reports oral swelling ??? Tylenol [Acetaminophen] Anaphylaxis Had a coating on it, that was the problem for her. ??? Chloride Other (See Comments) Per patient, [...] Rash ??? Milk ??? Milk Based Formulas No past medical history on file. Family history Denies history of recurrent kidney stones in the family. Review of Systems ROS is positive for lower pubic pain, pain with urination. Denies owen pain. The rest of ROS are normal Physical Exam Most Recent Vitals: 07/11/18 1115 BP: 113/72 Pulse: 72 Temp: 36.6 ??C (97.8 ??F) SpO2: 99% Constitutional: She is oriented to person, place, and time. She appears well- developed and well-nourished. Eyes: Conjunctivae are normal. Pupils are equal, round, and reactive to light. Neck: Normal range of motion. Neck supple. No JVD present. Cardiovascular: Normal rate, regular rhythm and normal heart sounds. No murmur heard. Pulmonary/Chest: Cleat to auscaltation Abdominal: Soft. Bowel sounds are normal, no tenderness at suprapubic area. No CVA tenderness Musculoskeletal: No edema Labs. urine culture 05/2018: Proteus hauseri (senstive to quinolones, bactrim) 05/2016 : Proteus hauseri(sentitive to quinolones, bactrim) 03/2016; mixed sherly Imaging - Assessment and Plan A 58 year old female with history of nephrocalcinosis with recurrent infection due to Proteus spp. Proteus spp is known to associated with kidney stones especially magnesium phosphate and calcium carbonate stones. She has been taking bactrim which is appropriate for Proteus that grew. In regards toduration, she would need at least 3-6 months as we considered her as recurrent complicated UTI given underlying calcium stones. It's quite difficult to determine if symptoms that she reported today is from infection, we will obtain UA and urine culture today if there is any evidence of infection. She states that she is compliance with high fluid intake, low sodium, low calcium intake. However, she has not have urine PH or 24 hours urine for more than a year. We will repeat today if urine PH is alkaline. Plan; 1. Continue Bactrim once daily for now. We does have history of allergic reaction(angioedema) to ciprofloxacin, we will try to refrain from using this group of antibiotics. 2. Will repeat UA and UC today. 3. Encourage hydration, low sodium diet 4. Advice to keep follow up with nephrology for nephrocalcinosis. 5. Case discussed with Dr. Brar. Luisana Luu MD 07/22/2018 1:06 PM ID Attending I reviewed the patient's history with Dr. Luu during the visit and I agree with her history, as detailed above. In brief, we were asked by Dr. Agustin to see this 58 y.o. female because of recurrent UTIs. Ms. Niar has had recurrent UTIs with various species of Proteus. She has renal stonesand medullary nephrocalcinosis. She presents today feeling well, on Bactrim. I interviewed and examined the patient myself, and my examination confirms Dr. Luu's findings. UA today: 5 WBC, <1 RBC. Not reflexed for culture. Dr. Luu's assessment and plan were formulated in discussion with me at the time of the visit, and I agree with them as documented. Ms. Nair would benefit from long-term prophylaxis, as Proteus is difficult to eliminated from the urinary tract in the setting of stones. Long-term Bactrim treatment might predispose to infection with another GNR, but this is a risk worth taking, as she will almost certainly have recurrent Proteus infection without prophylaxis (as long as there are stones). We would be happy to see her again in 3-6 months, to address the issue of long-term prophylaxis. documented in this encounter Miscellaneous Notes * Addendum Note - Derian Brar MD - 07/11/2018 11:00 AM ESTAddended by: DERIAN BRAR on: 07/26/2018 11:15 AM Modules accepted: Level of Service documented in this encounter Plan of Treatment Not on file documented as of this encounter Procedures Procedure Name Priority Date/Time Associated Diagnosis Comments URINALYSIS MICROSCOPIC EXAM Routine 07/11/2018 1:05 PM EST URINALYSIS WITH REFLEX CULTURE Routine 07/11/2018 1:05 PM EST Recurrent UTI (urinary tract infection) documented in this encounter Results * Urinalysis Microscopic Exam (07/11/2018 1:05 PM EST) RBC, Urine <1 0 - 4 /HPF [facility] WBC, Urine 5 0 - 5 /HPF [facility] Urine specimen obtained by clean catch procedure (specimen) 07/11/2018 1:05 PM EST 07/11/2018 1:05 PM EST Narrative Resulting Agency Comment Spec In Lab Derian Brar MD URINE ORDERABLES [facility] [place] [address] * (ABNORMAL) Urinalysis with reflex Culture (07/11/2018 1:05 PM EST) Glucose, Urine Dipstick Negative Negative mg/dL [facility] Protein, Urine Dipstick Negative Negative mg/dL [facility] Bilirubin, Urine Dipstick Negative Negative mg/dL [facility] Comment: Clinical correlation required for positive Urine Bilirubin results as false positive may occur with some drugs and drug related products. If a false positive is suspected a serum total bilirubin should be considered if clinically indicated. Urobilinogen, Urine Dipstick Normal Normal mg/dL [facility] pH, Urn (dipstick) 7.0 5.0 - 8.0 [facility] Blood, Urine Dipstick Negative Negative mg/dL [facility] Ketone, Urine Dipstick Negative Negative mg/dL [facility] Nitrite, Urine Dipstick Negative Negative [facility] Leukocytes, Urine Dipstick Trace(A) Negative [facility] Appearance, Urine Dipstick Clear Clear [facility] Specific [place] Urine Automated 1.005 1.002 - 1.030 [facility] Color, Urine Dipstick Straw Yellow [facility] Reflex to Culture No [facility] Urine specimen obtained by clean catch procedure (specimen) 07/11/2018 1:05 PM EST 07/11/2018 1:05 PM EST Narrative Resulting Agency Comment Spec In Lab Derian Brar MD URINE ORDERABLES [facility] [place] [address] documented in this encounter Visit Diagnoses Diagnosis Recurrent UTI (urinary tract infection) Urinary tract infection, site not specified documented in this encounter Care Teams Rail Track Layer Relationship Specialty Start Date End Date Demetria Larios APRN [address] [facility] [place] [address] PCP - General Family Medicine 10/02/17 documented as of this encounter
--- OUTSIDE RECORDS SUMMARY | 2024-07-02 11:24 | XMS_ITS | Encounter Summary ---
Author Organization [facility] Address [address] [place] [address] Care Team Providers Care Kosher Sealer Name Role Phone Unavailable Primary Care Provider Unavailabl e Encounter Details Date Type Department Care Team (Late st Contact Info) Description 09/02/1999 Results Only [facility] conversion [address] [place] [address] Faby Colmenares MD [address] [place], [place] [id number] Social History Tobacco Use Types Packs/Day Years [...] Priority Date/Time Associated Diagnosis Comments CYTOPATHOLOGY Routine 09/02/1999 10:34 EST documented in this encounter Results * CYTOPATHOLOGY (09/02/1999 10:34 EST) Pathology Report: CYTOPATHOLOGY REPORT Reports generated via electronic interface contain original data; however they are lacking the format of the original report. Caution should be taken when reading/interpreti ng unformatted reports. Name: ? WILLIAM NAIR ? Accession #: ? [id number] : ? 1960 (Age: 39) ??F ?Collect Date: ? 09/02/1999 Location: ?Receive Date: ? 09/02/1999 Provider: ?FABY COLMENARES MD Copy to: ?FABY COLMENARES MD ? Specimen/Source: ?[employer] Last Menstrual Period: ? GYNECOLOGIC ??CYTOPATHOLOGY ??REPORT Name: ARIE NAIRJESSICA Glez ?[facility] : 1960 ?? 39Y F ?Client ID: ?? SS#: [id number] ? Clinician: FABY COLMENARES MD ?? Location: [facility] ??Copy to: ?? Specimen: ?[employer] ? Source: Cervix/Endocervix ?Collected: 09/01/99 ? Received: 09/02/1999 ?LMP: 08/25/99 ? Hormone Therapy: No ? : No ? Radiation Therapy: No ?? Post : No ?Chemotherapy: No ?IUD: No ? Prev Abnormal Pap: No ?? Clinical Hx: ?(Blank fitzgerald indicate information not provided on requisition) SPECIMEN ADEQUACY: ? Satisfactory For Evaluation ?? GENERAL CATEGORIZATION: ? WITHIN NORMAL LIMITS ? Reviewed And Electronically Signed By: ? Jonna Linda, SCT(ASCP) ? Report Date: ?? 09/05/1999 [email or web address] Archived Tests - Final Diagnosis Text Field: Clinical History : ? Document reviewed and electronically signed by: ? Conversion ? Report Date: ??09/05/1999 00:00 End of Report DEEPI[facility] SNEED 09/02/1999 10:3 4 EST 09/02/1999 10:35 EST us Faby Colmenares MD PATHOLOGY ORDERABLES Final Resu lt [facility] [address] [place] [address] documented in this encounter Visit Diagnoses Not on filedocumented in this encounter
--- OUTSIDE RECORDS SUMMARY | 2024-07-02 11:25 | XMS_ITS | Encounter Summary ---
[place] [address] Care Team Providers Care Underwriting Technician Name Role Phone GleasonEllen mcgrath Yahir PAGE Primary Care Provider [phone] Reason for Visit * Auth/Cert Specialty Diagnoses / Procedures Referred By Raissa hernandez Referred To Contact Diagnoses right renal pelvic stone Procedures PRO CYSTO/URETEROSCOPY W/LITHOTRIPSY INC INDWELLING STENT INSERTION CYSTOURETEROSCOPY,DIAGNOSTIC,W/ LITHOTRIPSY INC. INSERTION OF INDWELLING URETERAL STENT MODIFIER HOLMIUM LASER Referral ID Status Reason Start Date Expiration Date Visits Re quested Visits Authorized [id number] 1 1 Encounter Details Date Type Department Care Team (Late st Contact Info) Description 2016 10:08 AM EDT Anesthesia Event Outpatient [place] [address] Suzie Hoyt DO [facility] [place] [address] Yesy Echeverria MD [facility] [place] [address] Anesthesia Record Procedure Summary Procedure Name Responsible Anesthesiologist Anesthesia Start Time Anesthesia Stop Time CYSTOURETEROSCOPY,ROBIN GNOSTIC,W/ LITHOTRIPSY INC. INSERTION OF INDWELLING URETERAL STENT (WRVU 8) (Right: Bladder) Suzie Hoyt DO 05/19/16 1008 05/19/16 1232 Events Date Time Event Comment 2016 0932 1008 Start 1010 AN Verify 1010 An Start Data 1015 An Induction 1017 An Intubation 1019 Anesthesia Ready 1035 Procedure Start 1224 Extubation/LMA Out 1226 an stop data 1232 Recovery or ICU Handoff Lakisha ent care was transferred to the destination unit staff after review of the patient's medical history, current anesthetic/surgical status and plan, according to the Provider Handoff Checklist. 1232 Stop Meds Name Total fentaNYL 100 mcg IV Lidocaine 50 mg Propofol 200 mg Rocuronium 25 mg Ondansetron 8 mg Dexamethasone 8 mg ceFAZolin (ANCEF) 2 gram/50 mL infusion 2 g Propofol INF 524.15 mg lactated ringers infusion 1,000 mL 600 m L * Agents Name O2 Air N2O Sevoflurane (et) * Blood No blood administrations on file. Lines, Drains, and Airways Type Details Placement Removal (RETIRED) Peripheral IV Line - Single Lumen 05/19/16; 09; median cubital vein (antecubital fossa), left; [id number] catheter system; 20 gauge, 1 in length; MARIELY Olivas; intradermal injection, distraction, tolerated well, appears comfortable; 1; metacarpal vein (top of hand), left; 06/03/16; 1052 05/19/16 0932 by Ellen Canas RN 06/03/16 1052 by Kylie Mason RN ETT Mask Ventilation: Ea sy (1); ETT Type: Cuffed, Oral; ETT Size: 7 mm; Mac Blade: 3; Notes: Asleep, Pre-O2, Cricoid Pressure, Stylette; Attempts: 1; Laryngoscopy Grade: 1; ETT Placement Verified By: Auscultation, Capnometry, Visual; Secured at Teeth: 22 cm; Inserted by: Grupo Lord CRNA; Removal Date: 05/19/16; Removal Time: 1224 05/19/16 1017 by Grupo Lord CRNA 05/19/16 1224 by Grupo Lord CRNA (RETIRED) Incision 05/19/16 (Med wallace MD notes.); 1056; 03/13/22 (LDA cleanup utility RA#[id number]); 1715 (LDA cleanup utility RA#[id number]) 05/19/16 1056 by Julia Crook RN 03/13/22 1715 by Nathan Moreno documented in this encounter Social History Tobacco Use Types Packs/Day Years Used Date Smoking Tobacco: Never Sex and Gender Information Value Date Recorded Sex Assigned at Not on file Gender Identity Not on file Sexual Orientation Not on file documented as of this encounter OR Notes * Anesthesia Postprocedure Evaluation - Suzie Hoyt DO - 2016 4:32 PM EDT [facility] Department of Anesthesiology Post-procedure Note Patient: Hannah Nair Procedure Summary Date Anesthesia Start Anesthesia Stop Room / Location 05/19/16 1008 1232 [facility] OR 5 / [facility] Procedure Diagnosis Surgeon Responsible Provider CYSTOURETEROSCOPY,DIAGNOSTIC,W/ LITHOTRIPSY INC. INSERTION OF INDWELLING URETERAL STENT (Right Bladder); MODIFIER HOLMIUM LASER (Right Bladder); CYSTOTOMY WITH INSERTION OF URETERAL STENT\CATHETER (Left Pelvis) (right renal pelvic stone) Sal Lee MD Walker, Tacee E, DO All Anesthesia Providers: Anesthesiologist: Suzie Hoyt DO PERSONNEL MONITOR: Grupo Lord CRNA Last (1hr) Vitals: BP Temp Pulse Resp SpO2 Patient [facility]: PACU[facility] Level of Consciousness: Awake and Alert Pain Management: Satisfactory Analgesia PONV: None Cardiovascular Status: At Baseline and Hemodynamically Stable Respiratory Status: At Baseline and Room Air Postoperative Fluid Status: Intravascular EUvolemia Possible Anesthetic Complications: NONE apparent at time of evaluation Final Primary Anesthesia Type: General (The anesthetic type performed was the same as planned.) Comments: Suzie Hoyt DO * Anesthesia Preprocedure Evaluation - Suzie Hoyt DO - 2016 9:31 AM EDT Pre-Anesthesia Evaluation for: Hannah Nair a 56 y.o. female. Procedure(s): CYSTOURETEROSCOPY,DIAGNOSTIC,W/ LITHOTRIPSY INC. INSERTION OF INDWELLING URETERAL STENT MODIFIER HOLMIUM LASER Patient Active Problem List Diagnosis ??? Nephrolithiasis No past medical history on file. No past surgical history on file. Social History Substance Use Topics ??? Smoking [...] Anaphylaxis ??? Ciprofloxacin CIS - Anaphylaxis ??? Oxybutynin Hives ??? Peanut CIS - diareahea ??? Peanut Oil CIS - diareahea ??? Pomegranate Diarrhea ??? Vesicare [Solifenacin] Rash ??? Milk ??? Milk Based Formulas Medications: MAR and/or home medications have been reviewed. Physical Exam: Vitals: 05/19/16 0901 BP: 143/71 Pulse: 63 Resp: 18 Temp: 36.6 ??C (97.9 ??F) There is no height or weight on file to calculate BMI. Height: 170.2 cm (5' 7) Airway Assessment: Mallampati: III TM distance: >3 FB Neck ROM: full Cardiovascular Assessment: Rhythm: regular Pulmonary Assessment: breath sounds clear to auscultation Dental Assessment: - normal exam Misc Assessment: Patient is wearing No contact(s). IV access: Peripheral line Other exam findings: Small Mouth Opening Anesthesia Plan: ASA 2 general, with a(n) intravenous induction 56 y/o female for Cysto/Litho/Stent Hx of difficulty breathing post op- she does not know any more details. + motion sickness Pt denies CP/SOB/PND/Orthopnea/Active ALBERT ss/Acute illness Plan GA/NIKKI/VA and IV maint/p op PACU care and IV pain control w antiemetics including a scop patch IC discussed and obtained Region - Other Informed Consent: Anesthetic plan and risks discussed with patient and spouse. Plan discussed with PERSONNEL MONITOR. PAT Staff Note documented in this encounter Plan of Treatment Not on file documented as of this encounter Visit Diagnoses Not on filedocumented in this encounter Administered Medications Inactive Administered Medications - up to 3 most recent administrations Medication Order MAR Action Action Date Dose Rate Site ceFAZolin (ANCEF) 2 gram/50 mL infusion 1 dose, Starting on Sun05/19/16 at 0904, Until Sun05/19/16 at 1019, ELLEN FRIEND: cabinet override Given 2016 10:19 AM EDT 2 g dexamethasone (DECADRON) injection PRN, Starting on Sun05/19/16 at 1020, Until Sun05/19/16 at 1232, Anesthesia Intra-op, Routine Given 2016 10:20 AM EDT 8 mg fentaNYL 50 mcg/mL multi-dose injection PRN, Starting on Sun05/19/16 at 1027, Until Sun05/19/16 at 1232, Pain, Anesthesia Intra-op, Routine Given 2016 12:30 PM EDT 25 mcg Given 2016 12:04 PM EDT 25 mcg Given 2016 10:27 AM EDT 25 mcg lactated ringers infusion 1,000 mL 1,000 mL, at 100 mL/hr, Intravenous, CONTINUOUS, Starting on Sun05/19/16 at 0915, Until Sun05/19/16 at 1644, Day of Surgery (Day of Procedure) New Bag 2016 10:08 AM EDT New Bag 2016 9:33 AM EDT 1,000 mLs 100 mL/hr lidocaine (PF) (XYLOCAINE) 100 mg/5 mL (2 %) injection PRN, Starting on Sun05/19/16 at 1015, Until Sun05/19/16 at 1232, Anesthesia Intra-op, Routine Given 2016 10:15 AM EDT 50 mg ondansetron (ZOFRAN) injection PRN, Starting on Sun05/19/16 at 1216, Until Sun05/19/16 at 1506, Nausea, Anesthesia Intra-op, Routine Given 2016 12:16 PM EDT 8 mg propofol (DIPRIVAN) 10 mg/mL bolus injection (Anesthesia) PRN, Starting on Sun05/19/16 at 1015, Until Sun05/19/16 at 1232, Anesthesia Intra-op Given 2016 10:15 AM EDT 200 mg propofol (DIPRIVAN) infusion CONTINUOUS PRN, Starting on Sun05/19/16 at 1020, Until Sun05/19/16 at 1232, Anesthesia Intra-op, Routine New Bag 2016 10:20 AM EDT 50 mcg/kg/min 28.6 mL/hr rocuronium (ZEMURON) multi-dose injection PRN, Starting on Sun05/19/16 at 1015, Until Sun05/19/16 at 1232, Anesthesia Intra-op, Routine Given 2016 10:15 AM EDT 25 mg documented in this encounter Care Teams Underwriting Technician Relationship Specialty Start Date End Date Ellen Gleason APRN PCP - General 06/07/10 09/10/16 documented as of this encounter
--- OUTSIDE RECORDS SUMMARY | 2024-07-02 11:25 | XMS_ITS | Encounter Summary ---
Author Organization [facility] Address [facility] [place] [address] Care Team Providers Care Engineering Test Specialist Name Role Phone Ellen Gleason APRN Primary Care Provider [phone]- [phone] Encounter Details Date Type Department Care Team (Latest Contact Info) Description 2016 12:16 PM EDT - 2016 11:59 PM EDT Hospital Encounter Radiology Library at [facility] [place] [address] Discharge Disposition: Home Social History Tobacco Use [...] 20 mEq by mouth 2 times daily. oxyCODONE (ROXICODONE) 5 mg Tablet Take 1 [...] for 14 days. 28 tablet 06/02/2016 06/16/2016 sulfamethoxazole-trimeth oprim (BACTRIM DS) 800-160 mg Tablet Take 1 tablet by mouth 2 times daily for 14 days. 28 tablet 06/02/2016 06/02/2016 oxyCODONE (ROXICODONE) 5 mg Tablet Take 1 tablet by mouth every 4 hours as needed for Pain. 30 tablet 06/02/2016 06/02/2016 sulfamethoxazole-trimeth oprim (BACTRIM DS) 800-160 mg Tablet Take 1 tablet by mouth 2 times daily for 14 days. 28 tablet 06/02/2016 06/02/2016 tamsulosin (FLOMAX) 0.4 mg Capsule, Sust. Release 24 hr Take 1 capsule by mouth daily. 30 tablet 3 2016 07/11/2018 cephalexin (KEFLEX) 500 mg Capsule Take 500 mg by mouth 4 times daily. 06/01/2016 fish oil-omega-3 fatty acids 1,000 mg Capsule Take 2 g by mouth daily. 07/11/2018 documented as of this encounter Plan of Treatment Not on file documented as of this encounter Procedures Procedure Name Priority Date/Time Associated Diagnosis Comments FILM LIBRARY FLUORO OR [id number] ONLY Routine 2016 12:34 PM EDT documented in this encounter Results * Film Library - Fluoro or C Arm Storage Only (2016 12:34 PM EDT) Narrative [facility] RAD - 2016 12:34 PM EDT This exam is for storage only and is auto-finalizing. MD BLADIMIR Isaacs Jr. FILM LIBRARY O RDERABLES [facility] [place], [place] documented in this encounter Visit Diagnoses Not on filedocumented in this encounter Care Teams Engineering Test Specialist Relationship Specialty Start Date End Date Ellen Gleason APRN PCP - General 06/07/10 09/10/16 documented as of this encounter
--- OUTSIDE RECORDS SUMMARY | 2024-07-02 11:25 | XMS_ITS | Encounter Summary ---
Author Organization [facility] Address [facility] [place] [address] Care Team Providers Care Summons Server Name Role Phone Ellen Gleason CAMILO Primary Care Provider [phone]- [phone] Reason for Visit * Reason Comments Nephrolithiasis Encounter Details Date Type Department Care Team (Late st Contact Info) Description 03/29/2016 9:00 AM EDT [place] [address] Manuel Rubin Jr., MD [facility] [place] [address] Other symptoms involving urinary system(038.56); Nephrolithiasis Social History Tobacco Use Types Packs/Day Years Used Date Smoking Tobacco: Never Sex and Gender Information Value Date Recorded Sex Assigned at Not on file Gender Identity Not on file Sexual Orientation Not on file documented as of this encounter Last Filed Vital Signs Vital Sign Reading Time Taken Comments Blood Pressure 154/71 03/29/2016 9:30 AM EDT Pulse 57 03/29/2016 9:30 AM EDT Temperature 36.7 ??C (98 ??F) 03/29/2016 9:30 AM EDT Respiratory Rate 20 03/29/2016 9:30 AM EDT Oxygen Saturation 100% 03/29/2016 9:30 AM EDT Inhaled Oxygen Concentration - - Weight 95.3 kg (210 lb) 03/29/2016 9:30 AM EDT Height 170.2 cm (5' 7) 03/29/2016 9:30 AM EDT Body Mass Index 32.89 03/29/2016 9:30 AM EDT documented in this encounter Progress Notes * Manuel Rubin Jr., MD - 03/29/2016 9:00 AM EDT I saw and examined Hannah Nair with Dr. Su and have independently reviewed her imagingstudies. I agree with history, exam, impression, and plan as noted. She has recently passed a stone, notes some lingering right flank discomfort. We discussed she does have a renal pelvic stone whichmay require surgical intervention. She states she and her would prefer to have surgery and routine follow up at [facility] as the drive here to is becoming prohibitive. Thus, I asked them to contact Dr Agustin for follow up in the next several weeks. She should have a renal u/s to ensure the mild right hydroureter (suspected as s/p recent stone passage per [facility] CT report) has resolved. Additionally, she should discuss elective treatment of this renal pelvic stone with Dr Agustin. I reassured her that if Dr Agustin feels any aspect of her care should be performed here, we would be happy to see her back at any time for treatment and asked her to call to arrange in that situation. Finally, from standpoint of metabolic evaluation and management, she will see Dr Rowe today and will plan annual follow up with Dr Rowe and me in multi- disciplinary metabolic stone clinic. * Cynthia Su - 03/29/2016 9:00 AM EDT HPI: Ms. Hannah Nair is a 55 year-old woman who returns for urologic follow up to multi-disciplinary metabolic stone clinic. She has known medullary nephrocalcinosis.and frequently passes gravel. In mid-February, she was traveling with her , and passed a larger (about 5 mm) stone. She intermittently has passed stones in the interval but is currently comfortable. About 3 years ago, she underwent pressure washing of the inside of her kidneys at [facility] after an episode of urinary infection that required IV antibiotics. She also undergone ESWL x 3 or 4 times in the past at [facility]. She has also undergone ureteroscopy here in 2009 under my care. Ms. Nair has undergone a metabolic evaluation in the past and per her report, does not metabolize calcium correctly, which leads to her stones. She underwent repeat 24h urine, is seeing Dr. Rowe in consultation today. This is notable for marked hypercalciuria. She has also relayed concern about urinary frequency, urgency, occasional pelvic discomfort which she has suspected were UTI, although prior urine culture was negative. She is drinking >2 L of water per day and rarely eats meat and reports a low salt diet. She was last seen 08/10/15. Since that time she has been implementing dietary change, has bee started a lisinopril, and undergone a 24hr urine, and had an episode of colic 03/16/16, pain on the right side 03/25 like a javelin piercing though her side. She was seen at [facility] where a CT scan was done showing mild right hydroureteronephrosis and stable non obstructing lower 1.2cm calculous but per report no ureteral stones. She remained afebrile with a normal WBC and urine culture at that time mixed mucosal sherly. Today, her pain is a 4/10 not taking any meds. She reports that at time it feels like the muscles around the kidney ache. Better with topical creams. Review of Systems Constitution: Negative for fever. Gastrointestinal: Negative for abdominal pain. Genitourinary: Negative for flank pain. 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 She appears well- developed and well-nourished. No distress. HENT: Head: Normocephalic and atraumatic. Abdominal: Soft. She exhibits no distension. There is no tenderness. Genitourinary: Genitourinary Comments: No CVA tenderness to percussion bilaterally Neurological: She is alert and oriented to person, place, and time. Skin: She is not diaphoretic. Psychiatric: She has a normal mood and affect. Her behavior is normal. POC UA: Negative for blood, leukocyte esterase, nitrites Date of Collection: 06/19/15 12/22/15 Volume (L/day): [...] hydronephrosis or hydroureter. Bilateral nephrocalcinosis noted, with potentially bulky (>1cm) lower pole stones bilaterally per 07/2015 imaging with recent right colic episode consistent with stone passage, we are working on obtaining the records and imaging from [facility]. No evidence of infection in clinic today. Impression/Plan: 1)Bilateral nephrocalcinosis, with recent colic episodes ?possible persistent obstructing renal / ureteral stones. Will obtain imaging and records from [facility]. We have recommended and ordered a follow up renal u/s for today to assess for improvement in mild right ureteral dilation noted on [facility] CT. Regarding the additional existing stones identified on the above noted imaging, we reviewed management options, including watchful waiting, shock wave lithotripsy, ureteroscopy, and percutaneous nephrolithotomy. For now she declines surgical intervention and is content to monitor. We cautioned that the reported renal pelvic stone is more likely to become symptomatic, and she is thus willing to consider intervention. Again, she wishes to have this done at [facility] with Dr Agustin if possible. We will copy our notes to him, but I have asked that she contact him directly as well. Finally, given her recurrent stones would also like to check in with [facility] endourology occasionally.We will thus plan follow up with renal ultrasound and KUB in 12-18 months, which I have ordered today, sooner prn. She has been instructed to call or return in the interval if new signs or symptoms of stone passage/renal colic should develop. 2)Hypercalciuric urolithiasis. 24h urine reviewed 12/2015, and while urinary calcium is decreased itremains elevated. Discussed with Dr Rowe, and discussed with her at this time. We have additionally consulted Dr Rowe and his note will follow separately. Management options reviewed. She continues to decline thiazde to address hypercalciuria at this point, wishes to continue dietary interventions. STAFF ADDENDUM: I saw and examined Hannah Nair with Dr. Su, have independently reviewed her available imaging studies and the outside records and CT report from [facility], and concur with history, exam, impression, and plan as noted and amended above. MANUEL RUBIN JR, MD * Lisa Pereira RD - 03/29/2016 9:00 AM EDT Nutrition Intervention for the Management of Kidney Stone Disease Estimated body mass index is 32.89 kg/(m^2) as calculated from the following: Height as of this encounter: 170.2 cm (5' 7). Weight as of this encounter: 95.3 kg (210 lb). Patient Interview: Ms. Nair was seen for follow up in kidney stone clinic today. Her urine analysis shows improvement with lower sodium and calcium levels, but oxalate level still remains slightly elevated at 41. Ms. Nair wanted a new copy of the low oxalate diet food list. We discussedthe benefit of combining high calcium foods with her meals to help decrease the build up of oxalates and she was very happy to hear this. She reports eating plain yogurt, sour cream and cheddar cheese as sources of dairy in her diet. She finds taking a lactobacillus supplement helps digestion. Reviewed high potassium foods (per Dr. Rowe's request) and Ms. Nair was able to identify the high potassium foods that are also high in oxalates. No further questions today. Feeling healthy and in good spirits. Intervention: - Recommended timing of dietary calcium with meals (3-400 grams/serving) - Instructed pt on Low-Oxalate Food choices - Provided diet education materials on low oxalate diet, high potassium foods. Monitor/Evaluate: 1) Pt will add good sources of dietary calcium to her meals. 2) Follow up 24 hour urine analysis will show progress towards meeting goals ESTELLA MARINO documented in this encounter Plan of Treatment Not on file documented as of this encounter Procedures Procedure Name Priority Date/Time Associated Diagnosis Comments URINE CULTURE Routine 03/29/2016 10:25 AM EDT Other symptoms involving urinary system(788.99) documented in this encounter Results * Urine culture Clean Catch Urine (03/29/2016 10:25 AM EDT) Urine Culture No growth (Less than 1,000 cfu/ml). [facility] Urine specimen obtained by clean catch procedure (specimen) 03/29/2016 10:25 AM EDT 03/29/2016 12:43 PM EDT Narrative Resulting Agency Comment Spec In Lab Manuel Rubin Jr., MD MICROBIOLOGY - GEN ERAL ORDERABLES [facility] [place] [address] documented in this encounter Visit Diagnoses Diagnosis Other symptoms involving urinary system(788.99) Other symptoms involving urinary system Nephrolithiasis Calculus of kidney documented in this encounter Care Teams Summons Server Relationship Specialty Start Date End Date Ellen Gleason APRN PCP - General 06/07/10 09/10/16 documented as of this encounter
--- OUTSIDE RECORDS SUMMARY | 2024-07-02 11:25 | XMS_ITS | Encounter Summary ---
Author Organization [facility] Address [facility] [place] [address] Care Team Providers Care Derivatives Trader Name Role Phone GleasonEllen [email or web address] CAMILO Primary Care Provider [phone]- [phone] Encounter Details Date Type Department Care Team (Latest Contact Info) Description 03/30/2016 - 03/30/2016 11:59 PM EDT Hospital Encounter Radiology Library at [facility] [place] [id number] Donald Rubin Jr., MD [facility] [place] [address] Pain Discharge Disposition: Home Social History Tobacco Use Types Packs/Day Years Used Date Smoking Tobacco: Never Sex and Gender Information Value Date Recorded Sex Assigned at Not on file Gender Identity Not on file Sexual Orientation Not on file documented as of this encounter Medications at Time of Discharge Medication Sig Dispensed Refills Start Date End Date cranberry conc-ascorbic acid 4,200-20 mg Capsule Take [...] ORAL 04/15/2010 APPLE CIDER VINEGAR ORAL 04/15/2010 cephalexin (KEFLEX) 500 mg Capsule Take 500 mg by mouth 4 times daily. 06/01/2016 oxyCODONE-acetaminophen (PERCOCET) 5-325 mg Tablet Take 1 tablet by mouth every 4 hours as needed for Pain. 2016 fish oil-omega-3 fatty acids 1,000 mg Capsule Take 2 g by mouth daily. 07/11/2018 documented as of this encounter Plan of Treatment Not on file documented as of this encounter Procedures Procedure Name Priority Date/Time Associated Diagnosis Comments FILM LIBRARY STORAGE ONLY ULTRASOUND STUDY Routine 03/30/2016 12:00 AM EDT Pain documented in this encounter Results * Film Library- Storage only Ultrasound Study (03/30/2016 12:00 AM EDT) Narrative RAD - 03/31/2016 1:50 PM EDT This exam is for storage only and is auto-finalizing. MD SU Isaacs Jr.G FILM LIBRARY O RDERABLES Performing Organization Address City/State/[facility] Co de Phone Number [place], [place] documented in this encounter Visit Diagnoses Diagnosis Pain Generalized pain documented in this encounter Care Teams Derivatives Trader Relationship Specialty Start Date End Date Ellen Gleason, RETAIL SALESWORKER PCP - General 06/07/10 09/10/16 documented as of this encounter
--- OUTSIDE RECORDS SUMMARY | 2024-07-02 11:25 | XMS_ITS | Encounter Summary ---
Author Organization [facility] Address [facility] [place] [address] Care Team Providers Care Postal Service Clerk Name Role Phone Ellen Menchaca APRN Primary Care Provider [phone] Reason for Visit * Reason Comments Nephrolithiasis Encounter Details Date Type Department Care Team (Late st Contact Info) Description 08/10/2015 5:00 PM EST [place] [address] Den Rowe MD [facility] [place] [address] Nephrolithiasis Social History Tobacco Use Types Packs/Day Years Used Date Smoking Tobacco: Never Sex and Gender Information Value Date Recorded Sex Assigned at Not on file Gender Identity Not on file Sexual Orientation Not on file documented as of this encounter Progress Notes * Den Rowe MD - 08/12/2015 12:56 PM EST The relevant details regarding William Nair were reviewed with Dr. Taveras. The assessment and plan were formulated in discussion with me and I agree with them as documented, with the following additions. I have seen and examined the patient, providing the glez components as outlined below. Iagree with Dr. Taveras's exam findings. Patient with calcium oxalate/calcium phosphate stones, medullary nephrocalcinosis and high urine calcium and sodium. We will start with dietary counseling (with special emphasis on reducing dietary sodium and oxalate) and reduction of vitamin C intake; patient prefers to hold off on thiazide therapy but we will have low threshold for recommending this, pending repeat 24 hour urine through [facility], especially if urine calcium remains elevated despite reduction in sodium excretion. * Nkechi Taveras MD - 08/10/2015 4:39 PM EST [facility] Nephrology/Stone Follow Up William Nair [id number] 1960 ID: [id number] y.o. female for FU on Nephrolithiasis HPI: 55 y.o. female who presents to stone clinic for evaluation/management of kidney stones. Hx of passing stone without any pain. Hx of UTI in past described her stones in urine as (sand from the beach) Patient had bl flank pains in past but currently asymptomatic, denies hematuria/flank pain, nausea/vomiting.?? She is drinking >2 L of water per day and rarely eats meat and has a low salt diet. She has beenon vitamin C because she was told she needs it for her immune system. She says she eats a lot of oranges and other stuff with vitamin C in it. She says she eats low salt diet.??Does not take a lot of processed canned food. Most of the stuff she eats she makes it at home.Does stay well hydrated at times.??has been voiding a lot. Even during this trip to clinic she had to stop atleast 4 times while she was driving for an hour and half. Past urology procedures Hx: About 3 years ago, she underwent pressure washing of the inside of her kidneys at [facility] after an episode of urinary infection that required IV antibiotics. ESWL x 3 or 4 times in the past at [facility] ureteroscopy ROS: -no fever, chills, night sweats -no headache, blurring of vision, diplopia -no dysphagia, hearing problems -no chest pain, palpitation, no GRECO, orthopnea -no cough or SOB -no abdominal pain, nausea, vomiting or diarrhea -no rash -no neuropathy -no LE swelling -no change in mood -no heat or cold intolerance Medications: Prior to Admission medications Medication Sig Start Date End Date Taking? Authorizing Provider ascorbic acid (VITAMIN C) 500 mg Tablet, Chewable Take 500 mg by mouth 3 times daily. PROVIDER, HISTORICAL magnesium oxide (MAG-OX) 400 mg Tablet Take 400 mg by mouth daily. PROVIDER, HISTORICAL fish oil-omega-3 fatty acids 1,000 mg Capsule Take 2 g by mouth daily. PROVIDER, HISTORICAL CIS Free Text Med - black strap molassas 04/15/10 LACTOBACILLUS ACIDOPHILUS ORAL 04/15/10 APPLE CIDER VINEGAR ORAL 04/15/10 Allergies / ADRs: Allergies Allergen Reactions ??? Beesix [Pyridoxine] Anaphylaxis ??? Chocolate Flavor CIS - Anaphylaxis ??? Ciprofloxacin CIS - Anaphylaxis ??? Peanut CIS - diareahea ??? Peanut Oil CIS - diareahea ??? Oxybutynin Hives ??? Pomegranate Diarrhea ??? Vesicare [Solifenacin] Rash ??? Milk ??? 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 Heart - S1/S2 normal, no murmur, gallop, or rub. JVP not elevated. Abd - Soft. + BS. No bruit. Non tender. No organomegaly. Ext - Warm. No cyanosis. Minimal dependent edema. Labs: [facility]: 06/19/15 vol 3.85, ss caox 5.05 , calcium 491 , oxalate 40 , citrate 681 , ss caphos 1.78 , pH 6.703 , ss uric acid 0.09 , uric acid 0.745; sodium 239 mmol 09/11/09 vol 2.34, ss caox 5.82, calcium 234, oxalate 39 , citrate 738 , ss caphos 1.55, pH6.70 , ss uric acid 0.15 , uric acid 0.744 03/02/09 vol 2.23, ss caox 8.11 , calcium 316, oxalate 42, citrate 402, ss caphos 1.16, pH 6.03 , ss uric acid 0.71, uric acid 0.834 Boarder line elevated Ca,Na and oxalate in latest Urine study Impression ??Ultrasound -?? Retroperitoneal Complete - Summary ??1. 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 No ??hydronephrosis. Impression/ Plan: 57 yo lady with Hx of passing multiple stone without any pain. Hx of UTI in past Boarder line elevated Ca,Na and oxalate in latest Urine study US showing Bilateral medullary nephrocalcinosis with multiple bilateral discrete non-obstructing renal calculi Plan: She is on 1500mg of vit C daily: Lower dose of vit C to 1 tb a day as this much of high dose can beconverted to Ca oxalate and contribute towards stone formation Salt restriction Will get 24 hour urine in 2 months if she still have elevated Na she may be need to be started on thiazide diuretics Will order labs today Follow up: 6 months Seen and Discussed w/ Dr. Jae MENCHACA, PROTOZOOLOGIST Josh [address] [place] [address] Nkechi Taveras MD Nephrology Fellow Pager # [phone] Update 08/12/15 Labs are back from clinic visit Results for WILLIAM NAIR ( ) as of 08/12/2015 11:44 Ref. Range 08/10/2015 18:02 Sodium Latest Ref Range: 135-145 mmol/L 144 Potassium Latest Ref Range: 3.5-5.0 mmol/L 4.3 Chloride Latest Ref Range: 98-107 mmol/L 102 CO2 Latest Ref Range: 22-31 mmol/L 29 Anion Gap Latest Ref Range: 5-15 mmol/L 13 BUN Latest Ref Range: 8-18 mg/dL 11 Creatinine Latest Ref Range: 0.70-1.20 mg/dL 0.87 Estimated GFR Latest Ref Range: >=60 >60 Glucose Lvl Latest Ref Range: 65-199 mg/dL 105 Calcium Latest Ref Range: 8.5-10.5 mg/dL 9.7 Phosphorus Latest Ref Range: 2.5-4.5 mg/dL 3.8 Albumin Latest Ref Range: 3.2-5.2 gm/dL 4.6 PTH Latest Ref Range: 15-65 pg/mL 54 documented in this encounter Plan of Treatment Not on file documented as of this encounter Procedures Procedure Name Priority Date/Time Associated Diagnosis Comments LAB SCAN 01/04/2016 12:00 AM EDT PTH Routine 08/10/2015 6:02 PM EST Nephrolithiasis PHOSPHORUS Routine 08/10/2015 6:02 PM EST Nephrolithiasis ALBUMIN LEVEL Routine 08/10/2015 6:02 PM EST Nephrolithiasis BASIC METABOLIC PANEL Routine 08/10/2015 6:02 PM EST Nephrolithiasis documented in this encounter Results * SCAN DOC: LAB (01/04/2016 12:00 AM EDT) Scanning Provider MEDIA MGR SCAN EXT O RDR/RSLT * Albumin Level (08/10/2015 6:02 PM EST) Albumin 4.6 3.2 - 5.2 gm/dL CERNER MILLENNIUM Blood specimen (specimen) 08/10/2015 6:02 PM EST 08/10/2015 6:05 PM EST Narrative Resulting Agency Comment Spec In Lab Den Rowe MD CHEMISTRY ORDERAB LES Performing Organization Address City/[facility]/ZIP Co de Phone Number [facility]Property[facility] * PTH (08/10/2015 6:02 PM EST) Parathyroid Hormone 54 15 - 65 pg/mL CERNER MILLENNIUM Blood specimen (specimen) 08/10/2015 6:02 PM EST 08/10/2015 6:05 PM EST Narrative Resulting Agency Comment Spec In Lab Den Rowe MD CHEMISTRY ORDERAB LES [facility]Property[facility] * Phosphorus (08/10/2015 6:02 PM EST) Phosphorus 3.8 2.5 - 4.5 mg/dL CERNER MILLENNIUM Blood specimen (specimen) 08/10/2015 6:02 PM EST 08/10/2015 6:05 PM EST Narrative Resulting Agency Comment Spec In Lab Den Rowe MD CHEMISTRY ORDERAB LES [facility]ILL[facility] * Basic Metabolic Panel (non-fasting) (08/10/2015 6:02 PM EST) Glucose 105 65 - 199 mg/dL CERNER MILLENNIUM Comment:Diabetes: >=200 mg/d L plus symptoms Blood Urea Nitrogen 11 8 - 18 mg/dL CERNER MILLENNIUM Creatinine 0.87 0.70 - 1.20 mg/dL CERNER MILLENNIUM Comment: Please note that the pediatric reference intervals supplied above were [place] [facility] [place] Results from pediatric patients should be interpreted [...] the following links into your internet browser. [email or web address] Blood specimen (specimen) 08/10/2015 6:02 PM EST 08/10/2015 6:05 PM EST Narrative Resulting Agency Comment Spec In Lab Den Rowe MD CHEMISTRY ORDERAB LES Performing Organization Address City/State/[facility] Co de Phone Number [facility] documented in this encounter Visit Diagnoses Diagnosis Nephrolithiasis Calculus of kidney documented in this encounter Care Teams Postal Service Clerk Relationship Specialty Start Date End Date Ellen Menchaca APRN PCP - General 06/07/10 09/10/16 documented as of this encounter
--- OUTSIDE RECORDS SUMMARY | 2024-07-02 11:25 | XMS_ITS | Encounter Summary ---
[place] [address] Care Team Providers Care Shoe Sprayer Name Role Phone Ellen Gleason CAMILO Primary Care Provider [phone]- [phone] Reason for Visit * Auth/Cert Specialty Diagnoses / Procedures Referred By Raissa hernandez Referred To Contact Diagnoses right renal pelvic stone Procedures PRO CYSTO/URETEROSCOPY W/LITHOTRIPSY INC INDWELLING STENT INSERTION CYSTOURETEROSCOPY,DIAGNOSTIC,W/ LITHOTRIPSY INC. INSERTION OF INDWELLING URETERAL STENT MODIFIER HOLMIUM LASER Referral ID Status Reason Start Date Expiration Date Visits Re quested Visits Authorized [id number] 1 1 Encounter Details Date Type Department Care Team (Late st Contact Info) Description 2016 10:02 AM EDT - 2016 12:17 PM EDT Surgery [place] [address] Aury Lee MD [facility] [place] [address] CYSTOURETEROSCOPY,DIAG NOSTIC,W/ LITHOTRIPSY INC. INSERTION OF INDWELLING URETERAL STENT (WRVU 8) Social History Tobacco Use Types Packs/Day Years Used Date Smoking Tobacco: Never Sex and Gender Information Value Date Recorded Sex Assigned at Not on file Gender Identity Not on file Sexual Orientation Not on file documented as of this encounter Last Filed Vital Signs Vital Sign Reading Time Taken Comments Blood Pressure 143/71 2016 9:01 AM EDT Pulse 63 2016 9:01 AM EDT Temperature 36.6 ??C (97.9 ??F) 2016 9:01 AM ED T Respiratory Rate 18 2016 9:01 AM EDT Oxygen Saturation 98% 2016 9:01 AM EDT Inhaled Oxygen Concentration - - Weight - - Height 170.2 cm (5' 7) 2016 9:01 AM EDT Body Mass Index - - documented in this encounter Discharge Instructions * Discharge Instructions* Nathan Lebron RN - 2016 9:58 AM EDT General Anesthesia Discharge Instructions Go home and rest. You may be sleepy for several hours. Take it easy as sudden position changes may cause nausea and/or dizziness. Use caution on stairs. Follow a light to regular diet as tolerated today. If nausea occurs, start with clear liquids, and progress slowly to a regular diet. Do not drive, operate machinery, drink alcoholic beverages or make any legal decisions after havinggeneral anesthesia. The medications given change your reaction time and alter your judgement. IV site -- slight redness is normal, you can use warm compresses. If tenderness and redness increases or foul drainage occurs, please contact your M.D. Patients who have had endotracheal tubes/LMA (tubes used by the anesthesia staff to ensure a safe airway during your operation) may have a sore throat. This is normal and cold liquids or soothing lozengers will help ease this discomfort. Narcotic pain medications can cause constipation, please ask the surgeons office what they recommend for prevention of this. Some non-pharmaceutical means of constipation prevention include increasing intake of fluids, eating more fruits and vegetables as well as fruit juices. If you are uncomfortable and/or unable to urinate within 8 hours of discharge and it is before 5 pm, call your physician. If it is after 5pm go to the closest emergency room or call the hospital tank truck operator at [phone] and ask for physician chronic disease manager covering for your physician. Questions or problems after 5pm or on a weekend: Call the [facility] tank truck operator at and ask for the physician chronic disease manager covering for your doctor. SCOPOLAMINE PATCH DISCHARGE INSTRUCTIONS You are wearing a scopolamine patch. This is a medication patch used to prevent and treat nausea and vomiting after surgery. The patch is located: Behind the: Left ear. Please follow these instructions while you are wearing the patch. Try not to touch the patch. ??? If you do touch the patch, wash your hands right away. Make sure to remove all traces of medication from your hands. ??? If the medication gets on your hands and then you touch your eyes, your vision may become blurry or your pupils may widen. These are both normal and temporary reactions; they will go away shortly. You may remove the patch as early as: Tonight BUT must remove it no later than 1000 am on Sunday There will still be some active ingredients on the patch, so fold it in half (with the sticky sidestogether) and throw it in the trash. This will help prevent others from coming into contact with it. After removing the patch, carefully wash your hands and behind your ear (or wherever the patch was placed) with soap and water. If you have not urinated in 6-8 hours after your surgery, remove the patch and call your surgeon. * Patient Instructions* Rasheed Casillas - 2016 12:20 PM EDT Call your doctor for: ??? fevers greater than 101 ??? severe nausea or vomiting ??? increasing pain not controlled by pain medications The number for questions is [phone] before 5 PM weekdays and [phone] after 5 PM and weekends. Activity level: Increased activity may lead to more stent discomfort and more blood in your urine. Your activity level will be determined by your comfort level. Diet: You may resume your regular diet as tolerated. Driving: No driving while still taking opioid pain medications (wait at least 6- 8 hours since last dose). No driving if you are still sore from surgery as it may limit your ability to react quickly if necessary. Shower/Bath: No restrictions. Stent Discomfort: Most patients experience some degree of discomfort related to their ureteral stent. Symptoms include flank pain (increased during urination), frequency and urgency of urination, burning or pain in the bladder or urethral with urination, pelvic discomfort, and blood in the urine. Your symptoms may be exacerbated by activity. To manage your stent symptoms, try the following: - drink plenty of fluid (~2 liters per day or enough to make urine clear or pale yellow) - take ibuprofen (Motrin, Advil, or generic), up to 600-800mg every 8 hours - take acetaminophen (Tylenol), up to 650mg every 4 hours (regular strength) or 1000mg every 6 hours (extra strength) - take other narcotic pain medications as prescribed. If taking vicodin or percocet, do not take Tylenol in addition. Follow up Appointments: Follow-up appointment will be scheduled with Dr RUBIN in about 14 days for a2nd look urteroscopy. Please call [phone] if you do not receive your appointment. It is important to remember that your ureteral stent cannot stay in place permanently. If it remains in place too long it may become encrusted with stone and require additional surgery to remove it. Please call our office if you do not receive your appointment or if you need to reschedule. documented in this encounter Medications at Time [...] as of this encounter Progress Notes * Lynda Farmer RN - 2016 2:37 PM EDT Discharge instructions and medications reviewed with patient and son and . All questions answered and written copy sent home with patient. Pt spent a lot of time in the bathroom with urgency/frequency. MD Lee in to see pt; prn tariq suppository given just prior to discharge. Pt given phenergan for nausea; per pt not great effect. Pt given emesis bag, alcohol swabs, gingerale and saltines. documented in this encounter H&P Notes * Rasheed Casillas - 2016 10:01 AM EDT Patient presents for a planned staged right sided URS Denies changes in health CTAB RRR Will proceed with right URS and laser lithotripsy and possible left sided stent documented in this encounter Miscellaneous Notes * Op Note - Rasheed Casillas - 2016 12:21 PM EDT Patient Name: Hannah Nair : [id number] MR#: [id number] ?? Case Date: 2016 ?? Surgeon: Surgeon(s) and Role: * Aury Lee MD - Primary * Rasheed Casillas MD ?? Preoperative diagnosis: right renal pelvic stone ?? Postoperative diagnosis: right renal pelvic stone ?? Procedure(s): CYSTOURETEROSCOPY,DIAGNOSTIC,W/ LITHOTRIPSY INC. INSERTION OF INDWELLING URETERAL STENT MODIFIER HOLMIUM LASER- right only Left stent placement Anesthesia: General ?? 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 Complications: none ? Fluids: per anesthesia ?? Estimated Blood Loss: minimal ?? Drains: 8fr 26 cm right sided JJ ?? 7fr 26 cm left sided JJ ?? Disposition: awakened from anesthesia, extubated and taken to the recovery room in a stable condition, having suffered no apparent untoward event. ?? Condition: doing well without problems ?? (Please see the Surgical Encounter Summary for any Implant and Specimen details pertinent to this patient.) ?? Infection Bundle used? No INDICATION FOR PROCEDURE: This is a 56-year-old female with a history of nephrocalcinosis who presents today for a planned staged right ureteroscopy and a left stent placement. PROCEDURE DESCRIPTION: The patient was seen in the preoperative area where she agreed and consented. She was then brought into the operating room and placed in the supine position. After general anesthesia was administered, she was placed in the dorsal lithotomy position. She was prepped and draped in the usual sterile fashion and received IV antibiotics for prophylaxis, and after a brief time-out, we proceeded to visualize her bladder using a 22-Peruvian urethral cystoscope with a 30 degree lens. The bladder showed some signs of cystitis cystica. Both UOs were orthotopic, and the right ureter was first cannulated with a 0.038 inch Glidewire that was advanced up to the level of the kidney pelvis under fluoroscopy, and then a sensor wire was placed as a working wire. The cystoscope was removed. We passed the inner sheath of a 12/14 fr sheath under fluoroscopy, and over the working wire this was very easily advanced, and then we removed it and placed the whole sheath again under fluoroscopy. This was easily done with no resistance whatsoever. Once the sheath was in, we went up to the level of the kidney using a Flex X2, and the kidney was inspected. It had a bifid system. There was a large stone in the kidney pelvis and multiple collections of stones in the middle of the kidney. We first used a 200 micron laser fiber, and we fragmented the kidney pelvis stone into small retrievable fragments. This was one with the setting of 0.6J and 5HZ. The stones were retrieved through the sheath and using an NGage basket, and then, after this, was done to satisfaction, attention was direct to the midkidney calyx where there was a large collection of stones. These were also retrieved with the same basket. After this was done. We decided to end the Procedure at this point. The sheath was withdrawn under direct vision, and there were no stones seen in the ureter. Then the Glidewire was backloaded into the cystoscope using a pusher, and an 8-Peruvian, 26 cm stent was advanced over the wire in the usual fashion and under fluoroscopy. Once the wire was removed, a curl was seen proximally under fluoroscopy and distally under direct vision. The same was done on the left side(stent placement only) except we used a 7-Peruvian, 26 cm stent. The bladder was emptied. The patient was awakened, extubated, and sent to the PACU in good condition. The patient is scheduled for her 2nd look on the right and for a left ureteroscopy in 2 weeks Associated attestation - Aury Lee MD - 05/22/2016 10:27 AM EST Attestation: Case Date: 2016 I was present and I participated during the entire procedure (does not need to include opening and closing). AURY LEE MD 05/22/2016 * Brief Op Note - Rasheed Casillas - 2016 12:17 PM EDT Brief Operative Note Patient Name: Hannah Nair : [id number] MR#: [id number] Case Date: 2016 Surgeon: Surgeon(s) and Role: * Aury Lee MD - Primary * Rasheed Casillas MD Preoperative diagnosis: right renal pelvic stone Postoperative diagnosis: right renal pelvic stone Procedure(s): CYSTOURETEROSCOPY,DIAGNOSTIC,W/ LITHOTRIPSY INC. INSERTION OF INDWELLING URETERAL STENT MODIFIER HOLMIUM LASER Anesthesia: General Findings: bladder with cystitis cystica Patulous right ureter Bifid system with stone in pelvis and another in mid kidney Complications: none Fluids: per anesthesia Estimated Blood Loss: minimal Drains: 8fr 26 cm right sided JJ 7fr 26 cm left sided JJ Disposition: awakened from anesthesia, extubated and taken to the recovery room in a stable condition, having suffered no apparent untoward event. Condition: doing well without problems (Please see the Surgical Encounter Summary for any Implant and Specimen details pertinent to this patient.) Infection Bundle used? No documented in this encounter Plan of Treatment Not on file documented as of this encounter Procedures Procedure Name Priority Date/Time Associated Diagnosis Comments FILM LIBRARY FLUORO OR [id number] ONLY Routine 2016 12:34 PM EDT SPECIMEN TO PATHOLOGY Routine 2016 12:03 PM EDT KIDNEY STONE ANALYSIS Routine 2016 12:02 PM EDT URINE CULTURE Routine 2016 10:57 AM EDT CYSTOTOMY WITH INSERTION OF URETERAL STENT\CATHETER (WRVU 7.81) Yes 2016 10:11 AM EDT right renal pelvic stone MODIFIER HOLMIUM LASER Yes 2016 10:11 AM EDT right renal pelvic stone CYSTOURETEROSCOPY,DI AGNOSTIC,W/ LITHOTRIPSY INC. INSERTION OF INDWELLING URETERAL STENT (WRVU 8) Yes 2016 10:11 AM EDT right renal pelvic stone documented in this encounter Results * Film Library - Fluoro or C Arm Storage Only (2016 12:34 PM EDT) Narrative [facility] - 2016 12:34 PM EDT This exam is for storage only and is auto-finalizing. Donald Rubin Jr., MD IMG FILM LIBRARY O RDERABLES Performing Organization Address [facility] de Phone Number [place], [place] * Specimen to Pathology (surgical or derm) (2016 12:03 PM EDT) AP Specimen 2016 12:0 3 PM EDT 2016 12:03 PM EDT Narrative [facility] - 2016 12:03 PM EDT Specimen requisition ordered. ??Separate Pathology report to follow Donald Rubin Jr., MD PATHOLOGY/CYTOLOGY ORDERABLES Performing Organization Address [facility] de Phone Number [facility] [place] [address] * Kidney Stone Analysis (2016 12:02 PM EDT) Kidney Stone Analysis (MAY) Test ?Result ?Flag ??Unit ??RefValue Kidney Stone Analysis ??Source: ? Right Renal ??1st Constituent: 80% Calcium phosphate (apatite) ??2nd Constituent: ?20% Calcium carbonate Test Performed by: [place] [address] Manager Continuous Improvement: Jacob Correa II, M.D., Ph.D. [facility] Calculus specimen (specimen) Other / Unknown 2016 12:02 PM EDT 2016 3:03 PM EDT Narrative Resulting Agency Comment Spec In Lab Aury Lee MD LAB SEND O UT ORDERABLES [facility] [place] [address] * (ABNORMAL) Urine culture Cystoscopic Urine (2016 10:57 AM EDT) Urine Culture 1,000-9,000 cfu/ml Proteus penneri(A) [facility] Organism Proteus penneri(A) [facility] Urine specimen (specimen) 2016 10:57 AM EDT 2016 2:41 PM EDT Narrative Resulting Agency Comment Spec In Lab Organism Antibiotic Method Susceptibility Proteus penneri Amikacin MICROSCAN METHOD Sensitive Proteus penneri Ampicillin MICROSCAN METHOD Resistant Proteus penneri Ampicillin + Sulbactam MICROSCAN METHO D Intermediate Proteus penneri Aztreonam MICROSCAN METHOD Sensitive Proteus penneri Cefazolin MICROSCAN METHOD Resistant Proteus penneri Cefepime MICROSCAN METHOD Sensitive Proteus penneri Ceftazidime MICROSCAN METHOD Sensitive Proteus penneri Ceftriaxone MICROSCAN METHOD Resistant Proteus penneri Cefuroxime MICROSCAN METHOD Resistant Proteus penneri Ciprofloxacin MICROSCAN METHOD Sensitive Proteus penneri Gentamicin MICROSCAN METHOD Sensitive Proteus penneri Levofloxacin MICROSCAN METHOD Sensitive Proteus penneri Meropenem MICROSCAN METHOD Sensitive Proteus penneri Nitrofurantoin MICROSCAN METHOD Resistant Proteus penneri Piperacillin/Tazobactam MICROSCAN METH OD Sensitive Proteus penneri Tetracycline MICROSCAN METHOD Resistant Proteus penneri Tobramycin MICROSCAN METHOD Sensitive Proteus penneri Trimethoprim/Sulfa MICROSCAN METHOD Sensitive Donald Rubin Jr., MD MICROBIOLOGY - GEN ERAL ORDERABLES [facility] [place] [address] documented in this encounter Visit Diagnoses Not on filedocumented in this encounter Administered Medications Inactive Administered Medications - up to 3 most recent administrations Medication Order MAR Action Action Date Dose Rate Site belladonna-opium (B&O SUPPRETTES) 16.2-60 mg suppository 60 mg 60 mg, Rectal, EVERY 8 HOURS PRN, Pain, Starting on Sun05/19/16 at 1421, Until Sun05/19/16 at 1644 Given 2016 2:27 PM EDT 60 mg iohexol (OMNIPAQUE) 300 mg/mL solution ONCE PRN, Starting on Sun05/19/16 at 1110, Until Sun05/19/16 at 1644, Intra-Operative (Intra-Procedure), Routine Given 2016 11:10 AM EDT 50 mLs 19- Surgical Site lactated ringers infusion 1,000 mL 1,000 mL, at 100 mL/hr, Intravenous, CONTINUOUS, Starting on Sun05/19/16 at 0915, Until Sun05/19/16 at 1644, Day of Surgery (Day of Procedure) New Bag 2016 10:08 AM EDT New Bag 2016 9:33 AM EDT 1,000 mLs 100 mL/hr lidocaine (XYLOCAINE) 10 mg/mL (1 %) injection 3 mg 3 mg (0.3 mL), Subcutaneous, ONCE PRN, 1 dose, Starting on Sun05/19/16 at 0853, Until Sun05/19/16 at 1644, for discomfort with PIV insertion, Day of Surgery (Day of Procedure), Routine promethazine (PHENERGAN) injection 6.25 mg 6.25 mg, Intravenous, EVERY 30 MIN PRN, Nausea, Starting on Sun05/19/16 at 1333, 2 doses, Until Sun05/19/16 at 1644, If multiple antiemetics ordered, use ondansetron first and if ineffective use prochlorperazine second and if ineffective use promethazine, PACU Recovery Given 2016 1:45 PM EDT 6.25 mg scopolamine (TRANSDERM-SCOP) 1.5 mg (1 mg over 3 days) patch 1 patch 1 patch, Transdermal, ONCE, 1 dose, On Sun05/19/16 at 1015, Recovery (Recovery-Hospital Unit), Routine Patch Applied 2016 9:58 AM EDT 1 patch 01- Ear Behind (Left) scopolamine (TRANSDERM-SCOP) 1.5 mg (1 mg over 3 days) patch 1 dose, Starting on Sun05/19/16 at 0953, Until Sun05/19/16 at 0958, NATHAN LEBRON: cabinet override scopolamine (TRANSDERM-SCOP) 1.5 mg patch Patch Removal Transdermal, EVERY 24 HOURS, 1 dose, First dose on Sun05/20/16 at 0900, Remove Scopolamine Patch, Recovery (Recovery-Hospital Unit) scopolamine (TRANSDERM-SCOP) 1.5 mg patch Patch Verification Transdermal, 2 TIMES DAILY, 1 dose, First dose on Sun05/19/16 at 2200, Verify scopolamine 1.5 mg patch., Recovery (Recovery-Hospital Unit) sodium chloride 0.9 % flush 5-20 mL 5-20 mL, Intravenous, EVERY 1 MIN PRN, Starting on Sun05/19/16 at 0853, Until Sun05/19/16 at 1644, flush, Flush pertains to all indwelling lines. Flush per protocol found in the job aid using the link provided on this medication record., Day of Surgery (Day of Procedure), Routine documented in this encounter Active and Recently Administered Medications Times are shown in EDT. Scheduled Medication Order 05/17/2016 05/18/2016 2016 ceFAZolin (ANCEF) 2,000 mg in sodium chloride 0.9% 56.06 mL 2,000 mg (2 g), Intravenous, 30 MIN PRE-OP, 1 dose, On Sun05/19/16 at 0915, Administer over 30 Minutes, Redose every 3 hours if CrCl is greater than 20. Redose every 8 hours if CrCl is less than 20., Day of Surgery (Day of Procedure), Indication for (Active or Suspected): Prophylaxis 914 (Due) ondansetron (ZOFRAN) injection 4 mg 4 mg, Intravenous, ONCE, 1 dose, On Sun05/19/16 at 1400, May repeat 4 mg once in 30 minutes. If multiple antiemetics ordered, use ondansetron first and if ineffective use prochlorperazine second and if ineffective use promethazine, PACU Recovery 1400 (Due) scopolamine (TRANSDERM-SCOP) 1.5 mg (1 mg over 3 days) patch 1 patch (COMPLETED)(Linked Group 1) 1 patch, Transdermal, ONCE, 1 dose, On Sun05/19/16 at 1015, Recovery (Recovery-Hospital Unit), Routine 0958 (Patch Applied - Provider: Nathan Lebron RN) scopolamine (TRANSDERM-SCOP) 1.5 mg patch Patch Removal(Linked Group 1) Transdermal, EVERY 24 HOURS, 1 dose, First dose on Sun05/20/16 at 0900, Remove Scopolamine Patch, Recovery (Recovery-Hospital Unit) scopolamine (TRANSDERM-SCOP) 1.5 mg patch Patch Verification(Linked Group 1) Transdermal, 2 TIMES DAILY, 1 dose, First dose on Sun05/19/16 at 2200, Verify scopolamine 1.5 mg patch., Recovery (Recovery-Hospital Unit) Continuous Medication Order 05/17/2016 05/18/2016 2016 lactated ringers infusion 1,000 mL 1,000 mL, at 100 mL/hr, Intravenous, CONTINUOUS, Starting on Sun05/19/16 at 0915, Until Sun05/19/16 at 1644, Day of Surgery (Day of Procedure) 0933 (New Bag - Prov ider: Ellen Canas RN)1008 (New Bag - Provider: Grupo Lord CRNA)1116 (Anesthesia Volume Adjustment - Provider: Grupo Lord CRNA)1226 (Anesthesia Volume Adjustment - Provider: Grupo Lord CRNA) PRN Medication Order 05/17/2016 05/18/2016 2016 belladonna-opium (B&O SUPPRETTES) 16.2-60 mg suppository 60 mg 60 mg, Rectal, EVERY 8 HOURS PRN, Pain, Starting on Sun05/19/16 at 1421, Until Sun05/19/16 at 1644 1427 (Given - Provid er: Lynda Farmer RN) iohexol (OMNIPAQUE) 300 mg/mL solution (CANCELED) ONCE PRN, Starting on Sun05/19/16 at 1110, Until Sun05/19/16 at 1644, Intra-Operative (Intra-Procedure), Routine 1110 (Given - Provid er: Aury Lee MD - Comment: mixed 1:1 with Normal Saline.) lidocaine (XYLOCAINE) 10 mg/mL (1 %) injection 3 mg 3 mg (0.3 mL), Subcutaneous, ONCE PRN, 1 dose, Starting on Sun05/19/16 at 0853, Until Sun05/19/16 at 1644, for discomfort with PIV insertion, Day of Surgery (Day of Procedure), Routine promethazine (PHENERGAN) injection 6.25 mg 6.25 mg, Intravenous, EVERY 30 MIN PRN, Nausea, Starting on Sun05/19/16 at 1333, 2 doses, Until Sun05/19/16 at 1644, If multiple antiemetics ordered, use ondansetron first and if ineffective use prochlorperazine second and if ineffective use promethazine, PACU Recovery 1345 (Given - Provid er: Lynda Farmer RN) sodium chloride 0.9 % flush 5-20 mL 5-20 mL, Intravenous, EVERY 1 MIN PRN, Starting on Sun05/19/16 at 0853, Until Sun05/19/16 at 1644, flush, Flush pertains to all indwelling lines. Flush per protocol found in the job aid using the link provided on this medication record., Day of Surgery (Day of Procedure), Routine No Frequency Medication Order 05/17/2016 05/18/2016 2016 ceFAZolin (ANCEF) 2 gram/50 mL infusion (COMPLETED) 1 dose, Starting on Sun05/19/16 at 0904, Until Sun05/19/16 at 1019, ELLEN FRIEND: cabinet override 1019 (Given - Provid er: Grupo Lord CRNA) Linked Groups Order Group 1: scopolamine (TRANSDERM-SCOP) 1.5 mg (1 mg over 3 days) patch 1 patch (COMPLETED)Jump to med 1 patch, Transdermal, ONCE, 1 dose, On Sun05/19/16 at 1015, Recovery (Recovery-Hospital Unit), Routine Followed by scopolamine (TRANSDERM-SCOP) 1.5 mg patch Patch VerificationJump to med Transdermal, 2 TIMES DAILY, 1 dose, First dose on Sun05/19/16 at 2200, Verify scopolamine 1.5 mg patch., Recovery (Recovery-Hospital Unit) Followed by scopolamine (TRANSDERM-SCOP) 1.5 mg patch Patch RemovalJump to med Transdermal, EVERY 24 HOURS, 1 dose, First dose on Sun05/20/16 at 0900, Remove Scopolamine Patch, Recovery (Recovery-Hospital Unit) documented in this encounter Care Teams Shoe Sprayer Relationship Specialty Start Date End Date Ellen Gleason APRN PCP - General 06/07/10 09/10/16 documented as of this encounter
--- OUTSIDE RECORDS SUMMARY | 2024-07-02 11:25 | XMS_ITS | Encounter Summary ---
Author Organization Formerly [facility] [place] [address] Care Team Providers Care Ditcher Operator Name Role Phone Ellen Gleason APRN Primary Care Provider +1- [phone] Encounter Details Date Type Department Care Team (Late st Contact Info) Description 05/22/2016 [place] [id number] Rasheed Casillas MD [facility] [place] [address] Social History Tobacco Use Types Packs/Day Years Used Date Smoking Tobacco: Never Sex and Gender Information Value Date Recorded Sex Assigned at Not on file Gender Identity Not on file Sexual Orientation Not on file documented as of this encounter Miscellaneous Notes * Telephone Encounter - Rasheed Casillas - 05/22/2016 7:18 AM EST Called lab to do sensitivities on proteus See previous note by Dr. You for more details documented in this encounter Plan of Treatment Not on file documented as of this encounter Visit Diagnoses Not on filedocumented in this encounter Care Teams Ditcher Operator Relationship Specialty Start Date End Date Ellen Gleason APRN PCP - General 06/07/10 09/10/16 documented as of this encounter
--- OUTSIDE RECORDS SUMMARY | 2024-07-02 11:25 | XMS_ITS | Encounter Summary ---
Author Organization [facility] [place] [address] Care Team Providers Care Media Planner Name Role Phone Ellen Gleason CAMILO Primary Care Provider +1- [phone] Encounter Details Date Type Department Care Team (Late st Contact Info) Description 05/20/2016 [place] [id number] Mic Mark MD [facility] [place] [address] Social History Tobacco Use Types Packs/Day Years Used Date Smoking Tobacco: Never Sex and Gender Information Value Date Recorded Sex Assigned at Not on file Gender Identity Not on file Sexual Orientation Not on file documented as of this encounter Miscellaneous Notes * Telephone Encounter - Mic Monteiro MD - 05/20/2016 5:53 PM EDT I talked to Hannah twice today. This morning she called because she was having more stent relatedpain than usual. She was afebrile and still emptying her bladder. I suggested that she try pyridiumsince it worked for her in the past, stay hydrated, and continue with tylenol/ibuprofen. She called later and sounded a bit distressed on the phone. She said her pain is unbearable and sheis very worried because she has never felt this way before. I told her she needs to be seen and shewill go to her local ED. I told her to tell them that she has a stent and she needs a bladder ultrasound and possibly renal although she has no flank pain. She will call me if anything significant is found. documented in this encounter Plan of Treatment Not on file documented as of this encounter Visit Diagnoses Not on filedocumented in this encounter Care Teams Media Planner Relationship Specialty Start Date End Date Ellen Gleason APRN PCP - General 06/07/10 09/10/16 documented as of this encounter
--- OUTSIDE RECORDS SUMMARY | 2024-07-02 11:25 | XMS_ITS | Encounter Summary ---
[facility] [place] [address] Care Team Providers Care Electric Truck Crane Operator Name Role Phone Ellen Gleason CAMILO Primary Care Provider +1- [phone] Reason for Referral * MRI/CAT Scan (Routine) - Specialty Diagnoses / Procedures Referred By Contac t Referred To Contact Radiology Diagnoses Nephrolithiasis Procedures CT Abdomen & Pelvis Wo Contrast Myah Cheema MD [facility] [place] [address] [facility] [place] [address] Referral ID Status Reason Start Date Expiration Date V isits Requested Visits Authorized [id number] 04/13/2015 04/12/2016 1 1 Reason for Visit * Reason Comments Nephrolithiasis Encounter Details Date Type Department Care Team (Latest Contact Info) Description 04/13/2015 8:40 AM EDT [place] [phone] Manuel Rubin Jr., MD [facility] [place] [address] Nephrolithiasis Discharge Disposition: Home Social History Tobacco Use Types Packs/Day Years Used Date Smoking Tobacco: Never Sex and Gender Information Value Date Recorded Sex Assigned at Not on file Gender Identity Not on file Sexual Orientation Not on file documented as of this encounter Last Filed Vital Signs Vital Sign Reading Time Taken Comments Blood Pressure 156/77 04/13/2015 8:46 AM EDT Pulse 74 04/13/2015 8:46 AM EDT Temperature 36.6 ??C (97.9 ??F) 04/13/2015 8:46 AM ED T Respiratory Rate 18 04/13/2015 8:46 AM EDT Oxygen Saturation 100% 04/13/2015 8:46 AM EDT Inhaled Oxygen Concentration - - Weight 95.3 kg (210 lb) 04/13/2015 8:46 AM EDT Height 170.2 cm (5' 7) 04/13/2015 8:46 AM EDT Body Mass Index 32.89 04/13/2015 8:46 AM EDT documented in this encounter Progress Notes * Manuel Rubin Jr., MD - 04/13/2015 12:51 PM EDT I saw and examined Hannah Nair with Dr. Cheema and agree with history, exam, impression, and plan as noted. * Myah Cheema MD - 04/13/2015 9:37 AM EDT Urology - Initial Evaluation CC: 54 year-old woman with nephrolithiasis HPI: Ms. Hannah Nair is a 54 year-old woman with a history of kidney stones. She is constantly passing stones, and does not often have pain associated with her stones, but she sees grains ofsand in the toilet. However, in mid-February, she was traveling with her , and passed a larger (about 5 mm) stone. The following day, she was having fevers and chills. She was seen by her PCP at the time, who prescribed her Bactrim x 5 days, but then shortly after stopping the antibiotic, shestarted having symptoms again, so she was given another course of Bactrim for 5 days. However, she feels like she has an infection because she is having chills off and on. In addition to fevers, she c ontinues to have dysuria, bilateral flank pain (right now 4-5/10 on the pain scale), frequency and suprapubic pain. She denies any hematuria. She comes in today for further evaluation. In the past, she has been given heavy duty antibiotics, which have helped her in the past. About 3 years ago, she underwent pressure washing of the inside of her kidneys at [facility] after an episode of urinary infection that required IV antibiotics. She also undergone ESWL x 3 or 4 times in the past at [facility]. She has also undergone ureteroscopy with Dr. Rubin about 6 six ago. Ms. Nair has undergone a metabolic evaluation in the past and per her report, does not metabolize calcium correctly, which leads to her stones. She is drinking >2 L of water per day and rarely eats meat and has a low salt diet. 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 Unclear if she has either present at this point. Plan: 1. Send urine for culture and treat if positive 2. CT scan to assess for evidence of stones as the etiology of her pain. Myah Cheema MD Urology PGY-2 Pager: [phone] STAFF ADDENDUM: I saw and examined Hannah Nair with Dr. Cheema and concur with history, exam, impression, and plan as noted. Given report of intermittent gravel passage and recent suprapubic discomfort, unclear if symptoms related to ureteral stones, UTI, or other etiologies. We will plan CT to assess stone burden and urine culture. She will return after CT is resulted. MANUEL RUBIN JR, MD ADDENDUM: She returned after Ct. This revealed no evidence of ureteral or bladder stones, hydronephrosis, or hydroureter. Bilateral non-obstructing renal stones vs medullary renal calcifications noted. We discussed these presented no clear evidence of stones as a source of her discomfort. Given her concern regarding underlying metabolic route delivery driver of her nephrolithiasis, we discussed 24h urine and follow up inmulti-disciplinary metabolic stone clinic . She wishes to proceed with this and we will schedule consultation with Dr Rowe (nephrology) and clinical authorization coordinator in stone clinic, along with follow up renal ultrasound at that time. * Lupe Marcial - 04/13/2015 8:42 AM EDT Urology - Initial Evaluation CC: 54 year-old woman with nephrolithiasis HPI: Ms. Hananh Nair is a 54 year-old woman with a history of kidney stones. She is constantly passing stones, and does not often have pain associated with her stones, but she sees grains ofsand in the toilet. However, in mid-February, she was traveling with her , and passed a larger (about 5 mm) stone. The following day, she was having fevers and chills. She was seen by her PCP at the time, who prescribed her Bactrim x 5 days, but then shortly after stopping the antibiotic, shestarted having symptoms again, so she was given another course of Bactrim for 5 days. However, she feels like she has an infection because she is having chills off and on. In addition to fevers, she c ontinues to have dysuria, flank pain, frequency and suprapubic pain. She denies any hematuria. She comes in today for further evaluation. In the past, she has been given heavy duty antibiotics, which have helped her in the past. About 3 years ago, she underwent pressure washing of the inside of her kidneys at [facility] after an episode of urinary infection that required IV antibiotics. She also undergone ESWL x 3 or 4 times in the past at [facility]. She has also undergone ureteroscopy with Dr. Rubin about 6 six ago. Ms. Nair has undergone a metabolic evaluation in the past and per her report, does not metabolize calcium correctly, which leads to her stones. She is drinking >2 L of water per day and rarely eats meat and has a low salt diet. 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 Plan: 1. Send urine for culture and treat if positive Myah Cheema MD Urology PGY-2 Pager: [phone] documented in this encounter Plan of Treatment Not on file documented as of this encounter Procedures Procedure Name Priority Date/Time Associated Diagnosis Comments URINE CULTURE Routine 04/13/2015 9:50 AM EDT Nephrolithiasis documented in this encounter Results * CT Abdomen & Pelvis Wo Contrast (04/13/2015 12:42 PM EDT) Anatomical Region Laterality Modality Abdomen, Pelvis Computed Tomogra phy 04/13/2015 12:4 2 PM EDT Impressions 04/13/2015 2:15 PM EDT IMPRESSION: Multiple bilateral small cortical medullary nonobstructing calcifications. Narrative 04/13/2015 2:15 PM EDT EXAMINATION: CT Abdomen / Pelvis Without Contrast CLINICAL HISTORY: flank pain and history of stones TECHNIQUE: Helical CT of the abdomen and pelvis was performed without the use of intravenous contrast. ??Multiplanar reformatted images were generated. COMPARISON: None FINDINGS: Right kidney/ureter: Multiple nonobstructing fine cortical medullary calcifications.. ??No right renal collecting system obstruction. No hydroureter. Left kidney/ureter: Multiple nonobstructing small cortical medullary calcifications. ??No left renal collecting system obstruction or hydroureter. This examination is limited for the evaluation of solid organs and vasculature structures due to the lack of intravenous contrast. Unenhanced images of the liver, spleen, pancreas, and adrenal glands are within normal limits. Gallbladder: Unremarkable. Lymph Nodes: No lymphadenopathy. GI tract: No bowel dilatation, mural thickening or mesenteric inflammation. Osseous structures: No suspicious lesions. Procedure Note Omari Hancock MD - 04/13/2015 EXAMINATION: CT Abdomen / Pelvis Without Contrast CLINICAL HISTORY: flank pain and history of stones TECHNIQUE: Helical CT of the abdomen and pelvis was performed without theuse of intravenous contrast. Multiplanar reformatted images were generated. COMPARISON: None FINDINGS: Right kidney/ureter: Multiple nonobstructing fine cortical medullary calcifications.. No right renal collecting system obstruction. Nohydroureter. Left kidney/ureter: Multiple nonobstructing small cortical medullary calcifications. No left renal collecting system obstruction orhydroureter. This examination is limited for the evaluation of solid organs andvasculature structures due to the lack of intravenous contrast. Unenhanced images of the liver, spleen, pancreas, and adrenal glands arewithin normal limits. Gallbladder: Unremarkable. Lymph Nodes: No lymphadenopathy. GI tract: No bowel dilatation, mural thickening or mesentericinflammation. Osseous structures: No suspicious lesions. IMPRESSION IMPRESSION: Multiple bilateral small cortical medullary nonobstructingcalcifications. Manuel Rubin Jr., MD [facility] CT ORDERABLES * Urine culture Clean Catch Urine (04/13/2015 9:50 AM EDT) Urine Culture No growth (Less than 1,000 cfu/ml). [facility] Urine specimen obtained by clean catch procedure (specimen) 04/13/2015 9:50 AM EDT 04/13/2015 12:01 PM EDT Narrative Resulting Agency Comment Spec In Lab Manuel Rubin Jr., MD MICROBIOLOGY - GEN ERAL ORDERABLES [facility] documented in this encounter Visit Diagnoses Diagnosis Nephrolithiasis Calculus of kidney Nephrolithiasis Calculus of kidney documented in this encounter Care Teams Electric Truck Crane Operator Relationship Specialty Start Date End Date Ellen Gleason APRN PCP - General 06/07/10 09/10/16 documented as of this encounter
--- OUTSIDE RECORDS SUMMARY | 2024-07-02 11:25 | XMS_ITS | Encounter Summary ---
Author Organization Formerly [facility] [place] [address] Care Team Providers Care Digital Print Operator Name Role Phone Ellen Gleason APRN Primary Care Provider +1- [phone] Encounter Details Date Type Department Care Team (Late st Contact Info) Description 04/13/2015 [place] [address] Donadl Rubin Jr., MD [facility] [place] [address] Social History Tobacco Use Types Packs/Day Years Used Date Smoking Tobacco: Never Sex and Gender Information Value Date Recorded Sex Assigned at Not on file Gender Identity Not on file Sexual Orientation Not on file documented as of this encounter Plan of Treatment Not on file documented as of this encounter Visit Diagnoses Not on filedocumented in this encounter Care Teams Digital Print Operator Relationship Specialty Start Date End Date Ellen Gleason APRN PCP - General 06/07/10 09/10/16 documented as of this encounter
--- OUTSIDE RECORDS SUMMARY | 2024-07-02 11:25 | XMS_ITS | Encounter Summary ---
Author Organization [facility] Address [facility] [place] [address] Care Team Providers Care Commercial Loan Administrator Name Role Phone Victorino Ellenjoseph Sinclair APRN Primary Care Provider +1- [phone] Encounter Details Date Type Department Care Team (Latest Contact Info) Description 08/10/2015 3:24 PM EST - 08/10/2015 11:59 PM EST Hospital [place] [address] Manuel Rubin Jr., MD [facility] [place] [address] Nephrolithiasis Discharge Disposition: Home Social History Tobacco Use Types Packs/Day Years Used Date Smoking Tobacco: Never Sex and Gender Information Value Date Recorded Sex Assigned at Not on file Gender Identity Not on file Sexual Orientation Not on file documented as of this encounter Medications at Time of Discharge Medication Sig Dispensed Refills Start Date End Date Chromium Picolinate 400 mcg Tablet Take 500 mcg by mouth. ascorbic acid (VITAMIN C) 500 mg Tablet, Chewable Take 500 mg by mouth 3 times daily. magnesium oxide (MAG-OX) 400 mg Tablet Take 500 mg by mouth daily. CIS Free Text Med - black strap molassas 04/15/2010 LACTOBACILLUS ACIDOPHILUS ORAL 04/15/2010 APPLE CIDER VINEGAR ORAL 04/15/2010 fish oil-omega-3 fatty acids 1,000 mg Capsule Take 2 g by mouth daily. 07/11/2018 documented as of this encounter Plan of Treatment Not on file documented as of this encounter Procedures Procedure Name Priority Date/Time Associated Diagnosis Comments US RETROPERITONEAL COMPLETE Routine 08/10/2015 4:25 PM EST Nephrolithiasis documented in this encounter Results * US Retroperitoneal Complete (08/10/2015 4:25 PM EST) Anatomical Region Laterality Modality Abdomen Ultrasound 08/10/2015 4:22 PM EST Impressions 08/10/2015 5:01 PM EST Impression Ultrasound - ??Retroperitoneal Complete - Summary 1. 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 No hydronephrosis. I ??viewed the images and agree with the above interpretation. ?Corine Cuello MD Electronically Signed Final Report ?? 08/10/2015 05:00 pm Narrative 08/10/2015 5:01 PM EST Renal ?(Signed Final 08/10/2015 05:00 pm) Patient Info ID #: ? [id number] ?: ??[birth year] (55 yrs) Name: ? WILLIAM Glez ? Visit Date: 08/10/2015 04:22 pm ? GINETTE Performed By Performed By: ? Veronica Jarrell RDMS Attending: ?Khushboo GONGORA, Corine Kellogg. Associate: ?William GONGORA, Afsaneh Malloy Referred By: ?MANUEL RUBIN MD Service(s) Provided ??URETRO - Retroperitoneal Complete - [id number] ? [id number] Indications ??nephrolithiasis Comparison Ct Abdomen/pelvis 04/13/2015. Right Kidney Size (cm) ?L: ??11.0 Cortical Thickness: ?Normal Cortical Echogenicity: ?? Normal Hydronephrosis: ?No sonographic evidence Comment: ?Medullary nephrocalcinosis is visualized. ??Mulitple ? renal calculi are seen, the largest measuring 1.8 ? cm in the inferior pole, and an additional calculus ? in the superior pole, measuring 1.5 cm. Left Kidney Size (cm) ?L: ??13.0 Cortical Thickness: ?Normal Cortical Echogenicity: ?? Normal Hydronephrosis: ?No sonographic evidence Comment: ?Medullary nephrocalcinosis visualized. ??Mulitple ? renal calculi are seen, the largest measuring 1.7 ? cm in the inferior pole, and an additional calculus ? in the midpole, measuring 1 cm. Urinary Bladder Pre-void (cm) ? L: ??5.5 ? AP: ??3.9 ? TV: ??7.3 Vol (ml): ?82.0 Comment: ?Partially distended, normal contour Procedure Note Corine Cuello MD - 08/10/2015 Renal (Signed Final 08/10/2015 05:00 pm) Patient Info ID #: [id number] : 58 (55 yrs) Name: WILLIAM Glez Visit Date: 08/10/2015 04:22 pm GINETTE Performed By Performed By: Veronica Jarrell RDMS Attending: Corine Cuello MD Associate: Afsaneh Thomas MD Referred By: MANUEL RUBIN MD Service(s) Provided URETRO - Retroperitoneal Complete - [id number] [address]ications neph[address]iasis Comparison Ct Abdomen/pelvis 04/13/2015. Right Kidney Size (cm) L: 11.0 Cortical Thickness: Normal Cortical Echogenicity: Normal Hydronephrosis: No sonographic evidence Comment: Medullary nephrocalcinosis is visualized. Mulitple renal calculi are seen, the largest measuring 1.8 cm in the inferior pole, and an additional calculus in the superior pole, measuring 1.5 cm. Left Kidney Size (cm) L: 13.0 Cortical Thickness: Normal Cortical Echogenicity: Normal Hydronephrosis: No sonographic evidence Comment: Medullary nephrocalcinosis visualized. Mulitple renal calculi are seen, the largest measuring 1.7 cm in the inferior pole, and an additional calculus in the midpole, measuring 1 cm. Urinary Bladder Pre-void (cm) L: 5.5 AP: 3.9 TV: 7.3 Vol (ml): 82.0 Comment: Partially distended, normal contour IMPRESSION Impression Ultrasound - Retroperitoneal Complete - Summary 1. 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 No hydronephrosis. I viewed the images and agree with the above interpretation. Corine Cuello MD Electronically Signed Final Report 08/10/2015 05:00 pm Manuel Rubin Jr., MD IM US GEN ORDERAB LES documented in this encounter Visit Diagnoses Diagnosis Nephrolithiasis Calculus of kidney documented in this encounter Care Teams Commercial Loan Administrator Relationship Specialty Start Date End Date Ellen Gleason APRN PCP - General 06/07/10 09/10/16 documented as of this encounter
--- OUTSIDE RECORDS SUMMARY | 2024-07-02 11:25 | XMS_ITS | Encounter Summary ---
Author Organization [facility] [place] [address] Care Team Providers Care Terrazzo Tile Setter Name Role Phone GleasonCailinne [place] CAMILO Primary Care Provider +1- [phone] Reason for Referral * MRI/CAT Scan (Routine) - Specialty Diagnoses / Procedures Referred By Contac t Referred To Contact Radiology Diagnoses Nephrolithiasis Procedures CT Abdomen & Pelvis Wo Contrast Myah Cheema MD [facility] [place] [address] [facility] [place] [address] Referral ID Status Reason Start Date Expiration Date V isits Requested Visits Authorized [id number] 04/13/2015 04/12/2016 1 1 Encounter Details Date Type Department Care Team (Latest Contact Info) Description 04/13/2015 12:19 PM EDT - 04/13/2015 11:59 PM EDT Hospital [place] [address] CLINIC, DR [facility] Nephrolithiasis Discharge Disposition: Home Social History Tobacco Use Types Packs/Day Years Used Date Smoking Tobacco: Never Sex and Gender Information Value Date Recorded Sex Assigned at Not on file Gender Identity Not on file Sexual Orientation Not on file documented as of this encounter Medications at Time of Discharge Medication Sig Dispensed Refills Start Date End Date ascorbic acid (VITAMIN C) 500 mg Tablet, [...] Procedure Name Priority Date/Time Associated Diagnosis Comments CT ABDOMEN AND PELVIS WO CONTRAST Routine 04/13/2015 12:42 PM EDT Nephrolithiasis documented in this encounter [...] IMPRESSION: Multiple bilateral small cortical medullary nonobstructingcalcifications. Donald Rubin Jr., MD IMG CT ORDERABLES documented in this encounter Visit Diagnoses Diagnosis Nephrolithiasis Calculus of kidney documented in this encounter Care Teams Terrazzo Tile Setter Relationship Specialty Start Date End Date Ellen Gleason APRN PCP - General 06/07/10 09/10/16 documented as of this encounter
--- OUTSIDE RECORDS SUMMARY | 2024-07-02 11:25 | XMS_ITS | Encounter Summary ---
Author Organization [facility] [place] [address] Care Team Providers Care Fisher Gill Net Name Role Phone Ellen Gleason APRN Primary Care Provider +1- [phone] Encounter Details Date Type Department Care Team (Late st Contact Info) Description 08/10/2015 Orders Only [place] [address] Den Rowe MD [facility] [place] [address] Nephrolithiasis Social History Tobacco Use Types Packs/Day Years Used Date Smoking Tobacco: Never Sex and Gender Information Value Date Recorded Sex Assigned at Not on file Gender Identity Not on file Sexual Orientation Not on file documented as of this encounter Plan of Treatment Not on file documented as of this encounter Results * Albumin Level (08/10/2015 6:02 PM EST) Albumin 4.6 3.2 - 5.2 gm/dL [facility] Blood specimen (specimen) 08/10/2015 6:02 PM EST 08/10/2015 6:05 PM EST Narrative Resulting Agency Comment Spec In Lab Den Rowe MD CHEMISTRY ORDERAB [facility] [employer] * PTH (08/10/2015 6:02 PM EST) Parathyroid Hormone 54 15 - 65 pg/mL [facility] Blood specimen (specimen) 08/10/2015 6:02 PM EST 08/10/2015 6:05 PM EST Narrative Resulting Agency Comment Spec In Lab Den Rowe MD CHEMISTRY ORDERAB [facility] [employer] * Phosphorus (08/10/2015 6:02 PM EST) Phosphorus 3.8 2.5 - 4.5 mg/dL [facility] Blood specimen (specimen) 08/10/2015 6:02 PM EST 08/10/2015 6:05 PM EST Narrative Resulting Agency Comment Spec In Lab Den Rowe MD CHEMISTRY ORDERAB [facility] [employer] * Basic Metabolic Panel (non-fasting) (08/10/2015 6:02 PM EST) Glucose 105 65 - 199 mg/dL [facility] Comment:Diabetes: >=200 mg/d L plus symptoms Blood Urea Nitrogen 11 8 - 18 mg/dL [facility] Creatinine 0.87 0.70 - 1.20 mg/dL [facility] Comment: Please note that the pediatric reference intervals supplied above were not validated at [facility]. Results from pediatric patients should be interpreted [...] the following links into your internet browser. [email or web address] Blood specimen (specimen) 08/10/2015 6:02 PM EST 08/10/2015 6:05 PM EST Narrative Resulting Agency Comment Spec In Lab Den Rowe MD CHEMISTRY ORDERAB [facility] Performing Organization Address City/State/[facility] Co de Phone Number [facility] documented in this encounter Visit Diagnoses Diagnosis Nephrolithiasis Calculus of kidney documented in this encounter Care Teams Fisher Gill Net Relationship Specialty Start Date End Date Ellen Gleason APRN PCP - General 06/07/10 09/10/16 documented as of this encounter
--- OUTSIDE RECORDS SUMMARY | 2024-07-02 11:25 | XMS_ITS | Encounter Summary ---
Author Organization [facility] [place] [address] Care Team Providers Care Shactor Helper Name Role Phone Ellen Gleason CAMILO Primary Care Provider +1- [phone] Encounter Details Date Type Department Care Team (Late st Contact Info) Description 04/03/2016 [place] [address] Donald Rubin Jr., MD [facility] [place] [address] Social History Tobacco Use Types Packs/Day Years Used Date Smoking Tobacco: Never Sex and Gender Information Value Date Recorded Sex Assigned at Not on file Gender Identity Not on file Sexual Orientation Not on file documented as of this encounter Miscellaneous Notes * Telephone Encounter - Donald Rubin Jr., MD - 04/03/2016 2:24 PM EDT Ms Nair called, wishing to arrange right ureteroscopy and laser lithotripsy to address her large (1cm) right renal pelvic stone, as well as possible 1cm upper pole and 1cm lower pole renal stones. We discussed management options of watchful waiting, SWL, PCNL (given stone burden), staged ureteroscopy, as well as open stone surgery, and the relative risks, benefits, and limitations of each. She expressed desire to proceed with planned staged ureteroscopy. We specifically discussed risks of bleeding, infection, injury to kidney/ureter/bladder/urethra, surrounding structures, development of strictures, need for additional or staged procedures, inability to access or remove stone, and risks of anesthesia and risks of heart attack, stroke, or . With an understanding of the above, she would like to proceed with an attempt at staged right ureteroscopy with laser lithotripsy and stent placement, and this will be scheduled for her at her convenience. I have asked her to call with any additional questions. documented in this encounter Plan of Treatment Not on file documented as of this encounter Visit Diagnoses Not on filedocumented in this encounter Care Teams Shactor Helper Relationship Specialty Start Date End Date Ellen Gleason APRN PCP - General 06/07/10 09/10/16 documented as of this encounter
--- OUTSIDE RECORDS SUMMARY | 2024-07-02 11:25 | XMS_ITS | Encounter Summary ---
Author Organization [facility] Address [facility] [place] [address] Care Team Providers Care Videogame Tester Name Role Phone Carlitos Menchaca CAMILO Primary Care Provider +1- [phone] Reason for Visit * Reason Comments Nephrolithiasis Encounter Details Date Type Department Care Team (Late st Contact Info) Description 03/29/2016 9:30 AM EDT Office [place] [address] Den Rowe MD [facility] [place] [address] Nephrolithiasis Social History Tobacco Use Types Packs/Day Years Used Date Smoking Tobacco: Never Sex and Gender Information Value Date Recorded Sex Assigned at Not on file Gender Identity Not on file Sexual Orientation Not on file documented as of this encounter Progress Notes * Den Rowe MD - 03/29/2016 9:30 AM EDT Nephrology/Hypertension Clinic Follow-up Note [id number] ID: 55 y.o.year-old female for follow up of nephrolithiasis. Past Medical History: Hypertension Outpatient Encounter Prescriptions as of 03/29/2016 Medication Sig Dispense Refill ??? cephalexin (KEFLEX) 500 mg Capsule Take 500 mg by mouth 4 times daily. ??? cranberry conc-ascorbic acid 4,200-20 mg Capsule Take 4,200 mg by mouth daily. ??? oxyCODONE-acetaminophen (PERCOCET) 5-325 mg Tablet Take 1 tablet by mouth every 4 hours as needed for Pain. ??? Chromium Picolinate 400 mcg Tablet Take 500 mcg by mouth. ??? ascorbic acid (VITAMIN C) 500 mg Tablet, Chewable Take 500 mg by mouth 3 times daily. ??? magnesium oxide (MAG-OX) 400 mg Tablet Take 500 mg by mouth daily. ??? fish oil-omega-3 fatty acids 1,000 mg Capsule Take 2 g by mouth daily. ??? CIS Free Text Med - black strap molassas ??? LACTOBACILLUS ACIDOPHILUS ORAL ??? APPLE CIDER VINEGAR ORAL No facility-administered encounter medications on file as of 03/29/2016. She was recently started on lisinopril 5 mg for hypertension. Allergies Allergen Reactions ??? Beesix [Pyridoxine] Anaphylaxis ??? Chocolate Flavor CIS - Anaphylaxis ??? Ciprofloxacin CIS - Anaphylaxis ??? Peanut CIS - diareahea ??? Peanut Oil CIS - diareahea ??? Oxybutynin Hives ??? Pomegranate Diarrhea ??? Vesicare [Solifenacin] Rash ??? Milk ??? Milk Based Formulas HPI: Since she was seen in metabolic [facility] on 08/10/15, she was well until 03/16/16, when she developed right flank/abdomen. She went to the [facility] ED. A CT showed a non-obstructing calculus and a dilated right ureter but no ureteral calculus. She was told she had probably passed a stone. She had collected a 24 hour urine in 12/29 but missed her follow-up appointment in 01/28. SH: She says she didn't make many dietary changes. She reduced maciel consumption and ate more meat. She doesn't recall reducing sodium intake. ROS: She has recently been started on lisinopril for hypertension. PE: Vitals 03/29/2016 03/29/2016 SYSTOLIC 154 DIASTOLIC 71 PULSE 57 TEMPERATURE 98 RESPIRATIONS 20 Height (Kuwaiti) 5' 7 Height (Metric) 170.2 cm Weight (Kuwaiti) 210 lbs Weight (Metric) 95.255 kg BODY MASS INDEX 32.89 kg/m2 Pulse Oximetry 100 BSA 2.12 General: Overweight woman in no distress Eye: EOMs intact ENT: Moist mucous membranes Neck: No VJD CV: RRR. S1, S2 normal Resp: Lungs clear Back: +/- right CVA Abd: Soft, non-tender Lymph: No cervical or submandibular adenopathy Ext: No pretibial edema Skin: No rash Neuro: CANO Labs: 1. Nephrolithiasis, stone type not known but presumably calcium-containing, with risk factors hypercalciuria, hyperoxaluria, hypocitraturia and high urine sodium. The sodium has improved as has urinecalcium, but the latter remains elevated. Urine citrate has decreased. 2. Hypertension, on lisinopril. Recommendations: 1. Dr. Rubin has arranged for a renal ultrasound to be done later today. 2. I recommended she start chlorthalidone 25 mg daily as treatment for hypercalciuria. She should continue to follow a modest restriction, reduced oxalate intake (with dairy products with food), and a liberal potassium intake. I suggest that electrolytes be checked in the next several months; perhaps this can be done through her PCP's office. 3. Because of low urinary citrate, I recommended she add concentrated lemon juice (4 ounces per liter) to water. 4. She should contact her PCP's office as to whether she should remain on lisinopril in addition tochlorthalidone. 5. Repeat 24 hour urine through [facility] in 6-8 weeks. I will call her when I receive the results. 6. Return in one year. CC: CARLITOS MENCHACA APRN @[email or web address]@ documented in this encounter Plan of Treatment Not on file documented as of this encounter Visit Diagnoses Diagnosis Nephrolithiasis Calculus of kidney documented in this encounter Care Teams Videogame Tester Relationship Specialty Start Date End Date Carlitos Menchaca APRN PCP - General 06/07/10 09/10/16 documented as of this encounter
--- OUTSIDE RECORDS SUMMARY | 2024-07-02 11:25 | XMS_ITS | Encounter Summary ---
Author Organization [facility] [place] [address] Care Team Providers Care Envelope Patternmaker Name Role Phone Ellen Gleason CAMILO Primary Care Provider +1- [phone] Encounter Details Date Type Department Care Team (Late st Contact Info) Description 07/02/2015 [place] [address] Manuel Rubin Jr., MD [facility] [place] [address] Nephrolithiasis Social History Tobacco Use Types Packs/Day [...] images and agree with the above interpretation. ?Corinese Bess Cuello MD Electronically Signed Final Report ?? 08/10/2015 05:00 pm Narrative 08/10/2015 5:01 PM EST Renal ?(Signed Final 08/10/2015 05:00 pm) Patient Info ID #: ? [id number] ?: ??[birth year] (55 yrs) Name: ? WILLIAM W ? Visit Date: 08/10/2015 04:22 pm ? GINETTE Performed By Performed By: ? Veronica Jarrell RDMS Attending: ?Khushboo GONGORA, Corine Andrea Associate: ?William GONGORA, Afsaneh Malloy Referred By: ?MANUEL RUBIN MD Service(s) Provided ??URETRO - Retroperitoneal Complete - [id number] ? [id number] Indications ??nephrolithiasis Comparison Ct Abdomen/pelvis 04/13/2015. Right Kidney Size (cm) ?L: ??11.0 Cortical Thickness: ?Normal Cortical Echogenicity: ?? Normal Hydronephrosis: ?No sonographic evidence Comment: ?Medullary nephrocalcinosis is visualized. ??Jazminple ? renal calculi are seen, the largest [...] 08/10/2015 05:00 pm) Patient Info ID #: [id number] : [birth year] (55 yrs) Name: WILLIAM Glez Visit Date: 08/10/2015 04:22 pm GINETTE Performed By Performed By: Veronica Jarrell RDMS Attending: Corine Cuello MD Associate: Afsaneh Thomas MD Referred By: MANUEL RUBIN MD Service(s) Provided URETRO - Retroperitoneal Complete - [id number] neph[address]iasis Comparison Ct Abdomen/pelvis 04/13/2015. Right [...] kidney documented in this encounter Care Teams Envelope Patternmaker Relationship Specialty Start Date End Date Ellen Gleason APRN PCP - General 06/07/10 09/10/16 documented as of this encounter
--- OUTSIDE RECORDS SUMMARY | 2024-07-02 11:25 | XMS_ITS | Encounter Summary ---
Author Organization [facility] [place] [address] Care Team Providers Care Cable Stretcher And Tester Name Role Phone Demetria Larios APPRENTICE/LINEMAN Primary Care Provider [phone] Encounter Details Date Type Department Care Team (Late st Contact Info) Description 11/18/2008 Orders Only Urology at [facility] [place] [address] Donald Rubin Jr., MD [facility] [place] [address] Social History Tobacco Use Types Packs/Day Years Used Date Smoking Tobacco: Never Assessed Sex and Gender Information Value Date Recorded Sex Assigned at Not on file Gender Identity Not on file Sexual Orientation Not on file documented as of this encounter Plan of Treatment Not on file documented as of this encounter Procedures Procedure Name Priority Date/Time Associated Diagnosis Comments SURGICAL PATHOLOGY REPORT Routine 11/18/2008 11:10 AM EDT documented in this encounter Results * Surgical Pathology Report (11/18/2008 11:10 AM EDT) Surgical Pathology Report [id number] ? Location: [facility] The signing pathologist has (i) examined the relevant preparation(s) for the specimen(s) and (ii) rendered or confirmed the diagnosis(es). . ?Pathology Surgical Pathology Final Report Clinical Information Specimen Submitted: A - Ureteral stone, right ureter Clinical History: Not provided Clinical Diagnosis: Right ureteral stone Gross Description Labeled/Fixative: ? Right ureteral stone, fresh. Quantity/Size: ?Multiple, 1.0 x 0.6 x 0.4 cm in aggregate. Tissue Description: ?? Irregular, orantes-yellow calculi. Sections/Process: ? Submitted for chemical analysis. ?? aje/SNS Diagnosis Right ureteral calculus (see Comment). CR-0 11/20/08 [facility] 11/20/08 Verified by: ? Baljeet GONGORA, Jaime Rocha ?Pathologist ?(Electronic Signature) The attending pathologist whose signature appears on this report has reviewed all diagnostic slides and has edited the gross and/or microscopic portion of the report in rendering the final pathologic diagnosis. Comment The Report of Stone Analysis, order # [id number], has been received from the [facility], [address], [place], [place] ??[address]. For the full text of the [place] report please refer to Non- Documentation Pathology in the Clinical Information System (CIS). SHOAIB CLANCY 11/18/2008 11:1 0 AM EDT Donald Rubin Jr., MD PATHOLOGY/CYTOLOGY ORDERABLES SHOAIB CLANCY documented in this encounter Visit Diagnoses Not on filedocumented in this encounter Care Teams Cable Stretcher And Tester Relationship Specialty Start Date End Date Demetria Larios, APPRENTICE/LINEMAN [address] [place] [place] [address] PCP - General Family Medicine 10/02/17 documented as of this encounter
--- OUTSIDE RECORDS SUMMARY | 2024-07-02 11:25 | XMS_ITS | Encounter Summary ---
Author Organization [facility] Address [facility] [place] [address] Care Team Providers Care Community Health Program Coordinator Name Role Phone Ellen Gleason CAMILO Primary Care Provider +1- [phone] Encounter Details Date Type Department Care Team (Late st Contact Info) Description 05/20/2016 [place] [address] Aren You MD [facility] [place] [address] Social History Tobacco Use Types Packs/Day Years Used Date Smoking Tobacco: Never Sex and Gender Information Value Date Recorded Sex Assigned at Not on file Gender Identity Not on file Sexual Orientation Not on file documented as of this encounter Miscellaneous Notes * Telephone Encounter - Aren You MD - 05/20/2016 8:18 PM EDT I received a call from the [facility]. Patient presented with urinary frequency, urgency, dysuria. No fevers, no flank pain. U/a dip with ~50WBC, ~50RBC, + nitrite. Previous urine cultures there with mixed sherly in the past. Urine culture here from yesterday with Proteus. Pt allergic to Cipro. Recommended empiric Septra DS BID for 7 days. Will f/u urine culture and confirm susceptibility. AREN YOU MD 05/20/2016 documented in this encounter Plan of Treatment Not on file documented as of this encounter Visit Diagnoses Not on filedocumented in this encounter Care Teams Community Health Program Coordinator Relationship Specialty Start Date End Date Ellen Gleason APRN PCP - General 06/07/10 09/10/16 documented as of this encounter
--- OUTSIDE RECORDS SUMMARY | 2024-07-02 11:25 | XMS_ITS | Encounter Summary ---
Author Organization [facility] [place] [address] Care Team Providers Care Woods Boss Name Role Phone Ellen Gleason CAMILO Primary Care Provider +1- [phone] Reason for Visit * Auth/Cert Specialty Diagnoses / Procedures Referred By Raissa hernandez Referred To Contact Diagnoses right renal pelvic stone Procedures PRO CYSTO/URETEROSCOPY W/LITHOTRIPSY INC INDWELLING STENT INSERTION CYSTOURETEROSCOPY,DIAGNOSTIC,W/ LITHOTRIPSY INC. INSERTION OF INDWELLING URETERAL STENT MODIFIER HOLMIUM LASER Referral ID Status Reason Start Date Expiration Date Visits Re quested Visits Authorized [id number] 1 1 Encounter Details Date Type Department Care Team (Latest Contact Info) Description 2016 8:47 AM EDT - 2016 2:35 PM EDT Hospital Encounter [facility] [place] [address] Donald Rubin Jr., MD [facility] [place] [address] Aury Lee MD [facility] [place] [address] Discharge Disposition: Home Social History Tobacco Use Types Packs/Day Years Used Date Smoking Tobacco: Never Sex and Gender Information Value Date Recorded Sex Assigned at Not on file Gender Identity Not on file Sexual Orientation Not on file documented as of this encounter Last Filed Vital Signs Vital Sign Reading Time Taken Comments Blood Pressure 150/77 2016 12:27 PM EDT Pulse 82 2016 12:27 PM EDT Temperature 36.1 ??C (97 ??F) 2016 12:27 PM EDT Respiratory Rate 20 2016 12:27 PM EDT Oxygen Saturation 100% 2016 12:39 PM EDT Inhaled Oxygen Concentration - - [...] closest emergency room or call the hospital grinding machine operator portable at [phone] and ask for physician paint grinder stone mill covering for your physician. Questions or problems after 5pm or on a weekend: Call the [facility] grinding machine operator portable at and ask for the physician paint grinder stone mill covering for your doctor. SCOPOLAMINE PATCH DISCHARGE [...] pain medications The number for questions is [phone] before 5 PM weekdays and [phone] after 5 PM and weekends. Activity level: [...] days for a2nd look urteroscopy. Please call [phone] if you do not receive your appointment. [...] PM EDT Patient Name: Hannah Nair : [id number] MR#: [id number] ?? Case Date: 2016 ?? Surgeon: Surgeon(s) [...] proceeded to visualize her bladder using a 22-Tristanian urethral cystoscope with a 30 degree lens. [...] the cystoscope using a pusher, and an 8-Tristanian, 26 cm stent was advanced over the wire in the usual fashion and under fluoroscopy. Once the wire was removed, a curl was seen proximally under fluoroscopy and distally under direct vision. The same was done on the left side(stent placement only) except we used a 7-Tristanian, 26 cm stent. The bladder was emptied. [...] Operative Note Patient Name: Hannah Nair : [id number] MR#: [id number] Case Date: 2016 Surgeon: Surgeon(s) and Role: [...] Associated Diagnosis Comments FILM LIBRARY FLUORO OR I-[id number] ONLY Routine 2016 12:34 PM EDT SPECIMEN [...] Storage Only (2016 12:34 PM EDT) Narrative [facility][NOTE 3] - 2016 12:34 PM EDT This exam is for storage only and is auto-finalizing. Donald Rubin Jr., MD IMG FILM LIBRARY O RDERABLES Performing Organization Address [facility] de Phone Number [place], [place] * Specimen to Pathology (surgical or derm) (2016 12:03 PM EDT) AP Specimen 2016 12:0 3 PM EDT 2016 12:03 PM EDT Narrative [facility] - 2016 12:03 PM EDT Specimen requisition ordered. ??Separate Pathology report to follow Donald Rubin Jr., MD PATHOLOGY/CYTOLOGY ORDERABLES Performing Organization Address [facility] Co de Phone Number [facility] [place] [address] * Kidney Stone Analysis (2016 12:02 PM EDT) Kidney Stone Analysis (MAY) Test ?Result ?Flag ??Unit ??RefValue Kidney Stone Analysis ??Source: ? Right Renal ??1st Constituent: 80% Calcium phosphate (apatite) ??2nd Constituent: ?20% Calcium carbonate Test Performed by: [place] [address] Telephone Clerk Telegraph Office: Jacob Correa II, M.D., Ph.D. [facility] Calculus specimen (specimen) Other / Unknown 2016 12:02 PM EDT 2016 3:03 PM EDT Narrative Resulting Agency Comment Spec In Lab Aury Lee MD LAB SEND O UT ORDERABLES Performing Organization Address City/State/[facility] Co de Phone Number [facility] [place] [address] * (ABNORMAL) Urine culture Cystoscopic Urine (2016 10:57 AM EDT) Urine Culture 1,000-9,000 cfu/ml Proteus penneri(A) [facility] Organism Proteus penneri(A) [facility] Urine specimen (specimen) 2016 10:57 [...] Jr., MD MICROBIOLOGY - GEN ERAL ORDERABLES [facility] [place] [address] documented in this encounter Visit Diagnoses Not [...] Given 2016 2:27 PM EDT 60 mg lactated ringers infusion 1,000 mL 1,000 [...] Procedure), Indication for (Active or Suspected): Prophylaxis 09 (Due) ondansetron (ZOFRAN) injection 4 mg 4 [...] Unit) documented in this encounter Care Teams Woods Boss Relationship Specialty Start Date End Date Ellen Gleason APRN PCP - General 06/07/10 09/10/16 documented as of this encounter
--- OUTSIDE RECORDS SUMMARY | 2024-07-02 11:25 | XMS_ITS | Encounter Summary ---
Author Organization [facility] Address [facility] [place] [address] Care Team Providers Care Newscast Producer Name Role Phone GleasonCailinne Yahir CAMILO Primary Care Provider +1- [phone] Encounter Details Date Type Department Care Team (Latest Contact Info) Description 03/16/2016 - 03/16/2016 11:59 PM EDT Hospital Encounter Radiology Library at [facility] [place] [place] [address] Donald Rubin Jr., MD [facility] [place] [address] Pain Discharge Disposition: Home Social History Tobacco [...] Associated Diagnosis Comments FILM LIBRARY STORAGE ONLY CT ABDOMEN AND PELVIS Routine 03/16/2016 12:00 AM EDT Pain documented in this encounter Results * Film Library- Storage Only CT Abdomen & Pelvis (03/16/2016 12:00 AM EDT) Narrative [facility] - 03/29/2016 6:04 PM EDT This exam is for storage only and is auto-finalizing. Donald Rubin Jr., MD IMG FILM LIBRARY O RDERABLES Performing Organization Address City/State/[facility] Co de Phone Number [place], [place] documented in this encounter Visit Diagnoses Diagnosis Pain Generalized pain documented in this encounter Care Teams Newscast Producer Relationship Specialty Start Date End Date Ellen Gleason APRN PCP - General 06/07/10 09/10/16 documented as of this encounter
--- OUTSIDE RECORDS SUMMARY | 2024-07-02 11:25 | XMS_ITS | Encounter Summary ---
Author Organization Formerly [facility] [place] [address] Care Team Providers Care Claims Director Name Role Phone Ellen Gleason APRN Primary Care Provider [phone]- [phone] Encounter Details Date Type Department Care Team (Late st Contact Info) Description 05/22/2016 [place] [id number] Rasheed Casillas MD [facility] [place] [address] Social History Tobacco Use Types Packs/Day Years Used Date Smoking Tobacco: Never Sex and Gender Information Value Date Recorded Sex Assigned at Not on file Gender Identity Not on file Sexual Orientation Not on file documented as of this encounter Miscellaneous Notes * Telephone Encounter - Rasheed Casillas - 05/22/2016 9:14 AM EST Patient called again. She is still having stent discomfort and also having questions about the sensitivities of proteus Called in diclofenac and pyridium. We should get sensitivities tomorrow or Sunday. Also called in a stool softner for constipation documented in this encounter Plan of Treatment Not on file documented as of this encounter Visit Diagnoses Not on filedocumented in this encounter Care Teams Claims Director Relationship Specialty Start Date End Date Ellen Gleason APRN PCP - General 06/07/10 09/10/16 documented as of this encounter
--- OUTSIDE RECORDS SUMMARY | 2024-07-02 11:25 | XMS_ITS | Encounter Summary ---
Author Organization [facility] Address [facility] [place] [address] Care Team Providers Care Carbon Brush Maker Name Role Phone Ellen Gleason CAMILO Primary Care Provider [phone]- [phone] Reason for Visit * Reason Comments Nephrolithiasis Encounter Details Date Type Department Care Team (Late st Contact Info) Description 08/10/2015 4:30 PM EST [place] [phone] Donald Rubin Jr., MD [facility] [address] Other symptoms involving urinary system(712.60) Social History Tobacco Use Types Packs/Day Years Used Date Smoking Tobacco: Never Sex and Gender Information Value Date Recorded Sex Assigned at Not on file Gender Identity Not on file Sexual Orientation Not on file documented as of this encounter Last Filed Vital Signs Vital Sign Reading Time Taken Comments Blood Pressure 160/100 08/10/2015 4:43 PM EST Pulse 71 08/10/2015 4:43 PM EST Temperature 20.6 ??C (69 ??F) 08/10/2015 4:43 PM EST Respiratory Rate 20 08/10/2015 4:43 PM EST Oxygen Saturation 98% 08/10/2015 4:43 PM EST Inhaled Oxygen Concentration - - Weight - - Height 170.2 cm (5' 7) 08/10/2015 4:43 PM EST Body Mass Index - - documented in this encounter Progress Notes * Sravanthi Pereira RD - 08/10/2015 5:08 PM EST Nutrition Intervention for the Management of Kidney Stone Disease Assessment/Nutrition Diagnosis: Pt at increased nutritional lithogenic risk related to: - sub optimal calcium intake not timed with meals - excessive sodium intake - intake of high-oxalate foods (with low calcium intake) - excessive intake of some supplements (i.e. Vitamin C) 24-hour Urine Results (mL/24 hours): Ca 491, Ox 40, Na 239 Estimated body mass index is 32.88 kg/(m^2) as calculated from the following: Height as of this encounter: 170.2 cm (5' 7). Weight as of 04/13/15: 95.255 kg (210 lb). Patient Interview: Mrs. Nair grows 80% of what she eats at home from her gardens, makes her own breads, cans her own vegetables and grows dried beans. She describes some intolerance to milk/dairy products (except for unpasteurized raw milk). Has been eating coconut milk-based yogurt daily. Adds salt to cooking and some foods at the table, as well as to canned/marci vegetables. Eats a lot of fruits and vegetables (many high oxalate). Eats 5-6 times a day d/t low blood sugar. Typical Dietary Intake: B: Oatmeal, raisin, craisins, brown sugar, yogurt (coconut milk), water, green tea L: Homemade soup with canned veggies from garden, green tea D: Beans, grains, greens, vegetables, occasional homemade pizza or potpies, green tea S: Fruit, veggies, corn chips with homemade guacamole, bread + butter, drinks pickle juice occasionally - Based on reported fluid intake, patient consuming approximately >3 L/day Goal is to consume approximately 2-3 L/day Will monitor fluid intake at next encounter. Intervention: - Recommended timing of dietary calcium with meals (3-400 grams/serving) - Instructed pt on Low Sodium Food Choices (under 2 grams/day) - Instructed pt on Low-Oxalate Food choices - Provided diet education materials on low oxalate food choices. Monitor/Evaluate: 1) Pt will decrease added salt, limit pickled/canned items, and add calcium to high oxalate meals. 2) Follow up 24 hour urine analysis will show progress towards meeting goals SRAVANTHI B DEBOW, LD * Donald Rubin Jr., MD - 08/10/2015 5:00 PM EST HPI: Ms. Hannah Nair is a 55 [...] of the inside of her kidneys at [facility] after an episode of urinary infection that required IV antibiotics. She also undergone ESWL x 3 or 4 times in the past at [facility]. She has also undergone ureteroscopy here in 2009 under my care.. Ms. Nair has undergone a metabolic evaluation in the past and per her report, does not metabolize calcium correctly, which leads to her stones. She underwent repeat 24h urine, is seeing Dr Rowe in consultation today. This is notable for marked hypercalciuria. She has also relayed concern about urinary frequency, urgency, occasional pelvic discomfort which she has suspected were UTI, although prior urine culture was negative. She is drinking >2 L of water per day and rarely eats meat and reports a low salt diet. Review of Systems Constitution: Negative for fever. [...] no distension. There is no tenderness. Genitourinary: No CVA tenderness to percussion bilaterally Neurological: She is alert and oriented to person, place, and time. Skin: She is not diaphoretic. Psychiatric: She has a normal mood and affect. Her behavior is normal. Date of Collection: 06/19/15 Volume (L/day): 3.85 Calcium (mg/day): 491 Oxalate (mg/day): 40 Citrate (mg/day): 681 uric acid (gm/day): 0.745 pH: 6.703 sodium (mmol/day): 239 sulfate (mmol/day): 31 UUN (gm/day): 8.25 ss CaOx: 5.05 ss CaPhos: 1.78 ssUA: 0.09 Imaging studies: I independently reviewed the renal ultrasound from today. This reveals no evidenceof hydronephrosis or hydroureter. Bilateral nephrocalcinosis noted, with potentially bulky (>1cm) lower pole stones bilaterally. Impression/Plan: 1)Bilateral nephrocalcinosis, possible bilateral nonobstructing renal stones. Regarding the existing stones identified on the above noted imaging, we reviewed management options, including watchful waiting, shock wave lithotripsy, ureteroscopy, and percutaneous nephrolithotomy. For now she declinessurgical intervention and is content to monitor. We will thus plan follow up with renal ultrasound and KUB in 6 months which I have ordered today, sooner prn. She has been instructed to call or return in the interval if new signs or symptoms of stone passage/renal colic should develop. 2)Hypercalciuric urolithiasis. I reviewed 24h urine, discussed with Dr Rowe, and discussed with her. We have additionally consulted Dr Rowe and his note will follow separately. Management options reviewed. She declines thiazde to address hypercalciuria at this point, wishes ti begin wi th dietary interventions. We will have her see Edouard SORIA in consult today to discuss dietary measures to reduce sodium, oxalate, and be aware of sources of exogenous calcium. 3)urinary frequency with concern about UTI. Previous urine culture confirmed no UTI despite concernof symptoms. Urine will again be sent for culture, but we also discussed there may be other sourcesincluding OAB and intravesical abnormalities. We will request consultation with Latasha Lopez to discuss assessment and management of her LUTS/pelvic discomfort. documented in this encounter Plan of Treatment Not on file documented as of this encounter Procedures Procedure Name Priority Date/Time Associated Diagnosis Comments URINE CULTURE Routine 08/10/2015 5:30 PM EST Other symptoms involving urinary system(788.99) documented in this encounter Results * (ABNORMAL) Urine culture Clean Catch Urine (08/10/2015 5:30 PM EST) Urine Culture 1,000-9,000 cfu/ml Gram Positive organisms , probable contaminant(A ) SHOAIB ANAJENNIFER Urine specimen obtained by clean catch procedure (specimen) 08/10/2015 5:30 PM EST 08/10/2015 5:30 PM EST Narrative Resulting Agency Comment Spec In Lab Donald Rubin Jr., MD MICROBIOLOGY - GEN ERAL ORDERABLES [facility] documented in this encounter Visit Diagnoses Diagnosis Other symptoms involving urinary system(788.99) Other symptoms involving urinary system documented in this encounter Care Teams Carbon Brush Maker Relationship Specialty Start Date End Date Ellen Gleason APRN PCP - General 06/07/10 09/10/16 documented as of this encounter
[2024-07-02 15:58] LABS: ALT 21 U/L (14-59); AST 22 U/L (15-37); Albumin 4.2 g/dL (3.4-5.0); Alkaline Phosphatase 104 U/L (46-116); Anion Gap 6.9 mmol/L (3-11); BUN 10 mg/dL (7-18); Bilirubin, Total 0.51 mg/dL (0.2-1.0); CO2 29.1 mmol/L (21.0-32.0); CREATININE 0.9 mg/dL (0.55-1.02); Calcium 8.9 mg/dL (8.5-10.1); Calculated LDL 142 mg/dL (<100); Chloride 106 mmol/L (98-107); Cholesterol 214 mg/dL (<200); Estimated GFR 70.95 (mL/min/1.73m2); Glucose 100 mg/dL (74-106); HDL Cholesterol 47 mg/dL (40-60); Potassium 4.3 mmol/L (3.5-5.1); Sodium 142 mmol/L (136-145); Total Protein 7.2 g/dL (6.4-8.2); Triglyceride 126 mg/dL (<150); Vitamin D 25 Total 23.7 ng/mL (30-100)
[2024-07-02 23:01] LABS: Hepatitis C Ab w Rflx HCV PCR Negative (Negative)
== END 2024-07-02 11:22 | disposition home or self-care (01) ==
LOC: NCHCN 11:21
PROVIDERS: PCP Nurse Practitioner Family; Visit Provider Nurse Practitioner Family
DX: Z11.59 Encounter for screening for other viral diseases (principal)
CPT/HCPCS: 80053; 80061; 82306; 86803; 83036

== ENCOUNTER 2024-09-18 01:41 | Outpatient (CLI) | payer MEDICARE, SELFPAY ==
--- NOTE | 2024-09-18 | DI.DEXA_ITS ---
Exam(s) XR DEXA BONE DENSITY W/WO TYRELL EXAM: XR DEXA BONE DENSITY W/WO TYRELL CLINICAL HISTORY: Z78.0 Asymptomatic menopausal TECHNIQUE: Hologic Horizon C densitometer analysis of left hip, lumbar spine and left forearm. Lat eral survey image of the thoracic and lumbar spine. COMPARISON: No exams were available for comparison FINDINGS: Lateral view of the thoracic and lumbar spine shows no evidence of compression fractures. Bone mineral density measurements of the lumbar spine correspond to a total T-score of 0.4, in the normal range. Bone mineral density measurements of the left hip correspond to a total T-score of -0.2. The femora l neck T-score is -0.5, in the normal range. Theleft forearm bone mineral density measurements correspond to a T-score of the distal 3rd of 0.3, in the normal range.. IMPRESSION: Normal bone mineral density.
--- NOTE | 2024-09-18 | DI.MAMMO_ITS ---
Exam(s) MAMMO SCREENING EXAM: MAMMO SCREENING CLINICAL HISTORY: Z12.39 Screening. TECHNIQUE: Bilateral full field digital CC and MLO mammographic images were obtained with 3D tomosyn thesis and utilizing computer aided detection (CAD). COMPARISON: Prior mammograms were reviewed. FINDINGS: There are no new right breast findings. In the left breast there is an asymmetric subtle density noted on the MLO view approximately 8 cm in from the nipple and measuring approximately 1.4 x 1.0 cm. Further imaging recommended. There are no malignant-appearing microcalcification groups in this region or elsewhere in either [address]. There is no significant architectural distortion nor skin thickening-retraction. IMPRESSION: 1. No radiographic evidence of malignancy in the right breast. 2. Asymmetric density-possible nodule in the left breast as described above. Spot compression MLO vi ew and ultrasound recommended. BI-RADS Category 0 - Incomplete: Need additional imaging evaluation Breast Density - Category B - Scattered areas of fibroglandular density Breast density Category C or D implies that the patient has dense breast tissue. Dense breast tissue can make it harder to find cancer on a mammogram. Dense breast tissue is also associated with an incr eased risk of breast cancer. This information about the result of the mammogram report was provided to the patient to raise their awareness. Use this report when you speak with the patient about their risks for breast cancer, which includes their family history. At that time, you may recommend additional screening tests (Ultrasoun d or MRI) as these tests may add significant information. A negative radiographic report should not delay biopsy if a dominant or clinically suspicious mass is present. Up to ten percent of cancers are not identified on mammography. A negative report may reinforce clinical impression. Adenosis and dense breasts may obscure an underlying neoplasm. False positive reports average 6 to 10%. Patient will receive a letter notifying them of these results.
== END 2024-09-18 02:01 ==
PROVIDERS: PCP Nurse Practitioner Family; Visit Provider Nurse Practitioner Family
DX: Z12.31 Encounter for screening mammogram for malignant neoplasm of breast (principal); R92.8 Other abnormal and inconclusive findings on diagnostic imaging of breast; Z13.820 Encounter for screening for osteoporosis; Z78.0 Asymptomatic menopausal state
CPT/HCPCS: 77063; 77067; 77080

== ENCOUNTER 2024-09-22 03:01 | Outpatient (CLI) | payer MEDICARE, SELFPAY ==
--- NOTE | 2024-09-22 09:35 | DI.MAMMO_ITS ---
Exam(s) MAMMO SCREEN CALL BACK UNI EXAM: MAMMO SCREEN CALL BACK UNI CLINICAL HISTORY: F/U MAMMO, ASYMMETRIC DENSITY,? NODULE LT BREAST. TECHNIQUE: Craniocaudal and mediolateral oblique Full Field Digital Mammography views of the left br east with Computer Aided Diagnosis. COMPARISON: Comparison is made with prior examinations. FINDINGS: Mammography/Tomosynthesis: Masses/Architectural Distortion: The area of concern does not persist on the additional views. The a dedrick is unchanged compared to prior examinations. No masses or areas of architectural distortion are seen. Microcalcifictions: No suspicious pleomorphic-type are seen. Skin Thickening/Nipple Retraction: None. IMPRESSION: 1. No evidence of malignancy is noted. 2. Unless there is more urgent need, follow-up screening mammography is recommended, as per [employer] guidelines. 3. The findings were discussed with the patient on the date of the examination. BI-RADS Category 1 - Negative Breast Density - Category B - Scattered areas of fibroglandular density Breast density Category C or D implies that the patient has dense breast tissue. Dense breast tissue can make it harder to find cancer on a mammogram. Dense breast tissue is also associated with an incr eased risk of breast cancer. This information about the result of the mammogram report was provided to the patient to raise their awareness. Use this report when you speak with the patient about their risks for breast cancer, which includes their family history. At that time, you may recommend additional screening tests (Ultrasoun d or MRI) as these tests may add significant information. A negative radiographic report should not delay biopsy if a dominant or clinically suspicious mass is present. Up to ten percent of cancers are not identified on mammography. A negative report may reinforce clinical impression. Adenosis and dense breasts may obscure an underlying neoplasm. False positive reports average 6 to 10%. Patient will receive a letter notifying them of these results.
== END 2024-09-22 03:21 ==
LOC: DI 03:01
PROVIDERS: PCP Nurse Practitioner Family; Visit Provider Nurse Practitioner Family
DX: R92.8 Other abnormal and inconclusive findings on diagnostic imaging of breast (principal); Z12.31 Encounter for screening mammogram for malignant neoplasm of breast; R92.323 Mammographic fibroglandular density, bilateral breasts
CPT/HCPCS: 77063; 77067

== ENCOUNTER 2024-12-25 01:06 | Outpatient (CLI) | payer MEDICARE, SELFPAY ==
--- NOTE | 2024-12-25 09:15 | DI.US_ITS ---
Exam(s) US RENAL EXAM: US RENAL CLINICAL HISTORY: Monitoring calculi of kidney, N20.0, recurrent nephrolithiasis TECHNIQUE: Ultrasound of both kidneys performed using standard protocol. COMPARISON: US US RENAL from 05/14/2024 FINDINGS: RIGHT KIDNEY: Measures 10.9 cm in length. No cysts evident. Again noted is diffusely increased medullary echogenicity. Probably medullary sponge kidney/medullary nephrocalcinosis. Possible 6 mm calculus lower pole calyx. No hydronephrosis. No solid renal masses. LEFT KIDNEY: Measures 11.6 cm in length. No cysts evident. Cyst again noted is diffusely increased medullary echogenicity. Probably medullary sponge kidney/medullary nephrocalcinosis. There appears to be an 11 millimeter nonobstructive calculus at the midpole level. No solid renal masses. URINARY BLADDER: Prevoid volume is 221 cc Postvoid volume is 12 cc No evidence of bladder mass nor diverticuli. Ureterovesical jets: Both identified and appear symmetrical IMPRESSION: 1. Again noted is bilateral medullary nephrocalcinosis with bilateral nonobstructing calculi in the kidneys. No cysts nor solid renal masses. 2. No new significant findings in the urinary bladder. DATA REPOSITORY:
== END 2024-12-25 01:26 ==
LOC: DI 01:06
PROVIDERS: PCP Nurse Practitioner Family; Visit Provider Nurse Practitioner Gerontology
DX: N20.0 Calculus of kidney (principal)
CPT/HCPCS: 76770

== ENCOUNTER → 2025-01-05 08:37 | Outpatient (BNVA) | payer MEDICARE, SELFPAY | PROVIDERS: PCP Nurse Practitioner Family; Visit Provider Nurse Practitioner Gerontology | DX: N20.0 Calculus of kidney (principal); R30.0 Dysuria | CPT/HCPCS: 99214; 81002 ==

== ENCOUNTER 2025-01-05 09:16 | Outpatient (REF) | payer MEDICARE, SELFPAY | END 2025-01-05 09:17 | disposition home or self-care (01) | LOC: LBN 09:16 | PROVIDERS: PCP Nurse Practitioner Family; Visit Provider Nurse Practitioner Gerontology | DX: R30.0 Dysuria (principal); Z34.90 Encounter for supervision of normal pregnancy, unspecified, unspecified trimester | CPT/HCPCS: 87086 ==

== ENCOUNTER 2025-05-27 14:44 | Emergency (ER) | payer MEDICARE, SELFPAY ==
--- NOTE | 2025-05-27 14:45 | RT.EKG_ITS ---
APPROVED REPORT Exam: Resting ECG Reason for Exam: Palpitations Patient Location: E HR:58 bpm ECG Measurements Heart Rate 58 AXIS DE 148 P 48 QRSd 74 QRS 13 QT 403 T 45 QTc 397 Conclusion Sinus bradycardia...rate< 60 Low voltage, precordial leads...precordial leads <1.0mV Anteroseptal infarct, old...Q >40mS, V1-V2
[2025-05-27 14:53] VITALS: BP 178/91; PULSE 60; RESP 20; TEMP 36.7; O2SAT 98
--- NOTE | 2025-05-27 15:35 | W.ED.GENAD ---
Discharge Plan Disposition Patient Disposition: Home Condition: Stable Discharge Details Clinical Impression: Palpitations Primary Care Provider: SAMUEL CERDA ED Provider: Jose Foote Home Meds and New Rx's Prescriptions: Continued cholecalciferol (vitamin D3) 1,000 unit capsule 1,000 unit PO DAILY Nettle tea PO PRN cider [id number] 300-8.3 mg tablet 1 tab PO DAILY melatonin 5 mg capsule 5 mg PO DAILY mecobalamin (vitamin B12) 1,000 mcg tablet,chewable 1,000 mcg PO DAILY Galzin 50 mg (zinc) capsule 50 mg PO DAILY Rx Instructions: swallow whole; do not chew/break/dissolve/open urocalm PO EPIPEN 1 ea IM 1:1000 ONCE Patient Comments: patient states she has never had to use this before and athat she carries it in her purse for bee stings and chocolate. Cranberry Concentrate 1 EACH capsule 3 mg PO DAILY magnesium oxide 400 MG tablet 400 mg PO DAILY ascorbate calcium (vitamin C) 500 MG tablet 1,500 mg PO DAILY acetaminophen [Mapap Extra Strength] 500 MG tablet 1,000 mg PO Q4H PRN [id number] acidophilus-pectin, citrus 1 CAP tablet 1 cap PO TID PRN [id number] Discharge Instructions Instructions: Palpitations ED Additional Instructions: You were seen in the emergency department for your palpitations and near vasovagal syncope. Your cardiac workup was negative, your hypertensive emergency workup is negative, there is no evidence of blood clot in the lungs, your EKG shows no arrhythmia, no premature beats and no abnormalities indicating cardiac stress, CTA of your head and neck only shows some chronic mild to moderate carotid stenosis which is chronic, there is no abnormalities to suggest there is any damage to the heart going on, you need to follow-up with outpatient studies of an echocardiogram, stress test and possible heart monitor, I have forwarded a message to Samuel Cerda's office to send a referral to cardiology for you, you will need to be reevaluated for any further episodes of fainting especially with shortness of breath, sweating, chest pain. Stand Alone Forms: Portal Information Referrals: SAMUEL CERDA, [facility] [Primary Care Provider, Medicine] Discharge Data Discharge Date/Time-TO BE ENTERED AT DEPARTURE: 05/27/25 18:32 HPI General Date/Time Provider Initiated Documentation: 05/27/25 15:18. HPI Narrative: 65-year-old female presents by POV/ambulating with a chief complaint of some symptomatic palpitations, nausea and near syncope ongoing today. She endorsed a brief moment of chest pressure but did not describe it as painful, denies any radiation to neck jaw or arms or mid back. She has no cardiac history and no recent URI. She endorses a history of significant emotional reaction causing as much has been vomiting-Notes a very stressful phone interaction with a friend last night and endorses a history of bulimia/anorexia and vomiting is a big trigger for her. She had pulled into her friend's store with palpitations and states that she was having some darkening vision but did not pass out, denies any sweating or shortness of breath during this episode but was encouraged to present to the ER. She endorses significant anxiety history Patient not anticoagulated. Related Data Home Medications Medication Instructions Recorded Confirmed Epipen 1 ea IM 1:1000 ONCE 12/16/12 05/27/25 cranberry concentrate-ascorbic 3 mg PO DAILY 05/20/16 05/27/25 acid 140 mg-100 mg capsule (Cranberry Concentrate) magnesium oxide 400 mg (241.3 mg 400 mg PO DAILY 05/20/16 05/27/25 magnesium) tablet acetaminophen 500 mg tablet (Mapap 1,000 mg (2 x 500 mg) PO Q4H PRN 01/04/18 05/27/25 Extra Strength) PRN acidophilus 25 million 1 cap PO TID PRN PRN 01/04/18 05/27/25 cell-pectin, citrus 100 mg tablet cholecalciferol (vitamin D3) 25 1,000 unit PO DAILY 05/17/18 05/27/25 mcg (1,000 unit) capsule zinc acetate 50 mg (zinc) capsule 50 mg PO DAILY 12/04/19 05/27/25 (Galzin) cider [id number] 300 1 tab PO DAILY 11/14/21 05/27/25 mg-8.3 mg tablet Nettle tea PO PRN 12/19/21 07/24/23 ascorbate calcium (vitamin C) 500 1,500 mg PO DAILY 12/19/21 05/27/25 mg tablet mecobalamin (vitamin B12) 1,000 1,000 mcg PO DAILY 07/24/23 05/27/25 mcg chewable tablet melatonin 5 mg capsule 5 mg PO DAILY 01/07/24 05/27/25 urocalm PO 01/05/25 Previous Rx's Medication Instructions Recorded acetaminophen 500 mg tablet (Mapap 1,000 mg (2 x 500 mg) PO Q4H PRN 01/04/18 Extra Strength) PRN acidophilus 25 million 1 cap PO TID PRN PRN 01/04/18 cell-pectin, citrus 100 mg tablet Allergies Allergy/AdvReac Type Severity Reaction Status Date / Time chocolate flavor Allergy Severe ANAPHYLAXIS Verified 05/27/25 14:56 venom-honey bee (bee venom Allergy Severe Anaphylaxsi Verified 05/27/25 14:56 (honey bee)) s cat dander Allergy Intermediate SOB, cough, Verified 05/27/25 14:56 kiwi Allergy Intermediate blisters Verified 05/27/25 14:56 in her mouth ciprofloxacin (From Cipro) Allergy Mild RASH,T Verified 05/27/25 14:56 ELEVATION,TACHYCARDIA docusate sodium (From Allergy Mild Skin Rash Verified 05/27/25 14:56 Senna-S) sennosides (From Senna-S) Allergy Mild Skin Rash Verified 05/27/25 14:56 milk AdvReac Intermediate Diarrhea Verified 05/27/25 14:56 pomegranate AdvReac Intermediate sore Verified 05/27/25 14:56 throat, diarrhea sunflower oil AdvReac Intermediate Diarrhea Verified 05/27/25 14:56 sunflower seed AdvReac Intermediate Diarrhea Verified 05/27/25 14:56 peanut AdvReac Mild Diarrhea Verified 05/27/25 14:56 cammomile Allergy Severe Skin Rash Uncoded 05/27/25 14:56 CHLORINE Allergy Severe Anaphylaxsi Uncoded 05/27/25 14:56 s General Stated Complaint: Palpitatns GUADALUPE: 3 Review of Systems All systems reviewed & are unremarkable except as noted in HPI and below Exam Narrative Exam Narrative: GENERAL APPEARANCE: Well-nourished, non-toxic, awake and alert, atraumatic, no acute distress. SKIN: Warm, pink, dry, intact, without rashes/lesions/ulcerations. HEAD: Normocephalic, atraumatic, normal hair distribution for gender/age. EYES: Normal conjunctiva, no exudates on lids/lashes. ENT: Nares patent, no circumoral cyanosis, no facial swelling NECK: Supple, trachea midline, painless cervical ROM. LUNGS/CHEST: Lungs CTA bilaterally- no rhonchi/rales/wheezes diffusely, non-labored respirations, normal A/P diameter, symmetrical expansion, no chest wall deformity HEART (CV/PV): Regular rate and rhythm without murmur, no peripheral edema, no JVD. ABDOMEN: Soft, non-distended, no guarding, no tenderness. MSK: Normal ROM, no swelling/deformity to bilateral UEs or LEs, moving all extremities without weakness, no cyanosis, spine midline without tenderness, normal curvature. NEURO: Mental Status AAOx4 - alert to person, place, time, events No facial droop, no forehead involvement. Motor: No focal weakness - strength 5/5 in bilateral UEs and LEs, proximal and distal, symmetric. Sensory: sensation intact to light touch globally. Gait normal: patient ambulated without ataxia into ED room. PSYCH: euthymic, cooperative, pleasant, appropriate speech Course Vital Signs Vital signs: Vital Signs Temperature 36.7 C 05/27/25 14:53 Pulse 60 05/27/25 14:53 Respiratory Rate 20 05/27/25 14:53 Blood Pressure 178/91 H 05/27/25 14:53 Pulse Oximetry 98 05/27/25 14:53 Temperature 36.7 C 05/27/25 14:53 Pulse 60 05/27/25 14:53 Respiratory Rate 20 05/27/25 14:53 Blood Pressure 178/91 H 05/27/25 14:53 Blood Pressure Position Sitting 05/27/25 14:53 Pulse Oximetry 98 05/27/25 14:53 Oxygen Delivery Method Room Air 05/27/25 14:53 Oxygen Flow Rate 0 05/27/25 14:53 Medical Decision Making This dictation utilizes [id number] dictation software and may contain unedited grammatical errors. 65-year-old female presents by POV/ambulating with a chief complaint of some symptomatic palpitations, nausea and near syncope ongoing today. She endorsed a brief moment of chest pressure but did not describe it as painful, denies any radiation to neck jaw or arms or mid back. She has no cardiac history and no recent URI. She endorses a history of significant emotional reaction causing as much has been vomiting-Notes a very stressful phone interaction with a friend last night and endorses a history of bulimia/anorexia and vomiting is a big trigger for her. She had pulled into her friend's store with palpitations and states that she was having some darkening vision but did not pass out, denies any sweating or shortness of breath during this episode but was encouraged to present to the ER. She endorses significant anxiety history. Patients' medical history: LANA, IBS, polyarthralgia, hypertension, hyperlipidemia, diabetes, history of renal calculi. Family and social history: Non-smoker, gets regular exercise eats well, lives at home with . Pertinent exam findings / vital signs include benign cardiopulmonary exam, regular rate without murmur, no carotid bruits bilaterally, lungs CTA, no CVA tenderness to percussion bilaterally, no abdominal tenderness or rebound tenderness, neuro intact. Differential / pathologies of concern include anxiety, palpitations, ACS, PE, vasovagal syncope, vascular pathology of head and neck. Diagnostic studies of: - CBC, CMP, D-dimer, magnesium, serial troponins, lipase, TSH, UA, EKG, CTA head and neck, XR chest. - CBC is completely unremarkable - CMP without abnormality - D-dimer negative - Serial troponins undetectable with reliable onset - Lipase negative - TSH within normal limits - UA is without proteinuria - X-ray chest no acute findings - CT of the brain and neck shows chronic findings of moderate stenosis on right carotid and mild on the left, no stroke or dissections - EKG shows normal sinus rhythm at 58 bpm with P waves followed by narrow complex QRS with normal axis, no T wave abnormalities, no ischemic changes, normal QTc no PACs or PVCs Interventions of: -4 mg IV Zofran for nausea. ED Course/Assessment/Plan: 65-year-old female presents with subjective palpitations, observed on monitor throughout multiple hours of visit without any arrhythmia or PVCs or PACs seen, her workup is completely negative for any signs of ACS or arrhythmia, her thyroid stimulating hormone is normal, D-dimer is negative, no electrolyte abnormalities, serial troponins are undetectable with reliable onset, she is relatively healthy otherwise and is low risk on both Nellis syncope score and heart score indicating outpatient follow-up, she has a history of significant somatic symptoms from emotional events and had a rough phone call last night with a friend. I spent significant amount of time counseling the patient that she needs to see cardiology for some baseline studies but that this all could be anxiety, I did stress that if she is having persistent palpitations with any chest pain and further episodes that she will need to be evaluated again. Nellis Syncope Risk LOW, HEART score 2 - low risk, oupatient follow-up. Findings not consistent with ACS, PE, electrolyte abnormality, arrhythmia, stroke or intracranial or vascular abnormality of the head and neck, pneumonia, pneumothorax. Disposition of palpitations. Patient verbalized understanding of the plan and return to ED criteria and engaged in shared decision making. Medical Records Medical records reviewed: Yes I reviewed the patient's medical records. Imaging Data Radiologic Study: Attestation: I personally reviewed and interpreted this imaging study as follows: Imaging: CT Scan Radiologist's impression: EXAM: CT BRAIN NECK CTA CLINICAL HISTORY: dizziness, syncope, hx of carotid pathology. TECHNIQUE: Imaging Protocol: Axial CT angiography was performed with multi-slice acquisition and multi-planar and/or 3D reconstructions. CONTRAST MATERIAL: Intravenous: Omnipaque 350 Contrast volume:structured data in ml COMPARISON: CT HEAD WITHOUT CONTRAST from 09/13/2012 FINDINGS: CTA Neck W: Aortic arch anatomy: The aortic arch anatomy is conventional and there is no significant stenosis at the origin of the great vessels off of the aortic arch. No intimal flap evident. Anterior circulation: Both common carotid arteries ascend with normal luminal diameters. There is calcified plaque in the posterior wall of the carotid bulb and proximal right ICA. Approximately 50 percent stenosis at this level. Above this level the right ICA in the upper neck is nicely patent and also demonstrated be patent in the skull base-carotid canal. On the left side there is milder calcified plaque on the posterior wall of the proximal left ICA with approximately 20 percent stenosis at this level. The left ICA above this level in the upper neck is nicely patent as well as in the skull base-carotid canals. Posterior circulation: Both vertebral arteries originate in conventional fashion off of the subclavian arteries and there is no obvious stenosis at the origin of the vertebral arteries. Both vertebral arteries exhibit normal luminal diameters within the foramen transversarium. No evidence of stenosis nor thrombosis nor dissection of the vertebral arteries. Both vertebral arteries contribute to the formation of the basilar artery at the skull base. CTA Brain W: Anterior circulation: Both internal carotid arteries are patent in the skull base-carotid canals as well as within the cavernous sinuses. There is mild calcified plaque on the lateral rosario of both intra cavernous internal carotid arteries but without tight stenosis at this level. The supraclinoid aspects of the ICAs are patent. Both A1 segments are patent as are the anterior cerebral arteries and there is no evidence of aneurysm at the level of the anterior communicating artery. Both middle cerebral arteries are patent with no evidence of significant stenosis nor intraluminal thrombus. There also no aneurysms of these vessels. Posterior circulation: The basilar artery ascends in the midline. Distally it gives off patent bilateral superior cerebellar arteries. Above this level the basilar artery terminates as patent bilateral posterior cerebral arteries. There is no evidence of aneurysm at the tip of the basilar artery nor elsewhere in the [id number]. CT BRAIN: There is no evidence of intracranial hemorrhage, mass effect, or shift of midline structures. There are no extra-axial fluid collections. Ventricles are not enlarged or shifted. There are no ring enhancing lesions in the brain and no abnormal meningeal enhancement. IMPRESSION: 1. There is some calcified plaque on the posterior rosario of the carotid bulbs and proximal ICAs bilaterally, more prominent on the right side where there is approximately 40-50 percent luminal stenosis at this level. A lesser amount of stenosis is present at this location on the left side, approximately 20 percent. No evidence of dissection of the carotid arteries. 2. Patent vertebral arteries. No significant stenosis, thrombosis, nor dissection. 3. Patent intracranial arteries. 4. No acute intracranial findings. Report by myself to ER provider 05/27/2025 at 5:03 p.m. Radiologic Study #2: Attestation: I personally reviewed and interpreted this imaging study as follows: Imaging: X-Ray Radiologist's impression: EXAM: XR CHEST 2V PA LATERAL CLINICAL HISTORY: palpitations. TECHNIQUE: 2D digital imaging was performed. COMPARISON: CR,XR XR CHEST 2V PA LATERAL from 11/20/2020 FINDINGS: 2 views: Heart size is normal. The mediastinum is not widened. Lungs are clear. No infiltrates nor pleural effusions. IMPRESSION: No acute pulmonary findings. Lab Data Lab results reviewed: Yes I reviewed the patient's lab results. Labs: Laboratory Tests Range/Units 05/27/25 05/27/25 05/27/25 15:40 16:20 16:50 WBC (4.4-10.8) 10^3/uL 6.93 RBC (3.93-5.22) 10^6/uL 4.85 Hgb (11.2-15.7) g/dL 13.9 Hct (36.0-46.0) % 41.9 MCV (80-95) fL 86 MCH (27.0-33.0) pg 28.7 MCHC (32.0-36.0) % 33.2 RDW (11.7-14.6) % 13.1 Plt Count (130-400) 10^3/uL 187 MPV (8.0-11.0) fL 11.5 H Immature Gran % % 0.3 Neutrophils % % 61.8 Lymphocytes % % 28.7 Monocytes % % 6.1 Eosinophils % % 2.2 Basophils % % 0.9 Nucleated RBC % (0.0-0.3) % 0.0 Absolute Neutrophils (1.2-6.7) 10^3/uL 4.29 Absolute Lymphocytes (1.2-3.4) 10^3/uL 1.99 Absolute Monocytes (0.1-0.8) 10^3/uL 0.42 Absolute Eosinophils (0.0-0.7) 10^3/uL 0.15 Absolute Basophils (0.0-0.2) 10^3/uL 0.06 D-Dimer (<500) ng/mlFEU 416 Sodium (136-145) mmol/L 143 Potassium (3.5-5.1) mmol/L 4.2 Chloride (98-107) mmol/L 107 Carbon Dioxide (20.0-31.0) mmol/L 28.4 Anion Gap (3-11) mmol/L 7.6 BUN (9-23) mg/dL 20 Creatinine (0.55-1.02) mg/dL 0.9 Est GFR (CKD-EPI 2020) (mL/min/1.73m2) 66.91 Glucose (74-106) mg/dL 103 Calcium (8.3-10.6) mg/dL 9.0 Magnesium (1.6-2.6) mg/dL 2.1 Total Bilirubin (0.2-1.2) mg/dL 0.30 AST (<34) U/L 18 ALT (10-49) U/L 16 Alkaline Phosphatase (46-116) U/L 90 Troponin I (<35) ng/L < 3 < 3 Total Protein (5.7-8.2) g/dL 7.3 Albumin (3.4-5.0) g/dL 4.6 Lipase (<53) U/L 42 TSH (0.55-4.78) uIU/mL 2.98 Urine Color (Yellow) Yellow Urine Clarity (Clear) Clear Urine pH (5-8) 7.0 Ur Specific [place] (1.005-1.025) 1.010 Urine Protein (Neg-Trace) mg/dL Negative Urine Ketones (Negative) mg/dL Negative Urine Blood (Negative) Moderate H Urine Nitrite (Negative) Negative Urine Bilirubin (Negative) Negative Urine Urobilinogen (Up to 0.2) mg/dL 0.2 Ur Leukocyte Esterase (Negative) Trace H Urine RBC (0-2) HPF 3-5 H Urine WBC (0-5) HPF 5-10 Ur Epithelial Cells (Negative) HPF Rare Urine Crystals (Negative) HPF Negative Urine Bacteria (Negative) HPF Few Urine Casts (Negative) LPF Negative Urine Mucus (Negative) Negative Ur Culture Indicated? No Urine Glucose (Negative) mg/dL Negative PFSH All Active Problems (Updated 05/27/25 @ 17:59 by FRANCA Layne) Palpitations (Acute) Synovitis of right knee (Acute) Tear of medial meniscus of right knee (Acute) Tear of lateral meniscus of right knee (Acute) Polyarthralgia (Acute) IBS (irritable bowel syndrome) (Chronic) LANA (obstructive sleep apnea) (Chronic) Postmenopausal (Acute) Discharge planning issues (Acute) DVT prophylaxis (Acute) Hyperlipidemia (Chronic) Hypertension (Chronic) Diabetes (Chronic) HTN (hypertension) (Chronic) Atypical chest pain (Acute) Chest pain (Acute) UTI (urinary tract infection) (Acute) Hypomagnesemia (Acute) Recurrent nephrolithiasis (Acute) Hydronephrosis concurrent with and due to calculi of kidney and ureter (Acute) Urinary tract infection (Acute) Hypokalemia (Acute) Kidney calculi (Acute 06/26/16) Gross hematuria (Acute) Medical History History of broken nose x2 History of deviated nasal septum Hx of anorexia nervosa Pt. states when she is weighed she is not to be told the number. Hx of epistaxis Surgical History H/O lithotripsy History of recent dental procedure Pt. states she recently traveled to [place] for dental work r/t to an infection in her dental roots, the infection has been treated surgically/abx, has 19 new crowns. Did F/U with [facility] in [place] upon return, pt. states that she is free of infection and has surgical clearance letter. Social History Smoking/Tobacco Use Status: Never Smoking risk assessment performed?: Yes Alcohol Intake: never Drug use: Never Substance use type: does not use Housing: house Do you feel safe at home: Yes Do you feel safe in your relationship?: Yes Female Reproductive History Menstrual Menopause type: natural (2011) History History Para Hx # Term Pregnancies Multiple births Hx # Pregnancies Ectopic pregnancies AB induced Hx Number of Living Children 5 AB spontaneous
--- NOTE | 2025-05-27 15:45 | DI.CT_ITS ---
Exam(s) CT BRAIN NECK CTA EXAM: CT BRAIN NECK CTA CLINICAL HISTORY: dizziness, syncope, hx of carotid pathology. TECHNIQUE: Imaging Protocol: Axial CT angiography was performed with multi- slice acquisition and multi-planar and/or 3D reconstructions. CONTRAST MATERIAL: Intravenous: Omnipaque 350 Contrast volume:structured data in ml COMPARISON: CT HEAD WITHOUT CONTRAST from 09/13/2012 FINDINGS: CTA Neck W: Aortic arch anatomy: The aortic arch anatomy is conventional and there is no significant stenosis at the origin of the great vessels off of the aortic arch. No intimal flap evident. Anterior circulation: Both common carotid arteries ascend with normal luminal diameters. There is calcified plaque in the posterior wall of the carotid bulb and proximal right ICA. Approximately 50 percent stenosis at this level. Above this level the right ICA in the upper neck is nicely patent and also demonstrated be patent in the skull base-carotid canal. On the left side there is milder calcified plaque on the posterior wall of the proximal left ICA with approximately 20 percent stenosis at this level. The left ICA above this level in the upper neck is nicely patent as well as in the skull base-carotid canals. Posterior circulation: Both vertebral arteries originate in conventional fashion off of the subclavian arteries and there is no obvious stenosis at the origin of the vertebral arteries. Both vertebral arteries exhibit normal luminal diameters within the foramen transversarium. No evidence of stenosis nor thrombosis nor dissection of the vertebral arteries. Both vertebral arteries contribute to the formation of the basilar artery at the skull base. CTA Brain W: Anterior circulation: Both internal carotid arteries are patent in the skull base-carotid canals as well as within the cavernous sinuses. There is mild calcified plaque on the lateral rosario of both intra cavernous internal carotid arteries but without tight stenosis at this level. The supraclinoid aspects of the ICAs are patent. Both A1 segments are patent as are the anterior cerebral arteries and there is no evidence of aneurysm at the level of the anterior communicating artery. Both middle cerebral arteries are patent with no evidence of significant stenosis nor intraluminal thrombus. There also no aneurysms of these vessels. Posterior circulation: The basilar artery ascends in the midline. Distally it gives off patent bilateral superior cerebellar arteries. Above this level the basilar artery terminates as patent bilateral posterior cerebral arteries. There is no evidence of aneurysm at the tip of the basilar artery nor elsewhere in the [id number]. CT BRAIN: There is no evidence of intracranial hemorrhage, mass effect, or shift of midline structures. There are no extra-axial fluid collections. Ventricles are not enlarged or shifted. There are no ring enhancing lesions in the brain and no abnormal meningeal enhancement. IMPRESSION: 1. There is some calcified plaque on the posterior rosario of the carotid bulbs and proximal ICAs bilaterally, more prominent on the right side where there is approximately 40-50 percent luminal stenosis at this level. A lesser amount of stenosis is present at this location on the left side, approximately 20 percent. No evidence of dissection of the carotid arteries. 2. Patent vertebral arteries. No significant stenosis, thrombosis, nor dissection. 3. Patent intracranial arteries. 4. No acute intracranial findings. Report by myself to ER provider 05/27/2025 at 5:03 p.m. RADIATION DOSE DELIVERED: 2,040.18mGy.cm Total DLP DATA REPOSITORY: All CT scans at this facility are submitted to the National Radiology Data Registry (NRDR) Dose Index Registry (DIR) with the [employer] ([employer]). RADIATION OPTIMIZATION: All CT scans at this facility use at least one of these dose optimization techniques: automated exposure control; mA and/or kV adjustment per patient size (includes targeted exams where dose is matched to clinical indication); or iterative reconstruction.
[2025-05-27 15:55] LABS: Abs Immature Grans 0.02 10^3/uL (0.0-0.06); HCT 41.9 % (36.0-46.0); HGB 13.9 g/dL (11.2-15.7); Immature Grans % 0.3 %; MCH 28.7 pg (27.0-33.0); MCHC 33.2 % (32.0-36.0); MCV 86 fL (80-95); MPV 11.5 fL (8.0-11.0); Platelet Count 187 10^3/uL (130-400); RBC 4.85 10^6/uL (3.93-5.22); RDW 13.1 % (11.7-14.6); RDW-SD 40.8 fL; WBC 6.93 10^3/uL (4.4-10.8)
[2025-05-27 16:11] LABS: Lipase 42 U/L (<53)
[2025-05-27 16:12] LABS: Magnesium 2.1 mg/dL (1.6-2.6)
[2025-05-27 16:13] LABS: ALT 16 U/L (10-49); AST 18 U/L (<34); Albumin 4.6 g/dL (3.4-5.0); Alkaline Phosphatase 90 U/L (46-116); Anion Gap 7.6 mmol/L (3-11); BUN 20 mg/dL (9-23); Bilirubin, Total 0.30 mg/dL (0.2-1.2); CO2 28.4 mmol/L (20.0-31.0); Calcium 9.0 mg/dL (8.3-10.6); Chloride 107 mmol/L (98-107); Glucose 103 mg/dL (74-106); Potassium 4.2 mmol/L (3.5-5.1); Sodium 143 mmol/L (136-145); Total Protein 7.3 g/dL (5.7-8.2)
[2025-05-27 16:18] LABS: TSH (W/Ref FT4) 2.98 uIU/mL (0.55-4.78)
[2025-05-27] MEDS: Normal Saline - Diluent 50 ML VIAL IJ (16:22)
[2025-05-27] MEDS: Normal Saline Flush 10 ML SYR IVP (16:22)
[2025-05-27] MEDS: Omnipaque 350 MG/ML 100 ML BTL IJ (16:22)
[2025-05-27 16:24] LABS: Troponin I < 3 ng/L (<35)
[2025-05-27] MEDS: Ondansetron 4 MG/2 ML VIAL IVP (16:25)
[2025-05-27 16:33] LABS: D-Dimer 416 ng/mlFEU (<500)
[2025-05-27 16:38] LABS: Glucose Negative (Negative)
[2025-05-27 16:40] LABS: C & S Indicated? No
--- NOTE | 2025-05-27 16:45 | DI.RAD_ITS ---
Exam(s) XR CHEST 2V PA LATERAL EXAM: XR CHEST 2V PA LATERAL CLINICAL HISTORY: palpitations. TECHNIQUE: 2D digital imaging was performed. COMPARISON: CR,XR XR CHEST 2V PA LATERAL from 11/20/2020 FINDINGS: 2 views: Heart size is normal. The mediastinum is not widened. Lungs are clear. No infiltrates nor pleural effusions. IMPRESSION: No acute pulmonary findings. DATA REPOSITORY: RADIATION DOSE DELIVERED:
[2025-05-27 17:27] LABS: Troponin I < 3 ng/L (<35)
[2025-05-27] MEDS: Prochlorperazine 10 MG TAB PO (18:30)
[2025-05-27 18:31] VITALS: BP 165/63; PULSE 62; RESP 22; O2SAT 98
[2025-05-29 09:53] LABS: Lyme Ab w Rflx to Lyme Confirm Negative (Negative)
[2025-05-31 16:56] LABS: B. miyamotoi PCR Negative (Negative); Babesia divergens/MO-1 Negative (Negative); Ehrlichia muris eauclairensis Negative (Negative)
== END 2025-05-27 18:32 | disposition home or self-care (01) ==
PROVIDERS: Emergency Provider Physician Assistant; PCP Nurse Practitioner Family
DX: R00.2 Palpitations (principal); R11.0 Nausea; I10 Essential (primary) hypertension
CPT/HCPCS: 99284; 99285; 96374; 36415; 70496; 70498; 80053; 83690; 87798; 93005; 71046; 81003; 81015; 83735; 84443; 84484; 85025; 85379; 86618; 93010; J2405; J3490

== ENCOUNTER → 2025-06-10 01:24 | Outpatient (CLI) | payer MEDICARE, SELFPAY ==
--- NOTE | 2025-06-10 08:32 | DI.US_ITS ---
APPROVED REPORT EXAM: Comprehensive 2D, Doppler, and color-flow Echocardiogram Patient Location: [facility] [employer] [place] Head: Bobbi Lucas RDCS (AE) Indications: Near syncope, Palpitations Other Information Study Quality: Adequate Conclusion Normal left ventricular wall thickness and chamber size. Ejection fraction is 60%. Wall motion is normal Normal right ventricular size and function Both atria are normal in size There is no structural or hemodynamically significant valvular disease Estimated right ventricular systolic pressure is 28 mmHg Wall motion Left Ventricle The left ventricle is normal size. The left ventricular systolic function is normal. The left ventricular ejection fraction is within the normal range. There is normal left ventricular wall thickness. There is normal LV segmental wall motion. There is no ventricular septal defect visualized. LVEF is 60%. Right Ventricle The right ventricle is normal size. The right ventricular systolic function is normal. Atria The left atrium size is normal. The right atrium size is normal. The interatrial septum is intact with no evidence for an atrial septal defect. Aortic Valve The aortic valve is normal in structure. Aortic valve is trileaflet. There is no aortic valvular stenosis. No aortic regurgitation is present. Mitral Valve The mitral valve is normal in structure. No evidence of mitral valve stenosis. Trace mitral regurgitation. Tricuspid Valve The tricuspid valve is normal in structure. There is no tricuspid valve stenosis. Trace tricuspid regurgitation. The RVSP is 27.8 mmHg. Pulmonic Valve The pulmonary valve is normal in structure. There is no pulmonic valvular stenosis. There is no pulmonic valvular regurgitation. Great Vessels The aortic root is normal in size. The ascending aorta is normal in size. Aortic arch is normal in caliber. IVC is normal in size and collapses >50% with inspiration. Pericardium There is no pericardial effusion. 2D Dimensions IVSD d PLAX 0.71 cm F: 0.6-1.0 Ao Root d 2.41 cm F: 2.7 - 3.3 LVPW d PLAX 0.70 cm F: 0.6 - 1.0 Ao Asc Diam d 3.00 cm F: 2.3 - 3.1 LVID d PLAX 4.01 cm F: 3.8 - 5.2 LVDs 2.80 cm F: 2.2 - 3.5 LV EF Teichholz 59.7 % FS 31.33 % LV EDV (Teich) 70.2 mL LV ESV (Teich) 28.3 mL M-Mode TAPSE 2.56 cm (M/F) >1.7 Auto EF LV EDV A4C 80.2 mL LV EDV A2C 88.2 mL LV EDV BP 84.1 mL LV ESV A4C 32.3 mL LV ESV A2C 34.8 mL LV ESV BP 34.2 mL LVEF(%) A4C 59.7 % LVEF(%) A2C 60.5 % LVEF(%) BP 59.3 % LV SV A4C 47.9 ml LV SV A2C 53.3 ml LV SV BP 49.9 ml LV CO A4C 2.4 L/min LV CO A2C 3.0 L/min LV CO BP 2.7 L/min HR A4C 50.99 BPM HR A2C 57.04 BPM LV EDV Index (BP) LA Volume LA Length A4C 5.5 cm LA Length A2C 5.4 cm LA Area A4C s 14.07 cm2 LA Area A2C s 16.58 cm2 LA Vol A4C A-L 30.34 mL LA Vol A2C A-L 43.47 mL LA Vol Biplane A-L 36.9 mL LA Vol/BSA A4C A-L LA Vol/BSA A2C A-L LA Vol/BSA BP A-L 20.4 mL/m2 LA Vol A4C MOD 28.3 mL LA Vol A2C MOD 40.0 mL LA Vol BP MOD 34.1 mL RA Volume RA Area A4C 11.0 cm2 RA ESV A4C (A-L) 26.6mL RA Vol/BSA A4C A-L RA Length A4C 3.9 cm RA ESV A4C (MOD) 24.5mL LV Diastology MV E' medial 0.113 (>0.07 m/s) MV E Vmax 0.82 (0.4-1.3 m/s) MV E/E' MED 7.21 (<14) MV A Vmax 1.00 (0.4-1.3 m/s) MV E' lateral 0.113 (>0.1 m/s) E/A Ratio 0.8 MV E/E' LAT 7.21 (<14) MV E' Average 0.113 m/s MV E/E'(average) 7.21 Aortic Valve AoV Vmax 1.31 m/s LVOT Vmax 1.10 m/s AoV Peak Grad 6.9 mmHg LVOT Peak Grad 4.8 mmHg AoV Area (Vmax) 2.41 cm2 LVOT VTI 0.267 m AoV VTI 0.345 m LVOT Mean Grad 2.7 mmHg AoV Mean Brett. 0.92 m/s LVOT SV 76.78 mL AoV Mean Grad 3.9 mmHg LVOT Diam s 1.90 cm AoV Area (VTI) 2.23 cm2 AV Regurg Peak Gr. 6.86 mmHg Velocity Ratio 0.84 Mitral Valve MV DT 191 (160-240 msec) MV Vmax TIPS 0.96 m/s MV Mean Grad 1.2 (<2mmHg) MV VTI 0.362 m Pulmonary Valve PV Vmax 1.00 (0.5-1.5 m/s) RVOT Vmax 0.79 m/s PV Peak Grad 4.0 mmHg RVOT Peak Gr. 2.5 mmHg PV Mean Brett 0.70 m/s RVOT VTI 0.206 m PV Mean Grad 2.2 mmHg RVOT Mean Gr. 1.4 mmHg Tricuspid Valve RA Pressure 3.00 mmHg TR Vmax 2.49 m/s TV S' 0.14 m/s TR Peak Grad 24.8 mmHg RVSP (TR) 27.8 mmHg
== END ==
LOC: DI 01:24
PROVIDERS: PCP Nurse Practitioner Family; Visit Provider Physician Assistant Medical
DX: R55 Syncope and collapse (principal)
CPT/HCPCS: 93306

== ENCOUNTER → 2025-06-24 00:19 | Outpatient (CLI) | payer MEDICARE, SELFPAY ==
--- NOTE | 2025-06-24 06:45 | DI.US_ITS ---
Exam(s) US RENAL EXAM: US RENAL CLINICAL HISTORY: worsening pain,? hydronephrosis,KIDNEY CALCULI,N20.0 TECHNIQUE: Ultrasound of both kidneys performed using standard protocol. COMPARISON: US US ECHOCARDIOGRAM from 06/10/2025 FINDINGS: RIGHT KIDNEY: Measures 10.7 cm in length. Again noted is increased echogenicity of medulla in both kidneys, probably an element of medullary sponge disease, particularly given the history of stones. There are 3 echogenic foci in the right kidney consistent with 7 and 9 millimeter calculi in the upper half of the kidney and a 7 millimeter calculus in the lower pole region. No solid mass nor cysts evident in the right kidney and no obvious hydronephrosis. LEFT KIDNEY: Measures 11.5 cm in length. Also increased echogenicity of the medulla consistent with probable medullary sponge disease. There are 2 echogenic foci consistent with calculi 9 in 10 mm. No hydronephrosis evident. URINARY BLADDER: Prevoid volume is 290 cc Postvoid volume is 22 cc There are no echogenic calculi seen in the bladder lumen. No evidence of bladder mass nor diverticuli. Ureterovesical jets: Both identified and appear symmetrical IMPRESSION: 1. Appearance of both kidneys is most probably consistent with medullary sponge disease. There also bilateral intrarenal calculi. 2. There is no obvious hydronephrosis. Both ureterovesical jets were identified and there also no calculi presently evident in the urinary bladder. DATA REPOSITORY:
== END ==
LOC: DI 00:19
PROVIDERS: PCP Nurse Practitioner Family; Visit Provider Urology
DX: N20.0 Calculus of kidney (principal); R93.421 Abnormal radiologic findings on diagnostic imaging of right kidney; R93.422 Abnormal radiologic findings on diagnostic imaging of left kidney
CPT/HCPCS: 76770

== ENCOUNTER 2025-06-25 09:58 | Outpatient (RCR) | payer MEDICARE, SELFPAY ==
--- NOTE | 2025-07-02 12:44 | W.HOLTRPT ---
Date of service: 07/02/25 Time of Service: 12:44 Holter Monitor Report Referring Provider:: Stefany Jiménez Indications:: Syncope Holter Monitor Note: This is a 48-hour Holter monitor. Predominant rhythm was sinus with an average heart rate of 68. Minimum was 45, maximum 160 There were very very rare isolated ventricular ectopic beats. There were occasional atrial premature beats. There were multiple runs of atrial or supraventricular tachycardia. Most were less than 10 beats in duration, others 20-30 beats. None were clearly symptomatic There was no atrial fibrillation, no high-grade AV block, no pauses greater than 3 seconds. Symptoms of palpitations did not correspond to any dysrhythmia
== END 2025-07-15 23:59 | disposition home or self-care (01) ==
LOC: CARDOPNVT 09:58
PROVIDERS: PCP Nurse Practitioner Family; Visit Provider Internal Medicine Cardiovascular Disease
DX: R55 Syncope and collapse (principal); I47.10 Supraventricular tachycardia, unspecified; I48.91 Unspecified atrial fibrillation
CPT/HCPCS: 93225

== ENCOUNTER → 2025-06-30 08:13 | Outpatient (BNVA) | payer MEDICARE, SELFPAY | PROVIDERS: PCP Nurse Practitioner Family; Referring Provider Nurse Practitioner Family; Visit Provider Nurse Practitioner Gerontology | DX: N20.0 Calculus of kidney (principal); R31.9 Hematuria, unspecified; R30.0 Dysuria; R10.A1 Flank pain, right side | CPT/HCPCS: 99214; 81002 ==

== ENCOUNTER 2025-06-30 08:49 | Outpatient (REF) | payer MEDICARE, SELFPAY | END 2025-06-30 08:50 | disposition home or self-care (01) | LOC: LBN 08:49 | PROVIDERS: PCP Nurse Practitioner Family; Visit Provider Nurse Practitioner Family | DX: N20.0 Calculus of kidney (principal) | CPT/HCPCS: 87086 ==

== ENCOUNTER → 2025-07-07 00:38 | Outpatient (CLI) | payer MEDICARE, SELFPAY ==
--- NOTE | 2025-07-07 06:33 | DI.CT_ITS ---
Exam(s) CT ABDOMEN PELVIS WO/W EXAM: CT ABDOMEN PELVIS WO/W CLINICAL HISTORY: flank pain w/ hematuria, hx of stones,r31.9. TECHNIQUE: Imaging Protocol: Axial computed tomography images with coronal and sagittal reformatted images were created and reviewed CONTRAST MATERIAL: Intravenous: Omnipaque-350 75cc Oral: None COMPARISON: CT CT ABDOMEN PELVIS WO from 12/19/2019 FINDINGS: VISUALIZED LUNG BASES: No nodules nor pleural effusions evident. ABDOMEN: There is no ascites. LIVER: There are no focal hepatic lesions evident. Liver density is presently normal with significant improvement in the severe steatosis which was evident on CT scan December 2019. There are no dilated intrahepatic ducts. GALLBLADDER/BILIARY: No obvious gallbladder pathology. CBD is not dilated. PANCREAS: No evidence of pancreatic mass nor dilatation of the pancreatic duct. SPLEEN: Spleen is not enlarged. No obvious intrasplenic lesions. Splenic and portal veins are patent. ADRENALS: There are no significant adrenal masses. KIDNEYS:Bilateral nephrolithiasis again noted. However, on the present study there is an obstructing calculus in the mid right ureter measuring approximately 5 mm and with significant dilatation of the right ureter above this level. There are no additional calculi lower down in the right ureter nor within the lumen of the collapsed urinary bladder. Left ureters not dilated. ABDOMINAL AORTA: Abdominal aorta is not enlarged. LYMPH NODES:There is no retroperitoneal nor paraaortic adenopathy. ABDOMINAL WALL: No evidence of significant anterior abdominal wall nor inguinal hernia. GI: There is no evidence of bowel obstruction, free air, nor abscess. PELVIS: GI: No evidence of appendicitis.No evidence of sigmoid diverticulitis. LYMPH NODES: There is no intrapelvic nor inguinal adenopathy. REPRODUCTIVE: Uterus size is age-appropriate. There are no abnormal adnexal masses nor free fluid in the pelvis. URINARY BLADDER: No calculi nor obvious masses evident OSSEOUS: No fractures and no significant osseous lesions. IMPRESSION: 1. Extensive bilateral nephrolithiasis again noted and there is now a 5 millimeter obstructing calculus in the mid-lower right ureter with dilatation of the right ureter and hydronephrosis above this level. There are no radiopaque calculi in the opposite-left ureter nor within the nondistended urinary bladder. RADIATION DOSE DELIVERED: 1,282.22mGy.cm Total DLP DATA REPOSITORY: All CT scans at this facility are submitted to the National Radiology Data Registry (NRDR) Dose Index Registry (DIR) with the [employer] ([employer]). RADIATION OPTIMIZATION: All CT scans at this facility use at least one of these dose optimization techniques: automated exposure control; mA and/or kV adjustment per patient size (includes targeted exams where dose is matched to clinical indication); or iterative reconstruction.
[2025-07-07] MEDS: Normal Saline - Diluent 50 ML VIAL IJ (10:09)
[2025-07-07] MEDS: Omnipaque 350 MG/ML 100 ML BTL IJ (10:09)
== END ==
LOC: DI 00:38
PROVIDERS: PCP Nurse Practitioner Family; Visit Provider Nurse Practitioner Gerontology
DX: R31.9 Hematuria, unspecified (principal); N20.0 Calculus of kidney
CPT/HCPCS: 74178; 82565; J3490

== ENCOUNTER 2025-07-14 09:48 | Outpatient (CLI) | payer MEDICARE, SELFPAY ==
--- NOTE | 2025-07-14 09:45 | RT.EKG_ITS ---
APPROVED REPORT Exam: Resting ECG Reason for Exam: near syncope Patient Location: O HR:65 bpm ECG Measurements Heart Rate 65 AXIS DE 140 P 29 QRSd 95 QRS -2 QT 412 T 42 QTc 429 Conclusion Sinus rhythm...normal P axis, V-rate 50- 99 Low voltage, precordial leads...precordial leads <1.0mV Poor R wave progression
== END 2025-07-14 09:49 | disposition home or self-care (01) ==
LOC: DI.CARD 09:49
PROVIDERS: PCP Nurse Practitioner Family; Visit Provider Internal Medicine Cardiovascular Disease
DX: R07.9 Chest pain, unspecified (principal); I10 Essential (primary) hypertension; R55 Syncope and collapse
CPT/HCPCS: 93010

== ENCOUNTER → 2025-07-14 12:55 | Outpatient (BNVA) | payer MEDICARE, SELFPAY | PROVIDERS: PCP Nurse Practitioner Family; Referring Provider Nurse Practitioner Family; Visit Provider Internal Medicine Cardiovascular Disease | DX: Z01.810 Encounter for preprocedural cardiovascular examination (principal); I10 Essential (primary) hypertension; R07.9 Chest pain, unspecified; R55 Syncope and collapse | CPT/HCPCS: 99214; 93005 ==